=== PATIENT | female | born 1950 | race Caucasian/White ===

== ENCOUNTER → 2016-05-17 | Outpatient (CLI) | payer BC ==
[~2016-05-17] MED LIST: ALPR-557 PO; CETI10TA20 PO; CHLOR-TAB PO; CITA20TA4 PO; DOCU-143 PO; GLUC-113 PO; HYDR-3812 PO; INDA2.5T2 PO; LACT1CAP62 PO; LOSA100T7 PO; MUCINEX NASAL SPRAY; MULT-974 PO; PNT40TEC PO; [UNRECOGNIZED DRUG - CODE] MC
--- NOTE | 2016-05-17 09:19 | Diagnostic Imaging Report ---
PROCEDURE: US abdomen complete. TECHNIQUE: Multiple real-time grayscale images were obtained over the abdomen in various projections. INDICATION: Abdominal pain. FINDINGS: The pancreas appears unremarkable. The abdominal aorta is normal in caliber less than 2.5 cm. The IVC visualized portions appear unremarkable. The liver demonstrates no focal lesion. Hepatopetal flow in the portal vein is seen. The gallbladder demonstrates no stones or wall thickening. No pericholecystic fluid. The spleen is 11.3 cm in length. The right kidney is 10.3 cm, and the left kidney is 13.3 cm in length. No hydronephrosis or focal lesion identified. No ascites or fluid collection is seen. Sonographic Woodson sign reportedly negative. IMPRESSION: Unremarkable exam. Dictated by: Dictated on workstation # [id number]
== END ==
LOC: RAD 06:41
PROVIDERS: ATTEND Internal Medicine
DX: R10.84 Generalized abdominal pain (principal)
CPT/HCPCS: 76700

== ENCOUNTER → 2016-05-28 | Outpatient (CLI) | payer BC ==
[~2016-05-28] MED LIST changes: +CATHETER FLUSH 10 ML SYR IV PRN
--- NOTE | 2016-05-28 14:23 | Diagnostic Imaging Report ---
INDICATION: Abdominal pain. FINDINGS: The patient was administered 5.46 mCi of Tc 99m Choletec and sequential imaging was performed over the right upper abdomen. There is progressive, homogeneous accumulation of radiotracer within the liver parenchyma. There is filling of the bile ducts and subsequent filling of the gallbladder. There is progressive clearance of activity from the liver parenchyma and accumulation of radiotracer within loops of small bowel. The patient was then administered a fatty meal, utilizing 8 ounces of Ensure. The gallbladder ejection fraction was calculated to be approximately 61%. (Normal values with Ensure are 33% or greater.) IMPRESSION: 1. Hepatobiliary scan demonstrates a patent biliary tree. 2. Normal gallbladder ejection fraction of approximately 61%. Dictated by: Dictated on workstation # [id number]
== END ==
LOC: CARD 11:49
PROVIDERS: ATTEND Surgery
DX: R10.11 Right upper quadrant pain (principal)
CPT/HCPCS: 78227

== ENCOUNTER → 2016-12-15 | Outpatient (CLI) | payer BC ==
[~2016-12-15] MED LIST changes: -CATHETER FLUSH 10 ML SYR IV PRN
--- NOTE | 2016-12-16 08:53 | Diagnostic Imaging Report ---
EXAMINATION: Bilateral screening mammogram 2D views with tomosynthesis. The current study was also evaluated with a Computer Aided Detection (CAD) system. INDICATION: Screening. The patient states that she has intermittent right nipple pain. COMPARISON: 03/06/2015. FINDINGS: The breasts are composed of scattered fibroglandular densities. There is architectural distortion in the lateral aspect of the left breast which appears to have been present on multiple prior exams including 2010, suggestive of scarring. No adverse development or new architectural distortion is seen. No mass. Benign-appearing calcifications are noted. Allowing for technique and positional differences, no suspicious change is seen. IMPRESSION: No significant change. The patient states she has right nipple pain. Evaluation with ultrasound is suggested. ACR BI-RADS Category 0: Incomplete. (Needs additional imaging evaluation). Result letter will be mailed to the patient. Note: At least 10% of breast cancer is not imaged by mammography. Dictated by: Dictated on workstation # [id number]
== END ==
LOC: RAD 09:29
PROVIDERS: ATTEND Internal Medicine
DX: Z12.31 Encounter for screening mammogram for malignant neoplasm of breast (principal)
CPT/HCPCS: 77067

== ENCOUNTER 2016-12-16 11:14 | Outpatient (RCR) | payer BC | END 2016-12-18 | disposition home or self-care (01) | PROVIDERS: ATTEND Orthopaedic Surgery | DX: S43.422D Sprain of left rotator cuff capsule, subsequent encounter (principal); X58.XXXD Exposure to other specified factors, subsequent encounter; Y99.8 Other external cause status ==

== ENCOUNTER → 2016-12-28 | Outpatient (CLI) | payer BC ==
--- NOTE | 2016-12-28 11:41 | Diagnostic Imaging Report ---
3 views of the left hand and 3 views of the right hand. INDICATION: Rheumatoid myopathy. Rheumatoid arthritis. FINDINGS: 3 views of the left hand demonstrate osteoarthritis changes of the carpometacarpal joint at the base of the thumb. There is also degenerative change seen of the DIP joint particularly prominent in the left index and to a lesser extent in the left middle finger. No significant arthritic changes are seen otherwise in the hand. Right hand: There are deformities related to subluxation of the PIP and DIP joints noted in the second, third, and fourth digits. There is hypertrophic arthropathy seen with osteophyte formation at the PIP joints of the third and fourth digits and DIP joints of the second and third digits. No significant erosive findings. Subchondral cyst is seen of the distal aspect of the middle phalanx of the second digit. Mild degenerative changes at the carpometacarpal joint at the base of the thumb. There is widening of the interval between the scaphoid and the lunate likely related to scapholunate ligament injury, probably old. This can be better evaluated with dedicated wrist radiographs if needed. IMPRESSION: No erosive changes in a typical pattern and distribution to suggest rheumatoid arthritis. There are some degenerative changes with superimposed deformities along the PIP and DIP joints of the right hand. Findings could relate to degenerative changes with possible superimposed component of possibly arthritis explaining the asymmetric joint involvement with deformities in the DIP and PIP joints of the right hand. Dictated by: Dictated on workstation # [id number]
--- NOTE | 2016-12-28 20:24 | Diagnostic Imaging Report ---
Right breast ultrasound. INDICATION: Right nipple pain. FINDINGS: The four quadrants and retroareolar regions of the right breast were scanned with no underlying abnormality seen. The retroareolar region is also scanned with no underlying lesion seen. IMPRESSION: Negative study. Clinical followup of patient's complaints recommended. ACR BI-RADS Category 1: Negative. Dictated by: Dictated on workstation # [id number]
== END ==
LOC: RAD 08:54
PROVIDERS: ATTEND Internal Medicine
DX: N64.4 Mastodynia (principal); M19.041 Primary osteoarthritis, right hand; M19.042 Primary osteoarthritis, left hand
CPT/HCPCS: 76641

== ENCOUNTER 2017-01-27 11:21 | Outpatient (RCR) | payer BC ==
[~2017-01-27 11:21] MED LIST changes: +ACHD5005 PO; -HYDR-3812 PO
== END 2017-03-17 14:01 | disposition home or self-care (01) ==
PROVIDERS: ATTEND Orthopaedic Surgery
DX: Z47.89 Encounter for other orthopedic aftercare (principal); S43.422D Sprain of left rotator cuff capsule, subsequent encounter

== ENCOUNTER 2017-08-08 11:20 | Outpatient (RCR) | payer BC | END 2017-08-09 | disposition home or self-care (01) | PROVIDERS: ATTEND Orthopaedic Surgery | DX: M75.112 Incomplete rotator cuff tear or rupture of left shoulder, not specified as traumatic (principal) ==

== ENCOUNTER 2017-08-16 11:30 | Outpatient (RCR) | payer BC | END 2017-09-20 10:31 | disposition home or self-care (01) | PROVIDERS: ATTEND Orthopaedic Surgery | DX: M75.112 Incomplete rotator cuff tear or rupture of left shoulder, not specified as traumatic (principal) ==

== ENCOUNTER → 2017-12-19 | Outpatient (CLI) | payer BC ==
--- NOTE | 2017-12-19 11:45 | Diagnostic Imaging Report ---
TECHNIQUE: 2D and 3D bilateral screening mammography was performed with CAD. 3D tomosynthesis was also performed and reviewed. INDICATION: Routine screening. COMPARISON: 12/15/2016 and 03/06/2015. FINDINGS: Scattered fibroglandular densities are identified bilaterally. The parenchymal pattern is stable. No mass or malignant appearing microcalcifications are seen. There are benign calcifications bilaterally. The axillae are unremarkable. IMPRESSION: No mammographic features suspicious for malignancy are identified. ACR BI-RADS Category 2: Benign findings. Result letter will be mailed to the patient. Note: At least 10% of breast cancer is not imaged by mammography. Dictated by: Dictated on workstation # [id number]
== END ==
LOC: RAD 09:52
PROVIDERS: ATTEND Internal Medicine
DX: Z12.31 Encounter for screening mammogram for malignant neoplasm of breast (principal)
CPT/HCPCS: 77067

== ENCOUNTER 2018-01-11 14:30 | Outpatient (CLI) | payer BC | END 2018-01-11 16:00 | disposition home or self-care (01) | LOC: SLEEP 14:30 | PROVIDERS: ATTEND Otolaryngology Otolaryngology/Facial Plastic Surgery | DX: G47.33 Obstructive sleep apnea (adult) (pediatric) (principal) ==

== ENCOUNTER → 2018-12-27 | Outpatient (CLI) | payer MEDICARE ==
--- NOTE | 2018-12-27 16:53 | Diagnostic Imaging Report ---
Bilateral feet. INDICATION: Osteoarthritis TECHNIQUE: Three views of each foot were obtained. COMPARISON: There are no prior studies available for comparison. FINDINGS: There are grossly irregular transverse incompletely healed fractures involving the bases of the 3rd, 4th and 5th metatarsals on the right. There are also incompletely healed fractures of the bases of the 3rd and 4th metatarsals on the left. These fractures do not have the grossly irregular appearance of the injuries involving the right 3rd, 4th and 5th metatarsals. All of these fractures are felt to be subacute or chronic in nature. There is no acute bony abnormality identified. There is deformity of the 5th metacarpal on the left. This may be a sequela of prior trauma. There is only mild degenerative disease involving the phalanges of each foot and each mid foot. There is a calcaneal spur on the left. The soft tissues are unremarkable. IMPRESSION: 1. There is no evidence for an acute bony abnormality. However there are subacute/chronic fractures of the bases of the 3rd, 4th and 5th metatarsals on the right and of the 3rd and 4th metatarsals on the left. The deformity of the left 5th metatarsal is also most likely a sequela of prior trauma. 2. There is only mild degenerative disease involving each foot. There is also a calcaneal spur on the left. Dictated by: Dictated on workstation # [id number]
--- NOTE | 2018-12-27 17:03 | Diagnostic Imaging Report ---
EXAMINATION: Right hand, 3 views. Left hand, 3 views. COMPARISON: December 28, 2016. HISTORY: 68-year-old female, bilateral hand pain. FINDINGS: Left hand: There is mild to moderate joint space loss of the second distal interphalangeal joint with very mild osteophyte formation. There is severe joint space loss of the first carpometacarpal joint with osteophyte formation. There appears to be an area of cystic change in the distal ulna near the level of the ulnar styloid. These findings are essentially unchanged since December 28, 2016. There is very mild osteoarthritis of the third and fourth metacarpophalangeal joints. There is no identified bone erosion. There is no identified subluxation or dislocation. Right hand: There is a prominent subcortical cyst in the region of the radial styloid with adjacent area of ossification which is new since December 28, 2016. There are at least moderate distal radial ulnar arthritic changes. There is abnormal widening of the scapholunate interval. The capitate is proximally migrated. The scaphoid projects abnormal in alignment relative to the distal radius and ulna. There is radial angulation at the second distal interphalangeal joint and less notably at the third distal interphalangeal joint. There is ulnar angulation at the third and fourth proximal interphalangeal joints. There is moderate to severe joint space loss at these articulations with osteophyte formation. These joints are essentially unchanged from comparison study. IMPRESSION: 1. Marked radiocarpal joint space loss with loss of normal alignment of the proximal carpal row relative to the distal radius and ulna on the right. There is abnormal widening of the scapholunate interval with proximal migration of the capitate. New very prominent subcortical cyst in the region of the radial styloid. These findings potentially could relate to sequela of rheumatoid arthritis, calcium pyrophosphate dihydrate deposition disease, and/or posttraumatic etiology. 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 2. Multifocal arthritis and additional abnormal bone alignment is described above. Findings of arthritis at the left first carpometacarpal joint are consistent with severe osteoarthritis. An inflammatory or crystalline arthropathy is difficult to exclude at the additional articulations, especially given abnormal alignment. Dictated by: Dictated on workstation # [id number]
== END ==
LOC: RAD 14:28
PROVIDERS: ATTEND Internal Medicine Rheumatology
DX: M19.041 Primary osteoarthritis, right hand (principal); M19.042 Primary osteoarthritis, left hand; M19.071 Primary osteoarthritis, right ankle and foot; M19.072 Primary osteoarthritis, left ankle and foot; M85.631 Other cyst of bone, right forearm; M77.32 Calcaneal spur, left foot

== ENCOUNTER 2019-01-02 07:14 | Emergency (ER) | payer MEDICARE ==
[~2019-01-02] VITALS: Ht 165 cm; Wt 82.0 kg
--- NOTE | 2019-01-02 08:12 | Diagnostic Imaging Report ---
INDICATION: Feeling of lump on shoulder and left shoulder pain. AP, oblique, and transscapular views of the left shoulder are obtained. There are postsurgical changes with anchors overlying the humeral head. There is minimal distance to the acromion and humeral head, raising the possibility of rotator cuff disease. There is degenerative change of the glenohumeral joint. There is degenerative change of the AC joint with a chronic-appearing calcification superior to the AC joint. There is no dislocation. IMPRESSION: Extensive degenerative and postsurgical changes of left shoulder. No acute fracture or dislocation. Dictated by: Dictated on workstation # [id number]
--- NOTE | 2019-01-02 08:34 | ED General ---
General Chief Complaint: Upper Extremity Stated Complaint: L SHOULDER DISLOCATION Nursing Triage Note: PT STATES FEELS KNOT ON L SHOULDER AND WONDERS IF IS DISLOCATED, PT STATES HAS HAD COUPLE OF SURGERIES ON L SHOULDER DENIES PAIN BUT HAD NUMBNESS THIS AM IN SHOULDER AND DOWN TO CROTCH. BUT IS GONE NOW. PT HAS NORMAL RANGE OF MOTION FOR HER Nursing Sepsis Screen: No Definite Risk Source of Information: Patient Exam Limitations: No Limitations Allergies and Home Medications Allergies Coded Allergies: Sulfa (Sulfonamide Antibiotics) (Unverified Allergy, Unknown, 03/19/14) meperidine (Unverified Allergy, Unknown, 03/19/14) latex (Verified Adverse Reaction, Mild, 10/31/14) morphine (Verified Adverse Reaction, Mild, 10/31/14) Home Medications Alprazolam 0.5 Mg Tab, 0.5 MG PO HS PRN for ANXIETY, (Reported) Citalopram Hydrobromide 20 Mg Tablet, 20 MG PO BID, (Reported) Docusate Sodium 100 Mg Capsule, 100 MG PO BID Prescribed by: LENIN CREWS on 11/07/14 1003 Gluc 2KCL/Chondr/Albert Hy/Hy Ac 1 Each Capsule, 1 EACH PO DAILY, (Reported) Hydrocodone Bit/Acetaminophen 1 Each Tablet, 1 TAB PO Q4H PRN Prescribed by: LENIN CREWS on 11/07/14 1003 Indapamide 2.5 Mg Tablet, 2.5 MG PO DAILY, (Reported) Lactobacillus Acidophilus 1 Each Capsule, 1 EACH PO DAILY, (Reported) Multivitamin 1 Each Tablet, 1 EACH PO DAILY, (Reported) Potassium Sulfate 1 Gm Crystals, 1 GM MC DAILY, (Reported) [Chlor-Tab] , 1 TAB PO DAILY, (Reported) Past Zhjccoz-Ryhmeg-Ewujcy Hx Patient Social History Alcohol Use: Rarely Uses Recreational Drug Use: No Smoking Status: Never a Smoker Recent Foreign Travel: No Contact w/Someone Who Travel: No Recent Infectious Disease Expo: No Recent Hopitalizations: No Physical Abuse: No Sexual Abuse: No Immunizations Up To Date Date of Influenza Vaccine: Jan 21, 2014 Past Medical History Surgeries: Yes (, CARPAL BILAT X2 RIGHT, ESWL, TENDON REPAIR LEFT HAND) Respiratory: Yes (RESPIRATORY ALLERGIES) Sleep Apnea Cardiac: No Neurological: No Reproductive Disorders: No Female Reproductive Disorders: Denies 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 Sexually Transmitted Disease: No HIV/AIDS: No Kidney Stones Gastrointestinal: Yes (OCCASIONALLY TAKES OTC FOR REFLUX, HX OF ADHESIONS) Gastroesophageal Reflux, Chronic Constipation, Diverticulosis, Irritable Bowel Musculoskeletal: Yes (ARTHRITIS) Arthritis, Fibromyalgia Endocrine: Yes (PRE-DIABETIC) Cataract Loss of Vision: Bilateral Hearing Impairment: Denies 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 oz. 98.012621il; 30.00 BMI Method: Progress/Results/Core Measures Suspected Sepsis Recent Fever Within 48 Hours: No Infection Criteria Present: None New/Unexplained Altered Menta: No Sepsis Screen: No Definite Risk SIRS Temperature: Pulse: 71 Respiratory Rate: 18 Blood Pressure 142 /69 Mean: 93 Results/Orders My Orders Orders - WILIAN WEST MD Shoulder, Left, 3 Views (01/02/19 07:41) Vital Signs/I&O 01/02/19 07:22 Temp 36.8 Pulse 71 Resp 18 B/P (MAP) 142/69 (93) Pulse Ox 99 Capillary Refill : Less Than 3 Seconds Blood Pressure Mean: 93 Progress Note : Time: 08:43 Progress Note The area in question near her left AC joint is unlikely corresponding with some arthritic calcifications on the x-ray. By palpation, it may have a cystic c omponent as well. I asked her to follow up with Dr. Noe regarding this area. There may be no treatment necessary since it is not particularly painful or limiting her activities. I also asked her to follow-up with Dr. Chris or Dr. Noe regarding her radicular symptoms. She may need MRI of the cervical spine and possibly the lumbar spine. I'm concerned her may be some degree of stenosis causing the radicular symptoms in the left shoulder and in the legs. We reviewed return precautions. See discharge instructions. Diagnostic Imaging Diagonstic Imaging: Xray Plain Films/CT/US/NM/MRI: other (left shoulder) Comments Left shoulder x-ray viewed by me and report reviewed. See report below: NAME: KEYLA HERNÁNDEZ [facility] REC#: [id number] PT STATUS: REG ER : 1950 PHYSICIAN: WILIAN WEST MD ADMIT DATE: 01/02/19/ER Draft Date of Exam:01/02/19 SHOULDER, LEFT, 3 VIEWS INDICATION: Feeling of lump on shoulder and left shoulder pain. AP, oblique, and transscapular views of the left shoulder are obtained. There are postsurgical changes with anchors overlying the humeral head. There is minimal distance to the acromion and humeral head, raising the possibility of rotator cuff disease. There is degenerative change of the glenohumeral joint. There is degenerative change of the AC joint with a chronic-appearing calcification superior to the AC joint. There is no dislocation. IMPRESSION: Extensive degenerative and postsurgical changes of left shoulder. No acute fracture or dislocation. Dictated on workstation # [id number] Dict: 01/02/19 08 Trans: 01/02/19 08 CV [id number] Interpreted by: KYLEIGH CARRILLO MD Departure Impression Primary Impression: Shoulder arthritis Additional Impressions: Radiculopathy affecting upper extremity Radiculopathy with lower extremity symptoms Disposition: 01 HOME, SELF-CARE Condition: Stable Departure-Patient Inst. Referrals: REGINALD CHRIS DO (PCP/Family) Primary Care Physician Patient Instructions: Osteoarthritis, Radiculopathy Add. Discharge Instructions: Your symptoms of numbness and tingling could be radicular in nature, possibly due to nerve impingements or narrowing of the spinal column. I suggest you follow-up with Dr. Chris or Dr. Noe as soon as possible and discuss evaluating further with MRI studies. Please also follow up with Dr. Noe regarding the arthritic changes in your shoulder. The bump present on your left shoulder is likely due to arthritic calcifications. Return to care if you have worsening symptoms. Return to care promptly if you have weakness of the legs, numbness of the groin, or difficulty controlling bowels or bladder with either incontinence of stool or urine or inability to urinate or produce a bowel movement. All discharge instructions reviewed with patient and/or family. Voiced und erstanding. Copy Copies To 1: VIOLA NOE MD Copies To 2: REGINALD CHRIS JOSHUA T MD Jan 02, 2019 08:34
[2019-01-02 08:48] VITALS: BP 142/69
== END 2019-01-02 08:48 | disposition home or self-care (01) ==
LOC: EDUNIT# 07:14 → ER 07:16
DX: M19.012 Primary osteoarthritis, left shoulder (principal); M54.10 Radiculopathy, site unspecified; K21.9 Gastro-esophageal reflux disease without esophagitis; K58.9 Irritable bowel syndrome, unspecified; M79.7 Fibromyalgia; F41.9 Anxiety disorder, unspecified; Z85.828 Personal history of other malignant neoplasm of skin; Z98.890 Other specified postprocedural states; Z88.2 Allergy status to sulfonamides; Z88.5 Allergy status to narcotic agent; Z91.040 Latex allergy status; Z90.710 Acquired absence of both cervix and uterus; Z87.442 Personal history of urinary calculi
CPT/HCPCS: 73030

== ENCOUNTER 2019-03-30 09:01 | Emergency (ER) | payer MEDICARE ==
[~2019-03-30] VITALS: Ht 165.1 cm; Wt 80.4 kg
--- NOTE | 2019-03-30 10:24 | ED Upper Extremity ---
General Chief Complaint: Upper Extremity Stated Complaint: L SHOULDER PAIN Nursing Triage Note: Pt c/o L shoulder pain, tingling and burning that has persisted since December of last year. Pt reports receiving injections and therapy. Pt reports taking percocet for pain. Pt also concerned about high blood pressure. Nursing Sepsis Screen: No Definite Risk History of Present Illness Date Seen by Provider: Mar 30, 2019 Time Seen by Provider: 09:55 Initial Comments Patient presents to ER by private conveyance with her and chief complaint of reinjury in the past week or 2 of her left shoulder. She's had 2 previous surgeries in the past several years for repair of rotator cuff muscles. She has it in a sling. She is using 1 12:45 half tablet of Percocet once a day to control pain. She is having regular bowel movements using stool softeners. She has good sensation in her fingertips and range of motion of her bilateral upper extremities. She has an appointment April 22 with a surgeon. Previously she was following with Drs. Noe but she wanted to see a different orthopedic surgeon so she had her primary care office and get her set up with this other shoulder surgeon in [place]. She has a litany of other concerns about her hypertension over the past year. Today it runs 130/80. The highest it has been is 170/100 in the previous week. She denies any chest pain, nausea, shortness of breath, weakness, numbness, falls. She says she was recently helping clean out a house of her mother and thinks she overused her left shoulder. He says she has plenty of pain medicines available and does not want anything more potent. Allergies and Home Medications Allergies Coded Allergies: Sulfa (Sulfonamide Antibiotics) (Unverified Allergy, Unknown, 03/19/14) egg (Unverified Allergy, Unknown, 03/30/19) gluten (Unverified Allergy, Unknown, 03/30/19) GI meperidine (Unverified Allergy, Unknown, 03/19/14) mustard (Unverified Allergy, Unknown, Rash, 03/30/19) rash in aquilino area latex (Verified Adverse Reaction, Mild, 10/31/14) morphine (Verified Adverse Reaction, Mild, 10/31/14) Home Medications Alprazolam 0.5 Mg Tab, 0.5 MG PO HS PRN for ANXIETY, (Reported) Citalopram Hydrobromide 20 Mg Tablet, 20 MG PO BID, (Reported) Docusate Sodium 100 Mg Capsule, 100 MG PO BID Prescribed by: LENIN CREWS on 11/07/14 1003 Gluc 2KCL/Chondr/Albert Hy/Hy Ac 1 Each Capsule, 1 EACH PO DAILY, (Reported) Hydrocodone Bit/Acetaminophen 1 Each Tablet, 1 TAB PO Q4H PRN Prescribed by: LENIN CREWS on 11/07/14 100 Indapamide 2.5 Mg Tablet, 2.5 MG PO DAILY, (Reported) Lactobacillus Acidophilus 1 Each Capsule, 1 EACH PO DAILY, (Reported) Multivitamin 1 Each Tablet, 1 EACH PO DAILY, (Reported) Potassium Sulfate 1 Gm Crystals, 1 GM MC DAILY, (Reported) [Chlor-Tab] , 1 TAB PO DAILY, (Reported) Patient Home Medication List Home Medication List Reviewed: Yes Review of Systems Constitutional: No chills, No diaphoresis EENTM: No ear discharge, No ear pain Respiratory: No cough, No short of breath Cardiovascular: No chest pain, No edema Gastrointestinal: No abdominal pain, No constipation, No diarrhea Past Zwoiclb-Mmljzd-Tmplyu Hx Patient Social History Alcohol Use: Denies Use Recreational Drug Use: No 2nd Hand Smoke Exposure: No Recent Foreign Travel: No Contact w/Someone Who Travel: No Recent Infectious Disease Expo: No Recent Hopitalizations: No Immunizations Up To Date Date of Influenza Vaccine: Jan 21, 2014 Past Medical History Surgeries: Yes (CARPAL BILAT X2 RIGHT, ESWL, TENDON REPAIR LEFT HAND, left shoulder) Abdominal, Orthopedic, Renal Respiratory: Yes (RESPIRATORY ALLERGIES) Sleep Apnea Cardiac: Yes Hypertension Neurological: No Reproductive Disorders: No Female Reproductive Disorders: Denies [employer] History: Hysterectomy Sexually Transmitted Disease: No HIV/AIDS: No Kidney Stones Gastrointestinal: Yes (OCCASIONALLY TAKES OTC FOR REFLUX, HX OF ADHESIONS) Gastroesophageal Reflux, Chronic Constipation, Diverticulosis, Irritable Bowel Musculoskeletal: Yes (ARTHRITIS) Arthritis, Fibromyalgia Endocrine: Yes (PRE-DIABETIC) Cataract Loss of Vision: Bilateral Hearing Impairment: Denies Cancer: Yes (BASAL CELL CANCER EYE LID, RIGHT CHEEK) Skin Psychosocial: Yes Anxiety Integumentary: Yes (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 oz. 98.211077ua; 29.00 BMI Method: General Appearance: WD/WN, no apparent distress HEENT: PERRL/EOMI, TMs normal, pharynx normal Neck: full range of motion, normal inspection Cardiovascular: normal peripheral pulses, regular rate, rhythm Respiratory: lungs clear, normal breath sounds, no respiratory distress, no accessory muscle use Gastrointestinal: normal bowel sounds, non tender, soft Shoulder: normal inspection; No bone tenderness; limited ROM (left shoulder), soft tissue tenderness; No swelling Elbow/Forearm: normal inspection, non-tender, no evidence of injury, normal ROM Neurologic/Psychiatric: alert, normal mood/affect, oriented x 3 Skin: normal color, warm/dry Progress/Results/Core Measures Results/Orders Vital Signs/I&O 03/30/19 03/30/19 09:13 10:41 Temp 37.0 37.0 Pulse 80 80 Resp 18 18 B/P (MAP) 132/86 (101) 132/86 (101) Pulse Ox 98 98 O2 Delivery Room Air Room Air Blood Pressure Mean: 101 Progress Progress Note : Time: 10:21 Progress Note Readdressed many of her chronic complaints and encourage her to keep follow-up with her primary care doctor for her blood pressure management which does not seem to be of concern today. She's having no symptoms. She has no history of coronary disease. She has been changing her blood pressure medicines at will in response to individual blood pressure readings. She is not taking her diuretic. Her shoulder examination is benign nontender on palpation while she is distracted however she does have some range of motion limitation secondary to a likely reinjury of an old chronic rotator cuff injury. She has it appropriately slung and has appropriate pain medicines. We offered her a Toradol shot for refill of pain medicines to get her through until her surgery appointment and she declined. 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 We explained to her that this may be the cause of her blood pressure lability and encourage her to follow up with her primary care doctor. We answered all questions she could come up with. Departure Impression Primary Impression: Chronic left shoulder pain Additional Impression: Labile blood pressure Disposition: 01 HOME, SELF-CARE Condition: Stable Departure-Patient Inst. Decision time for Depature: 10:24 Referrals: REGINALD CHRIS DO (PCP/Family) Primary Care Physician Add. Discharge Instructions: Continue to use the sling for your left arm. Continue to use her CPAP and blood pressure medicines as prescribed. Keep your follow-up appointment in [address] Chris and discuss your blood pressure concerns. Keep your follow-up appointment with the surgeon for your left shoulder pain. If you have difficulty controlling your pain despite topical creams, Tylenol, naproxen, Percocet and follow-up with primary care. All discharge instructions reviewed with patient and/or family. Voiced understanding. NATALIYA VAZQUEZ Mar 30, 2019 10:24
[2019-03-30 10:41] VITALS: BP 132/86
== END 2019-03-30 10:41 | disposition home or self-care (01) ==
LOC: EDUNIT# 09:01 → ER 09:02
DX: G89.29 Other chronic pain (principal); M25.512 Pain in left shoulder; I10 Essential (primary) hypertension; K21.9 Gastro-esophageal reflux disease without esophagitis; K58.9 Irritable bowel syndrome, unspecified; M79.7 Fibromyalgia; F41.9 Anxiety disorder, unspecified; Z85.828 Personal history of other malignant neoplasm of skin; Z88.2 Allergy status to sulfonamides; Z88.5 Allergy status to narcotic agent; Z91.040 Latex allergy status; Z90.710 Acquired absence of both cervix and uterus; Z87.442 Personal history of urinary calculi
CPT/HCPCS: 99281

== ENCOUNTER → 2019-04-12 | Outpatient (CLI) | payer MEDICARE ==
--- NOTE | 2019-04-12 11:50 | Diagnostic Imaging Report ---
EXAMINATION: Abdominal ultrasound. INDICATION: Hydronephrosis. FINDINGS: The previous abdominal ultrasound exam of 05/17/2016 failed to show any sign of an acute abnormality of the abdomen. On this exam, the renal pelvis on the left is perhaps slightly more dilated than on the prior exam. There is no evidence for an obstructive calculus or mass. There is no sign of hydronephrosis of the right kidney. There is no solid mass arising from either kidney and the kidneys are normal in size. The liver is homogeneous and not enlarged. Spectral color-flow imaging of the portal vein shows that the vein is patent. There is no focal mass involving the liver. There is no evidence for cholelithiasis or acute cholecystitis and the common bile duct is not dilated. The spleen, inferior vena cava and aorta are within normal limits. The pancreas was not optimally visualized but there is no definite pancreatic abnormality noted. IMPRESSION: 1. There may be mild dilatation of the left renal pelvis. The reason for this is not certain. If further imaging is desired, then CT of the abdomen and pelvis would be recommended. 2. There is no acute abnormality of the abdomen or pelvis noted otherwise. Dictated by: Dictated on workstation # [id number]
== END ==
LOC: RAD 09:22
PROVIDERS: ATTEND Internal Medicine
DX: N13.30 Unspecified hydronephrosis (principal)
CPT/HCPCS: 76700

== ENCOUNTER → 2019-04-24 | Outpatient (CLI) | payer MEDICARE ==
[~2019-04-24] MED LIST changes: +HOLD METFORMIN - RECEIVED CONTRAST 20 ML VIAL IV SCH; +IOHEXOL 350 MG/ML 100 ML (OMNIPAQUE 350) VIAL IV ONE; +NS 100 ML (IVPB) BAG IV ONE
--- NOTE | 2019-04-24 09:58 | Diagnostic Imaging Report ---
EXAMINATION: CT Abdomen and Pelvis with intravenous contrast. TECHNIQUE: Multiple contiguous axial images were obtained through the abdomen and pelvis after the uneventful administration of intravenous contrast. All CT scans use one or more of the following dose optimizing techniques: automated exposure control, MA and/or KvP adjustment based on a patient size and exam type, or iterative reconstruction. HISTORY: Dilated left renal pelvis. COMPARISON: Ultrasound dated 04/12/[address] dated 10/18/2014. FINDINGS: Limited views of the lower thorax are unremarkable. The liver is normal without focal lesion. There is no biliary ductal dilation. Gallbladder is normal. Pancreas is normal. Spleen is normal. Adrenal glands are normal. There are peripelvic cysts in the left kidney which likely is responsible for the appearance of dilated renal pelvis on prior exam. There is no hydronephrosis. Urinary bladder is normal. 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 There has been a rectal resection. No free fluid or air. No abdominal or pelvic lymphadenopathy. Aorta is normal in caliber without aneurysm. There are no suspicious osseous lesions. Moderate anterolisthesis of L4 on L5 is seen related to severe facet arthropathy. IMPRESSION: 1. 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 2. No dilation of left renal pelvis. The appearance of prior ultrasound is due to peripelvic cysts. Dictated by: Dictated on workstation # [id number]
== END ==
LOC: RAD 08:51
PROVIDERS: ATTEND Internal Medicine
DX: N28.89 Other specified disorders of kidney and ureter (principal)
CPT/HCPCS: 74177

== ENCOUNTER → 2020-09-05 | Outpatient (CLI) | payer MEDICARE ==
[~2020-09-05] MED LIST changes: -HOLD METFORMIN - RECEIVED CONTRAST 20 ML VIAL IV SCH; -IOHEXOL 350 MG/ML 100 ML (OMNIPAQUE 350) VIAL IV ONE; -NS 100 ML (IVPB) BAG IV ONE
--- NOTE | 2020-09-05 16:10 | Diagnostic Imaging Report ---
INDICATION: Right wrist pain, fall. TIME OF EXAM: 3:00 p.m. Correlation is made with radiographs from 12/27/2018. Cystic changes of the distal radius and ulna are noted. There is continued progression of scapholunate advanced collapse with more significant proximal migration of the capitate which now articulates with the distal radius. There is marked widening of the scapholunate space. There are cystic changes involving all carpal bones. Metacarpals are intact. There does appear to be some fragmentation upon the dorsum of the carpus on the lateral view which was not present on prior exam. Small chip fractures cannot be entirely excluded. Triquetral fractures can have a similar appearance radiographically. 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 There are fragments noted on the dorsum of the carpus on the lateral view and small fracture fragments cannot be entirely excluded. No other significant abnormality is seen. Dictated by: Dictated on workstation # [id number]
== END ==
LOC: RAD 14:38
PROVIDERS: ATTEND Internal Medicine
DX: M19.031 Primary osteoarthritis, right wrist (principal)
CPT/HCPCS: 73110

== ENCOUNTER → 2020-11-21 | Outpatient (CLI) | payer MEDICARE ==
[~2020-11-21] MED LIST changes: +ALPR0.254 PO; +ASCO500T17 PO; +CALC600T91 PO; +CETI10TA49 PO; +CHLO-159 PO; +CITA20TA9 PO; +GABA300C PO; +GLUC1CAP37 PO; +KRIL1CAP PO; +LOSA25TA41 PO; +LOSA50TA63 PO; +MELA1TAB27 PO; +MULT-1018 PO; +MULT-1136 PO; +OXYC-556 PO; +POTA99TA21 PO; +PREG150C46 PO; +RIBO400T PO; +VNL75T PO
--- NOTE | 2020-11-25 12:39 | Diagnostic Imaging Report ---
Indication: Routine screening. Comparison is made with prior mammogram 12/19/2017 and 12/15/2016. 2-D and 3-D bilateral screening mammography was performed with CAD. Scattered fibroglandular densities are identified bilaterally. Benign calcifications are again noted bilaterally. No mass or malignant appearing microcalcifications are seen. Axillae are unremarkable. IMPRESSION: BI-RADS Category 2 No mammographic features suspicious for malignancy are identified. ACR BI-RADS Category 2: Benign findings. Result letter will be mailed to the patient. Note: At least 10% of breast cancer is not imaged by mammography. Dictated on workstation # [id number]
== END ==
LOC: RAD 15:08
PROVIDERS: ATTEND Internal Medicine
DX: Z12.31 Encounter for screening mammogram for malignant neoplasm of breast (principal)
CPT/HCPCS: 77063; 77067

== ENCOUNTER 2020-11-27 05:31 | Outpatient (RCR) | payer MEDICARE ==
[~2020-11-27] VITALS: Ht 165.1 cm; Wt 77.3 kg
== END 2020-11-27 09:06 | disposition home or self-care (01) ==
LOC: PREOP 05:31
PROVIDERS: ATTEND Podiatrist Foot & Ankle Surgery
DX: Z01.818 Encounter for other preprocedural examination (principal); S92.901K Unspecified fracture of right foot, subsequent encounter for fracture with nonunion; X58.XXXD Exposure to other specified factors, subsequent encounter; M77.31 Calcaneal spur, right foot; Z88.5 Allergy status to narcotic agent; Z88.2 Allergy status to sulfonamides; Z88.8 Allergy status to other drugs, medicaments and biological substances; Z20.822 Contact with and (suspected) exposure to COVID-19
CPT/HCPCS: 87635

== ENCOUNTER 2020-12-01 06:02 | Day surgery (SDC) | payer MEDICARE ==
[2020-12-01] VITALS (8 sets, daily range): BP systolic 99–145; BP diastolic 48–69
[~2020-12-01] VITALS: Ht 165.1 cm; Wt 77.3 kg
[2020-12-01] MEDS ORDERED: ceFAZolin INJECTION 1,000 MG in WATER (STERILE) FOR INJECTION 10 ML IV ONE (06:15)
[2020-12-01] MEDS ORDERED: LACTATED RINGERS 1,000 ML IV PRN (06:15)
[2020-12-01] MEDS ORDERED: LIDOCAINE 1% INJ 20 ML 20 ML VIAL ONE (07:20)
[2020-12-01] MEDS ORDERED: BUPIVACAINE 0.5% 30 ML (SENSORCAINE) VIAL ONE (07:20)
[2020-12-01] MEDS ORDERED: MIDAZOLAM 2 MG/2 ML (VERSED) VIAL ONE (07:23)
[2020-12-01] MEDS ORDERED: LIDOCAINE PF 2% 5 ML (XYLOCAINE) VIAL ONE (07:23)
[2020-12-01] MEDS ORDERED: PROPOFOL INJECTION 50 ML IV ONE (07:23)
--- NOTE | 2020-12-01 07:41 | Progress Note-Pre Operative ---
Pre-Operative Progress Note H&P Reviewed The H&P was reviewed, patient examined and no changes noted. Date Seen by Provider: Dec 01, 2020 Time Seen by Provider: 07:41 Date H&P Reviewed: Dec 01, 2020 Time H&P Reviewed: 07:41 Pre-Operative Diagnosis: Exostosis, non-union fractures, right foot KALPESH CORRAL DPM Dec 01, 2020 07:41
[2020-12-01] MEDS ORDERED: ONDANSETRON 4 MG/2 ML (SDV) Z0FRAN IVP PRN (09:15)
[2020-12-01] MEDS ORDERED: HYDROcodone/APAP 5 MG/325 MG (LORTAB) TAB PO PRN (09:15)
[2020-12-01] MEDS ORDERED: LACTATED RINGERS 1,000 ML IV SCH (09:15)
--- NOTE | 2020-12-01 09:15 | Progress Note-Post Operative ---
Post-Operative Progess Note Surgeon (s)/Lawn Technician (s) Surgeon KALPESH CORRAL DPM Lawn Technician: none Pre-Operative Diagnosis Exostosis, non-union fractures, right foot Post-Operative Diagnosis Same Procedure & Operative Findings Date of Procedure 12/01/20 Procedure Performed/Findings Exostectomy to the right 4th and 5th metatarsals Anesthesia Type MAC Estimated Blood Loss Estimated blood loss (mL): Minimal Specimens/Packing Specimens Removed Bone from right 4th and 5th metatarsal KALPESH CORRAL DPM Dec 01, 2020 09:15
[2020-12-01] MEDS ORDERED: OXYC-556 PO (09:18)
[2020-12-01] MEDS ORDERED: CEPH500C PO (09:18)
--- NOTE | 2020-12-01 09:38 | Anesthesia-General Post-Op ---
MAC Patient Condition Mental Status/LOC: Same as Preop Cardiovascular: Satisfactory Nausea/Vomiting: Absent Respiratory: Satisfactory Pain: Controlled Complications: Absent Post Op Complications Complications None Follow Up Care/Instructions Patient Instructions None needed. Anesthesiology Discharge Order Discharge Order Patient is doing well, no complaints, stable vital signs, no apparent adverse anesthesia problems. JACI HICKS DO Dec 01, 2020 09:38
--- NOTE | 2020-12-01 10:21 | Physical Therapy Ortho Eval ---
PT Orthopedic Evaluation Type of Surgery Exostosis, non-union fractures, right foot Prior Level of Function Current Living Status: Spouse Locomotion (Upon Admit): Independent 4 wheeled walker Subjective Subjective Patient in bed pre tx, agrees to PT, has no complaints of pain at rest. Patient is PWB on the right foot but is able to touch her heel to the floor for balance. Entry Into Home: Stairs Without Railing Steps Into Home: 2 Motor Control Motor Control: Motor Control WNL ROM ROM: WFL Transfer SCALE: Activities may be completed with or without assistive devices. 9-Ubmnhjecmn-ybwlbos completes the activity by him/herself with no assistance from a helper. 5-Set-up or Clean-up Assistance-helper sets up or cleans up; patient completes activity. Cofield assists only prior to or following the activity. 4-Supervision or Touching Assistance-helper provides verbal cues and/or touching/steadying and/or contact guard assistance as patient completes activity. Assistance may be provided throughout the activity or intermittently. 3-Partial/Moderate Assistance-helper does LESS THAN HALF the effort. Cofield lifts, holds or supports trunk or limbs, but provides less than half the effort. 2-Substantial/Maximal Assistance-helper does MORE THAN HALF the effort. Cofield lifts or holds trunk or limbs and provides more than half the effort. 1-Kjlpgreve-uoazcq does ALL the effort. Patient does none of the effort to complete the activity. Or, the assistance of 2 or more helpers is required for the patient to complete the activity. If activity was not attempted, code reason: 7-Patient Refused. 9-Not Applicable-not attempted and the patient did not perform the activity before the current illness, exacerbation or injury. 10-Not Attempted due to Environmental Limitations-(lack of equipment, weather restraints, etc.). 88-Not Attempted due to Medical Conditions or Safety Concerns. Gait Right Lower Extremity: Right Weight Bearing Status RLE: Partial Weight Bearing Left Lower Extremity: Left Weight Bearing Status LLE: Full Weight Bearing Other Weight Bearing Inst.: Heel contact only, right foot Summary/Comments Patient ambulated 100' with a rolling walker with CGA. She also went up and down 1 step using a rolling walker with CGA and cues for foot placement. Patient is unsteady and not compliant with her weight bearing restrictions. Treatment Rendered Treatment: Therapeutic Exercises, Gait Train, Step Train Exercise Instruction: Ankle Pumps Assessment/Goals Goal Time Frame: 1 Visit Understands HEP: Yes Safe Ambulation: No (needs assist) Plan Treatment Plan: Discharge PT/Family Agrees to Plan: Yes Time Time In: 953 Time Out: 1009 Total Billed Treatment Time: 15 Billed Treatment Time 1 visit ANASTACIO 15' MICHAELA SMILEY PT Dec 01, 2020 10:21
--- NOTE | 2020-12-01 10:32 | Diagnostic Imaging Report ---
EXAMINATION: Right foot radiographs, 2 views. COMPARISON: None. HISTORY: 70-year-old female, right foot pain. FINDINGS: There is a lucency in the medial sesamoid which is potentially fractured. Recommend correlation for focal pain at this exact site. 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 There are limitations of the exam relating to the two-view technique. There are fractures involving at least the proximal diaphysis of the fourth and fifth metatarsals with well visualized fracture lines. The proximal aspects of the second and third metatarsals are not well evaluated. There is a potential fracture of the proximal aspect of the third metatarsal. IMPRESSION: 1. Fractures of the proximal diaphysis of the fourth and fifth metatarsals and questionable fracture of the third metatarsal proximally. 2. Substantial limitations of the exam relating to obliquity of imaging and 2 view technique. 3. Possible nondisplaced fracture of the medial sesamoid. Recommend correlation for focal pain at this site. Dictated by: Dictated on workstation # [id number]
--- NOTE | 2020-12-01 16:49 | OPERATIVE REPORT ---
DATE OF SERVICE: 12/01/2020 SURGEON: Heaven Corral DPM. PREOPERATIVE DIAGNOSES: 1. Exostosis, right fourth and fifth metatarsals. 2. Nonunion fractures, right fourth and fifth metatarsals. POSTOPERATIVE DIAGNOSES: 1. Exostosis, right fourth and fifth metatarsals. 2. Nonunion fractures, right fourth and fifth metatarsals. PROCEDURE PERFORMED: Exostectomy to the right fourth and fifth metatarsals. WOUND CLASS: Clean. ANESTHESIA: Monitored anesthesia care. HEMOSTASIS: Pneumatic ankle tourniquet at 250 mmHg. INDICATIONS FOR PROCEDURE: This 70-year-old female presents complaining of a painful right foot, especially with shoe gear and ambulation. The patient is agreeable to surgical intervention after risks and complications were discussed at length. She understands with just simply taking off the bone spur or exostosis will reduce the bony prominence that is hitting in her shoes; however, it will not resolve the chronic fractures to the bones nor will it stop a bone spur from redeveloping and she is willing to proceed. DESCRIPTION OF PROCEDURE: The patient was brought back to the operating table and placed in a secure supine position. Utilizing aseptic technique, a local anesthetic was then administered utilizing 10 mL of 1:1 mixture of 1% Xylocaine, 0.5% Marcaine injected in a local infusion to the fourth and fifth metatarsals of the right foot. The right ankle had a tourniquet placed over several layers of padding. The right foot was then prepped and draped in a normal sterile manner. The right foot was then elevated and allowed to exsanguinate after which the tourniquet was inflated to 250 mmHg. Attention was then directed to the dorsal aspect of the right fourth and fifth metatarsals, where approximately a 3.5 cm longitudinal linear incision was created overlying the respective fourth and fifth metatarsal diaphysis area. The incisions were deepened in the same plane with great care to identify and retract any vital neurovascular structures. Only necessary blood vessels were cauterized as encountered. The incision was deepened down to bone, where a subperiosteal dissection was carried out overlying the fourth and fifth metatarsals. Utilizing a freer elevator, the fracture was identified to the fourth and fifth metatarsals. The transverse fracture with some fibrous tissue interspersed in between the bone fragments. Utilizing a power sagittal saw, the dorsal lateral eminence to the fourth and fifth metatarsal diaphysis spurring was identified and resected. This was followed by use of a hand rasp and a power rasp to contour the bone. In the process of removing the exostosis or bone spur, some white chalky like material was identified at both the fourth and fifth metatarsal fracture area, which was possibly a tophi. The exostosis from the fourth and fifth metatarsal were sent for gross and microscopic evaluation. However, a small sample of the fifth metatarsal was also sent without formalin to evaluate for crystals. Next, utilizing a 0.062 smooth K-wire, the fracture fragments were fenestrated to possibly allow for better blood flow into the fracture area and possibly help with arthrodesis. This was performed to the fourth and fifth metatarsal fractures. The wounds were flushed with copious amounts of normal saline and closure was then performed in layers. Deep closure was performed with 3-0 Vicryl, superficial with 4-0 Vicryl, and skin closure with 4-0 Prolene in a simple interrupted type stitch. Postoperative dressing consisted of Betadine soaked Adaptic, sterile 4 x 4, sterile Kerlix all secured with a Coban wrap. The patient tolerated the anesthesia and procedure well, was transported from the operating room to the recovery room with vital signs stable and vascular status intact to all digits of the right foot. She is to be nonweightbearing to the right forefoot with heel contact only. I encouraged the patient to be off the foot as much as possible. She has a walker at home as well as I believe a knee scooter. We will see him in the office in 10 days' period for followup. She was given a prescription for Keflex as well as oxycodone. Job ID: [id number] DocumentID: [id number] Dictated Date: 12/01/2020 09:27:58 Bus Cleaner Date: 12/01/2020 16:48:55 Dictated By: HEAVEN CORRAL DPM
== END 2020-12-01 10:25 | disposition home or self-care (01) ==
LOC: SDC 06:02
PROVIDERS: ATTEND Podiatrist Foot & Ankle Surgery
DX: D16.31 Benign neoplasm of short bones of right lower limb (principal); S92.341K Displaced fracture of fourth metatarsal bone, right foot, subsequent encounter for fracture with nonunion; S92.351K Displaced fracture of fifth metatarsal bone, right foot, subsequent encounter for fracture with nonunion; I10 Essential (primary) hypertension; G47.33 Obstructive sleep apnea (adult) (pediatric); F41.9 Anxiety disorder, unspecified; M79.7 Fibromyalgia; Z79.899 Other long term (current) drug therapy
CPT/HCPCS: 73620; 87081; 88304; 88311

== ENCOUNTER 2021-06-10 13:33 | Emergency (ER) | payer MEDICARE ==
[~2021-06-10] VITALS: Ht 165 cm; Wt 78.0 kg
[~2021-06-10 13:33] MED LIST changes: +CEPH500C PO; -POTA99TA21 PO; +POTA99TA26 PO
[2021-06-10] MEDS ORDERED: NS IV 500 ML 500 ML IV ONE (13:45)
[2021-06-10] MEDS ORDERED: PANTOPRAZOLE 40 MG (PROTONIX) VIAL IV ONE (13:45)
[2021-06-10] MEDS ORDERED: ONDANSETRON 4 MG/2 ML (SDV) Z0FRAN IVP ONE (13:45)
--- NOTE | 2021-06-10 13:50 | ED GI ---
General Chief Complaint: Abdominal/GI Problems Stated Complaint: NAUSEA Source of Information: Patient Exam Limitations: No Limitations History of Present Illness Date Seen by Provider: Jun 10, 2021 Time Seen by Provider: 13:30 Initial Comments Patient to the ER by private conveyance with her significant other and chief complaint that last night she brought home some fish that she and her son ate. He did not get sick but she has not felt well all morning. She is felt nauseated but no vomiting. No pain. She did have a sigmoid colectomy in the past related to diverticulitis. She still has her appendix and gallbladder intact. She is not feeling distended or bloated. She is able to pass normal stools. She is not having dysuria fevers cough shortness of breath chest pain. No history of coronary disease. She has not tried anything at home yet. Allergies and Home Medications Allergies Coded Allergies: Sulfa (Sulfonamide Antibiotics) (Unverified Allergy, Unknown, 03/19/14) egg (Unverified Allergy, Unknown, 03/30/19) gluten (Unverified Allergy, Unknown, 03/30/19) GI meperidine (Unverified Allergy, Unknown, 03/19/14) latex (Verified Adverse Reaction, Mild, 10/31/14) Patient Home Medication List Home Medication List Reviewed: Yes ALPRAZolam (ALPRAZolam) 0.25 Mg Tablet, 0.25 MG PO HS, (Reported) Entered as Reported by: JULIETH RIOS on 11/25/20 1302 Ascorbic Acid (Vitamin C) 500 Mg Tablet, 500 MG PO DAILY, (Reported) Entered as Reported by: JULIETH RIOS on 11/25/20 1302 Calcium Carbonate (Calcium) 600 Mg Tablet, 600 MG PO DAILY, (Reported) Entered as Reported by: JULIETH RIOS on 11/25/20 1302 Cephalexin (Cephalexin) 500 Mg Capsule, 1 CAP PO TID Prescribed by: KALPESH CORRAL on 12/01/20 0918 Cetirizine HCl (Zyrtec) 10 Mg Tablet, 10 MG PO DAILY, (Reported) Entered as Reported by: JULIETH RIOS on 11/25/20 1302 Chlorpheniramine Maleate (Chlortabs) 4 Mg Tablet, 4 MG PO DAILY PRN for allergies, (Reported) Entered as Reported by: JULIETH RIOS on 11/25/20 130 Citalopram Hydrobromide (Citalopram HBr) 20 Mg Tablet, 20 MG PO BID, (Reported) Entered as Reported by: JULIETH RIOS on 11/25/20 130 Gabapentin (Neurontin) 300 Mg Capsule, 300 MG PO HS, (Reported) Entered as Reported by: JULIETH RIOS on 11/25/20 130 Glucosa Noble 2Kcl/Chondroitin Noble (Glucosamine & Chondroitin Cap) 1 Each Capsule, 1 EACH PO DAILY, (Reported) Entered as Reported by: JULIETH RIOS on 11/25/20 130 Indapamide (Indapamide) 2.5 Mg Tablet, 2.5 MG PO DAILY, (Reported) Entered as Reported by: JULIETH RIOS on 11/25/201301 Krill/Om3/Dha/Epa/Om6/Lip/Astx (Krill Oil 1,000 mg Softgel) 1 Each Capsule, 1 EACH PO DAILY, (Reported) Entered as Reported by: JULIETH RIOS on 11/25/20 130 Lactobacillus Acidophilus (Probiotic) 1 Each Capsule, 1 EACH PO DAILY, (Reported) Entered as Reported by: JULIETH RIOS on 11/25/20 130 Losartan Potassium (Losartan Potassium) 25 Mg Tablet, 25 MG PO DAILY, (Reported) Entered as Reported by: JULIETH RIOS on 11/25/20 130 Losartan Potassium (Losartan Potassium) 50 Mg Tablet, 50 MG PO HS, (Reported) Entered as Reported by: JULIETH RIOS on 11/25/20 130 Melatonin/Pyridoxine HCl (B6) (Melatonin 3 mg Tablet) 1 Each Tablet, 3 MG PO HS, (Reported) Entered as Reported by: JULIETH RIOS on 11/25/20 130 Multivit-Min/Folic Acid/Biotin (Hair, Skin & Nails Caplet) 1 Each Tablet, 1 EACH PO DAILY, (Reported) Entered as Reported by: JULIETH RIOS on 11/25/20 130 Multivitamin (Multivitamin) 1 Each Tablet, 1 EACH PO DAILY, (Reported) Entered as Reported by: JULIETH RIOS on 11/25/20 1302 Oxycodone HCl/Acetaminophen (Oxycodone-Acetaminophen 10-325) 1 Each Tablet, 1 EACH PO BID PRN for PAIN-MODERATE, (Reported) Entered as Reported by: JULIETH RIOS on 11/25/20 1302 Oxycodone HCl/Acetaminophen (Oxycodone-Acetaminophen 10-325) 1 Each Tablet, 1 EACH PO Q8H PRN for PAIN-MODERATE Prescribed by: KALPESH CORRAL on 12/01/20 0920 Potassium Gluconate (Potassium) 99 Mg Tablet, 99 MG PO DAILY, (Reported) Entered as Reported by: JULIETH RIOS on 11/25/20 1302 Pregabalin (Pregabalin) 150 Mg Capsule, 150 MG PO BID, (Reported) Entered as Reported by: JULIETH RIOS on 11/25/20 1302 Riboflavin (Riboflavin) 400 Mg Tablet, 1,200 MG PO BID, (Reported) Entered as Reported by: JULIETH RIOS on 11/25/20 130 Venlafaxine HCl (Venlafaxine HCl) 75 Mg Tab, 75 MG PO BID, (Reported) Entered as Reported by: JULIETH RIOS on 11/25/20 1302 Review of Systems Review of Systems Constitutional: No chills, No diaphoresis EENTM: No Blurred Vision, No Double Vision Respiratory: Denies Cough, Denies Shortness of Air Cardiovascular: Denies Chest Pain, Denies Lightheadedness Gastrointestinal: Denies Constipated, Denies Diarrhea, Denies Nausea Genitourinary: Denies Burning, Denies Discharge Musculoskeletal: No back pain, No joint pain All Other Systems Reviewed Negative Unless Noted: Yes Past Tptmhbw-Fadech-Evfawy Hx Patient Social History Tobacco Use?: No Use of E-Cig and/or Vaping dev: No Substance use?: No Immunizations Up To Date First/Initial COVID19 Vaccinat: 04/24/2020 Second COVID19 Vaccination Shlomo: 05/22/2020 Seasonal Allergies Seasonal Allergies: Yes Past Medical History Surgeries: Yes (CARPAL BILAT X2 RIGHT, TENDON REPAIR LEFT HAND, left shoulder, colon resect) Abdominal, Orthopedic Respiratory: Yes Sleep Apnea Currently Using CPAP: Yes Currently Using BIPAP: No Cardiac: Yes Hypertension Neurological: No Reproductive Disorders: No Female Reproductive Disorders: Denies 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 Sexually Transmitted Disease: No HIV/AIDS: No Genitourinary: Yes Kidney Stones Gastrointestinal: Yes (colon resections HX OF ADHESIONS) Gastroesophageal Reflux, Chronic Constipation, Diverticulosis, Irritable Bowel Musculoskeletal: Yes Arthritis, Fibromyalgia Endocrine: No Cataract Loss of Vision: Bilateral Hearing Impairment: Denies 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 oz. 98.189725vo; 28.35 BMI Method: General Appearance: WD/WN, no apparent distress HEENT: PERRL/EOMI, pharynx normal Neck: full range of motion, supple, normal inspection Respiratory: lungs clear, normal breath sounds, no respiratory distress, no accessory muscle use Cardiovascular: normal peripheral pulses, regular rate, rhythm, no edema Peripheral Pulses: 2+ Dorsalis Pedis (R), 2+ Left Dors-Pedis (L) Gastrointestinal: normal bowel sounds, non tender, soft Extremities: non-tender, normal inspection, normal capillary refill Neurologic/Psychiatric: alert, normal mood/affect, oriented x 3 Skin: normal color, warm/dry Progress/Results/Core Measures Results/Orders Lab Results Laboratory Tests Test 06/10/21 14:12 06/10/21 14:20 Range/Units White Blood Count 5.5 4.3-11.0 10^3/uL Red Blood Count 4.65 3.80-5.11 10^6/uL Hemoglobin 13.6 11.5-16.0 g/dL Hematocrit 41 35-52 % Mean Corpuscular Volume 88 80-99 fL Mean Corpuscular Hemoglobin 29 25-34 pg Mean Corpuscular Hemoglobin Concent 33 32-36 g/dL Red Cell Distribution Width 13.2 10.0-14.5 % Platelet Count 221 130-400 10^3/uL Mean Platelet Volume 10.8 9.0-12.2 fL Immature Granulocyte % (Auto) 0 % Neutrophils (%) (Auto) 74 42-75 % Lymphocytes (%) (Auto) 16 12-44 % Monocytes (%) (Auto) 9 0-12 % Eosinophils (%) (Auto) 1 0-10 % Basophils (%) (Auto) 1 0-10 % Neutrophils # (Auto) 4.1 1.8-7.8 10^3/uL Lymphocytes # (Auto) 0.9 L 1.0-4.0 10^3/uL Monocytes # (Auto) 0.5 0.0-1.0 10^3/uL Eosinophils # (Auto) 0.0 0.0-0.3 10^3/uL Basophils # (Auto) 0.0 0.0-0.1 10^3/uL Immature Granulocyte # (Auto) 0.0 0.0-0.1 10^3/uL Sodium Level 140 135-145 MMOL/L Potassium Level 3.6 3.6-5.0 MMOL/L Chloride Level 107 98-107 MMOL/L Carbon Dioxide Level 22 21-32 MMOL/L Anion Gap 11 5-14 MMOL/L Blood Urea Nitrogen 14 7-18 MG/DL Creatinine 0.73 0.60-1.30 MG/DL Estimat Glomerular Filtration Rate 90 BUN/Creatinine Ratio 19 Glucose Level 90 70-105 MG/DL Calcium Level 9.9 8.5-10.1 MG/DL Corrected Calcium 9.8 8.5-10.1 MG/DL Total Bilirubin 0.7 0.1-1.0 MG/DL Aspartate Amino Transf (AST/SGOT) 25 5-34 U/L Alanine Aminotransferase (ALT/SGPT) 22 0-55 U/L Alkaline Phosphatase 83 40-136 U/L Troponin I < 0.028 <0.028 NG/ML C-Reactive Protein High Sensitivity 0.15 0.00-0.50 MG/DL Total Protein 6.3 L 6.4-8.2 GM/DL Albumin 4.1 3.2-4.5 GM/DL Lipase 34 8-78 U/L Influenza Type A (RT-PCR) Not Detected Not Detecte Influenza Type B (RT-PCR) Not Detected Not Detecte SARS-CoV-2 RNA (RT-PCR) Not Detected Not Detecte My Orders Orders - NATALIYA VAZQUEZ Cbc With Automated Diff (06/10/21 13:45) Comprehensive Metabolic Panel (06/10/21 13:45) Hs C Reactive Protein (06/10/21 13:45) Lipase (06/10/21 13:45) Ed Iv/Invasive Line Start (06/10/21 13:45) Ns Iv 500 Ml (Sodium Chloride 0.9%) (06/10/21 13:45) Pantoprazole Injection (Protonix Injecti (06/10/21 13:45) Ondansetron Injection (Zofran Injectio (06/10/21 13:45) Continuous Ekg Monitoring (06/10/21 13:51) Ekg Tracing (06/10/21 13:51) Troponin I Bea (06/10/21 13:51) Covid 19 Inhouse Test (06/10/21 13:51) Influenza A And B By Pcr (06/10/21 13:51) Medications Given in ED Current Medications Medications Dose Ordered Sig/Carina Route Start Time Stop Time Status Last Admin Dose Admin Ondansetron HCl 8 mg ONCE ONCE IVP 06/10/21 13:45 06/10/21 13:48 DC 06/10/21 14:22 8 MG Pantoprazole 40 mg ONCE ONCE IV 06/10/21 13:45 06/10/21 13:48 DC 06/10/21 14:22 40 MG Sodium Chloride 500 ml @ 0 mls/hr Q0M ONCE IV 06/10/21 13:45 06/10/21 13:48 DC 06/10/21 14:22 999 MLS/HR Vital Signs/I&O 06/10/21 13:36 Temp 36.2 Pulse 76 Resp 18 B/P (MAP) 154/91 (112) Pulse Ox 99 O2 Delivery Room Air Progress Progress Note #1: Time: 13:50 Progress Note Nonsurgical abdomen. We will do some labs give her some nausea medicine and f luids and check an EKG and troponin. Suspect perhaps a preformed toxin or gastroenteritis from a virus. Progress Note #2: Time: 15:27 Progress Note Patient is doing well states her nausea is little better. She says Phenergan seems to work better. We will send her some Phenergan tablets to [facility]. Initial ECG Impression Date: Jun 10, 2021 Initial ECG Impression Time: 13:52 Initial ECG Rate: 66 Initial ECG Rhythm: Normal Sinus Initial ECG Intervals: Normal Initial ECG Impression: Normal Initial ECG Comparisson: No Previous ECG Available Comment Normal sinus rhythm without clinically relevant ST elevation or depression. Departure Impression Primary Impression: Gastroenteritis Disposition: 01 HOME, SELF-CARE Condition: Stable Departure-Patient Inst. Decision time for Depature: 15:28 Referrals: REGINALD CHRIS DO (PCP/Family) Primary Care Physician Patient Instructions: Viral Gastroenteritis, Adult (DC) Add. Discharge Instructions: Phenergan 1 tablet every 6 hours as necessary for nausea or vomiting. If it causes some restlessness then take 25 mg of Benadryl afterwards. All discharge instructions reviewed with patient and/or family. Voiced understanding. Scripts Promethazine HCl (Promethazine Tablet) 25 Mg Tablet 25 MG PO Q6H PRN for NAUSEA/VOMITING, #15 TAB 0 Refills Prov: NATALIYA VAZQUEZ 06/10/21 Copy Copies To 1: REGINALD CHRIS TITUS J Jun 10, 2021 13:50
[2021-06-10 14:38] LABS: BASOPHILS % (AUTO) 1 % (0-10); EOSINOPHILS % (AUTO) 1 % (0-10); HEMATOCRIT 41 % (35-52); HEMOGLOBIN 13.6 g/dL (11.5-16.0); LYMPHOCYTES # (AUTO) 0.9 10^3/uL (1.0-4.0); LYMPHOCYTES % (AUTO) 16 % (12-44); MEAN CORPUSCULAR HEMOGLOBIN 29 pg (25-34); MEAN CORPUSCULAR HGB CONC 33 g/dL (32-36); MEAN CORPUSCULAR VOLUME 88 fL (80-99); MEAN PLATELET VOLUME 10.8 fL (9.0-12.2); MONOCYTES # (AUTO) 0.5 10^3/uL (0.0-1.0); MONOCYTES % (AUTO) 9 % (0-12); NEUTROPHILS # (AUTO) 4.1 10^3/uL (1.8-7.8); NEUTROPHILS % (AUTO) 74 % (42-75); PLATELET COUNT 221 10^3/uL (130-400); WHITE BLOOD COUNT 5.5 10^3/uL (4.3-11.0)
[2021-06-10 14:51] LABS: ALBUMIN 4.1 GM/DL (3.2-4.5); CHLORIDE 107 MMOL/L (98-107); POTASSIUM 3.6 MMOL/L (3.6-5.0); SODIUM 140 MMOL/L (135-145)
[2021-06-10 14:52] LABS: CALCIUM 9.9 MG/DL (8.5-10.1)
[2021-06-10 14:53] LABS: GLUCOSE 90 MG/DL (70-105); TOTAL PROTEIN 6.3 GM/DL (6.4-8.2)
[2021-06-10 14:55] LABS: BILIRUBIN,TOTAL 0.7 MG/DL (0.1-1.0); CARBON DIOXIDE 22 MMOL/L (21-32)
[2021-06-10 14:57] LABS: ALKALINE PHOSPHATASE 83 U/L (40-136); CREATININE SERUM 0.73 MG/DL (0.60-1.30); GFR ESTIMATED 90
[2021-06-10 14:58] LABS: BUN/CREATININE RATIO 19
[2021-06-10 15:00] LABS: ALANINE AMINOTRANSFERASE 22 U/L (0-55); LIPASE 34 U/L (8-78)
[2021-06-10] MEDS ORDERED: PROM25TA14 PO (15:29)
[2021-06-10 15:35] VITALS: BP 154/77
== END 2021-06-10 15:35 | disposition home or self-care (01) ==
LOC: EDUNIT# 13:33 → ER 13:34
DX: K52.9 Noninfective gastroenteritis and colitis, unspecified (principal); Z20.822 Contact with and (suspected) exposure to COVID-19
CPT/HCPCS: 36415; 80053; 83690; 84484; 85025; 86141; 87636; 93005; 96374; 96375

== ENCOUNTER → 2022-01-15 | Outpatient (CLI) | payer MEDICARE ==
[~2022-01-15] MED LIST changes: +PROM25TA14 PO
--- NOTE | 2022-01-15 14:47 | Diagnostic Imaging Report ---
Indication: Routine screening. Comparison is made with prior mammograms 11/21/2020 and 12/19/2017. 2-D and 3-D bilateral screening mammography was performed with CAD. Scattered fibroglandular densities are identified bilaterally. The parenchymal pattern is stable. No mass or malignant-appearing microcalcifications are seen. There are benign calcifications present. Axillae are unremarkable. IMPRESSION: BI-RADS Category 2 No mammographic features suspicious for malignancy are identified. ACR BI-RADS Category 2: Benign findings. Result letter will be mailed to the patient. Note: At least 10% of breast cancer is not imaged by mammography. Dictated by: Dictated on workstation # [id number]
== END ==
LOC: RAD 10:00
PROVIDERS: ATTEND Internal Medicine
DX: Z12.31 Encounter for screening mammogram for malignant neoplasm of breast (principal)
CPT/HCPCS: 77063; 77067

== ENCOUNTER 2022-02-17 09:08 | Inpatient (IN) | payer MEDICARE ==
[~2022-02-17] VITALS: Ht 165.1 cm; Wt 72.8 kg
--- NOTE | 2022-02-17 11:14 | PM&R Post Admission Assessment ---
PM&R Date of Visit: Feb 17, 2022 Time of Visit: 15:00 History of Present Illness CC: Debility following lumbar spine surgery HPI: This is a 71yoWF clinic patient of mine for 18 years who has a h/o HTN and new cognitive decline with depression who presents to ARU after DC from [facility] following an uncomplicated lumbar spine surgery by Dr Joyner. The pain was unrelenting for 2 years and pain injections and medical management had been unsuccessful. Currently she is moving around well but remains impulsive and is a very high fall risk, Bowels have moved and is voiding well. BP has been running low. Past Xdkbubk-Txmprq-Owpree Hx Past Med/Social Hx: Reviewed Nursing Past Med/Soc Hx, Reviewed and Corrections made Patient Social History Marrital Status: Employed/Student: retired Alcohol Use: Denies Use Smoking Status: Never a Smoker 2nd Hand Smoke Exposure: No Recent Hopitalizations: No Immunizations Up To Date Date of Pneumonia Vaccine: Nov 25, 2018 Date of Influenza Vaccine: Jan 22, 2020 Seasonal Allergies Seasonal Allergies: Yes Past Medical History Surgeries: Abdominal, Orthopedic Respiratory: Sleep Apnea Currently Using CPAP: Yes Currently Using BIPAP: No Cardiac: High Cholesterol, Hypertension Neurological: Neuropathy Reproductive: No Sexually Transmitted Disease: No HIV/AIDS: No Female Reproductive Disorders: Denies Hysterectomy Genitourinary: Kidney Stones Gastrointestinal: Gastroesophageal Reflux, Chronic Constipation, Diverticulosis, Irritable Bowel Musculoskeletal: Arthritis, Fibromyalgia HEENT: Cataract Loss of Vision: Bilateral Hearing Impairment: Denies Cancer: Skin What Type of Treatment Did You: Surgical Intervention Psychosocial: Anxiety History of Blood Disorders: No Adverse Reaction to Blood Snow: No PM&R Allergy/Meds/Data Review Allergies Coded Allergies: Sulfa (Sulfonamide Antibiotics) (Unverified Allergy, Unknown, 03/19/14) meperidine (Unverified Allergy, Unknown, 03/19/14) latex (Verified Adverse Reaction, Mild, 10/31/14) Home Medications Scheduled B Complex with Vitamin C (B-Complex with C), 1 EACH PO DAILY, (Reported) Cholecalciferol (Vitamin D3) (Vitamin D3), 50 MCG PO DAILY, (Reported) Citalopram Hydrobromide (Citalopram HBr), 40 MG PO DAILY, (Reported) Hydrochlorothiazide (Hydrochlorothiazide), 25 MG PO DAILY, (Reported) Loratadine (Loratadine), 10 MG PO BID, (Reported) Losartan Potassium (Losartan Potassium), 50 MG PO BID, (Reported) Pregabalin (Pregabalin), 100 MG PO QID, (Reported) Scheduled PRN Alprazolam (Alprazolam), 0.5 MG PO TID PRN for ANXIETY, (Reported) Docusate Sodium (Docusate Sodium), 100 MG PO DAILY PRN for CONSTIPATION-1ST LINE, (Reported) Indapamide (Indapamide), 2.5 MG PO DAILY PRN for BLOOD PRESSURE/EDEMA, (Reported) Meclizine HCl (Meclizine HCl), 25 MG PO TID PRN for DIZZINESS/VERTIGO, (Reported) Naloxone HCl (Naloxone HCl), 1 SPR NS UD PRN for OPIOID OD, (Reported) Oxycodone HCl/Acetaminophen (Endocet 10-325 mg Tablet), 0.5-1 EA PO BID PRN for PAIN-MODERATE (5-7), (Reported) Psyllium Husk (with Sugar) (Metamucil Packet), 1 EA PO DAILY PRN for CONSTIPATION, (Reported) Discontinued Medications ALPRAZolam (ALPRAZolam), 0.25 MG PO HS, (Reported) Discontinued Reason: No Longer Taking Ascorbic Acid (Vitamin C), 500 MG PO DAILY, (Reported) Discontinued Reason: No Longer Taking Calcium Carbonate (Calcium), 600 MG PO DAILY, (Reported) Discontinued Reason: No Longer Taking Cephalexin (Cephalexin), 1 CAP PO TID Discontinued Reason: No Longer Taking Cetirizine HCl (Zyrtec), 10 MG PO DAILY, (Reported) Discontinued Reason: No Longer Taking Chlorpheniramine Maleate (Chlortabs), 4 MG PO DAILY PRN for allergies, (Reported) Discontinued Reason: No Longer Taking Citalopram Hydrobromide (Citalopram HBr), 20 MG PO BID, (Reported) Discontinued Reason: No Longer Taking Gabapentin (Neurontin), 300 MG PO HS, (Reported) Discontinued Reason: No Longer Taking Glucosa Noble 2Kcl/Chondroitin Noble (Glucosamine & Chondroitin Cap), 1 EACH PO DAILY, (Reported) Discontinued Reason: No Longer Taking Indapamide (Indapamide), 2.5 MG PO DAILY, (Reported) Discontinued Reason: No Longer Taking Krill/Om3/Dha/Epa/Om6/Lip/Astx (Krill Oil 1,000 mg Softgel), 1 EACH PO DAILY, (Reported) Discontinued Reason: No Longer Taking Lactobacillus Acidophilus (Probiotic), 1 EACH PO DAILY, (Reported) Discontinued Reason: No Longer Taking Losartan Potassium (Losartan Potassium), 25 MG PO DAILY, (Reported) Discontinued Reason: Duplicate Order Melatonin/Pyridoxine HCl (B6) (Melatonin 3 mg Tablet), 3 MG PO HS, (Reported) Discontinued Reason: No Longer Taking Multivit-Min/Folic Acid/Biotin (Hair, Skin & Nails Caplet), 1 EACH PO DAILY, (Reported) Discontinued Reason: No Longer Taking Multivitamin (Multivitamin), 1 EACH PO DAILY, (Reported) Discontinued Reason: No Longer Taking Oxycodone HCl/Acetaminophen (Oxycodone-Acetaminophen 10-325), 1 EACH PO BID PRN for PAIN-MODERATE, (Reported) Discontinued Reason: No Longer Taking Oxycodone HCl/Acetaminophen (Oxycodone-Acetaminophen 10-325), 1 EACH PO Q8H PRN for PAIN-MODERATE Discontinued Reason: No Longer Taking Potassium Gluconate (Potassium), 99 MG PO DAILY, (Reported) Discontinued Reason: No Longer Taking Pregabalin (Pregabalin), 150 MG PO BID, (Reported) Discontinued Reason: No Longer Taking Promethazine HCl (Promethazine Tablet), 25 MG PO Q6H PRN for NAUSEA/VOMITING Discontinued Reason: No Longer Taking Riboflavin (Riboflavin), 1,200 MG PO BID, (Reported) Discontinued Reason: No Longer Taking Venlafaxine HCl (Venlafaxine HCl), 75 MG PO BID, (Reported) Discontinued Reason: No Longer Taking Current Medications Current Medications Reviewed Review of Systems Constitutional: see HPI, malaise, weakness EENTM: no symptoms reported Respiratory: no symptoms reported Cardiovascular: no symptoms reported Gastrointestinal: no symptoms reported Genitourinary: no symptoms reported Musculoskeletal: back pain, joint pain Skin: no symptoms reported Psychiatric/Neurological: Anxiety, Depressed All Other Systems Reviewed Negative Unless Noted: Yes Physical Exam Physical Exam Vital Signs Capillary Refill : Height, Weight, BMI Height: 5'5.00" Weight: 218lbs. oz. 98.365045ph; 28.00 BMI Method: General Appearance: No Apparent Distress, WD/WN, Chronically ill, Obese Eyes: Bilateral Eye Normal Inspection, Bilateral Eye PERRL HEENT: PERRL/EOMI, Normal ENT Inspection, Pharynx Normal Neck: Full Range of Motion, Normal Inspection, Non Tender, Supple, Carotid Bruit Respiratory: Chest Non Tender, Lungs Clear, Normal Breath Sounds, No Accessory Muscle Use, No Respiratory Distress Cardiovascular: Regular Rate, Rhythm, No Edema, No Gallop, No JVD, No Murmur, Normal Peripheral Pulses Gastrointestinal: Normal Bowel Sounds, No Organomegaly, No Pulsatile Mass, Non Tender, Soft Back: Normal Inspection, Decreased Range of Motion, Muscle Spasm, Vertebral Tenderness Extremity: Normal Capillary Refill, Normal Inspection, Normal Range of Motion, Non Tender, No Calf Tenderness, No Pedal Edema Neurologic/Psychiatric: Alert, Oriented x3, call out clerk II-XII Norm as Tested, Abnormal Gait, Depressed Affect, Motor Weakness Skin: Normal Color, Warm/Dry Lymphatic: No Adenopathy PM&R Medical Assessment & Plan REHAB/MEDICAL ASSESSMENT AND PLAN: REHAB IMPAIRMENT GROUP: Debility ETIOLOGIC DIAGNOSIS: Debility The comorbidities that impact the patients function and/or functional outcome by: cognitive decline, anxiety, impulsive, fall risk REHAB PLAN: The patient is being admitted to our comprehensive inpatient rehabilitation facility and can tolerate the intensity of service consisting of at least: 180 minutes of therapy a day, 5 out of 7 days a week Rehab treatment will consist of: PT OT will focus on regaining function with the use of AD in order to regain independence in order to return home The patient/family has a good understanding of our discharge process and will benefit from an interdisciplinary inpatient rehabilitation program. The patient has potential to make improvement and is in need of at least two of the following multidisciplinary therapies including but not limited to physical, occupational, speech, and prosthetics and orthotics. Additionally the patient will need services from respiratory, nutritional services, wound care, psychology, etc. (Customize this to each patient). Given the patients complex condition and risk of further medical complications, rehabilitation services cannot be safely or effectively provided at a lower level of care such as a alf facility. BARRIERS TO DISCHARGE: Cognitive issues ESTIMATED LOS: 7 days DISPOSITION: Home RELEVANT CHANGES SINCE PREADMISSION SCREENING: I have compared the patients medical and functional status at the time of the preadmission screening and there are: no changes PROGNOSIS: Good REHABILITATION GOALS: 1. PT OT will focus on regaining function with the use of AD in order to regain independence in order to return home All the above goals were reviewed with the patient and he/she is in agreement. By signing this document, I acknowledge that I have personally performed a full physical examination on this patient within 24 hours of admission to this inpatient rehabilitation facility and have determined the patient to be able to tolerate the above course of treatment at an intensive level for a reasonable period of time. I will be completing a detailed individualized Plan of Care for this patient by day #4 of the patients stay based upon the Preadmission Screen, the Post-Admission Evaluation, and the therapy evaluations. Admission Dx/Comorbidities: (1) H/O lumbosacral spine surgery ICD Codes: Z98.890 - Other specified postprocedural states Assessment/Plan Assessment and Plan Assess & Plan/Chief Complaint Assessment: s/p lumbosacral spine surgery KARENA HTN Cognitive decline HLP Borderline DM OA Chronic pain Plan: PT OT Home meds Monitor closely REGINALD CHRIS DO Feb 17, 2022 11:14
[2022-02-17] MEDS ORDERED: ALPRAZolam 0.25 MG (XANAX) TAB PO PRN (11:15)
[2022-02-17] MEDS ORDERED: ONDANSETRON 4 MG (ZOFRAN) ORAL DISSOLVE TAB PO PRN (11:15)
[2022-02-17] MEDS ORDERED: guaiFENesin/CODEINE (ROBITUSSIN AC) 10ML UDC PO PRN (11:15)
[2022-02-17] MEDS ORDERED: LACTULOSE SYRUP 10GM/15ML (ENULOSE) 30ML UDC PO PRN (11:15)
[2022-02-17] MEDS ORDERED: BISACODYL 10 MG SUPP (DULCOLAX) PR PRN (11:15)
[2022-02-17] MEDS ORDERED: LOPERAMIDE 2 MG (IMODIUM) TABLET PO PRN (11:15)
[2022-02-17] MEDS ORDERED: CALCIUM CARBONATE 500 MG (TUMS) TAB.CHEW PO PRN (11:15)
[2022-02-17] MEDS ORDERED: DOCUSATE SODIUM 100 MG (COLACE) CAP PO PRN ×2 (11:15→17:15)
[2022-02-17] MEDS ORDERED: ALPR0.5T7 PO (13:59)
[2022-02-17] MEDS ORDERED: B CO1TAB6 PO (13:59)
[2022-02-17] MEDS ORDERED: MECL-149 PO (13:59)
[2022-02-17] MEDS ORDERED: CHOL200074 PO (13:59)
[2022-02-17] MEDS ORDERED: OXYC-191 PO (13:59)
[2022-02-17] MEDS ORDERED: PREG100C55 PO (13:59)
[2022-02-17] MEDS ORDERED: LORA10TA7 PO (13:59)
[2022-02-17] MEDS ORDERED: NALO4SPR3 NS (13:59)
[2022-02-17] MEDS ORDERED: CITA40TA13 PO (13:59)
[2022-02-17] MEDS ORDERED: HYDR25TA4 PO (13:59)
[2022-02-17] MEDS ORDERED: DOCU100C37 PO (13:59)
[2022-02-17] MEDS ORDERED: PSYL1PAC10 PO (13:59)
[2022-02-17] MEDS ORDERED: INDA2.5T2 PO (14:02)
--- NOTE | 2022-02-17 15:21 | Physical Therapy Evaluation ---
PT Evaluation-General Medical Diagnosis Admission Date Feb 17, 2022 at 14:32 Medical Diagnosis: s/p L3-S1 TLIF/PSF w/ laminectomy Onset Date: Feb 15, 2022 Therapy Diagnosis Therapy Diagnosis: impaired mobility Height/Weight Height (Feet): 5 Height (Inches): 5.00 Weight (Pounds): 218 Precautions Precautions/Isolations: Fall Prevention, Standard Precautions Weight Bear Status Right Lower Extremity: Right Full Weight Bearing Left Lower Extremity: Left Full Weight Bearing lifting restrictions Referral Physician: Sveta Reason for Referral: Evaluation/Treatment Medical History Pertinent Medical History: Arthritis, HTN Additional Medical History Past Medical History Surgeries: Abdominal, Orthopedic Currently Using CPAP: Yes Currently Using BIPAP: No Cardiac: Hypertension Reproductive: No Sexually Transmitted Disease: No HIV/AIDS: No Female Reproductive Disorders: Denies Hysterectomy Genitourinary: Kidney Stones Gastrointestinal: Gastroesophageal Reflux, Chronic Constipation, Diverticulosis, Irritable Bowel Musculoskeletal: Arthritis, Fibromyalgia HEENT: Cataract Loss of Vision: Bilateral Hearing Impairment: Denies Cancer: Skin What Type of Treatment Did You: Surgical Intervention Psychosocial: Anxiety History of Blood Disorders: No Adverse Reaction to Blood Snow: No Reviewed History: Yes Social History Home: Single Level Current Living Status: Spouse Entry Into Home: Stairs Without Railing PT Steps Into Home: 3 Prior Prior Level of Function SCALE: Activities may be completed with or without assistive devices. 7-Mwdykzgbxq-mzwgnad completes the activity by him/herself with no assistance from a helper. 5-Set-up or Clean-up Assistance-helper sets up or cleans up; patient completes activity. Spiro assists only prior to or following the activity. 4-Supervision or Touching Assistance-helper provides verbal cues and/or touching/steadying and/or contact guard assistance as patient completes activity. Assistance may be provided throughout the activity or intermittently. 3-Partial/Moderate Assistance-helper does LESS THAN HALF the effort. Spiro lif ts, holds or supports trunk or limbs, but provides less than half the effort. 2-Substantial/Maximal Assistance-helper does MORE THAN HALF the effort. Spiro lifts or holds trunk or limbs and provides more than half the effort. 0-Xsdvpeuwh-ivalsp does ALL the effort. Patient does none of the effort to complete the activity. Or, the assistance of 2 or more helpers is required for the patient to complete the activity. If activity was not attempted, code reason: 7-Patient Refused. 9-Not Applicable-not attempted and the patient did not perform the activity before the current illness, exacerbation or injury. 10-Not Attempted due to Environmental Limitations-(lack of equipment, weather restraints, etc.). 88-Not Attempted due to Medical Conditions or Safety Concerns. Bed Mobility: 6 Transfers (B,C,W/C): 6 Gait: 6 Stairs: 3 (Min A) Indoor Mobility (Ambulation): Independent Stairs: Needed Some Help Prior Device Use: cane PT Evaluation-Current Subjective Patient dropped off by at front of hospital by PT/OT, reports LBP but did not rate, agrees to PT. Will be co-treated with OT due to patient's fall risk, unsteady ambulation, slightly impulsive, diminished cognition, and recent spinal surgery. Pain Section J - Health Conditions 1. Rarely or not at all 2. Occasionally 3. Frequently 4. Almost constantly 8. Unable to answer Pain Effect on Sleep: 2 Pain Interference with Therapy: 2 Pain Interference w/Day-to-Day: 2 Pt/Family Goals Return to independence at home. Objective Patient Orientation: Person, Place, Situation Attachments: Drains (in Lumbar Spine ) back brace ROM/Strength ROM Lower Extremities WNL Sensory Hearing: Functional Sensation Right Lower Extremit: Intact Sensation Left Lower Extremity: Intact Transfers Roll Left & Right (QC): 4 Sit to Lying (QC): 4 Lying to Sitting/Side of Bed(Q: 4 Sit to Stand (QC): 4 Chair/Zoi-fz-Kmdzl Xfer(QC): 4 Toilet Transfer (QC): 4 Car Transfer (QC): 4 CGA with transfers and bed mobility Gait Does the Patient Walk?: Yes Mode of Locomotion: Walk Anticipated Mode of Locomotion: Walk Walk 10 feet (QC): 4 Walk 50 ft with 2 Turns(QC): 4 Walk 150 ft (QC): 88 Walking 10ft/uneven surface-QC: 4 Distance: 100' Gait Assistive Device: FWW Comments/Gait Description CGA with ambulation, patient walks with scissor gait with excessive trunk rotation and externally rotated hips, slow gait speed, decreased step length. Wheelchair Training Wheel 50 ft with 2 turns (QC): 9 Wheel 150 ft (QC): 9 Stairs #of Steps: 1 1 Step (curb) (QC): 4 4 Steps (QC): 88 12 Steps (QC): 88 Walking Assistive Device: Walker CGA Balance Sitting Static: Normal Sitting Dynamic: Normal Standing Static: Fair Standing Dynamic: Fair Picking up an Object (QC): 4 (CGA with supervisor phosphoric acid arm) Treatment Ambulation, bed mobility, transfers, stairs Assessment/Needs PT did transfers, bed mobility, ambulation, and LE positioning while OT did UE positioning and safety. OT did bathing, brushing teeth, dressing, and UE positioning while PT did LE positioning and safety. Rehab Potential: Fair PT Short Term Goals Short Term Goals Time Frame: Feb 24, 2022 Roll Left & Right: 4 (SBA) Sit to lyin (SBA) Lying to sitting on side of be: 4 (SBA) Sit to stand: 4 (SBA) Chair/pbz-vb-tyvmd transfer: 4 (SBA) Toilet transfer: 4 (SBA) Car transfer: 4 (SBA) Walk 10 feet: 4 (SBA) Walk 50 feet with two turns: 4 (SBA) Walk 150 feet: 4 (SBA) Walking 10ft on uneven surface: 4 (SBA) 1 step (curb): 4 (SBA) Picking up objects: 4 (SBA with arm supervisor phosphoric acid) PT All Round Logger Goals Care Home Goals PT All Round Logger Goals Time Frame: Mar 10, 2022 Roll Left to Right (QC): 6 Sit to Lying (QC): 6 Lying-Sitting on Side/Bed(QC): 6 Sit to Stand (QC): 6 Chair/Zwf-hw-Tbrjy Xfer(QC): 6 Toilet/Commode Transfer (QC): 6 Car Transfer (QC): 6 Walk 10 feet (QC): 6 Walk 10ft-Uneven Surface(QC): 6 Walk 50ft with 2 Turns (QC): 6 Walk 150 ft (QC): 6 Wheel 50 feet with 2 turns (QC: 9 Wheel 150 feet: 9 1 Step (curb) (QC): 6 4 Steps (QC): 6 12 Steps (QC): 88 Picking up an Object (QC): 6 (with supervisor phosphoric acid arm) PT Plan Problem List Problem List: Activity Tolerance, Functional Strength, Safety, Balance, Gait, Transfer, Bed Mobility, ROM Treatment/Plan Treatment Plan: Continue Plan of Care Treatment Plan: Bed Mobility, Education, Functional Activity Enrico, Functional Strength, Group Therapy, Gait, Safety, Therapeutic Exercise, Transfers Treatment Duration: Mar 10, 2022 Frequency: At least 5 of 7 days/Wk (IRF) Estimated Hrs Per Day: 1.5 hours per day Patient and/or Family Agrees t: Yes Safety Risks/Education Patient Education: Gait Training, Transfer Techniques, Steps, Reviewed Precautions, Correct Positioning, Safety Issues Teaching Recipient: Patient Teaching Methods: Demonstration, Discussion Response to Teaching: Reinforcement Needed Discharge Recommendations Plan Patient will perform bed mobility and transfer training, balance and endurance training, functional strengthening, stair training, gait training, and education, to improve functional mobility and independence at home. Therapy Discharge Recommendati: Home & Family, Post Acute PT Time Time In: 1430 Time Out: 1610 DATE: Feb 17, 2022 Total Billed Treatment Time: 90 Total Billed Treatment 1 visit EVM 10' FA 80' PT eval from [id number], OT eval from [id number], co-treat from [id number] MICHAELA SMILEY PT Feb 17, 2022 15:21
--- NOTE | 2022-02-17 16:13 | Occupational Therapy Eval ---
OT Evaluation-General/PLF Medical Diagnosis Admission Date Feb 17, 2022 at 14:32 Medical Diagnosis: s/p L3-S1 TLIF/PSF w/ laminectomy Onset Date: Feb 15, 2022 Therapy Diagnosis Therapy Diagnosis: decreased ADL status Height/Weight Height (Feet): 5 Height (Inches): 5.00 Weight (Pounds): 218 Precautions Precautions/Isolations: Fall Prevention, Standard Precautions Comments Back Brace when OOB. Back Precautions. Colt Haines Drain Weight Bear Status Weight Bearing Restriction: Weight Bearing/Tolerated Referral Physician: Sveta Referral Reason: Evaluation/Treatment Medical History Pertinent Medical History: Arthritis, HTN Additional Medical History HTN, anxiety, arthritis, irritable bowel Current History s/p L3-S1 TLIF/PSF with laminectomy 02/15 Social History Home: Single Level Current Living Status: Spouse Entry Into Home: Stairs Without Railing Steps Into Home: 3 ADL-Prior Level of Function SCALE: Activities may be completed with or without assistive devices. 4-Wipwcvqcfe-yrxqlhd completes the activity by him/herself with no assistance from a helper. 5-Set-up or Clean-up Assistance-helper sets up or cleans up; patient completes activity. Jasper assists only prior to or following the activity. 4-Supervision or Touching Assistance-helper provides verbal cues and/or touching/steadying and/or contact guard assistance as patient completes a ctivity. Assistance may be provided throughout the activity or intermittently. 3-Partial/Moderate Assistance-helper does LESS THAN HALF the effort. Jasper lifts, holds or supports trunk or limbs, but provides less than half the effort. 2-Substantial/Maximal Assistance-helper does MORE THAN HALF the effort. Jasper lifts or holds trunk or limbs and provides more than half the effort. 6-Orlpqzhzk-ettxpb does ALL the effort. Patient does none of the effort to complete the activity. Or, the assistance of 2 or more helpers is required for the patient to complete the activity. If activity was not attempted, code reason: 7-Patient Refused. 9-Not Applicable-not attempted and the patient did not perform the activity before the current illness, exacerbation or injury. 10-Not Attempted due to Environmental Limitations-(lack of equipment, weather restraints, etc.). 88-Not Attempted due to Medical Conditions or Safety Concerns. ADL PLOF Comments Pt reports IND with ADLS and functional mobility at PLOF using SPC. She has a walk in shower without a SC. Self Care: Independent Functional Cognition: Independent OT Current Status Subjective Pt agreeable to OT evaluation and OT/PT cotreat. C/O pain in back throughout tx due to back brace pressing on incision. Pt attempted to reposition clothes in order to solve problem, but still c/o something pressing on her back. Pt did not verbalize pain rating. Pt appears slightly confused during tx, repeating the same story multiple times during session. Pt also required cues to keep back brace on throughout session and had poor recall of instruction to keep back brace on during tx. Frequent redirection to tasks required. Mental Status/Objective Patient Orientation: Person, Confused, Place, Situation Current Hand Dominance: Right Upper Extremity ROM WFL, BUE shoulder flexion to approx 160 degrees Upper Extremity Coordination WFL Upper Extremity Sensation WFL Upper Extremity Strength grossly 4/5, minimal resistance applied due to back precautions. ADL-Treatment Eating (QC): 6 Oral Hygiene (QC): 4 (SBA standing at sink) Shower/Bathe Self (QC): 4 (SBA, pt able to wash/dry all parts. Min VCs for sequencing) Upper Body Dressing (QC): 3 (Min A with adjusting seams of shirt and brace due to rubbing on her back) Lower Body Dressing (QC): 3 (Min A with adjusting waist band of pants due to rubbing on her back) On/Off Footwear (QC): 3 (min A with orientation of sock) Toileting Hygiene (QC): 3 (min A would be required for thoroughness with hygiene.) Pt required frequent VCS for recall of back precautions, and to keep back brace on throughout ADL session. Other Treatments OT evaluation complete. OT/PT cotreat due to skill of 2 clinicians required which a rehabilitation services coordinator could not perform in order to coordinate UE/LEs, decrease fall risk, and due to pt's limitations in strength, activity tolerance, mobility/transfers, and back precautions. OT focused on ADLs, UE placement, cues for sequencing and safety. PT focused on LE placement, gross overall movement, transfers/mobility. Pt completed functional mobility and transfers using FWW, CGA with all transfer and bed mobility, CGA 100' with FWW (noted scissor gait with ambulation). Pt transferred to chair at [facility] where she completed dressing and sponge bath. Pt required frequent redirection to task, cues to adhere to back precautions, and frequent reminders to keep back brace on while performing LE clothing management. Pt c/o seams on clothes, making sure all shirts were inside out when donning. Pt stood at sink to complete oral care then transferred to recliner. Pt c/o pant seam pressing against her back, requests to doff. Pt doffed pants with SBA, but pt still c/o something pressing on her back. OT assisted pt with adjusting tank tops and underwear to a more comfortable position. Pt sat back in recliner, still felt like something is pressing against her back. OT provided education on the structure of the back brace maybe being the cause of pt's issues. Pt adamant that it is her clothes that are the proble m, but she will try to sit for a few minutes to see if issues resolve. Post tx, pt in recliner, call light in reach and all needs met, chair alarm activated. Education OT Patient Education: Correct positioning, Energy conservation, Modified ADL techniques, Progress toward Goal/Update tx plan, Purpose of tx/functional activities, Reviewed precautions, Rehab process, Safety issues, Transfer techniques Teaching Recipient: Patient Teaching Methods: Discussion Response to Teaching: Verbalize Understanding BIMS CAM BIMS Expression of Ideas and Wants: Without Difficulty Understanding Verbal Content: Understands Brief Interview/Mental Status: Yes IRF PATRICE BIMS: IRF PATRICE BIMS Response (Comments) Value Repitition of Three Words Three 3 Recalls Socks Yes, No Cue Required 2 Recalls Blue Yes, No Cue Required 2 Recalls Bed No, Could Not Recall 0 Year Correct 3 Month Accurate Within 5 Days 2 Day Incorrect or No Answer 0 Total [address] Mental [address] No CAM Mental Status Change/Baseline: 0 Inattention: 0 Disorganized thinkin Altered level of consciousness: 0 OT Short Term Goals Short Term Goals Time Frame: Feb 22, 2022 Upper body dressin Lower body dressin OT Mcc Goals Batter Mixer Helper Goals Time Frame: Mar 05, 2022 Acute change in mental status: 0 Inattention: 0 Disorganized thinkin Altered level of consciousness: 0 Eating (QC): 6 Oral Hygiene (QC): 6 Toileting Hygiene (QC): 6 Shower/Bathe Self (QC): 5 Upper Body Dressing (QC): 6 Lower Body Dressing (QC): 6 On/Off Footwear (QC): 6 Additional Goals: 1-Demonstrate ADL Tasks, 2-Verbalize Understanding, 3- ImproveStrength/Enrico 1=Demonstrate adherence to instructed precautions during ADL tasks. 2=Patient will verbalize/demonstrate understanding of assistive devices/modifications for ADL. 3=Patient will improve strength/tolerance for activity to enable patient to perform ADL's. OT Education/Plan Problem List/Assessment Assessment: Decreased Activ Tolerance, Decreased Safety Aware, Decreased UE Strength, Impaired Cognition, Impaired Funct Balance, Impaired I ADL's, Impaired Self-Care Skills Discharge Recommendations Plan/Recommendations: Continue POC Equpiment Recommendations-D/C: Bath Chair Treatment Plan/Plan of Care Patient would benefit from OT for education, treatment and training to promote independence in ADL's, mobility, safety and/or upper extremity function for ADL's. Plan of Care: ADL Retraining, Functional Mobility, Group Exercise/Act as Ind, UE Funct Exercise/Act Treatment Duration: Mar 05, 2022 Frequency: At least 5 of 7 days/Wk (IRF) Estimated Hrs Per Day: 1.5 hours per day Agreement: Yes Rehab Potential: Fair Time Start Time: 14:40 Stop Time: 16:10 DATE: Feb 17, 2022 Total Time Billed (hr/min): 90 Billed Treatment Time OT eval [id number] (10'), Cotreat [id number] (80') 1, EVL (10'), FA (20'), ADL 4 (60') ARLIN OROZCO OT Feb 17, 2022 16:13
[2022-02-17] MEDS ORDERED: [UNRECOGNIZED DRUG - OTHER] PO PRN (17:15)
[2022-02-17] MEDS ORDERED: MECLIZINE 25 MG (ANTIVERT) TAB PO PRN (17:15)
[2022-02-17] MEDS ORDERED: NALOXONE HCL NS PRN (17:15)
[2022-02-17] MEDS ORDERED: INDAPAMIDE 2.5 MG (LOZOL) TAB PO PRN (17:15)
[2022-02-17] MEDS ORDERED: PSYLLIUM HUSK PO PRN (17:15)
[2022-02-17] MEDS ORDERED: PSYLLIUM POWDER (METAMUCIL) 5.8 GM PACKET PO PRN (17:30)
[2022-02-17] MEDS: oxyCODONE/APAP 10/325MG (PERCOCET 10) TABLET PO PRN (17:32)
[2022-02-17 20:00] VITALS: BP 116/49
[2022-02-17] MEDS: LOSARTAN 50 MG (COZAAR) TAB PO SCH (21:23)
[2022-02-17] MEDS: PREGABALIN 100 MG (LYRICA) CAPSULE PO SCH (21:23)
[2022-02-17] MEDS: SENNA W/DOCUSATE (SENOKOT S) TABLET PO SCH (21:23)
[2022-02-17] MEDS: DOCUSATE SODIUM 100 MG (COLACE) CAP PO SCH (21:23)
[2022-02-17] MEDS: LORATADINE (CLARITIN) 10 MG TAB PO SCH (21:23)
[2022-02-17] MEDS: polyethylene glycoL POWDER 17 GM (MIRALAX) PACK PO SCH (21:29)
[2022-02-17] MEDS: ACETAMINOPHEN 325 MG TABLET PO PRN (23:31)
[2022-02-17] MEDS: MELATONIN 3 MG TABLET PO PRN (23:31)
[2022-02-18] MEDS: oxyCODONE/APAP 10/325MG (PERCOCET 10) TABLET PO PRN ×3 (04:51→20:08)
[2022-02-18 05:58] LABS: BASOPHILS % (AUTO) 0 % (0-10); EOSINOPHILS % (AUTO) 0 % (0-10); HEMATOCRIT 28 % (35-52); HEMOGLOBIN 9.2 g/dL (11.5-16.0); LYMPHOCYTES # (AUTO) 0.9 10^3/uL (1.0-4.0); LYMPHOCYTES % (AUTO) 10 % (12-44); MEAN CORPUSCULAR HEMOGLOBIN 29 pg (25-34); MEAN CORPUSCULAR HGB CONC 33 g/dL (32-36); MEAN CORPUSCULAR VOLUME 87 fL (80-99); MEAN PLATELET VOLUME 11.3 fL (9.0-12.2); MONOCYTES % (AUTO) 12 % (0-12); NEUTROPHILS # (AUTO) 6.6 10^3/uL (1.8-7.8); NEUTROPHILS % (AUTO) 77 % (42-75); PLATELET COUNT 209 10^3/uL (130-400); WHITE BLOOD COUNT 8.6 10^3/uL (4.3-11.0)
--- NOTE | 2022-02-18 06:01 | Individualized Plan of Care ---
Individualized Plan of Care Rehab Nursing IPOC Order Admission Date Feb 17, 2022 at 14:32 Current Orders Orders Admission Order(Inpt,Obs,Sdc) (02/17/22 11:11) Vital Signs: Per Unit Policy ( 08,16,00 (02/17/22 11:11) Ranjan Estrella (02/17/22 11:11) Sequential Compression Device (02/17/22 11:11) Mine Development Engineer-Inpt Rehab Con (02/17/22 11:11) Rehab Nursing Orders-Ipoc (02/17/22 11:11) Physical Therapy Rehab Orders (02/17/22 11:11) Occupational Therapy Rehab Ord (02/17/22 11:11) Speech Therapy Rehab Orders (02/17/22 11:11) Cbc With Automated Diff (02/18/22 06:00) Comprehensive Metabolic Panel (02/18/22 06:00) Precautions (Aru) (02/17/22 11:11) Weekly Weight WEEK (02/17/22 11:11) Rehab-Intensity Of Therapy (02/17/22 11:11) Initiate Admission Nursing Pro .admission (02/17/22 11:11) Alprazolam Tablet (Xanax Tablet) (02/17/22 11:15) Calcium Carbonate Chew Tablet (Antacid C (02/17/22 11:15) Diphenhydramine Tablet (Benadryl Tablet) (02/17/22 11:15) Docusate Sodium Capsule (Colace Capsule) (02/17/22 21:00) Docusate Sodium Capsule (Colace Capsule) (02/17/22 11:15) Bisacodyl Suppository (Dulcolax Supposit (02/17/22 11:15) Lactulose Oral Solution (Enulose Oral So (02/17/22 11:15) Na Phos/Na Biphos Enema (Fleet Enema Darion (02/17/22 11:15) Guaifenesin/Codeine Syrup (Robitussin Ac (02/17/22 11:15) Loperamide Tablet (Imodium Tablet) (02/17/22 11:15) Melatonin Tablet (Melatonin Tablet) (02/17/22 11:15) Polyethylene Glycol Powder Pkt (Miralax (02/17/22 21:00) Ondansetron Oral Dissolve Tab (Zofran (02/17/22 11:15) Senna S Tablet (Senokot S Tablet) (02/17/22 21:00) Acetaminophen Tablet/Caplet (Tylenol T (02/17/22 11:15) Code/Resuscitation (02/17/22 11:11) Initiate Admission Nursing Pro .admission (02/17/22 11:11) Admission Arrival Bed Request (02/17/22 14:32) General/Regular (02/17/22 Lunch) Alprazolam Tablet (Xanax Tablet) (02/17/22 17:15) Docusate Sodium Capsule (Colace Capsule) (02/17/22 17:15) Hydrochlorothiazide Cap/Tablet (Hctz Cap (02/18/22 09:00) Indapamide Tablet (Lozol Tablet) (02/17/22 17:15) Loratadine Tablet (Claritin Tablet) (02/17/22 21:00) Losartan Tablet (Cozaar Tablet) (02/17/22 21:00) Meclizine Tablet (Antivert Tablet) (02/17/22 17:15) Oxycodone/Acet 10/325mg Tablet (Percocet (02/17/22 17:15) Pregabalin Capsule (Lyrica Capsule) (02/17/22 21:00) (Nf) B Complex With Vitamin C (B-Complex (02/18/22 09:00) (Nf) Cholecalciferol (Vitamin D3) (Vitam (02/18/22 09:00) (Nf) Citalopram Hydrobromide (Citalopram (02/18/22 09:00) (Nf) Naloxone Hcl (02/17/22 17:15) (Nf) Psyllium Husk (With Sugar) (Metamuc (02/17/22 17:15) Therapeutic Multivitamin Tab (Vitamins, (02/18/22 07:00) Cholecalciferol Capsule/Tablet (Vitamin (02/18/22 09:00) Citalopram Tablet (Celexa Tablet) (02/18/22 09:00) Psyllium Powder (Metamucil Powder) (02/17/22 17:30) Iron Test (Fe) (02/18/22 06:47) Vitamin B 12 (02/18/22 06:47) Patient Visit (02/18/22 ) Treat. Speech/Lang/Voice (02/18/22 ) Speech Sound Lang Comp (02/18/22 ) Rt Request For Service (02/18/22 11:11) Oxycodone/Acet 10/325mg Tablet (Percocet (02/18/22 12:30) Patient Visit (02/18/22 ) Gait Training, Ea 15 Min (02/18/22 ) Exercise Therap, Ea 15 Min (02/18/22 ) Functional Activities, Ea 15 (02/18/22 ) Nursing Communication (Order) (02/18/22 15:36) Request Ot Additional Orders (02/18/22 15:36) Rehab Nursing Orders: Ongoing Assess. of Cognitive Status, Ongoing Assess. of Function Status, Bladder Management, Bladder Scan, Bladder Training, Bowel Management, Bowel Training, Disease Management & Educaiton, DVT Prophylaxis, Fall Prevention, Fluid/Electrolyte/Nutrition Mgmt, Infection Prevention, Medication Management & Education, Management of Risks & Complications, Manage ment of Skin Intergrity, Nutrition Management, Pain Management, Patient/Family Support, Safety Management, Wound Management Intensity of Therapy to be met Patient to be seen: Min.3h per day/5 of 7d PT IPOC Problem List: Activity Tolerance, Functional Strength, Safety, Balance, Gait, Transfer, Bed Mobility, ROM Treatment Plan: Continue Plan of Care Bed Mobility, Education, Functional Activity Enrico, Functional Strength, Gait, Safety, Therapeutic Exercise, Transfers Treatment Duration: Mar 10, 2022 Frequency: At least 5 of 7 days/Wk (IRF) Estimated Hrs Per Day: 1.5 hours per day OT IPOC Problems: Decreased Activ Tolerance, Decreased Safety Aware, Decreased UE Strength, Impaired Cognition, Impaired Funct Balance, Impaired I ADL's, Impaired Self-Care Skills OT Treatment, Training and Edu: Yes Plan of Care: ADL Retraining, Functional Mobility, Group Exercise/Act as Ind, UE Funct Exercise/Act Treatment Duration: Mar 05, 2022 Frequency: At least 5 of 7 days/Wk (IRF) Estimated Hrs Per Day: 1.[address] IPOC Speech Therapy Treatment Plan: Continue Plan of Care Treatment Duration: Feb 18, 2022 Frequency: Modified Program (IRF) Estimated Hrs Per Day: Other Mine Development Engineer/Case Mgmt Mine Development Engineer/Case Managemen: Discharge Planning Dietitian/Electron Beam Welder Dietitian/Electron Beam Welder to monitor nutritional status and make changes and/or recommendations as needed and work with speech pathology on dietary upgrades as the occur. Physician IPOC Medical Issues being managed closely and that require the 24 hour availability of a physician: Recent lumbar spine surgery with complicated pain issues with cognition deficit will require close monitoring and adjustment of meds to prevent decompensation Medical Issues: Bowel/Bladder Function, DVT Prophylaxis, Falls Precautions, Fluid/Electrolyte/Nutrition Balance, Infection Protection, Pain Management, Wound Care Brief Synthesis of Preadmission Screen, Post-Admission Evaluation, and Therapy Evaluations: PT and OT will focus on regaining function with use of assistive devices and focus on fall prevention due to loss of balance chronically in order to return to independent living Medical Prognosis: Good Anticipated Length of Stay: 7 days REGINALD CHRIS DO Feb 18, 2022 06:01
--- NOTE | 2022-02-18 06:01 | PM&R Progress Note ---
Subjective HPI/CC On Admission Date Seen by Provider: Feb 18, 2022 Time Seen by Provider: 12:30 Subjective/Events-last exam 02/18/2022: Patient doing really well Difficult to get comfortable Bowels moved today Reviewed all meds CPAP was used Review of Systems General: Fatigue, Malaise Musculoskeletal: back pain Neurological: Confusion Objective Exam Vital Signs Vital Signs Date Time Temp Pulse Resp B/P (MAP) Pulse Ox O2 Delivery O2 Flow Rate FiO2 02/18/22 21:05 Room Air 02/18/22 20:17 36.4 91 18 125/74 (91) 100 Capillary Refill : General Appearance: No Apparent Distress, WD/WN, Chronically ill, Obese HEENT: PERRL/EOMI, Normal ENT Inspection, Pharynx Normal Neck: Full Range of Motion, Normal Inspection, Non Tender, Supple, Carotid Bruit Respiratory: Chest Non Tender, Lungs Clear, Normal Breath Sounds, No Accessory Muscle Use, No Respiratory Distress Cardiovascular: Regular Rate, Rhythm, No Edema, No Gallop, No JVD, No Murmur, Normal Peripheral Pulses Gastrointestinal: Normal Bowel Sounds, No Organomegaly, No Pulsatile Mass, Non Tender, Soft Back: Normal Inspection, Decreased Range of Motion, Muscle Spasm, Vertebral Tenderness Extremity: Normal Capillary Refill, Normal Inspection, Normal Range of Motion, Non Tender, No Calf Tenderness, No Pedal Edema Neurologic/Psychiatric: Alert, Oriented x3, marketing representative II-XII Norm as Tested, Abnormal Gait, Depressed Affect, Motor Weakness Skin: Normal Color, Warm/Dry Lymphatic: No Adenopathy Results/Procedures Lab Laboratory Tests 02/18/22 05:14 Patient resulted labs reviewed. FIM Transfers Therapy Code Descriptions/Definitions Functional [place] Measure: 0=Not Assessed/NA 4=Minimal Assistance 1=Total Assistance 5=Supervision or Setup 2=Maximal Assistance 6=Modified [place] 3=Moderate Assistance 7=Complete IndependenceSCALE: Activities may be completed with or without assistive devices. 3-Gcuurdeqxt-tbuaenq completes the activity by him/herself with no assistance from a helper. 5-Set-up or Clean-up Assistance-helper sets up or cleans up; patient completes activity. [place] assists only prior to or following the activity. 4-Supervision or Touching Assistance-helper provides verbal cues and/or touching/steadying and/or contact guard assistance as patient completes activ ity. Assistance may be provided throughout the activity or intermittently. 3-Partial/Moderate Assistance-helper does LESS THAN HALF the effort. [place] lifts, holds or supports trunk or limbs, but provides less than half the effort. 2-Substantial/Maximal Assistance-helper does MORE THAN HALF the effort. [place] lifts or holds trunk or limbs and provides more than half the effort. 0-Wwwxtkqug-bzelvz does ALL the effort. Patient does none of the effort to complete the activity. Or, the assistance of 2 or more helpers is required for the patient to complete the activity. If activity was not attempted, code reason: 7-Patient Refused. 9-Not Applicable-not attempted and the patient did not perform the activity before the current illness, exacerbation or injury. 10-Not Attempted due to Environmental Limitations-(lack of equipment, weather restraints, etc.). 88-Not Attempted due to Medical Conditions or Safety Concerns. Roll Left to Right (QC): 4 Sit to Lying (QC): 4 Sit to Stand (QC): 4 Chair/Mqo-lc-Dzjdi Xfer(QC): 4 Car Transfer (QC): 4 Gait Training Does the Patient Walk?: Yes Walk 10 feet (QC): 4 Walk 50 ft with 2 Turns(QC): 4 Walk 150 ft (QC): 88 Walking 10ft/uneven surface-QC: 4 Gait Assistive Device: FWW Wheelchair Training Wheel 50 ft with 2 turns (QC): 9 Wheel 150 ft (QC): 9 Stair Training #of Steps: 1 1 Step (curb) (QC): 4 4 Steps (QC): 88 12 Steps (QC): 88 Balance Picking up an Object (QC): 4 (CGA with wall taper arm) ADL-Treatment Eating (QC): 6 Oral Hygiene (QC): 4 (SBA standing at sink) Shower/Bathe Self (QC): 4 (SBA, pt able to wash/dry all parts. Min VCs for sequencing) Upper Body Dressing (QC): 3 (Min A with adjusting seams of shirt and brace due to rubbing on her back) Lower Body Dressing (QC): 3 (Min A with adjusting waist band of pants due to rubbing on her back) On/Off Footwear (QC): 3 (min A with orientation of sock) Toileting Hygiene (QC): 3 (min A would be required for thoroughness with hygiene.) Assessment/Plan Assessment and Plan Assess & Plan/Chief Complaint Assessment: s/p lumbosacral spine surgery KARENA HTN Cognitive decline HLP Borderline DM OA Chronic pain Plan: PT OT Home meds Monitor closely 02/18/2022: Supportive care Increased pain control (1) H/O lumbosacral spine surgery REGINALD CHRIS DO Feb 18, 2022 06:01
[2022-02-18 06:27] LABS: ALBUMIN 3.1 GM/DL (3.2-4.5); POTASSIUM 3.7 MMOL/L (3.6-5.0)
[2022-02-18 06:28] LABS: CALCIUM 8.9 MG/DL (8.5-10.1)
[2022-02-18 06:29] LABS: TOTAL PROTEIN 5.4 GM/DL (6.4-8.2)
[2022-02-18 06:31] LABS: BILIRUBIN,TOTAL 0.6 MG/DL (0.1-1.0)
[2022-02-18 06:33] LABS: CREATININE SERUM 0.66 MG/DL (0.60-1.30)
[2022-02-18] MEDS: MULTIVIT W/MINERALS TAB (THERAGRAN M) PO SCH (07:20)
--- NOTE | 2022-02-18 07:27 | Physician Query Clarification ---
PQ-Further Specificity Admission/Discharge Admission Date: Feb 17, 2022 at 14:32 Discharge Date: Dr. Bangura, The medical record reflects the following clinical scenario: History/Risk Factors: s/p lumbosacral spine surgery Clinical Findings: motor weakness, fatigue, malaise, abnormal gait, impulsive, fall risk Treatment: IP Rehab Question: Can you further specify the medical condition for the lumbosacral spine surgery per the clinical indicators above? Please document a response in the Progress Notes or Discharge Summary. 3. Other, with explanation of the clinical findings. Please list the medical condition responsible for the lumbosacral spine surgery. 4. Clinically undetermined, no explanation for the clinical findings. PHYSICIAN RESPONSE Can you specify per above: Other, explanation/clinical finding (lumbar stenosis) In responding to this query, please exercise your independent professional judgment. The purpose of this communication is to more accurately reflect the complexity of your patients condition. The fact that a question is asked does not imply that any particular answer is desired or expected. Thank you for your timely response to this clarification. Requestors name: Rodrigo THIS PHYSICIAN QUERY FORM IS A PERMANENT PART OF THE MEDICAL RECORD RODRIGO VALDES Feb 18, 2022 07:26 REGINALD BANGURA DO Feb 18, 2022 08:09
[2022-02-18 07:39] VITALS: BP 135/77
[2022-02-18] MEDS: SENNA W/DOCUSATE (SENOKOT S) TABLET PO SCH ×2 (07:44→20:08)
[2022-02-18] MEDS: LORATADINE (CLARITIN) 10 MG TAB PO SCH ×2 (07:44→20:08)
[2022-02-18] MEDS: DOCUSATE SODIUM 100 MG (COLACE) CAP PO SCH ×2 (07:45→20:08)
[2022-02-18] MEDS: VITAMIN D3 25 MCG (1,000 UNITS) TABLET PO SCH (07:45)
[2022-02-18] MEDS: PREGABALIN 100 MG (LYRICA) CAPSULE PO SCH ×4 (07:46→20:08)
[2022-02-18] MEDS: LOSARTAN 50 MG (COZAAR) TAB PO SCH ×2 (07:46→20:08)
[2022-02-18] MEDS: FLEET ENEMA ADULT 1 EA BTL PR PRN (07:50)
[2022-02-18] MEDS: polyethylene glycoL POWDER 17 GM (MIRALAX) PACK PO SCH ×2 (07:54→21:09)
--- NOTE | 2022-02-18 08:06 | Occupational Ther Daily Note ---
OT Current Status-Daily Note Subjective Pt rates pain in her lower back 5/10 at start of tx, requests pain pill, nurse notified. Able to recall 0/3 back precautions. Later in tx, nurse arrived with pain pill, pt rates pain 3-4/10, and doesn't recall asking for a pain pill. OT clarified Dr's orders, OK for pt to shower. Lifting restriction 10-15lbs Mental Status/Objective Attachments: Other-See Comments (back brace) ADL-Treatment Therapy Code Descriptions/Definitions Functional [place] Measure: 0=Not Assessed/NA 4=Minimal Assistance 1=Total Assistance 5=Supervision or Setup 2=Maximal Assistance 6=Modified [place] 3=Moderate Assistance 7=Complete IndependenceSCALE: Activities may be completed with or without assistive devices. 7-Idyamaanwi-olkvejl completes the activity by him/herself with no assistance from a helper. 5-Set-up or Clean-up Assistance-helper sets up or cleans up; patient completes activity. [place] assists only prior to or following the activity. 4-Supervision or Touching Assistance-helper provides verbal cues and/or touching/steadying and/or contact guard assistance as patient completes activity. Assistance may be provided throughout the activity or intermittently. 3-Partial/Moderate Assistance-helper does LESS THAN HALF the effort. [place] lifts, holds or supports trunk or limbs, but provides less than half the effort. 2-Substantial/Maximal Assistance-helper does MORE THAN HALF the effort. [place] lifts or holds trunk or limbs and provides more than half the effort. 7-Ozwkzegjr-inqtvf does ALL the effort. Patient does none of the effort to complete the activity. Or, the assistance of 2 or more helpers is required for the patient to complete the activity. If activity was not attempted, code reason: 7-Patient Refused. 9-Not Applicable-not attempted and the patient did not perform the activity before the current illness, exacerbation or injury. 10-Not Attempted due to Environmental Limitations-(lack of equipment, weather restraints, etc.). 88-Not Attempted due to Medical Conditions or Safety Concerns. Eating (QC): 6 Oral Hygiene (QC): 4 (SBA) Upper Body Dressing (QC): 3 (Min A with back brace, step by step VCs with brace.) Lower Body Dressing (QC): 4 (CGA in stand for pant hike.) On/Off Footwear: 4 (SBA, min VCS.) Toileting Hygiene (QC): 3 (Min A x2 (once with toilet tongs, once without), CGA x1 (without toilet tongs)) Moderate VCs for sequencing and safety during ADLS. Pt states she will need her 's help with dressing when she goes home. Other Treatment Pt in bathroom with RN upon OT arrival, completed hand washing at sink, SBA, then transferred to recliner, CGA. Pt finished breakfast. OT provided education on toilet tongs to increase independence with toileting. Pt then returned to bathroom, completing toileting x2 more times, dressing, and grooming tasks. Pt required moderate VCs with ADLS for sequencing and safety. Pt unable to recall to use toilet tongs without reminder, completing toileting 1 time with tongs (Min A), and once without (CGA). Pt recalled 0/3 back precautions, OT wrote precautions on dry erase board in pt's room to improve recall. Pt used FWW to therapy gym, CGA. OT tx focused on increasing BUE Strength and activity tolerance. Pt completed fine motor pegboard task, placing x70, 1" pegs into foam pegboard, alternating hands, 1lb wrist weights BUEs. Pt required min-moderate cues to follow instructions to alternate hands. Pt returned to her room using FWW, CGA, transferring to recliner. Post tx, pt in recliner, call light in reach and all needs met. Chair alarm activated. Pt required skilled VCs for sequencing and safety with transfers, SBA-CGA. Noted scissoring gait with mobility. Education OT Patient Education: Correct positioning, Energy conservation, Instructions don/doff splint/brace (back brace), Modified ADL techniques, Progress toward Goal/Update tx plan, Purpose of tx/functional activities, Reviewed precautions, Rehab process, Safety issues, Transfer techniques, Use of adapted equipment (toilet tongs) Teaching Recipient: Patient Response to Teaching: Verbalize Understanding OT Short Term Goals Short Term Goals Time Frame: Feb 22, 2022 Upper body dressin Lower body dressin OT Icu Rn Goals Longterm Goals Time Frame: Mar 05, 2022 Acute change in mental status: 0 Inattention: 0 Disorganized thinkin Altered level of consciousness: 0 Eating (QC): 6 Oral Hygiene (QC): 6 Toileting Hygiene (QC): 6 Shower/Bathe Self (QC): 5 Upper Body Dressing (QC): 6 Lower Body Dressing (QC): 6 On/Off Footwear (QC): 6 Additional Goals: 1-Demonstrate ADL Tasks, 2-Verbalize Understanding, 3- ImproveStrength/Enrico 1=Demonstrate adherence to instructed precautions during ADL tasks. 2=Patient will verbalize/demonstrate understanding of assistive devices/modifications for ADL. 3=Patient will improve strength/tolerance for activity to enable patient to perform ADL's. OT Education/Plan Problem List/Assessment Assessment: Decreased Activ Tolerance, Decreased Safety Aware, Decreased UE Strength, Impaired Funct Balance, Impaired I ADL's, Impaired Self-Care Skills Discharge Recommendations Plan/Recommendations: Continue POC Treatment Plan/Plan of Care Patient would benefit from OT for education, treatment and training to promote independence in ADL's, mobility, safety and/or upper extremity function for ADL's. Plan of Care: ADL Retraining, Functional Mobility, Group Exercise/Act as Ind, UE Funct Exercise/Act Treatment Duration: Mar 05, 2022 Frequency: At least 5 of 7 days/Wk (IRF) Estimated Hrs Per Day: 1.5 hours per day Agreement: Yes Rehab Potential: Fair Time Start Time: 07:45 Stop Time: 09:00 DATE: Feb 18, 2022 Total Time Billed (hr/min): 75 Billed Treatment Time 1, ADL 4 (55'), FA (20') ARLIN OROZCO OT Feb 18, 2022 08:06
[2022-02-18] MEDS: ACETAMINOPHEN 325 MG TABLET PO PRN (08:33)
[2022-02-18] MEDS ORDERED: NON-FORMULARY MEDICATION 1 EA EA (Citalopram Hydrobromide (Citalopram HBr) 40 MG) PO SCH (09:00)
[2022-02-18] MEDS ORDERED: B COMPLEX WITH VITAMIN C PO SCH (09:00)
[2022-02-18] MEDS ORDERED: NON-FORMULARY MEDICATION 1 EA EA (Cholecalciferol (Vitamin D3) (Vitamin D3) 50 MCG) PO SCH (09:00)
--- NOTE | 2022-02-18 10:31 | Physical Therapy Daily Note ---
PT Daily Note-Current Subjective Pt. c/o she has back discomfort but doesnt remember/know why. Pt. reoriented multiple times regarding her back surgery etc. Pt. also comments several times that she is uncomfortable with regards to her underwear, shirt(s) , waist band etc. This required removing the back brace, pulling shirts up and pants down and redressing x 3 trials with pt still not 100% comfortable , pt also c/o her panties are riding up into her labia when she sits and this also was addressed with about 50% success. Pt. rates back pain at 5/10. Pt. asks when we might involve her in the PT Rx as she knows he will need to see how this is done and help her remember about the "right way to walk" Pain Numeric Pain Scale: 5-Moderate Pain Location: Medial Location Body Site: Back Pain Description: Ache Section J - Health Conditions 1. Rarely or not at all 2. Occasionally 3. Frequently 4. Almost constantly 8. Unable to answer Pain Effect on Sleep: 2 Pain Interference with Therapy: 2 Pain Interference w/Day-to-Day: 2 Mental Status Attachments: Other-See Comments (back brace.) pt. with memory issues and apparent sensory issues Transfers SCALE: Activities may be completed with or without assistive devices. 6-Vhjvrkefxk-tuixgfw completes the activity by him/herself with no assistance from a helper. 5-Set-up or Clean-up Assistance-helper sets up or cleans up; patient completes activity. [place] assists only prior to or following the activity. 4-Supervision or Touching Assistance-helper provides verbal cues and/or touching/steadying and/or contact guard assistance as patient completes activity. Assistance may be provided throughout the activity or intermittently. 3-Partial/Moderate Assistance-helper does LESS THAN HALF the effort. [place] lifts, holds or supports trunk or limbs, but provides less than half the effort. 2-Substantial/Maximal Assistance-helper does MORE THAN HALF the effort. [place] lifts or holds trunk or limbs and provides more than half the effort. 6-Dfxnhxtrw-vcuapa does ALL the effort. Patient does none of the effort to complete the activity. Or, the assistance of 2 or more helpers is required for the patient to complete the activity. If activity was not attempted, code reason: 7-Patient Refused. 9-Not Applicable-not attempted and the patient did not perform the activity before the current illness, exacerbation or injury. 10-Not Attempted due to Environmental Limitations-(lack of equipment, weather restraints, etc.). 88-Not Attempted due to Medical Conditions or Safety Concerns. Roll Left & Right (QC): 4 Sit to Lying (QC): 4 Lying to Sitting/Side of Bed(Q: 4 Sit to Stand (QC): 4 Chair/Dkf-xm-Mxdlm Xfer(QC): 4 Toilet Transfer (QC): 4 pt. needed instruction in log roll technique, donning and doffing brace as well as use of hands for sit to stand. a bed side commode was obtained to go over her toilet for increased height making sit to stand more comfortable for her Weight Bearing Right Lower Extremity: Right Full Weight Bearing Left Lower Extremity: Left Full Weight Bearing lifting restrictions Gait Training Does the Patient Walk?: Yes Walk 10 feet (QC): 4 Walk 50 ft with 2 Turns(QC): 4 Gait Persons Needed: 1 Gait Assistive Device: FWW pt. with gait pattern of extreme hip ext rotation, and crossovers vivian with turns, pt. states she has walked this way for a while but realizes she is at risk for falls and in fact has fallen many times. Cuing for gait pattern needed repeated . Pt. at risk for falls. pt. ambulated 50ft x 4 , 75ft x 1 CGA Exercises Seated Therapy Exercises: Ankle pumps, Sit to stand, Long arc quads, Hip flexion, Hip abd/add Seated Reps: 12 Treatments TRFs, toileting, gait EX Assessment Current Status: Fair Progress pt. is distracted by her sensory issues and Rx required rearranging clothng several times. 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 Goals PT [employer] [place] Stockyard Supervisor Goals Time Frame: Mar 10, 2022 Roll Left & Right (QC): 6 Sit to Lying (QC): 6 Lying-Sitting on Side/Bed(QC): 6 Sit to Stand (QC): 6 Chair/Vol-kb-Ucvuu Xfer(QC): 6 Toilet Transfer (QC): 6 Car Transfer (QC): 6 Walk 10 feet (QC): 6 Walk 50ft with 2 Turns (QC): 6 Walk 150 ft (QC): 6 Walking 10ft on Uneven Surface: 6 1 Step (curb) (QC): 6 4 Steps (QC): 6 12 Steps (QC): 88 Picking up an Object (QC): 6 (with electronics installer arm) Wheel 50 feet with 2 turns (QC: 9 Wheel 150 feet: 9 PT Plan Treatment/Plan Treatment Plan: Continue Plan of Care Treatment Plan: Bed Mobility, Education, Functional Activity En[place], Functional Strength, Group Therapy, Gait, Safety, Therapeutic Exercise, Transfers Treatment Duration: Mar 10, 2022 Frequency: At least 5 of 7 days/Wk (IRF) Estimated Hrs Per Day: 1.5 hours per day Patient and/or Family Agrees t: Yes Safety Risks/Education Patient Education: Gait Training, Transfer Techniques, Correct Positioning, Reviewed Don/Doff Brace, Disease Process, Safety Issues Teaching Recipient: Patient Teaching Methods: Demonstration, Discussion Response to Teaching: Verbalize Understanding, Return Demonstration, Reinforcement Needed Time Time In: 930 Time Out: 1030 DATE: Feb 18, 2022 Total Billed Treatment Time: 60 Total Billed Treatment 1,GT30m,EX15m,FA15m MARINA PITTMAN CABIN OUTFITTER Feb 18, 2022 10:31
--- NOTE | 2022-02-18 10:39 | ST Cognitive Linguistic Eval ---
Speech Evaluation-General Medical Diagnosis s/p L3-S1 TLIF/PSF w/Laminectomy Onset Date: Feb 15, 2022 Therapy Diagnosis Therapy Diagnosis: Impaired Cognition (Mild to Moderate) Precautions Precautions: Fall, Pressure Ulcer Precautions/Isolations: Fall Prevention, Standard Precautions Referral Referring Physician: Dr. Bangura Reason for Referral: Evaluation/Treatment Medical History Pertinent Medical History: Arthritis, HTN Current History The patient is a 71 year-old female with a past medical history arthritis, HTN, anxiety, and irritable bowel, who presented to the acute rehabilitation unit following of a L3-S1 TLIF/PSF with laminectomy on 02/15/22. Reviewed History: Yes Social History Current Living Status: Spouse Speech PLF-Current Status Prior Level of Function The patient reported she did not display difficulty with speech, cognition, or language prior to her recent surgical procedure. Currently, the patient stated she feels, "foggy," however, is unable to provide specifics regarding possible cognitive difficulties or decline. Subjective The patient was seated upright in her recliner, awake and alert, upon entrance to her room by the clinician. The patient greeted the clinician appropriately and was agreeable to participation in the cognitive linguistic assessment. Language Eval: Auditory Comprehends Simple Yes/No Ques: Functional Indent/Objects Multiple Garcia: Functional Follows 1-Step Commands: Functional Follows General Conversations: Functional Language Eval: Verbal Language Completes Spontaneous Greeting: Functional Produces Auto, Serial Info: Functional Imitates Simple Words/Phrases: Functional Word Finding: Mild Requests Basic Needs: Functional States Basic Personal Info: Functional Language Evaluation: Reading Follows Simple Written Direct: Functional Language Evaluation: Writing Writes to Simple Dictation: Functional Cognitive Patient Orientation The patient was oriented to self, location, month, and year. The patient was not oriented to the day of the week. The clinician introduced the patient's in-room white board and demonstrated the location where orientation information could be found daily. Objective Cognitive Domain Attention: Mild Memory: Moderate Problem Solving: Moderate Executive Functions: Moderate Visuospatial Skills: WNL Composite Severity Rating: Mild (Mild to Moderate.) Objective Formal/Standardized Tests [facility] Mental Status Exam (UMS) Results The patient displayed a result of +23/30 on the SLUMS correlating to a mild neurocognitive impairment per UMS protocol. Oral Motor/Speech Production The patient does not display dysarthria or apraxia of speech. The patient is 100% intelligible in known and unknown contexts. Impression The patient demonstrated a mild to moderate cognitive impairment most notably in the areas of memory and problem solving. The patient's impairments fluctuated th roughout the evaluation session, displaying increased impairment during extended spontaneous conversation. Speech Short Term Goals Short Term Goals Short Term Goals 1. The patient will display 80% accuracy with orientation information, independently. 2. The patient will demonstrate 80% accuracy with memory exercises, independently. Time Frame-STG: Ten Days. Speech Mens Locker Room Attendant Goals Mens Locker Room Attendant Goals 1. The patient will display cognitive linguistic improvement for safe discharge to the least restrictive environment. Time Frame: Two Weeks. Speech-Plan Treatment Plan Speech Therapy Treatment Plan: Continue Plan of Care Treatment Duration: Mar 05, 2022 Frequency: Modified Program (IRF) Estimated Hrs Per Day: .5 hour per day Rehab Potential: Fair Pt/Family Agrees to Plan: Yes Safety Risks/Education Teaching Recipient: Patient Teaching Methods: Discussion Response to Teaching: Verbalize Understanding, Reinforcement Needed Education Topics Provided: Results, Recommendations, Plan of Care Time Speech Therapy Time In: 09:00 Speech Therapy Time Out: 09:30 DATE: Feb 18, 2022 Total Billed Time: 30 Billed Treatment Time 1, NISHANT [place] [facility] Feb 18, 2022 10:38
--- NOTE | 2022-02-18 13:11 | Physical Therapy Daily Note ---
PT Daily Note-Current Subjective Pt. and present . Pt. very restless and feels her underwear and clothing and socks need to be totally rearranged. This was done and then done again x 2 after pt. attempted to lay down in bed. No c/o LBP Pain Section J - Health Conditions 1. Rarely or not at all 2. Occasionally 3. Frequently 4. Almost constantly 8. Unable to answer Pain Effect on Sleep: 2 Pain Interference with Therapy: 2 Pain Interference w/Day-to-Day: 2 Mental Status Attachments: Other-See Comments (back brace) Transfers SCALE: Activities may be completed with or without assistive devices. 7-Ncuuvlzund-nekkwjm completes the activity by him/herself with no assistance from a helper. 5-Set-up or Clean-up Assistance-helper sets up or cleans up; patient completes activity. Sterling assists only prior to or following the activity. 4-Supervision or Touching Assistance-helper provides verbal cues and/or touching/steadying and/or contact guard assistance as patient completes activity. Assistance may be provided throughout the activity or intermittently. 3-Partial/Moderate Assistance-helper does LESS THAN HALF the effort. Sterling lifts, holds or supports trunk or limbs, but provides less than half the effort. 2-Substantial/Maximal Assistance-helper does MORE THAN HALF the effort. Sterling lifts or holds trunk or limbs and provides more than half the effort. 5-Vryhfsutu-ppgdie does ALL the effort. Patient does none of the effort to complete the activity. Or, the assistance of 2 or more helpers is required for the patient to complete the activity. If activity was not attempted, code reason: 7-Patient Refused. 9-Not Applicable-not attempted and the patient did not perform the activity before the current illness, exacerbation or injury. 10-Not Attempted due to Environmental Limitations-(lack of equipment, weather restraints, etc.). 88-Not Attempted due to Medical Conditions or Safety Concerns. sit to stand, sit to sup to sit x 3 CGA and tactile guidance, rolling in bed multiple trials indep Weight Bearing Right Lower Extremity: Right Full Weight Bearing Left Lower Extremity: Left Full Weight Bearing lifting restrictions Gait Training Does the Patient Walk?: Yes Gait Assistive Device: FWW 30ft x 4 with instruction in gait safety and improved RAÚL and pattern for safety and balance Treatments gait, TRFs, educ with back brace etc, log roll Assessment Current Status: Fair Progress pt. very distracted by sensations of her clothing etc, all clothing is very soft with seams wrong side out to reduce irritation and still pt. is not comfortable, PT Short Term Goals Short Term Goals Time Frame: Feb 24, 2022 Roll Left & Right: 4 (SBA) Sit to lyin (SBA) Lying to sitting on side of be: 4 (SBA) Sit to stand: 4 (SBA) Chair/thy-cn-etrpj transfer: 4 (SBA) Toilet transfer: 4 (SBA) Car transfer: 4 (SBA) Walk 10 feet: 4 (SBA) Walk 50 feet with two turns: 4 (SBA) Walk 150 feet: 4 (SBA) Walking 10ft on uneven surface: 4 (SBA) 1 step (curb): 4 (SBA) Picking up objects: 4 (SBA with arm pocket setter) PT Communication Professor Goals Communication Professor Goals PT Prison Goals Time Frame: Mar 10, 2022 Roll Left & Right (QC): 6 Sit to Lying (QC): 6 Lying-Sitting on Side/Bed(QC): 6 Sit to Stand (QC): 6 Chair/Wxa-wr-Edznf Xfer(QC): 6 Toilet Transfer (QC): 6 Car Transfer (QC): 6 Does the Patient Walk: Yes Walk 10 feet (QC): 6 Walk 50ft with 2 Turns (QC): 6 Walk 150 ft (QC): 6 Walking 10ft on Uneven Surface: 6 1 Step (curb) (QC): 6 4 Steps (QC): 6 12 Steps (QC): 88 Picking up an Object (QC): 6 (with pocket setter arm) Wheel 50 feet with 2 turns (QC: 9 Wheel 150 feet: 9 PT Plan Treatment/Plan Treatment Plan: Continue Plan of Care Treatment Plan: Bed Mobility, Education, Functional Activity Enrico, Functional Strength, Group Therapy, Gait, Safety, Therapeutic Exercise, Transfers Treatment Duration: Mar 10, 2022 Frequency: At least 5 of 7 days/Wk (IRF) Estimated Hrs Per Day: 1.5 hours per day Patient and/or Family Agrees t: Yes Safety Risks/Education Patient Education: Gait Training, Transfer Techniques, Correct Positioning, Rev iewed Don/Doff Brace, Safety Issues Teaching Recipient: Patient Teaching Methods: Demonstration, Discussion Response to Teaching: Verbalize Understanding, Return Demonstration, Reinforcement Needed Time Time In: 1245 Time Out: 1305 DATE: Feb 18, 2022 Total Billed Treatment Time: 20 Total Billed Treatment 1,FA20m MARINA PITTMAN INVESTIGATOR OPERATOR Feb 18, 2022 13:11
--- NOTE | 2022-02-18 15:59 | Progress Note ---
DORIE BRANNON 02/18/22 1559: Progress Note S: Lena Neumann is a 71yo F who continues to be monitored for S/P TLIF surgery, she has expressed complaints of debility and moderate lower back pain rated 8/10 with Tylenol/percocet. Also presents with anemic symptoms of fatigue and lightheadedness. She is anxious to begin moving around more because she "can't stand how much her butt is becoming sore from sitting stationary". O: v/s: T: 37.2 HR: 80 RR: 20 BP: 135/77 SpO2: 95 RA Exam: General Appearance: No Apparent Distress, WD/WN, quiet and withheld Respiratory: Chest Non Tender, Lungs Clear, Normal Breath Sounds, No Accessory Muscle Use, No Respiratory Distress Cardiovascular: Regular Rate, Rhythm, No Edema, No Gallop, No JVD, No Murmur, Normal Peripheral Pulses Gastrointestinal: Normal Bowel Sounds, No Organomegaly, No Pulsatile Mass, Non Tender, Soft Back: Normal Inspection, Decreased Range of Motion, Lumbar tenderness from surgery Extremity: Normal Capillary Refill, Normal Inspection, Normal Range of Motion, Non Tender, No Calf Tenderness, No Pedal Edema Neurologic/Psychiatric: Alert, Oriented x3, skein bleacher II-XII Norm as Tested, Abnormal Gait, Depressed Affect, Motor Weakness Skin: Normal Color, Warm/Dry Lymphatic: No Adenopathy A: s/p lumbosacral spine surgery KARENA HTN Cognitive decline HLP Borderline DM OA Chronic pain P: Increase daily intake of pain medication PT OT Home meds Monitor closely KAMLA CHRIS DO 02/19/22 0452: Supervisory-Addendum Brief Verification & Attestation Participated in pt care: history, MDM, physical Personally performed: exam, history, MDM, supervision of care Care discussed with: Medical Student Procedures: n/a Results interpretation: Verified all documentation Verification and Attestation of Medical Student E/M Service A medical student performed and documented this service in my presence. I reviewed and verified all information documented by the medical student and made modifications to such information, when appropriate. I personally performed the physical exam and medical decision making. Kamla Chris Feb 19, 2022,04:52 DORIE BRANNON Feb 18, 2022 15:59 KAMLA CHRIS DO Feb 19, 2022 04:52
[2022-02-18 20:17] VITALS: BP 125/74
[2022-02-18] MEDS: ALPRAZolam 0.5 MG (XANAX) TAB PO PRN (21:27)
[2022-02-19] MEDS: oxyCODONE/APAP 10/325MG (PERCOCET 10) TABLET PO PRN ×5 (01:12→22:07)
[2022-02-19] MEDS: MULTIVIT W/MINERALS TAB (THERAGRAN M) PO SCH (05:58)
[2022-02-19] MEDS: LORATADINE (CLARITIN) 10 MG TAB PO SCH ×2 (07:40→20:01)
[2022-02-19] MEDS: SENNA W/DOCUSATE (SENOKOT S) TABLET PO SCH ×2 (07:40→20:00)
[2022-02-19] MEDS: VITAMIN D3 25 MCG (1,000 UNITS) TABLET PO SCH (07:40)
[2022-02-19] MEDS: LOSARTAN 50 MG (COZAAR) TAB PO SCH ×2 (07:40→20:00)
[2022-02-19] MEDS: PREGABALIN 100 MG (LYRICA) CAPSULE PO SCH ×4 (07:40→20:01)
[2022-02-19] MEDS: DOCUSATE SODIUM 100 MG (COLACE) CAP PO SCH ×2 (07:40→20:00)
[2022-02-19 07:41] VITALS: BP 115/68
[2022-02-19] MEDS: FLEET ENEMA ADULT 1 EA BTL PR PRN (07:41)
[2022-02-19] MEDS: polyethylene glycoL POWDER 17 GM (MIRALAX) PACK PO SCH ×2 (08:27→20:00)
--- NOTE | 2022-02-19 08:39 | Occupational Ther Daily Note ---
OT Current Status-Daily Note Subjective Pt in bathroom with RN, just had an enema. Pt agreeable to OT Tx, c/o pain in lower back but does not provide verbal pain rating. OT recommends pt's come in for family training, with focus on assistance level required with dressing tasks and education on back brace/precautions. OT notified lead Jamin combs, of request for family training. Mental Status/Objective Patient Orientation: Person, Confused, Place, Situation ADL-Treatment Therapy Code Descriptions/Definitions Functional [place] Measure: 0=Not Assessed/NA 4=Minimal Assistance 1=Total Assistance 5=Supervision or Setup 2=Maximal Assistance 6=Modified [place] 3=Moderate Assistance 7=Complete IndependenceSCALE: Activities may be completed with or without assistive devices. 3-Dcslsexhhq-ckyzlqc completes the activity by him/herself with no assistance from a helper. 5-Set-up or Clean-up Assistance-helper sets up or cleans up; patient completes activity. [place] assists only prior to or following the activity. 4-Supervision or Touching Assistance-helper provides verbal cues and/or touching/steadying and/or contact guard assistance as patient completes activity. Assistance may be provided throughout the activity or intermittently. 3-Partial/Moderate Assistance-helper does LESS THAN HALF the effort. Rigby lifts, holds or supports trunk or limbs, but provides less than half the effort. 2-Substantial/Maximal Assistance-helper does MORE THAN HALF the effort. Rigby lifts or holds trunk or limbs and provides more than half the effort. 4-Qvbkaimcc-ofglfl does ALL the effort. Patient does none of the effort to complete the activity. Or, the assistance of 2 or more helpers is required for the patient to complete the activity. If activity was not attempted, code reason: 7-Patient Refused. 9-Not Applicable-not attempted and the patient did not perform the activity before the current illness, exacerbation or injury. 10-Not Attempted due to Environmental Limitations-(lack of equipment, weather restraints, etc.). 88-Not Attempted due to Medical Conditions or Safety Concerns. Oral Hygiene (QC): 4 (SBA, VC to locate water cup) Upper Body Dressing (QC): 3 (Min A with adjusting clothes to comfort. Max VCs for orientations of tanks/gown) Lower Body Dressing (QC): 3 (Min A with adjusting clothes to comfort.) On/Off Footwear: 4 (SBA, VC to follow back precautions and use propellant charge zone assembler to hop picker shoes from floor.) Toileting Hygiene (QC): 3 (Min A) VCs for sequencing with ADLs and for adhering to back precautions. Other Treatment Pt completed toileting, transferred to recliner to complete dressing. Pt completed dressing, donning a night gown and threading underwear. Pt doesn't like seam of underwear without a tank top, so pt doffed gown, donned 2 tank tops, night gown and back brace. Pt required step by step VCs for sequencing of tasks, max VCs for orientation of tank tops and nightgown. Pt had to remove UE dressing materials multiple times in order to don correctly. Pt able to doff/don back brace 3 times, step by step VCs each time. Pt used FWW to stand at sink for oral care, SBA. 1 VC required to locate water cup for rinsing. Pt transferred to EOB to don shoes, unable to recall back precautions. OT educated pt on using a propellant charge zone assembler to hop picker shoes from floor. Pt used FWW to perform functional mobility to therapy gym, SBA. OT Tx focused on increasing BUE strength, activity tolerance, and fine motor strength. Pt completed fine motor pegboard task, requiring BUE reaching, 1lb wrist weights applied bilaterally. Pt required min VCs to follow instructions (alternating hands, and only grasping 1 peg at a time from container). Pt able to place x100 pegs into pegboard. Pt returned to her room using FWW, SBA. Pt unable to recall room number or location of hospital room, requiring instruction for direction. Post tx, pt in recliner, call light in reach and all needs met, chair alarm activated. Education OT Patient Education: Correct positioning, Energy conservation, Exercise program, Modified ADL techniques, Progress toward Goal/Update tx plan, Purpose of tx/functional activities, Reviewed precautions, Rehab process, Safety issues, Transfer techniques, Use of adapted equipment Teaching Recipient: Patient Teaching Methods: Discussion Response to Teaching: Reinforcement Needed OT Short Term Goals Short Term Goals Time Frame: Feb 22, 2022 Upper body dressin Lower body dressin OT Care Home Goals Care Home Goals Time Frame: Mar 05, 2022 Acute change in mental status: 0 Inattention: 0 Disorganized thinkin Altered level of consciousness: 0 Eating (QC): 6 Oral Hygiene (QC): 6 Toileting Hygiene (QC): 6 Shower/Bathe Self (QC): 5 Upper Body Dressing (QC): 6 Lower Body Dressing (QC): 6 On/Off Footwear (QC): 6 Additional Goals: 1-Demonstrate ADL Tasks, 2-Verbalize Understanding, 3- ImproveStrength/Enrico 1=Demonstrate adherence to instructed precautions during ADL tasks. 2=Patient will verbalize/demonstrate understanding of assistive devices/modifications for ADL. 3=Patient will improve strength/tolerance for activity to enable patient to perform ADL's. OT Education/Plan Problem List/Assessment Assessment: Decreased Activ Tolerance, Decreased Safety Aware, Decreased UE Strength, Impaired Cognition, Impaired Funct Balance, Impaired I ADL's, Impaired Self-Care Skills Discharge Recommendations Plan/Recommendations: Continue POC Therapy Discharge Recommendati: 24 Hour Supervision Comment At this time, OT recommends family training with focus on ADLs and back brace/precautions. 24/7 supervision recommended at this time for safety, sequencing, and adhering to back precautions. Treatment Plan/Plan of Care Patient would benefit from OT for education, treatment and training to promote independence in ADL's, mobility, safety and/or upper extremity function for ADL's. Plan of Care: ADL Retraining, Functional Mobility, Group Exercise/Act as Ind, U E Funct Exercise/Act Treatment Duration: Mar 05, 2022 Frequency: At least 5 of 7 days/Wk (IRF) Estimated Hrs Per Day: 1.5 hours per day Agreement: Yes Rehab Potential: Fair Time Start Time: 07:45 Stop Time: 09:00 DATE: Feb 19, 2022 Total Time Billed (hr/min): 75 Billed Treatment Time 1, ADL 3 (45'), FA 2 (30') ARLIN OROZCO OT Feb 19, 2022 08:39
[2022-02-19] MEDS: ACETAMINOPHEN 325 MG TABLET PO PRN (09:20)
--- NOTE | 2022-02-19 10:34 | PM&R Progress Note ---
Subjective HPI/CC On Admission Date Seen by Provider: Feb 19, 2022 Time Seen by Provider: 10:00 Subjective/Events-last exam 02/19/2022: Pt is doing pretty well Abdominal cramps are present but bowels are moving a little bit Pain is pretty well controlled now 02/18/2022: Patient doing really well Difficult to get comfortable Bowels moved today Reviewed all meds CPAP was used Review of Systems General: Fatigue, Malaise Objective Exam Vital Signs Vital Signs Date Time Temp Pulse Resp B/P (MAP) Pulse Ox O2 Delivery O2 Flow Rate FiO2 02/19/22 20:00 37.3 74 18 132/60 (84) 96 Room Air Capillary Refill : General Appearance: No Apparent Distress, WD/WN, Chronically ill, Obese HEENT: PERRL/EOMI, Normal ENT Inspection, Pharynx Normal Neck: Full Range of Motion, Normal Inspection, Non Tender, Supple, Carotid Bruit Respiratory: Chest Non Tender, Lungs Clear, Normal Breath Sounds, No Accessory Muscle Use, No Respiratory Distress Cardiovascular: Regular Rate, Rhythm, No Edema, No Gallop, No JVD, No Murmur, Normal Peripheral Pulses Gastrointestinal: Normal Bowel Sounds, No Organomegaly, No Pulsatile Mass, Non Tender, Soft Back: Normal Inspection, Decreased Range of Motion, Muscle Spasm, Vertebral Tenderness Extremity: Normal Capillary Refill, Normal Inspection, Normal Range of Motion, Non Tender, No Calf Tenderness, No Pedal Edema Neurologic/Psychiatric: Alert, Oriented x3, truck driver teamster II-XII Norm as Tested, Abnormal Gait, Depressed Affect, Motor Weakness Skin: Normal Color, Warm/Dry Lymphatic: No Adenopathy Results/Procedures Lab Patient resulted labs reviewed. FIM Transfers Therapy Code Descriptions/Definitions Functional [place] Measure: 0=Not Assessed/NA 4=Minimal Assistance 1=Total Assistance 5=Supervision or Setup 2=Maximal Assistance 6=Modified [place] 3=Moderate Assistance 7=Complete IndependenceSCALE: Activities may be completed with or without assistive devices. 6-Dikdkaigjo-gcgszlr completes the activity by him/herself with no assistance fr om a helper. 5-Set-up or Clean-up Assistance-helper sets up or cleans up; patient completes activity. [place] assists only prior to or following the activity. 4-Supervision or Touching Assistance-helper provides verbal cues and/or touching/steadying and/or contact guard assistance as patient completes activity. Assistance may be provided throughout the activity or intermittently. 3-Partial/Moderate Assistance-helper does LESS THAN HALF the effort. Eldred lifts, holds or supports trunk or limbs, but provides less than half the effort. 2-Substantial/Maximal Assistance-helper does MORE THAN HALF the effort. Eldred lifts or holds trunk or limbs and provides more than half the effort. 4-Qydtradtx-jalxac does ALL the effort. Patient does none of the effort to complete the activity. Or, the assistance of 2 or more helpers is required for the patient to complete the activity. If activity was not attempted, code reason: 7-Patient Refused. 9-Not Applicable-not attempted and the patient did not perform the activity before the current illness, exacerbation or injury. 10-Not Attempted due to Environmental Limitations-(lack of equipment, weather restraints, etc.). 88-Not Attempted due to Medical Conditions or Safety Concerns. Roll Left to Right (QC): 4 Sit to Lying (QC): 4 Sit to Stand (QC): 4 Chair/Cbk-kv-Cnack Xfer(QC): 4 Car Transfer (QC): 4 Gait Training Does the Patient Walk?: Yes Walk 10 feet (QC): 4 Walk 50 ft with 2 Turns(QC): 4 Walk 150 ft (QC): 88 Walking 10ft/uneven surface-QC: 4 Gait Persons Needed: 1 Gait Assistive Device: FWW Wheelchair Training Wheel 50 ft with 2 turns (QC): 9 Wheel 150 ft (QC): 9 Stair Training #of Steps: 1 1 Step (curb) (QC): 4 4 Steps (QC): 88 12 Steps (QC): 88 Balance Picking up an Object (QC): 4 (CGA with spring clipper arm) ADL-Treatment Eating (QC): 6 Oral Hygiene (QC): 4 (SBA, VC to locate water cup) Shower/Bathe Self (QC): 4 (SBA, pt able to wash/dry all parts. Min VCs for sequencing) Upper Body Dressing (QC): 3 (Min A with adjusting clothes to comfort. Max VCs for orientations of tanks/gown) Lower Body Dressing (QC): 3 (Min A with adjusting clothes to comfort.) On/Off Footwear (QC): 4 (SBA, VC to follow back precautions and use spring clipper to worm picker shoes from floor.) Toileting Hygiene (QC): 3 (Min A) Assessment/Plan Assessment and Plan Assess & Plan/Chief Complaint Assessment: s/p lumbosacral spine surgery KARENA HTN Cognitive decline HLP Borderline DM OA Chronic pain Plan: PT OT Home meds Monitor closely 02/18/2022: Supportive care Increased pain control 02/19/2022: BM regimen Pain control (1) H/O lumbosacral spine surgery REGINALD CHRIS DO Feb 19, 2022 10:34
--- NOTE | 2022-02-19 10:41 | Speech Therapy Daily Note ---
Speech Daily Progress Note Subjective Date Seen by Provider: Feb 19, 2022 Time Seen by Provider: 09:00 The patient was seated upright in her recliner, awake and alert, upon entrance to her room by the clinician. The patient greeted the clinician appropriately and was agreeable to participation in the cognitive treatment session. Objective Prior to the treatment session, the occupational therapy demonstrated appropriate placement and removal of the patient's back brace to the speech pathologist. The clinician will review back brace placement with the patient throughout the treatment session to reinforce appropriate sequencing and safety. The patient required verbal redirection to therapy tasks throughout the treatment session due to discomfort with the seams of her garments. Per patient, "Oh, something feels like it is burning my skin," and located the sensation to the posterior neck region where the seam of her gown was placed. Additionally, the patient reported discomfort with her back brace to the mid-back region and lower back pain. The RN was notified by the clinician and presented to the room to aid the patient. The patient requested her brace be removed. The RN reviewed back brace requirements including leaving the brace in place during seated periods. The clinician provided a gentle verbal reminder of the patient's incision at the lower back (where the patient was reporting discomfort) and her recent back procedure. The RN addressed each area of discomfort and placed a cushioned pad along the patient's back. The patient was able to remove the back brace with moderate verbal cueing and one episode of direct modeling. Following back precautions were addressed by the clinician. The patient stated, "I am sure I have them but I don't know them right now." The clinician directed the patient's attention to the in-room white board where the precautions were located. Each precaution was reviewed extensively by the clinician. The patient agreed to placement/posting of the back precautions in her room and identified a location where she believed she would be able to view them from a seated and supine position. Per RN, the patient's reported a cognitive decline over the previous year. Due to this, the clinician will continue to focus therapy tasks on recall of back brace use and back precautions to aid in safety throughout the patient's stay and following discharge. Assessment Assessment Current Status: Fair Progress Treatment Plan Continue Plan of Care Speech Short Term Goals Short Term Goals Short Term Goals 1. The patient will display 80% accuracy with orientation information, independently. 2. The patient will demonstrate 80% accuracy with memory exercises, independently. Time Frame-STG: Ten Days. Speech Acid Painter Goals Acid Painter Goals 1. The patient will display cognitive linguistic improvement for safe discharge to the least restrictive environment. Time Frame: Two Weeks. Speech-Plan Treatment Plan Speech Therapy Treatment Plan: Continue Plan of Care Treatment Duration: Feb 18, 2022 Frequency: Modified Program (IRF) (Four to five times per week.) Estimated Hrs Per Day: .5 hour per day Rehab Potential: Fair Pt/Family Agrees to Plan: Yes Safety Risks/Education Teaching Recipient: Patient Teaching Methods: Demonstration, Handout, Discussion Response to Teaching: Verbalize Understanding, Return Demonstration, Reinforcement Needed Education Topics Provided: Back Precautions, Back Brace Procedure Time Speech Therapy Time In: 09:00 Speech Therapy Time Out: 09:30 DATE: Feb 19, 2022 Total Billed Time: 30 Billed Treatment Time 1NISHANT ELIZABETH ST Feb 19, 2022 10:41
--- NOTE | 2022-02-19 10:42 | Physical Therapy Daily Note ---
PT Daily Note-Current Subjective Pt. agrees to Rx, states she wants to walk . Pt. asks many times about why she has a sensation of something bunched up at her low back. Pt. never c/o pain in low back. This BEAUTICIAN APPRENTICE reoriented pt. multiple times to the reality of her recent surgery, subsequent incision site and mild edema at that site. Pt. then relaxes but asks again later. Pain Location: No Pain Reported Section J - Health Conditions 1. Rarely or not at all 2. Occasionally 3. Frequently 4. Almost constantly 8. Unable to answer Pain Effect on Sleep: 1 Pain Interference with Therapy: 1 Pain Interference w/Day-to-Day: 1 Mental Status Attachments: Other-See Comments (aspen back brace) memory deficit, see SP documentation Transfers SCALE: Activities may be completed with or without assistive devices. 8-Bcdgpghyqu-zyfeiew completes the activity by him/herself with no assistance from a helper. 5-Set-up or Clean-up Assistance-helper sets up or cleans up; patient completes activity. [place] assists only prior to or following the activity. 4-Supervision or Touching Assistance-helper provides verbal cues and/or touching/steadying and/or contact guard assistance as patient completes act ivity. Assistance may be provided throughout the activity or intermittently. 3-Partial/Moderate Assistance-helper does LESS THAN HALF the effort. [place] lifts, holds or supports trunk or limbs, but provides less than half the effort. 2-Substantial/Maximal Assistance-helper does MORE THAN HALF the effort. [place] lifts or holds trunk or limbs and provides more than half the effort. 6-Pprrmlzoe-ihtysj does ALL the effort. Patient does none of the effort to complete the activity. Or, the assistance of 2 or more helpers is required for the patient to complete the activity. If activity was not attempted, code reason: 7-Patient Refused. 9-Not Applicable-not attempted and the patient did not perform the activity before the current illness, exacerbation or injury. 10-Not Attempted due to Environmental Limitations-(lack of equipment, weather restraints, etc.). 88-Not Attempted due to Medical Conditions or Safety Concerns. Roll Left & Right (QC): 4 Sit to Lying (QC): 4 Lying to Sitting/Side of Bed(Q: 4 Sit to Stand (QC): 6 Chair/Ujy-fl-Umutl Xfer(QC): 6 Toilet Transfer (QC): 6 reviewed and reeducated pt about log roll as well as the use of the brace is a reminder of her limitations in flexion and rotation of spine Weight Bearing Right Lower Extremity: Right Full Weight Bearing Left Lower Extremity: Left Full Weight Bearing lifting restrictions Gait Training Does the Patient Walk?: Yes Walk 10 feet (QC): 4 Walk 50 ft with 2 Turns(QC): 4 Walk 150 ft (QC): 4 Gait Persons Needed: 1 Gait Assistive Device: FWW pt. with improved stability of gait today , still needs instruction regarding pattern and to watch for extreme hip ext rotation and crossovers . no LOB or knee melting Exercises Supine Ex: Ankle pumps, Quad Set, Rolling, Glut sets, Heel Slides, Short Arc Quads, Hip abd/add Supine Reps: 20 NuStep Minutes: 12 NuStep Workload: 1 Treatments TRFs, gait, threx as above, toileted, not as much preoccupation with clothing and readjusting today. multiple trials and instruction in donning and doffing brace Assessment Current Status: Good Progress no real pain c/o, improved gait stability, better concentration on Rx goals and focus, improved TRF techniques PT Short Term Goals Short Term Goals Time Frame: Feb 24, 2022 Roll Left & Right: 4 (SBA) Sit to lyin (SBA) Lying to sitting on side of be: 4 (SBA) Sit to stand: 4 (SBA) Chair/fbm-wj-ltnxo transfer: 4 (SBA) Toilet transfer: 4 (SBA) Car transfer: 4 (SBA) Walk 10 feet: 4 (SBA) Walk 50 feet with two turns: 4 (SBA) Walk 150 feet: 4 (SBA) Walking 10ft on uneven surface: 4 (SBA) 1 step (curb): 4 (SBA) Picking up objects: 4 (SBA with arm plastic finisher) PT Care Home Goals Care Home Goals PT Diversified Crops Ii Farmworker Goals Time Frame: Mar 10, 2022 Roll Left & Right (QC): 6 Sit to Lying (QC): 6 Lying-Sitting on Side/Bed(QC): 6 Sit to Stand (QC): 6 Chair/Tie-jr-Usaan Xfer(QC): 6 Toilet Transfer (QC): 6 Car Transfer (QC): 6 Does the Patient Walk: Yes Walk 10 feet (QC): 6 Walk 50ft with 2 Turns (QC): 6 Walk 150 ft (QC): 6 Walking 10ft on Uneven Surface: 6 1 Step (curb) (QC): 6 4 Steps (QC): 6 12 Steps (QC): 88 Picking up an Object (QC): 6 (with plastic finisher arm) Wheel 50 feet with 2 turns (QC: 9 Wheel 150 feet: 9 PT Plan Treatment/Plan Treatment Plan: Continue Plan of Care Treatment Plan: Bed Mobility, Education, Functional Activity Enrico, Functional Strength, Group Therapy, Gait, Safety, Therapeutic Exercise, Transfers Treatment Duration: Mar 10, 2022 Frequency: At least 5 of 7 days/Wk (IRF) Estimated Hrs Per Day: 1.5 hours per day Patient and/or Family Agrees t: Yes Safety Risks/Education Patient Education: Gait Training, Transfer Techniques, Correct Positioning, Reviewed Don/Doff Brace, Disease Process Teaching Recipient: Patient, Friend Teaching Methods: Demonstration, Discussion Response to Teaching: Verbalize Understanding, Return Demonstration, Reinforcement Needed Time Time In: 930 Time Out: 1045 DATE: Feb 19, 2022 Total Billed Treatment Time: 75 Total Billed Treatment 1,GT30m,FA20m,EX25m MARINA PITTMAN BEAUTICIAN APPRENTICE Feb 19, 2022 10:42
--- NOTE | 2022-02-19 13:24 | Progress Note ---
DORIE BRANNON 02/19/22 1324: Progress Note S: Lena Neumann is a 71yo F who continues to be monitored for S/P TLIF surgery, she has expressed complaints of debility and moderate lower back pain that has improved since yesterdays increase in frequency of administering meds. Still voices frustration with her back brace and expressed concern for how tired she feels. She is tolerating her treatments well and showing improvement. She continues to show signs of confusion and poor memory. O: v/s: T: 37.4 HR: 85 RR: BP: 115/68 SpO2: 95 RA Exam: General Appearance: No Apparent Distress, WD/WN, fatigued and uncomfortable. Respiratory: Chest Non Tender, Lungs Clear, Normal Breath Sounds, No Accessory Muscle Use, No Respiratory Distress Cardiovascular: Regular Rate, Rhythm, No Edema, No Gallop, No JVD, No Murmur, Normal Peripheral Pulses Gastrointestinal: Normal Bowel Sounds, No Organomegaly, No Pulsatile Mass, Non Tender, Soft Back: Normal Inspection, Decreased Range of Motion, Lumbar tenderness from surgery Extremity: Normal Capillary Refill, Normal Inspection, Normal Range of Motion, Non Tender, No Calf Tenderness, No Pedal Edema Neurologic/Psychiatric: Alert, Oriented x3, jumpbasting machine operator II-XII Norm as Tested, Abnormal Gait, Depressed Affect, Motor Weakness Skin: Normal Color, Warm/Dry Lymphatic: No Adenopathy A: s/p lumbosacral spine surgery KARENA HTN Cognitive decline HLP Borderline DM OA Chronic pain P: pain medication PT OT Home meds Monitor closely KAMLA CHRIS DO 02/20/22 0624: Supervisory-Addendum Brief Verification & Attestation Participated in pt care: history, MDM, physical Personally performed: exam, history, MDM, supervision of care Care discussed with: Medical Student Procedures: n/a Results interpretation: Verified all documentation Verification and Attestation of Medical Student E/M Service A medical student performed and documented this service in my presence. I reviewed and verified all information documented by the medical student and made modifications to such information, when appropriate. I personally performed the physical exam and medical decision making. Kamla Chris Feb 20, 2022,06:24 DORIE BRANNON Feb 19, 2022 13:24 KAMLA CHRIS DO Feb 20, 2022 06:24
[2022-02-19 20:00] VITALS: BP 132/60
[2022-02-19] MEDS: ALPRAZolam 0.5 MG (XANAX) TAB PO PRN (20:00)
[2022-02-19] MEDS: MELATONIN 3 MG TABLET PO PRN (20:00)
[2022-02-20] MEDS: MULTIVIT W/MINERALS TAB (THERAGRAN M) PO SCH (06:28)
[2022-02-20] MEDS: oxyCODONE/APAP 10/325MG (PERCOCET 10) TABLET PO PRN ×4 (06:44→22:57)
--- NOTE | 2022-02-20 06:47 | PM&R Progress Note ---
Subjective HPI/CC On Admission Date Seen by Provider: Feb 20, 2022 Time Seen by Provider: 12:30 Subjective/Events-last exam 02/20/2022: Patient doing well from a medical standpoint Eating and drinking well Requires a lot of attention from nursing staff talk to me outside the room and patient needs Beth psych treatment so we will pursue that at discharge 02/19/2022: Pt is doing pretty well Abdominal cramps are present but bowels are moving a little bit Pain is pretty well controlled now 02/18/2022: Patient doing really well Difficult to get comfortable Bowels moved today Reviewed all meds CPAP was used Review of Systems General: Fatigue, Malaise Musculoskeletal: back pain Neurological: Confusion Objective Exam Vital Signs Vital Signs Date Time Temp Pulse Resp B/P (MAP) Pulse Ox O2 Delivery O2 Flow Rate FiO2 02/20/22 22:03 Room Air 02/20/22 19:38 36.9 83 16 109/52 (71) 95 Capillary Refill : General Appearance: No Apparent Distress, WD/WN, Chronically ill, Obese HEENT: PERRL/EOMI, Normal ENT Inspection, Pharynx Normal Neck: Full Range of Motion, Normal Inspection, Non Tender, Supple, Carotid Bruit Respiratory: Chest Non Tender, Lungs Clear, Normal Breath Sounds, No Accessory Muscle Use, No Respiratory Distress Cardiovascular: Regular Rate, Rhythm, No Edema, No Gallop, No JVD, No Murmur, Normal Peripheral Pulses Gastrointestinal: Normal Bowel Sounds, No Organomegaly, No Pulsatile Mass, Non Tender, Soft Back: Normal Inspection, Decreased Range of Motion, Muscle Spasm, Vertebral Tenderness Extremity: Normal Capillary Refill, Normal Inspection, Normal Range of Motion, Non Tender, No Calf Tenderness, No Pedal Edema Neurologic/Psychiatric: Alert, Oriented x3, sheet turner II-XII Norm as Tested, Abnormal Gait, Depressed Affect, Motor Weakness Skin: Normal Color, Warm/Dry Lymphatic: No Adenopathy Results/Procedures Lab Patient resulted labs reviewed. FIM Transfers Therapy Code Descriptions/Definitions Functional [place] Measure: 0=Not Assessed/NA 4=Minimal Assistance 1=Total Assistance 5=Supervision or Setup 2=Maximal Assistance 6=Modified [place] 3=Moderate Assistance 7=Complete IndependenceSCALE: Activities may be completed with or without assistive devices. 2-Hqrrmxwsuy-iaidxbj completes the activity by him/herself with no assistance from a helper. 5-Set-up or Clean-up Assistance-helper sets up or cleans up; patient completes activity. [place] assists only prior to or following the activity. 4-Supervision or Touching Assistance-helper provides verbal cues and/or touching/steadying and/or contact guard assistance as patient completes activity. Assistance may be provided throughout the activity or intermittently. 3-Partial/Moderate Assistance-helper does LESS THAN HALF the effort. [place] lifts, holds or supports trunk or limbs, but provides less than half the effort. 2-Substantial/Maximal Assistance-helper does MORE THAN HALF the effort. [place] lifts or holds trunk or limbs and provides more than half the effort. 1-Nyfeqkoeh-vxhgyc does ALL the effort. Patient does none of the effort to complete the activity. Or, the assistance of 2 or more helpers is required for the patient to complete the activity. If activity was not attempted, code reason: 7-Patient Refused. 9-Not Applicable-not attempted and the patient did not perform the activity before the current illness, exacerbation or injury. 10-Not Attempted due to Environmental Limitations-(lack of equipment, weather restraints, etc.). 88-Not Attempted due to Medical Conditions or Safety Concerns. Roll Left to Right (QC): 4 Sit to Lying (QC): 4 Sit to Stand (QC): 6 Chair/Ntk-ce-Svesm Xfer(QC): 6 Car Transfer (QC): 4 Gait Training Does the Patient Walk?: Yes Walk 10 feet (QC): 4 Walk 50 ft with 2 Turns(QC): 4 Walk 150 ft (QC): 4 Walking 10ft/uneven surface-QC: 4 Gait Persons Needed: 1 Gait Assistive Device: FWW Wheelchair Training Wheel 50 ft with 2 turns (QC): 9 Wheel 150 ft (QC): 9 Stair Training #of Steps: 1 1 Step (curb) (QC): 4 4 Steps (QC): 88 12 Steps (QC): 88 Balance Picking up an Object (QC): 4 (CGA with director selection and administration arm) ADL-Treatment Eating (QC): 6 Oral Hygiene (QC): 4 (SBA, VC to locate water cup) Shower/Bathe Self (QC): 4 (SBA, pt able to wash/dry all parts. Min VCs for sequencing) Upper Body Dressing (QC): 3 (Min A with adjusting clothes to comfort. Max VCs for orientations of tanks/gown) Lower Body Dressing (QC): 3 (Min A with adjusting clothes to comfort.) On/Off Footwear (QC): 4 (SBA, VC to follow back precautions and use director selection and administration to citrus picker shoes from floor.) Toileting Hygiene (QC): 3 (Min A) Assessment/Plan Assessment and Plan Assess & Plan/Chief Complaint Assessment: s/p lumbosacral spine surgery KARENA HTN Cognitive decline HLP Borderline DM OA Chronic pain Plan: PT OT Home meds Monitor closely 02/18/2022: Supportive care Increased pain control 02/19/2022: BM regimen Pain control 02/20/2022: Pursue Beth psych at discharge (1) H/O lumbosacral spine surgery REGINALD CHRIS DO Feb 20, 2022 06:47
[2022-02-20] MEDS: polyethylene glycoL POWDER 17 GM (MIRALAX) PACK PO SCH ×2 (08:15→21:04)
[2022-02-20] MEDS: VITAMIN D3 25 MCG (1,000 UNITS) TABLET PO SCH (08:15)
[2022-02-20] MEDS: SENNA W/DOCUSATE (SENOKOT S) TABLET PO SCH ×2 (08:15→22:56)
[2022-02-20] MEDS: LORATADINE (CLARITIN) 10 MG TAB PO SCH ×2 (08:15→22:56)
[2022-02-20] MEDS: PREGABALIN 100 MG (LYRICA) CAPSULE PO SCH ×4 (08:15→22:55)
[2022-02-20] MEDS: LOSARTAN 50 MG (COZAAR) TAB PO SCH ×2 (08:15→22:55)
[2022-02-20] MEDS: DOCUSATE SODIUM 100 MG (COLACE) CAP PO SCH ×2 (08:15→22:56)
[2022-02-20] MEDS: ALPRAZolam 0.5 MG (XANAX) TAB PO PRN ×2 (08:15→17:24)
[2022-02-20 08:24] VITALS: BP 111/55
--- NOTE | 2022-02-20 12:09 | Physical Therapy Daily Note ---
PT Daily Note-Current Subjective Pt in bed upon arrival and agrees to PT. Says she has been waiting on therapy. Says her back and elbow are hurting today. Pain Section J - Health Conditions 1. Rarely or not at all 2. Occasionally 3. Frequently 4. Almost constantly 8. Unable to answer Pain Effect on Sleep: 1 Pain Interference with Therapy: 1 Pain Interference w/Day-to-Day: 1 Mental Status Patient Orientation: Person, Place, Time Transfers SCALE: Activities may be completed with or without assistive devices. 5-Xbiqoycbzb-emhukcm completes the activity by him/herself with no assistance from a helper. 5-Set-up or Clean-up Assistance-helper sets up or cleans up; patient completes activity. [place] assists only prior to or following the activity. 4-Supervision or Touching Assistance-helper provides verbal cues and/or touchin g/steadying and/or contact guard assistance as patient completes activity. Assistance may be provided throughout the activity or intermittently. 3-Partial/Moderate Assistance-helper does LESS THAN HALF the effort. [place] lifts, holds or supports trunk or limbs, but provides less than half the effort. 2-Substantial/Maximal Assistance-helper does MORE THAN HALF the effort. [place] lifts or holds trunk or limbs and provides more than half the effort. 3-Nryicdvfa-plurrv does ALL the effort. Patient does none of the effort to complete the activity. Or, the assistance of 2 or more helpers is required for the patient to complete the activity. If activity was not attempted, code reason: 7-Patient Refused. 9-Not Applicable-not attempted and the patient did not perform the activity before the current illness, exacerbation or injury. 10-Not Attempted due to Environmental Limitations-(lack of equipment, weather restraints, etc.). 88-Not Attempted due to Medical Conditions or Safety Concerns. Sit to Stand (QC): 4 Weight Bearing Right Lower Extremity: Right Full Weight Bearing Left Lower Extremity: Left Full Weight Bearing lifting restrictions Gait Training Does the Patient Walk?: Yes Distance: 75' x2 Walk 10 feet (QC): 4 Walk 50 ft with 2 Turns(QC): 4 Gait Persons Needed: 1 Gait Assistive Device: FWW Treatments Pt in bed upon arrival and then requires mod/maxA to don clothes. Pt then amb to BR. Uses BR independently and then amb out into farmer. Pt then amb back to room and back out into farmer again. Pt then TFs back to recliner. All needs met and call light nearby as PT departs. Assessment Current Status: Fair Progress Pt requires verbal and tactile cues in order to perform TFs. Requires recurrent cues to stay on task. Pt dep for donning clothes this date. PT Short Term Goals Short Term Goals Time Frame: Feb 24, 2022 Roll Left & Right: 4 (SBA) Sit to lyin (SBA) Lying to sitting on side of be: 4 (SBA) Sit to stand: 4 (SBA) Chair/qvj-tx-squak transfer: 4 (SBA) Toilet transfer: 4 (SBA) Car transfer: 4 (SBA) Walk 10 feet: 4 (SBA) Walk 50 feet with two turns: 4 (SBA) Walk 150 feet: 4 (SBA) Walking 10ft on uneven surface: 4 (SBA) 1 step (curb): 4 (SBA) Picking up objects: 4 (SBA with arm senior behavioral scientist) PT Guest Advisor Goals Halfway Goals PT Halfway Goals Time Frame: Mar 10, 2022 Roll Left & Right (QC): 6 Sit to Lying (QC): 6 Lying-Sitting on Side/Bed(QC): 6 Sit to Stand (QC): 6 Chair/Qiv-xo-Baghz Xfer(QC): 6 Toilet Transfer (QC): 6 Car Transfer (QC): 6 Does the Patient Walk: Yes Walk 10 feet (QC): 6 Walk 50ft with 2 Turns (QC): 6 Walk 150 ft (QC): 6 Walking 10ft on Uneven Surface: 6 1 Step (curb) (QC): 6 4 Steps (QC): 6 12 Steps (QC): 88 Picking up an Object (QC): 6 (with senior behavioral scientist arm) Wheel 50 feet with 2 turns (QC: 9 Wheel 150 feet: 9 PT Plan Problem List Problem List: Activity Tolerance, Functional Strength, Safety Treatment/Plan Treatment Plan: Continue Plan of Care Treatment Plan: Bed Mobility, Education, Functional Activity Enrico, Functional Strength, Group Therapy, Gait, Safety, Therapeutic Exercise, Transfers Treatment Duration: Mar 10, 2022 Frequency: At least 5 of 7 days/Wk (IRF) Estimated Hrs Per Day: 1.5 hours per day Patient and/or Family Agrees t: Yes Time Time In: 0950 Time Out: 1040 DATE: Feb 20, 2022 Total Billed Treatment Time: 50 Total Billed Treatment 1, Gt x 2 30min, FA 20min JIMI RODRIGUEZ PTA Feb 20, 2022 12:09
[2022-02-20 19:38] VITALS: BP 109/52
[2022-02-20] MEDS: MELATONIN 3 MG TABLET PO PRN (22:55)
[2022-02-21] MEDS: ALPRAZolam 0.5 MG (XANAX) TAB PO PRN ×3 (05:41→19:54)
[2022-02-21] MEDS: MULTIVIT W/MINERALS TAB (THERAGRAN M) PO SCH (05:41)
[2022-02-21] MEDS: oxyCODONE/APAP 10/325MG (PERCOCET 10) TABLET PO PRN ×4 (05:42→21:14)
--- NOTE | 2022-02-21 06:17 | PM&R Progress Note ---
Subjective HPI/CC On Admission Date Seen by Provider: Feb 21, 2022 Time Seen by Provider: 13:00 Subjective/Events-last exam 02/21/2022: No major issues Needs SSE for constipation Spoke to who wants a plan for the pain and she is less than 1 week from surgery it will take time 02/20/2022: Patient doing well from a medical standpoint Eating and drinking well Requires a lot of attention from nursing staff talk to me outside the room and patient needs Beth psych treatment so we will pursue that at discharge 02/19/2022: Pt is doing pretty well Abdominal cramps are present but bowels are moving a little bit Pain is pretty well controlled now 02/18/2022: Patient doing really well Difficult to get comfortable Bowels moved today Reviewed all meds CPAP was used Review of Systems General: Fatigue, Malaise Musculoskeletal: back pain Neurological: Confusion Objective Exam Vital Signs Vital Signs Date Time Temp Pulse Resp B/P (MAP) Pulse Ox O2 Delivery O2 Flow Rate FiO2 02/21/22 09:00 Room Air 02/21/22 07:27 36.1 57 14 113/73 (86) 92 Capillary Refill : General Appearance: No Apparent Distress, WD/WN, Chronically ill, Obese HEENT: PERRL/EOMI, Normal ENT Inspection, Pharynx Normal Neck: Full Range of Motion, Normal Inspection, Non Tender, Supple, Carotid Bruit Respiratory: Chest Non Tender, Lungs Clear, Normal Breath Sounds, No Accessory Muscle Use, No Respiratory Distress Cardiovascular: Regular Rate, Rhythm, No Edema, No Gallop, No JVD, No Murmur, Normal Peripheral Pulses Gastrointestinal: Normal Bowel Sounds, No Organomegaly, No Pulsatile Mass, Non Tender, Soft Back: Normal Inspection, Decreased Range of Motion, Muscle Spasm, Vertebral Tenderness Extremity: Normal Capillary Refill, Normal Inspection, Normal Range of Motion, Non Tender, No Calf Tenderness, No Pedal Edema Neurologic/Psychiatric: Alert, Oriented x3, citrix systems administrator II-XII Norm as Tested, Abnormal Gait, Depressed Affect, Motor Weakness Skin: Normal Color, Warm/Dry Lymphatic: No Adenopathy Results/Procedures Lab Patient resulted labs reviewed. FIM Transfers Therapy Code Descriptions/Definitions Functional [place] Measure: 0=Not Assessed/NA 4=Minimal Assistance 1=Total Assistance 5=Supervision or Setup 2=Maximal Assistance 6=Modified [place] 3=Moderate Assistance 7=Complete IndependenceSCALE: Activities may be completed with or without assistive devices. 2-Joatmmvnxn-cgocoxd completes the activity by him/herself with no assistance from a helper. 5-Set-up or Clean-up Assistance-helper sets up or cleans up; patient completes activity. [place] assists only prior to or following the activity. 4-Supervision or Touching Assistance-helper provides verbal cues and/or touching/steadying and/or contact guard assistance as patient completes activity. Assistance may be provided throughout the activity or intermittently. 3-Partial/Moderate Assistance-helper does LESS THAN HALF the effort. [place] lifts, holds or supports trunk or limbs, but provides less than half the effort. 2-Substantial/Maximal Assistance-helper does MORE THAN HALF the effort. [place] lifts or holds trunk or limbs and provides more than half the effort. 5-Osedpooyx-ehqecz does ALL the effort. Patient does none of the effort to complete the activity. Or, the assistance of 2 or more helpers is required for the patient to complete the activity. If activity was not attempted, code reason: 7-Patient Refused. 9-Not Applicable-not attempted and the patient did not perform the activity before the current illness, exacerbation or injury. 10-Not Attempted due to Environmental Limitations-(lack of equipment, weather restraints, etc.). 88-Not Attempted due to Medical Conditions or Safety Concerns. Roll Left to Right (QC): 4 Sit to Lying (QC): 4 Sit to Stand (QC): 4 Chair/Ipn-uw-Sfgfh Xfer(QC): 6 Car Transfer (QC): 4 Gait Training Does the Patient Walk?: Yes Distance: 75' x2 Walk 10 feet (QC): 4 Walk 50 ft with 2 Turns(QC): 4 Walk 150 ft (QC): 4 Walking 10ft/uneven surface-QC: 4 Gait Persons Needed: 1 Gait Assistive Device: FWW Wheelchair Training Wheel 50 ft with 2 turns (QC): 9 Wheel 150 ft (QC): 9 Stair Training #of Steps: 1 1 Step (curb) (QC): 4 4 Steps (QC): 88 12 Steps (QC): 88 Balance Picking up an Object (QC): 4 (CGA with arts and crafts instructor arm) ADL-Treatment Eating (QC): 6 Oral Hygiene (QC): 4 (SBA, VC to locate water cup) Shower/Bathe Self (QC): 4 (SBA, pt able to wash/dry all parts. Min VCs for sequencing) Upper Body Dressing (QC): 3 (Min A with adjusting clothes to comfort. Max VCs for orientations of tanks/gown) Lower Body Dressing (QC): 3 (Min A with adjusting clothes to comfort.) On/Off Footwear (QC): 4 (SBA, VC to follow back precautions and use arts and crafts instructor to picker tender shoes from floor.) Toileting Hygiene (QC): 3 (Min A) Assessment/Plan Assessment and Plan Assess & Plan/Chief Complaint Assessment: s/p lumbosacral spine surgery KARENA HTN Cognitive decline HLP Borderline DM OA Chronic pain Plan: PT OT Home meds Monitor closely 02/18/2022: Supportive care Increased pain control 02/19/2022: BM regimen Pain control 02/20/2022: Pursue Beth psych at discharge 02/21/2022: Monitor pain SSE (1) H/O lumbosacral spine surgery REGINALD CHRIS DO Feb 21, 2022 06:17
[2022-02-21 07:27] VITALS: BP 113/73
[2022-02-21] MEDS: VITAMIN D3 25 MCG (1,000 UNITS) TABLET PO SCH (08:43)
[2022-02-21] MEDS: polyethylene glycoL POWDER 17 GM (MIRALAX) PACK PO SCH ×2 (08:43→20:01)
[2022-02-21] MEDS: DOCUSATE SODIUM 100 MG (COLACE) CAP PO SCH ×2 (08:43→19:53)
[2022-02-21] MEDS: PREGABALIN 100 MG (LYRICA) CAPSULE PO SCH ×4 (08:44→19:54)
[2022-02-21] MEDS: LOSARTAN 50 MG (COZAAR) TAB PO SCH ×2 (08:44→19:54)
[2022-02-21] MEDS: SENNA W/DOCUSATE (SENOKOT S) TABLET PO SCH ×2 (08:44→19:54)
[2022-02-21] MEDS: LORATADINE (CLARITIN) 10 MG TAB PO SCH ×2 (08:44→19:54)
[2022-02-21 19:54] VITALS: BP 127/70
[2022-02-21] MEDS: MELATONIN 3 MG TABLET PO PRN (19:54)
[2022-02-22] MEDS: oxyCODONE/APAP 10/325MG (PERCOCET 10) TABLET PO PRN ×4 (04:37→21:16)
--- NOTE | 2022-02-22 05:21 | PM&R Progress Note ---
Subjective HPI/CC On Admission Date Seen by Provider: Feb 22, 2022 Time Seen by Provider: 08:30 Subjective/Events-last exam 02/22/2022: No major issues Pain still present No falls Checked meds 02/21/2022: No major issues Needs SSE for constipation Spoke to who wants a plan for the pain and she is less than 1 week from surgery it will take time 02/20/2022: Patient doing well from a medical standpoint Eating and drinking well Requires a lot of attention from nursing staff talk to me outside the room and patient needs Beth psych treatment so we will pursue that at discharge 02/19/2022: Pt is doing pretty well Abdominal cramps are present but bowels are moving a little bit Pain is pretty well controlled now 02/18/2022: Patient doing really well Difficult to get comfortable Bowels moved today Reviewed all meds CPAP was used Review of Systems General: Fatigue, Malaise Musculoskeletal: back pain Objective Exam Vital Signs Vital Signs Date Time Temp Pulse Resp B/P (MAP) Pulse Ox O2 Delivery O2 Flow Rate FiO2 02/22/22 20:50 Room Air 02/22/22 20:50 37.6 74 20 105/56 (72) 96 Capillary Refill : General Appearance: No Apparent Distress, WD/WN, Chronically ill, Obese HEENT: PERRL/EOMI, Normal ENT Inspection, Pharynx Normal Neck: Full Range of Motion, Normal Inspection, Non Tender, Supple, Carotid Bruit Respiratory: Chest Non Tender, Lungs Clear, Normal Breath Sounds, No Accessory Muscle Use, No Respiratory Distress Cardiovascular: Regular Rate, Rhythm, No Edema, No Gallop, No JVD, No Murmur, Normal Peripheral Pulses Gastrointestinal: Normal Bowel Sounds, No Organomegaly, No Pulsatile Mass, Non Tender, Soft Back: Normal Inspection, Decreased Range of Motion, Muscle Spasm, Vertebral Tenderness Extremity: Normal Capillary Refill, Normal Inspection, Normal Range of Motion, Non Tender, No Calf Tenderness, No Pedal Edema Neurologic/Psychiatric: Alert, Oriented x3, instructor product inspection II-XII Norm as Tested, Abnormal Gait, Depressed Affect, Motor Weakness Skin: Normal Color, Warm/Dry Lymphatic: No Adenopathy Results/Procedures Lab Laboratory Tests 02/22/22 05:40 Patient resulted labs reviewed. FIM Transfers Therapy Code Descriptions/Definitions Functional [place] Measure: 0=Not Assessed/NA 4=Minimal Assistance 1=Total Assistance 5=Supervision or Setup 2=Maximal Assistance 6=Modified [place] 3=Moderate Assistance 7=Complete IndependenceSCALE: Activities may be completed with or without assistive devices. 7-Rikbjclnyn-gdywgyv completes the activity by him/herself with no assistance from a helper. 5-Set-up or Clean-up Assistance-helper sets up or cleans up; patient completes activity. [place] assists only prior to or following the activity. 4-Supervision or Touching Assistance-helper provides verbal cues and/or touching/steadying and/or contact guard assistance as patient completes activity. Assistance may be provided throughout the activity or intermittently. 3-Partial/Moderate Assistance-helper does LESS THAN HALF the effort. [place] lifts, holds or supports trunk or limbs, but provides less than half the effort. 2-Substantial/Maximal Assistance-helper does MORE THAN HALF the effort. [place] lifts or holds trunk or limbs and provides more than half the effort. 6-Ncmpwjmik-rvfffz does ALL the effort. Patient does none of the effort to complete the activity. Or, the assistance of 2 or more helpers is required for the patient to complete the activity. If activity was not attempted, code reason: 7-Patient Refused. 9-Not Applicable-not attempted and the patient did not perform the activity before the current illness, exacerbation or injury. 10-Not Attempted due to Environmental Limitations-(lack of equipment, weather restraints, etc.). 88-Not Attempted due to Medical Conditions or Safety Concerns. Roll Left to Right (QC): 4 Sit to Lying (QC): 4 Sit to Stand (QC): 4 Chair/Wcu-kw-Snoip Xfer(QC): 6 Car Transfer (QC): 4 Gait Training Does the Patient Walk?: Yes Distance: 75' x2 Walk 10 feet (QC): 4 Walk 50 ft with 2 Turns(QC): 4 Walk 150 ft (QC): 4 Walking 10ft/uneven surface-QC: 4 Gait Persons Needed: 1 Gait Assistive Device: FWW Wheelchair Training Wheel 50 ft with 2 turns (QC): 9 Wheel 150 ft (QC): 9 Stair Training #of Steps: 1 1 Step (curb) (QC): 4 4 Steps (QC): 88 12 Steps (QC): 88 Balance Picking up an Object (QC): 4 (CGA with information technology professor arm) ADL-Treatment Eating (QC): 6 Oral Hygiene (QC): 4 (SBA, VC to locate water cup) Shower/Bathe Self (QC): 4 (SBA, pt able to wash/dry all parts. Min VCs for sequencing) Upper Body Dressing (QC): 3 (Min A with adjusting clothes to comfort. Max VCs for orientations of tanks/gown) Lower Body Dressing (QC): 3 (Min A with adjusting clothes to comfort.) On/Off Footwear (QC): 4 (SBA, VC to follow back precautions and use information technology professor to picking crew supervisor shoes from floor.) Toileting Hygiene (QC): 3 (Min A) Assessment/Plan Assessment and Plan Assess & Plan/Chief Complaint Assessment: s/p lumbosacral spine surgery KARENA HTN Cognitive decline HLP Borderline DM OA Chronic pain Plan: PT OT Home meds Monitor closely 02/18/2022: Supportive care Increased pain control 02/19/2022: BM regimen Pain control 02/20/2022: Pursue Beth psych at discharge 02/21/2022: Monitor pain SSE 02/22/2022: Supportive care Pain control (1) H/O lumbosacral spine surgery REGINALD CHRIS DO Feb 22, 2022 05:21
[2022-02-22] MEDS: MULTIVIT W/MINERALS TAB (THERAGRAN M) PO SCH (06:02)
[2022-02-22 06:13] LABS: BASOPHILS % (AUTO) 1 % (0-10); EOSINOPHILS # (AUTO) 0.2 10^3/uL (0.0-0.3); EOSINOPHILS % (AUTO) 4 % (0-10); HEMATOCRIT 28 % (35-52); HEMOGLOBIN 9.1 g/dL (11.5-16.0); LYMPHOCYTES % (AUTO) 18 % (12-44); MEAN CORPUSCULAR HEMOGLOBIN 28 pg (25-34); MEAN CORPUSCULAR HGB CONC 32 g/dL (32-36); MEAN CORPUSCULAR VOLUME 88 fL (80-99); MEAN PLATELET VOLUME 10.2 fL (9.0-12.2); MONOCYTES # (AUTO) 0.8 10^3/uL (0.0-1.0); MONOCYTES % (AUTO) 14 % (0-12); NEUTROPHILS # (AUTO) 3.6 10^3/uL (1.8-7.8); NEUTROPHILS % (AUTO) 62 % (42-75); PLATELET COUNT 328 10^3/uL (130-400); WHITE BLOOD COUNT 5.8 10^3/uL (4.3-11.0)
[2022-02-22 06:28] LABS: POTASSIUM 3.8 MMOL/L (3.6-5.0)
[2022-02-22 06:29] LABS: CALCIUM 8.9 MG/DL (8.5-10.1)
[2022-02-22 06:30] LABS: TOTAL PROTEIN 5.2 GM/DL (6.4-8.2)
[2022-02-22 06:32] LABS: BILIRUBIN,TOTAL 0.3 MG/DL (0.1-1.0)
[2022-02-22 06:34] LABS: CREATININE SERUM 0.76 MG/DL (0.60-1.30)
[2022-02-22 07:24] VITALS: BP 126/74
--- NOTE | 2022-02-22 07:59 | Occupational Ther Daily Note ---
OT Current Status-Daily Note Subjective Pt alert, sitting in recliner. Pt agrees to therapy. Pt c/o slight pain, but does not rate or state area. Mental Status/Objective Patient Orientation: Person, Confused, Time Attachments: Other-See Comments (back brace) ADL-Treatment Independent with eating. Pt agrees to sponge bath, will follow up with OTR about showering. Pt requests to use toilet. Pt takes increased time to sequence tasks, when sequence is stopped pt needs verbal cues to start sequence again. CGA for toileting. Pt stood at sink with CGA to complete hand washing and oral care by self. Pt completed sponge bath with 1 vc to initiate and SBA for safety. Assist to adjust clothing and position back brace. 1 vc for awareness of shirt position. Pt using figure 4 technique to complete footwear and lower body drsg. Threaded feet through lower body clothing by self then CGA to hike pants over hips. Set up for footwear, using chief nurse executive to diamond picker shoes. Pt does require vc for focus and increased time to process sequencing. Pt able to verbalize back precautions and tools to use. After session, pt sitting in recliner with call light/phone in reach. Safety measures in place. All needs met. Therapy Code Descriptions/Definitions Functional [place] Measure: 0=Not Assessed/NA 4=Minimal Assistance 1=Total Assistance 5=Supervision or Setup 2=Maximal Assistance 6=Modified [place] 3=Moderate Assistance 7=Complete IndependenceSCALE: Activities may be completed with or without assistive devices. 4-Cyemblgupl-krfnzlx completes the activity by him/herself with no assistance from a helper. 5-Set-up or Clean-up Assistance-helper sets up or cleans up; patient completes activity. [place] assists only prior to or following the activity. 4-Supervision or Touching Assistance-helper provides verbal cues and/or touching/steadying and/or contact guard assistance as patient completes activity. Assistance may be provided throughout the activity or intermittently. 3-Partial/Moderate Assistance-helper does LESS THAN HALF the effort. [place] lifts, holds or supports trunk or limbs, but provides less than half the effort. 2-Substantial/Maximal Assistance-helper does MORE THAN HALF the effort. [place] lifts or holds trunk or limbs and provides more than half the effort. 8-Mvokuepax-qwwpve does ALL the effort. Patient does none of the effort to complete the activity. Or, the assistance of 2 or more helpers is required for the patient to complete the activity. If activity was not attempted, code reason: 7-Patient Refused. 9-Not Applicable-not attempted and the patient did not perform the activity before the current illness, exacerbation or injury. 10-Not Attempted due to Environmental Limitations-(lack of equipment, weather restraints, etc.). 88-Not Attempted due to Medical Conditions or Safety Concerns. Nrsg in room to give enema while pt is on toilet. Pt had BM, nrsg aware. Education OT Patient Education: Modified ADL techniques, Safety issues Teaching Recipient: Patient Teaching Methods: Demonstration, Discussion Response to Teaching: Verbalize Understanding, Return Demonstration, Reinforcement Needed OT Short Term Goals Short Term Goals Time Frame: Feb 22, 2022 Upper body dressin Lower body dressin OT Glaze Carrier Goals Glaze Carrier Goals Time Frame: Mar 05, 2022 Acute change in mental status: 0 Inattention: 0 Disorganized thinkin Altered level of consciousness: 0 Eating (QC): 6 Oral Hygiene (QC): 6 Toileting Hygiene (QC): 6 Shower/Bathe Self (QC): 5 Upper Body Dressing (QC): 6 Lower Body Dressing (QC): 6 On/Off Footwear (QC): 6 Additional Goals: 1-Demonstrate ADL Tasks, 2-Verbalize Understanding, 3- ImproveStrength/Enrico 1=Demonstrate adherence to instructed precautions during ADL tasks. 2=Patient will verbalize/demonstrate understanding of assistive devices/modifications for ADL. 3=Patient will improve strength/tolerance for activity to enable patient to perform ADL's. OT Education/Plan Problem List/Assessment Assessment: Decreased Safety Aware, Impaired Cognition, Impaired Self-Care Skills Discharge Recommendations Plan/Recommendations: Continue POC Treatment Plan/Plan of Care Patient would benefit from OT for education, treatment and training to promote independence in ADL's, mobility, safety and/or upper extremity function for ADL's. Plan of Care: ADL Retraining, Functional Mobility, Group Exercise/Act as Ind, UE Funct Exercise/Act Treatment Duration: Mar 05, 2022 Frequency: At least 5 of 7 days/Wk (IRF) Estimated Hrs Per Day: 1.5 hours per day Agreement: Yes Rehab Potential: Fair Time Start Time: 07:15 Stop Time: 08:45 DATE: Feb 22, 2022 Total Time Billed (hr/min): 90 Billed Treatment Time 1 visit-ADL 6 (90 min) SHARI OWENS Feb 22, 2022 07:59
[2022-02-22] MEDS: FLEET ENEMA ADULT 1 EA BTL PR PRN ×2 (08:00→17:53)
[2022-02-22] MEDS: LORATADINE (CLARITIN) 10 MG TAB PO SCH ×2 (08:53→21:16)
[2022-02-22] MEDS: LOSARTAN 50 MG (COZAAR) TAB PO SCH ×2 (08:53→21:16)
[2022-02-22] MEDS: PREGABALIN 100 MG (LYRICA) CAPSULE PO SCH ×4 (08:53→21:16)
[2022-02-22] MEDS: ACETAMINOPHEN 325 MG TABLET PO PRN (08:53)
[2022-02-22] MEDS: VITAMIN D3 25 MCG (1,000 UNITS) TABLET PO SCH (08:53)
[2022-02-22] MEDS: SENNA W/DOCUSATE (SENOKOT S) TABLET PO SCH ×2 (08:56→21:28)
[2022-02-22] MEDS: DOCUSATE SODIUM 100 MG (COLACE) CAP PO SCH ×2 (08:56→21:15)
[2022-02-22] MEDS: polyethylene glycoL POWDER 17 GM (MIRALAX) PACK PO SCH ×2 (08:56→21:27)
--- NOTE | 2022-02-22 10:02 | Speech Therapy Daily Note ---
Speech Daily Progress Note Subjective Date Seen by Provider: Feb 22, 2022 Time Seen by Provider: 09:00 The patient was seated upright in her recliner, awake and alert, upon entrance to her room by the clinician. The patient greeted the clinician appropriately and was agreeable to participation in the cognitive linguistic treatment session. The patient does report intermittent fatigue throughout treatment, however, remains participatory, cooperative, and pleasant. Objective Upon arrival, the patient was attempting to gain someone's attention by shouting from her room in lieu of using her call light. Per RN, call light use was recently reviewed on this date. The clinician presented to the room to answer the patient's request to lower the volume of her TV. The initiate the treatment session, the clinician reviewed the call light and appropriate use of the call light. Independently, the patient was unable to identify the button to use to request aid. The patient identified the "light two" button stating she would use the button to request the RN. The clinician provided education regarding the call light system and specific buttons. Additionally, the clinician provided a visual cue on the patient's call light which reads, "Nurse/ Help," per patient request to aid in appropriate use. The patient's tray area was cleaned with unnecessary clutter removed to aid the patient in identification of the call light. The patient was oriented to self and year. The patient stated the month was "January" and the day of the week was "Tuesday." The clinician aided the patient in identifying accurate orientation information on the in-room white board. The patient was unable to recall "back precautions," independently, however, does appropriately recall the recommendation for the back brace to remain in place throughout the day and to request help prior to "walking around the room." The patient was unable to identify the location of the posted back precautions in her room. The clinician identified the posted back precautions on the wall sign and on the in-room white board. The patient stated the bright pink paper was difficult to read, therefore, the back precaution sign was modified to white paper. At the close of the session, the patient reported abdominal discomfort and requested a heating pad. The RN was present and stated she would be able to order one for the patient. Less than two minutes passed prior to the patient stating, "My abdomen hurts, like a cramping pain. Do you think I could have a heating pad?" The clinician recalled the recent discussion with the RN and ensured the patient her discomfort has been addressed. Currently, the patient is unable to independently recall back precautions or recall back precautions with visual cues. Additionally, functional recall (at times) is less than two minutes. The clinician is concerned the patient's reduced recall ability places her at an increased safety risk, independently. Assessment Assessment Current Status: Poor Progress Treatment Plan Continue Plan of Care Speech Short Term Goals Short Term Goals Short Term Goals 1. The patient will display 80% accuracy with orientation information, independently. 2. The patient will demonstrate 80% accuracy with memory exercises, independently. Time Frame-STG: Ten Days. Speech Gamb Cutter Goals Care Home Goals 1. The patient will display cognitive linguistic improvement for safe discharge to the least restrictive environment. Time Frame: Two Weeks. Speech-Plan Treatment Plan Speech Therapy Treatment Plan: Continue Plan of Care Treatment Duration: Feb 18, 2022 Frequency: Modified Program (IRF) (Four to five times per week.) Estimated Hrs Per Day: .5 hour per day Rehab Potential: Fair Safety Risks/Education Teaching Recipient: Patient Teaching Methods: Demonstration, Handout, Discussion Response to Teaching: Reinforcement Needed Education Topics Provided: Back Precautions, Call Light Use Time Speech Therapy Time In: 09:00 Speech Therapy Time Out: 09:30 DATE: Feb 22, 2022 Total Billed Time: 30 Billed Treatment Time 1NISHANT ELIZABETH ST Feb 22, 2022 10:01
--- NOTE | 2022-02-22 10:41 | Physical Therapy Daily Note ---
PT Daily Note-Current Subjective Patient in recliner pre-tx, reports 4/10 pain in back, agrees to PT. Pain Section J - Health Conditions 1. Rarely or not at all 2. Occasionally 3. Frequently 4. Almost constantly 8. Unable to answer Pain Effect on Sleep: 1 Pain Interference with Therapy: 1 Pain Interference w/Day-to-Day: 1 Appearance Patient in recliner post-tx with nurse call, phone, tray, all needs met. Mental Status Patient Orientation: Person, Place, Situation Back Brace Transfers SCALE: Activities may be completed with or without assistive devices. 4-Hvrgwbxlkm-nqeoixs completes the activity by him/herself with no assistance from a helper. 5-Set-up or Clean-up Assistance-helper sets up or cleans up; patient completes activity. [place] assists only prior to or following the activity. 4-Supervision or Touching Assistance-helper provides verbal cues and/or touching/steadying and/or contact guard assistance as patient completes activity. Assistance may be provided throughout the activity or intermittently. 3-Partial/Moderate Assistance-helper does LESS THAN HALF the effort. [place] lifts, holds or supports trunk or limbs, but provides less than half the effort. 2-Substantial/Maximal Assistance-helper does MORE THAN HALF the effort. [place] lifts or holds trunk or limbs and provides more than half the effort. 3-Zkfwvqpqc-etqnss does ALL the effort. Patient does none of the effort to complete the activity. Or, the assistance of 2 or more helpers is required for the patient to complete the activity. If activity was not attempted, code reason: 7-Patient Refused. 9-Not Applicable-not attempted and the patient did not perform the activity before the current illness, exacerbation or injury. 10-Not Attempted due to Environmental Limitations-(lack of equipment, weather restraints, etc.). 88-Not Attempted due to Medical Conditions or Safety Concerns. Sit to Stand (QC): 4 Chair/Bsx-rp-Eaulk Xfer(QC): 4 Toilet Transfer (QC): 4 SBA with transfers Weight Bearing Right Lower Extremity: Right Full Weight Bearing Left Lower Extremity: Left Full Weight Bearing lifting restrictions Gait Training Does the Patient Walk?: Yes Distance: 150'x2 Walk 10 feet (QC): 4 Walk 50 ft with 2 Turns(QC): 4 Walk 150 ft (QC): 4 Gait Persons Needed: 1 Gait Assistive Device: FWW Patient focused on keeping feet straight and not have a scissor gait. Patient did walk more steady today even though she reported feeling like her foot was catching a little today. Exercises Seated Therapy Exercises: Ankle pumps, Long arc quads, Hip flexion, Hip abd/add (manual resistance) Seated Reps: 20 Standing: Hamstring curls Standing Reps: 20 NuStep Minutes: 10 NuStep Workload: 6 Treatments Ambulation, LE Strengthening, Transfers Assessment Current Status: Fair Progress Patient reported sharp pains all throughout treatment today, mostly when sitting, walking and standing in place seemed to help. Patient needed to use the restroom and needed help tucking in her shirt because she feels like the seems or wrinkles cause a "burning sensation". PT Short Term Goals Short Term Goals Time Frame: Feb 24, 2022 Roll Left & Right: 4 (SBA) Sit to lyin (SBA) Lying to sitting on side of be: 4 (SBA) Sit to stand: 4 (SBA) Chair/rwp-yo-udwyl transfer: 4 (SBA) Toilet transfer: 4 (SBA) Car transfer: 4 (SBA) Walk 10 feet: 4 (SBA) Walk 50 feet with two turns: 4 (SBA) Walk 150 feet: 4 (SBA) Walking 10ft on uneven surface: 4 (SBA) 1 step (curb): 4 (SBA) Picking up objects: 4 (SBA with arm outside laborer) PT Detention Goals Detention Goals PT Detention Goals Time Frame: Mar 10, 2022 Roll Left & Right (QC): 6 Sit to Lying (QC): 6 Lying-Sitting on Side/Bed(QC): 6 Sit to Stand (QC): 6 Chair/Lim-yx-Elakb Xfer(QC): 6 Toilet Transfer (QC): 6 Car Transfer (QC): 6 Does the Patient Walk: Yes Walk 10 feet (QC): 6 Walk 50ft with 2 Turns (QC): 6 Walk 150 ft (QC): 6 Walking 10ft on Uneven Surface: 6 1 Step (curb) (QC): 6 4 Steps (QC): 6 12 Steps (QC): 88 Picking up an Object (QC): 6 (with outside laborer arm) Wheel 50 feet with 2 turns (QC: 9 Wheel 150 feet: 9 PT Plan Problem List Problem List: Activity Tolerance, Functional Strength, Safety, Balance, Gait, Transfer, Bed Mobility, ROM Treatment/Plan Treatment Plan: Continue Plan of Care Treatment Plan: Bed Mobility, Education, Functional Activity Enrico, Functional Strength, Group Therapy, Gait, Safety, Therapeutic Exercise, Transfers Treatment Duration: Mar 10, 2022 Frequency: At least 5 of 7 days/Wk (IRF) Estimated Hrs Per Day: 1.5 hours per day Patient and/or Family Agrees t: Yes Safety Risks/Education Patient Education: Gait Training, Transfer Techniques, Correct Positioning, Safety Issues Teaching Recipient: Patient Teaching Methods: Demonstration, Discussion Response to Teaching: Reinforcement Needed Discharge Recommendations Therapy Discharge Recommendati: Home & Family Time Time In: 929 Time Out: 1045 DATE: Feb 22, 2022 Total Billed Treatment Time: 75 Total Billed Treatment 1 visit FA x3 45' EX x2 30' MICHAELA SMILEY PT Feb 22, 2022 10:41
--- NOTE | 2022-02-22 11:53 | Progress Note ---
DORIE BRANNON 02/22/22 1153: Progress Note S: Lena Neumann is a 71yo F who continues to be monitored for S/P TLIF surgery, she has expressed complaints of debility and moderate lower back pain that has improved since yesterdays increase in frequency of administering meds. Still voices frustration with her back brace and expressed concern for how tired she feels. She is tolerating her treatments well and showing improvement. She continues to show signs of confusion and poor memory. Patient today was seen using the restroom, she has been receiving daily enema Tx for constipation, and she seems to be complaining less of about her back pain. is present and OT is providing both with family training for ADL tasks. O: v/s: T: 36.9 HR: 65 RR: 18 BP: 126/74 SpO2: 94 RA Exam: General Appearance: No Apparent Distress, WD/WN, fatigued and uncomfortable. Respiratory: Chest Non Tender, Lungs Clear, Normal Breath Sounds, No Accessory Muscle Use, No Respiratory Distress Cardiovascular: Regular Rate, Rhythm, No Edema, No Gallop, No JVD, No Murmur, Normal Peripheral Pulses Gastrointestinal: Slowed Bowel Sounds, No Organomegaly, No Pulsatile Mass, Non Tender, Soft Back: Normal Inspection, Decreased Range of Motion, Lumbar tenderness from surgery Extremity: Normal Capillary Refill, Normal Inspection, Normal Range of Motion, Non Tender, No Calf Tenderness, No Pedal Edema Neurologic/Psychiatric: Alert, disoriented, crating and moving estimator II-XII Norm as Tested, Abnormal Gait, Depressed Affect, Motor Weakness Skin: Normal Color, Warm/Dry, hypersensitive to touch(seams of her gown bothers her) Lymphatic: No Adenopathy Labs: Normocytic anemia, high BUN, low total protein/albumin A: s/p lumbosacral spine surgery Constipation KARENA HTN Cognitive decline HLP Borderline DM OA Chronic pain P: pain medication PT OT Home meds Monitor closely Enema administration KAMLA CHRIS DO 02/23/22 0526: Supervisory-Addendum Brief Verification & Attestation Participated in pt care: history, MDM, physical Personally performed: exam, history, MDM, supervision of care Care discussed with: Medical Student Procedures: n/a Results interpretation: Verified all documentation Verification and Attestation of Medical Student E/M Service A medical student performed and documented this service in my presence. I reviewed and verified all information documented by the medical student and made modifications to such information, when appropriate. I personally performed the physical exam and medical decision making. Kamla Chris, Feb 23, 2022,05:26 DORIE BRANNON Feb 22, 2022 11:53 KAMLA CHRIS DO Feb 23, 2022 05:26
[2022-02-22] MEDS: ALPRAZolam 0.5 MG (XANAX) TAB PO PRN ×2 (13:31→21:16)
[2022-02-22 20:50] VITALS: BP 105/56
[2022-02-22] MEDS: MELATONIN 3 MG TABLET PO PRN (21:16)
[2022-02-23] MEDS: diphenhydrAMINE 25 MG TAB (BENADRYL) PO PRN (03:08)
[2022-02-23] MEDS: oxyCODONE/APAP 10/325MG (PERCOCET 10) TABLET PO PRN ×4 (05:15→19:40)
[2022-02-23] MEDS: MULTIVIT W/MINERALS TAB (THERAGRAN M) PO SCH (06:24)
[2022-02-23 07:24] VITALS: BP 125/77
[2022-02-23] MEDS: LOSARTAN 50 MG (COZAAR) TAB PO SCH ×2 (08:12→19:40)
[2022-02-23] MEDS: SENNA W/DOCUSATE (SENOKOT S) TABLET PO SCH ×2 (08:12→19:40)
[2022-02-23] MEDS: DOCUSATE SODIUM 100 MG (COLACE) CAP PO SCH ×2 (08:12→19:40)
[2022-02-23] MEDS: LORATADINE (CLARITIN) 10 MG TAB PO SCH ×2 (08:12→19:40)
[2022-02-23] MEDS: VITAMIN D3 25 MCG (1,000 UNITS) TABLET PO SCH (08:12)
[2022-02-23] MEDS: PREGABALIN 100 MG (LYRICA) CAPSULE PO SCH ×4 (08:12→19:40)
--- NOTE | 2022-02-23 09:11 | PM&R Progress Note ---
Subjective HPI/CC On Admission Date Seen by Provider: Feb 23, 2022 Time Seen by Provider: 09:00 Subjective/Events-last exam 02/23/2022: Doing well No pain reported other than the chronic type Not as frightened to go home now and wants DC tomorrow 02/22/2022: No major issues Pain still present No falls Checked meds 02/21/2022: No major issues Needs SSE for constipation Spoke to who wants a plan for the pain and she is less than 1 week from surgery it will take time 02/20/2022: Patient doing well from a medical standpoint Eating and drinking well Requires a lot of attention from nursing staff talk to me outside the room and patient needs Beth psych treatment so we will pursue that at discharge 02/19/2022: Pt is doing pretty well Abdominal cramps are present but bowels are moving a little bit Pain is pretty well controlled now 02/18/2022: Patient doing really well Difficult to get comfortable Bowels moved today Reviewed all meds CPAP was used Review of Systems General: Fatigue, Malaise Objective Exam Vital Signs Vital Signs Date Time Temp Pulse Resp B/P (MAP) Pulse Ox O2 Delivery O2 Flow Rate FiO2 02/23/22 20:00 Room Air 02/23/22 19:37 36.3 80 16 138/80 (99) 100 Capillary Refill : General Appearance: No Apparent Distress, WD/WN, Chronically ill, Obese HEENT: PERRL/EOMI, Normal ENT Inspection, Pharynx Normal Neck: Full Range of Motion, Normal Inspection, Non Tender, Supple, Carotid Bruit Respiratory: Chest Non Tender, Lungs Clear, Normal Breath Sounds, No Accessory Muscle Use, No Respiratory Distress Cardiovascular: Regular Rate, Rhythm, No Edema, No Gallop, No JVD, No Murmur, Normal Peripheral Pulses Gastrointestinal: Normal Bowel Sounds, No Organomegaly, No Pulsatile Mass, Non Tender, Soft Back: Normal Inspection, Decreased Range of Motion, Muscle Spasm, Vertebral Tenderness Extremity: Normal Capillary Refill, Normal Inspection, Normal Range of Motion, Non Tender, No Calf Tenderness, No Pedal Edema Neurologic/Psychiatric: Alert, Oriented x3, federal district law clerk II-XII Norm as Tested, Abnormal Gait, Depressed Affect, Motor Weakness Skin: Normal Color, Warm/Dry Lymphatic: No Adenopathy Results/Procedures Lab Patient resulted labs reviewed. FIM Transfers Therapy Code Descriptions/Definitions Functional [place] Measure: 0=Not Assessed/NA 4=Minimal Assistance 1=Total Assistance 5=Supervision or Setup 2=Maximal Assistance 6=Modified [place] 3=Moderate Assistance 7=Complete IndependenceSCALE: Activities may be completed with or without assistive devices. 5-Hiltdjumsy-msyatgj completes the activity by him/herself with no assistance from a helper. 5-Set-up or Clean-up Assistance-helper sets up or cleans up; patient completes activity. [place] assists only prior to or following the activity. 4-Supervision or Touching Assistance-helper provides verbal cues and/or touching/steadying and/or contact guard assistance as patient completes activity. Assistance may be provided throughout the activity or intermittently. 3-Partial/Moderate Assistance-helper does LESS THAN HALF the effort. [place] lifts, holds or supports trunk or limbs, but provides less than half the effort. 2-Substantial/Maximal Assistance-helper does MORE THAN HALF the effort. [place] lifts or holds trunk or limbs and provides more than half the effort. 0-Zmclmzodg-rzwwkt does ALL the effort. Patient does none of the effort to complete the activity. Or, the assistance of 2 or more helpers is required for the patient to complete the activity. If activity was not attempted, code reason: 7-Patient Refused. 9-Not Applicable-not attempted and the patient did not perform the activity bef ore the current illness, exacerbation or injury. 10-Not Attempted due to Environmental Limitations-(lack of equipment, weather r estraints, etc.). 88-Not Attempted due to Medical Conditions or Safety Concerns. Roll Left to Right (QC): 4 Sit to Lying (QC): 4 Sit to Stand (QC): 4 Chair/Jkq-nd-Kdrbg Xfer(QC): 4 Car Transfer (QC): 4 Gait Training Does the Patient Walk?: Yes Distance: 150'x2 Walk 10 feet (QC): 4 Walk 50 ft with 2 Turns(QC): 4 Walk 150 ft (QC): 4 Walking 10ft/uneven surface-QC: 4 Gait Persons Needed: 1 Gait Assistive Device: FWW Wheelchair Training Wheel 50 ft with 2 turns (QC): 9 Wheel 150 ft (QC): 9 Stair Training #of Steps: 1 1 Step (curb) (QC): 4 4 Steps (QC): 88 12 Steps (QC): 88 Balance Picking up an Object (QC): 4 (CGA with quality director arm) ADL-Treatment Eating (QC): 6 Oral Hygiene (QC): 4 (SBA, VC to locate water cup) Shower/Bathe Self (QC): 4 (SBA, pt able to wash/dry all parts. Min VCs for sequencing) Upper Body Dressing (QC): 3 (Min A with adjusting clothes to comfort. Max VCs for orientations of tanks/gown) Lower Body Dressing (QC): 3 (Min A with adjusting clothes to comfort.) On/Off Footwear (QC): 4 (SBA, VC to follow back precautions and use quality director to hot die picker shoes from floor.) Toileting Hygiene (QC): 3 (Min A) Assessment/Plan Assessment and Plan Assess & Plan/Chief Complaint Assessment: s/p lumbosacral spine surgery KARENA HTN Cognitive decline HLP Borderline DM OA Chronic pain Plan: PT OT Home meds Monitor closely 02/18/2022: Supportive care Increased pain control 02/19/2022: BM regimen Pain control 02/20/2022: Pursue Beth psych at discharge 02/21/2022: Monitor pain SSE 02/22/2022: Supportive care Pain control 02/23/2022: Monitor pain (1) H/O lumbosacral spine surgery REGINALD CHRIS DO Feb 23, 2022 09:11
--- NOTE | 2022-02-23 09:48 | Speech Therapy Daily Note ---
Speech Daily Progress Note Subjective Date Seen by Provider: Feb 23, 2022 Time Seen by Provider: 09:00 The patient was seated upright in her recliner, awake and alert, upon entrance to her room. The patient greeted the clinician appropriately and was agreeable to participation in the cognitive linguistic treatment. The patient does report fatigue, however, remains cooperative and participatory throughout the session. Objective As the patient is scheduled to discharge on 02/24/2022 (tomorrow), the clinician repeated the initial standardized cognitive screening (SLUMS). On this date, the patient displayed a result of +16/30 correlating with a score of "dementia" per SLUMS protocol and scaling. On the date of admission to the acute rehabilitation unit, the patient displayed a result of +23/30 correlating with a score of "mild neurocognitive impairment." On this date, the patient was able to independently locate the day of the week from the in-room white board to complete all orientation questions accurately (goal met). The patient was displayed impair ments in the areas of memory and problem solving. The patient was unable to recall five unassociated words following a delayed, however, could recall each word with a category cue provided. As a cognitive decline over the previous year was reported by the patient's , fluctuations in the patient's SLUMS results may not be clinically significant, as a patient with a diagnosis of dementia will display cognitive fluctuations daily. Correlation with the patient's baseline cognitive function would be appropriate to discuss with the patient's spouse and the rehabilitation team (results shared with shipping room supervisor following completion of the treatment session). External and internal memory strategies were shared and discussed throughout the treatment session. A handout of memory strategies were provided to the patient following completion of the discussion. The patient's "back precautions" were reviewed throughout the treatment session. The patient was unable to recall the precautions independently. The day prior the clinician and patient devised an acronym for ease of recall of the back precautions, "BLT." When the acronym was produced by the clinician, the patient was able to recall three of three precautions. The patient was encouraged to remove the precaution sign from her room at discharge and bring to her home to post. At this time, the patient shared with the clinician anxieties surrounding discharge. The clinician provided gentle verbal encouragement to the patient and confirmed her completed skilled training with therapists the day prior to prepare for a safe discharge as appropriate. Assessment Assessment Current Status: Poor Progress (Cognitive.) Treatment Plan Continue Plan of Care Speech Short Term Goals Short Term Goals Short Term Goals 1. The patient will display 80% accuracy with orientation information, independently. MET 2. The patient will demonstrate 80% accuracy with memory exercises, independently. NOT MET Time Frame-STG: Ten Days. Speech Residential Goals Nurse Extern Goals 1. The patient will display cognitive linguistic improvement for safe discharge to the least restrictive environment. NOT MET. Time Frame: Two Weeks. Speech-Plan Treatment Plan Speech Therapy Treatment Plan: Continue Plan of Care Treatment Duration: Feb 18, 2022 Frequency: Modified Program (IRF) (Four to five times per week.) Estimated Hrs Per Day: .5 hour per day Rehab Potential: Fair Safety Risks/Education Teaching Recipient: Patient Teaching Methods: Demonstration, Handout, Discussion Response to Teaching: Reinforcement Needed Education Topics Provided: Back Precautions, Memory Strategies Discharge Recommendations 24 Hour Supervision Time Speech Therapy Time In: 09:00 Speech Therapy Time Out: 09:30 DATE: Feb 23, 2022 Total Billed Time: 30 Billed Treatment Time 1NISH[address] [facility] ST Feb 23, 2022 09:48
[2022-02-23] MEDS: polyethylene glycoL POWDER 17 GM (MIRALAX) PACK PO SCH ×2 (09:49→19:40)
--- NOTE | 2022-02-23 10:01 | Occupational Ther Daily Note ---
OT Current Status-Daily Note Subjective Pt alert, sitting in recliner. Pt very anxious today about itching at incision then a spot at lower end of incision, nrsg aware. Pt agrees to therapy. Mental Status/Objective Patient Orientation: Person, Place, Time, Situation Attachments: Other-See Comments (back brace) ADL-Treatment Pt agrees to shower. Independent with eating. Pt is demonstrating ability to complete each step of ADL's though does require SBA and verbal cues to initiate tasks, encouragement to complete on own and minimal reminders to maintain back precautions. Pt is able to verbalize back precautions though reminders to physically maintain precautions. Pt uses toilet tongs to complete toilet hygiene after BM then after voiding no AE needed. Pt able to manipulate clothing by self with SBA. Transfers to toilet with SBA using grabbars and FWW. Set up and SBA for safety to complete shower. Pt very anxious in the shower and requires encouragement to complete by self. Pt requires affirmation when donning/doffing clothing that it is how she wants it. Pt able to don/doff upper body clothing by self after set up. Pt requires physical/verbal cues to thread 2nd LE into pants correctly instead of placing in same leg as first LE then SBA while pt manipulates pants and shirts. Pt uses figure 4 technique to don/doff socks and lower body clothing. Set up for footwear. SBA while standing to comp lete oral care, pt able to complete by self. Positioning back brace then pt is able to attach ends together then assist to tighten. After session, pt sitting in recliner with call light/phone in reach. All needs met in room. Therapy Code Descriptions/Definitions Functional [place] Measure: 0=Not Assessed/NA 4=Minimal Assistance 1=Total Assistance 5=Supervision or Setup 2=Maximal Assistance 6=Modified [place] 3=Moderate Assistance 7=Complete IndependenceSCALE: Activities may be completed with or without assistive devices. 1-Gtogodddjc-nshmeew completes the activity by him/herself with no assistance from a helper. 5-Set-up or Clean-up Assistance-helper sets up or cleans up; patient completes activity. [place] assists only prior to or following the activity. 4-Supervision or Touching Assistance-helper provides verbal cues and/or touching/steadying and/or contact guard assistance as patient completes activity. Assistance may be provided throughout the activity or intermittently. 3-Partial/Moderate Assistance-helper does LESS THAN HALF the effort. [place] lifts, holds or supports trunk or limbs, but provides less than half the effort. 2-Substantial/Maximal Assistance-helper does MORE THAN HALF the effort. [place] lifts or holds trunk or limbs and provides more than half the effort. 8-Hthmwszme-akibsb does ALL the effort. Patient does none of the effort to complete the activity. Or, the assistance of 2 or more helpers is required for the patient to complete the activity. If activity was not attempted, code reason: 7-Patient Refused. 9-Not Applicable-not attempted and the patient did not perform the activity before the current illness, exacerbation or injury. 10-Not Attempted due to Environmental Limitations-(lack of equipment, weather restraints, etc.). 88-Not Attempted due to Medical Conditions or Safety Concerns. Eating (QC): 6 Oral Hygiene (QC): 4 Shower/Bathe Self (QC): 4 Upper Body Dressing (QC): 3 (Min A due to assistance needed for back brace.) Lower Body Dressing (QC): 4 On/Off Footwear: 5 Toileting Hygiene (QC): 4 Toilet Transfer (QC): 4 Pt will continue to need minimal reminders of donning/doffing back brace and maintaining back precautions with routine tasks. Pt is anxious with new routines though with minimal words for explanation, pt is able to push through anxiety to complete safely. Pt requires increased time to complete tasks. Pt has tendency to immediately state that she can not do something even before she has tried. When this happens giving her time to attempt and soft encouragement pt typically is able to complete task on own. BIMS CAM BIMS Expression of Ideas and Wants: Without Difficulty Understanding Verbal Content: Usually Understands Brief Interview/Mental Status: Yes IRF PATRICE BIMS: IRF PATRICE BIMS Response (Comments) Value Repitition of Three Words Three 3 Recalls Socks Yes, After Cueing (Wear) 1 Recalls Blue Yes, After Cueing (Color) 1 Recalls Bed No, Could Not Recall 0 Year Correct 3 Month Accurate Within 5 Days 2 Day Incorrect or No Answer 0 Total 10 Patient Normally Able to Recal: Current Session Should Staff Asses. Mental St.: No OT Short Term Goals Short Term Goals Time Frame: Feb 22, 2022 Upper body dressin Lower body dressin OT Jail Goals Jail Goals Time Frame: Mar 05, 2022 Acute change in mental status: 0 Inattention: 0 Disorganized thinkin Altered level of consciousness: 0 Eating (QC): 6 (met) Oral Hygiene (QC): 6 (not met) Toileting Hygiene (QC): 6 (not met) Shower/Bathe Self (QC): 5 (not met) Upper Body Dressing (QC): 6 (not met) Lower Body Dressing (QC): 6 (not met) On/Off Footwear (QC): 6 (not met) Additional Goals: 1-Demonstrate ADL Tasks, 2-Verbalize Understanding, 3-ImproveStrength/Enrico 1=Demonstrate adherence to instructed precautions during ADL tasks. 2=Patient will verbalize/demonstrate understanding of assistive devices/modifications for ADL. 3=Patient will improve strength/tolerance for activity to enable patient to perform ADL's. OT Education/Plan Problem List/Assessment Assessment: Decreased Safety Aware, Impaired Cognition, Impaired Self-Care Skills Discharge Recommendations Plan/Recommendations: Continue POC Therapy Discharge Recommendati: Home & Family, Post Acute PT, Post Acute ST, Post Acute OT Equpiment Recommendations-D/C: Formwork Carpenter Treatment Plan/Plan of Care Patient would benefit from OT for education, treatment and training to promote independence in ADL's, mobility, safety and/or upper extremity function for ADL's. Plan of Care: ADL Retraining, Functional Mobility, Group Exercise/Act as Ind, UE Funct Exercise/Act Treatment Duration: Mar 05, 2022 Frequency: At least 5 of 7 days/Wk (IRF) Estimated Hrs Per Day: 1.5 hours per day Agreement: Yes Rehab Potential: Fair Time Start Time: 07:15 Stop Time: 08:30 DATE: Feb 23, 2022 Total Time Billed (hr/min): 75 Billed Treatment Time 1 visit-ADL 5 (75 min) SHARI OWENS Feb 23, 2022 10:01
--- NOTE | 2022-02-23 10:33 | Physical Therapy Daily Note ---
PT Daily Note-Current Subjective Patient in recliner pre-tx, reports pain, burning sensations, and tingling in LB but does not rate, agrees to PT. Patient states she feels scared about going home because they have a big dog that could knock her over and works. Nurse notified about pain and she gives patient pain meds during tx. Pain Section J - Health Conditions 1. Rarely or not at all 2. Occasionally 3. Frequently 4. Almost constantly 8. Unable to answer Pain Effect on Sleep: 1 Pain Interference with Therapy: 1 Pain Interference w/Day-to-Day: 1 Appearance Patient in recliner post tx with nurse call, phone, tray, all needs met, in room. Mental Status Patient Orientation: Person, Place, Situation back brace Transfers SCALE: Activities may be completed with or without assistive devices. 2-Egtsukhapw-ziqdknm completes the activity by him/herself with no assistance from a helper. 5-Set-up or Clean-up Assistance-helper sets up or cleans up; patient completes activity. [place] assists only prior to or following the activity. 4-Supervision or Touching Assistance-helper provides verbal cues and/or touching/steadying and/or contact guard assistance as patient completes activity. Assistance may be provided throughout the activity or intermittently. 3-Partial/Moderate Assistance-helper does LESS THAN HALF the effort. [place] lifts, holds or supports trunk or limbs, but provides less than half the effort. 2-Substantial/Maximal Assistance-helper does MORE THAN HALF the effort. [place] lifts or holds trunk or limbs and provides more than half the effort. 3-Pzqukmwde-vdymrq does ALL the effort. Patient does none of the effort to complete the activity. Or, the assistance of 2 or more helpers is required for the patient to complete the activity. If activity was not attempted, code reason: 7-Patient Refused. 9-Not Applicable-not attempted and the patient did not perform the activity before the current illness, exacerbation or injury. 10-Not Attempted due to Environmental Limitations-(lack of equipment, weather restraints, etc.). 88-Not Attempted due to Medical Conditions or Safety Concerns. Roll Left & Right (QC): 3 (Min A) Sit to Lying (QC): 3 (Min A) Lying to Sitting/Side of Bed(Q: 3 (Min A) Sit to Stand (QC): 4 (SBA) Chair/Jpq-pn-Jylag Xfer(QC): 4 (SBA) Toilet Transfer (QC): 4 (SBA) Car Transfer (QC): 4 (SBA) Cues for positioning and safety, especially during supine <-> sit. Patient often will either ignore cues or not understand them and move in an unsafe or incorrect way. Weight Bearing Right Lower Extremity: Right Full Weight Bearing Left Lower Extremity: Left Full Weight Bearing lifting restrictions Gait Training Does the Patient Walk?: Yes Distance: 100', 100' Walk 10 feet (QC): 4 Walk 50 ft with 2 Turns(QC): 4 Walk 150 ft (QC): 88 Walking 10ft/uneven surface-QC: 4 Gait Persons Needed: 1 Gait Assistive Device: FWW CGA with ambulation, Patient walks with scissor gait, unsteady, decreased step length, decreased foot clearance, slow gait speed. Patient had increased pain with ambulation, externally rotated her right leg and needed cues to correct that, she tends to lean backward but not enough to fall backward, needs cues to correct all these things but goes back to moving incorrectly after a while. Patient had one LOB during ambulation and needed therapist assist to correct. Wheelchair Training Wheel 50 ft with 2 turns (QC): 9 Wheel 150 ft (QC): 9 Stair Training Stair Training: Handrails/: 2 handrails #of Steps: 4 1 Step (curb) (QC): 4 4 Steps (QC): 4 12 Steps (QC): 88 Stairs: Pattern: Step to CGA, cues for safety and foot placement, patient often ignores or doesn't understand cues for foot placement Balance Picking up an Object (QC): 4 (SBA with scrum master) Exercises Seated Therapy Exercises: Ankle pumps, Long arc quads Seated Reps: 25 NuStep Minutes: 9 NuStep Workload: 6 Treatments Ambulation, LE Strengthening, Walking over uneven surface, bed mobility, transfers Assessment Current Status: Fair Progress Patient constantly complains of burning sensation in LB and has hypersensitivity to clothing on her skin. Patient is not compliant with wearing brace when sitting on the toilet, has impulsiveness and gets up on her own without brace on instead of pulling call cord in the restroom. Suggest someone is with her in the bathroom at all times. Patient not compliant with back precautions with twisting in bed. PT Short Term Goals Short Term Goals Time Frame: Feb 24, 2022 Roll Left & Right: 4 (SBA) Sit to lyin (SBA) Lying to sitting on side of be: 4 (SBA) Sit to stand: 4 (SBA) Chair/bds-nx-rpvjg transfer: 4 (SBA) Toilet transfer: 4 (SBA) Car transfer: 4 (SBA) Walk 10 feet: 4 (SBA) Walk 50 feet with two turns: 4 (SBA) Walk 150 feet: 4 (SBA) Walking 10ft on uneven surface: 4 (SBA) 1 step (curb): 4 (SBA) Picking up objects: 4 (SBA with arm scrum master) PT Manager Digital Goals Manager Digital Goals PT [facility] Goals Time Frame: Mar 10, 2022 Roll Left & Right (QC): 6 Sit to Lying (QC): 6 Lying-Sitting on Side/Bed(QC): 6 Sit to Stand (QC): 6 Chair/Ecm-ss-Rpgdk Xfer(QC): 6 Toilet Transfer (QC): 6 Car Transfer (QC): 6 Does the Patient Walk: Yes Walk 10 feet (QC): 6 Walk 50ft with 2 Turns (QC): 6 Walk 150 ft (QC): 6 Walking 10ft on Uneven Surface: 6 1 Step (curb) (QC): 6 4 Steps (QC): 6 12 Steps (QC): 88 Picking up an Object (QC): 6 (with scrum master arm) Wheel 50 feet with 2 turns (QC: 9 Wheel 150 feet: 9 PT Plan Problem List Problem List: Activity Tolerance, Functional Strength, Safety, Balance, Gait, Transfer, Bed Mobility, ROM Treatment/Plan Treatment Plan: Continue Plan of Care Treatment Plan: Bed Mobility, Education, Functional Activity Enrico, Functional Strength, Group Therapy, Gait, Safety, Therapeutic Exercise, Transfers Treatment Duration: Mar 10, 2022 Frequency: At least 5 of 7 days/Wk (IRF) Estimated Hrs Per Day: 1.5 hours per day Patient and/or Family Agrees t: Yes Safety Risks/Education Patient Education: Gait Training, Transfer Techniques, Steps, Reviewed Precautions, Correct Positioning, Reviewed Don/Doff Brace, Safety Issues Teaching Recipient: Patient Teaching Methods: Demonstration, Discussion Response to Teaching: Reinforcement Needed Time Time In: 929 Time Out: 1045 DATE: Feb 23, 2022 Total Billed Treatment Time: 75 Total Billed Treatment 1 visit FA x3 EX x2 MICHAELA SMILEY PT Feb 23, 2022 10:33
--- NOTE | 2022-02-23 12:23 | Progress Note ---
DORIE BRANNON 02/23/22 1223: Progress Note Hospital course: Lena Neumann is a 71yo F who came to the ARU 02/17/22 after a DC from [facility] following an uncomplicated lumbar spine surgery by Dr Joyner. The pain was unrelenting for 2 years and pain injections and medical management had been unsuccessful. Upon arrival she was moving around well but remains impulsive and is a very high fall risk. She has shown cognitive deficits since arrival where most days her orientation was x 0. She has expressed confusion and concern to be alone or around her "big dog" while she recovers from her surgery. She has met requirements from PT and OT and shows signs of healthy recovery. She has been treated with aggressive pain management and laxatives/enemas to maintain bowel movements. Family training has been provided to her and her , and DC plans have been made for 02/25/22. She will continue follow up outpatient PT/OT and progress will continue to be monitored. KAMLA CHRIS DO 02/24/22 0543: Supervisory-Addendum Brief Verification & Attestation Participated in pt care: history, MDM, physical Personally performed: exam, history, MDM, supervision of care Care discussed with: Medical Student Procedures: n/a Results interpretation: Verified all documentation Verification and Attestation of Medical Student E/M Service A medical student performed and documented this service in my presence. I reviewed and verified all information documented by the medical student and made modifications to such information, when appropriate. I personally performed the physical exam and medical decision making. Kamla Chris Feb 24, 2022,05:43 DORIE BRANNON Feb 23, 2022 12:23 KAMLA CHRIS DO Feb 24, 2022 05:43
[2022-02-23] MEDS: ALPRAZolam 0.5 MG (XANAX) TAB PO PRN ×2 (12:48→19:39)
[2022-02-23] MEDS: FLEET ENEMA ADULT 1 EA BTL PR PRN (15:24)
[2022-02-23 19:37] VITALS: BP 138/80
[2022-02-23] MEDS: MELATONIN 3 MG TABLET PO PRN (19:40)
[2022-02-24] MEDS: diphenhydrAMINE 25 MG TAB (BENADRYL) PO PRN (02:26)
[2022-02-24] MEDS: oxyCODONE/APAP 10/325MG (PERCOCET 10) TABLET PO PRN (02:26)
--- NOTE | 2022-02-24 05:56 | Discharge Summary ---
Diagnosis/Chief Complaint Date of Admission Feb 17, 2022 at 14:32 Date of Discharge Discharge Date: Feb 24, 2022 Discharge Diagnosis Assess & Plan/Chief Complaint Assessment: s/p lumbosacral spine surgery KARENA HTN Cognitive decline HLP Borderline DM OA Chronic pain Plan: PT OT Home meds Monitor closely 02/18/2022: Supportive care Increased pain control 02/19/2022: BM regimen Pain control 02/20/2022: Pursue Beth psych at discharge 02/21/2022: Monitor pain SSE 02/22/2022: Supportive care Pain control 02/23/2022: Monitor pain Discharge Summary Discharge Physical Examination Allergies: Coded Allergies: Sulfa (Sulfonamide Antibiotics) (Unverified Allergy, Unknown, 03/19/14) meperidine (Unverified Allergy, Unknown, 03/19/14) latex (Verified Adverse Reaction, Mild, 10/31/14) Vitals & I&Os Vital Signs Date Time Temp Pulse Resp B/P (MAP) Pulse Ox O2 Delivery O2 Flow Rate FiO2 02/23/22 20:00 Room Air 02/23/22 19:37 36.3 80 16 138/80 (99) 100 General Appearance: Alert, Oriented X3, Cooperative Respiratory: Clear to Auscultation Cardiovascular: Regular Rate Neuro: Normal Gait, Normal Speech, Strength at 5/5 X4 Ext Hospital Course Was the Problem List Reviewed?: Yes Hospital course: Lena Neumann is a 71yo F who came to the ARU 02/17/22 after a DC from [facility] following an uncomplicated lumbar spine surgery by Dr Joyner. The pain was unrelenting for 2 years and pain injections and medical management had been unsuccessful. Upon arrival she was moving around well but remains impulsive and is a very high fall risk. She has shown cognitive deficits since arrival where most days her orientation was x 0. She has expressed confusion and concern to be alone or around her "big dog" while she recovers from her surgery. She has met requirements from PT and OT and shows signs of healthy recovery. She has been treated with aggressive pain management and laxatives/enemas to maintain bowel movements. Family training has been provided to her and her , and DC plans have been made for 02/25/22. She will continue follow up outpatient PT/OT and progress will continue to be monitored. Labs (last 24 hrs) Laboratory Tests 02/18/22 05:14: White Blood Count 8.6, Red Blood Count 3.18L, Hemoglobin 9.2L, Hematocrit 28L, Mean Corpuscular Volume 87, Mean Corpuscular Hemoglobin 29, Mean Corpuscular Hemoglobin Concent 33, Red Cell Distribution Width 13.3, Platelet Count 209, M [place] Platelet Volume 11.3, Immature Granulocyte % (Auto) 1, Neutrophils (%) (Auto) 77H, Lymphocytes (%) (Auto) 10L, Monocytes (%) (Auto) 12, Eosinophils (%) (Auto) 0, Basophils (%) (Auto) 0, Neutrophils # (Auto) 6.6, Lymphocytes # (Auto) 0.9L, Monocytes # (Auto) 1.0, Eosinophils # (Auto) 0.0, Basophils # (Auto) 0.0, Immature Granulocyte # (Auto) 0.0, Sodium Level 139, Potassium Level 3.7, Chloride Level 105, Carbon Dioxide Level 25, Anion Gap 9, Blood Urea Nitrogen 13, Creatinine 0.66, Estimat Glomerular Filtration Rate 95, BUN/Creatinine Ratio 20, Glucose Level 94, Calcium Level 8.9, Corrected Calcium 9.6, Iron Level 13L, Total Bilirubin 0.6, Aspartate Amino Transf (AST/SGOT) 27, Alanine Aminotransferase (ALT/SGPT) 16, Alkaline Phosphatase 79, Total Protein 5.4L, Albumin 3.1L, Vitamin B12 Level 325 02/22/22 05:40: White Blood Count 5.8, Red Blood Count 3.22L, Hemoglobin 9.1L, Hematocrit 28L, Mean Corpuscular Volume 88, Mean Corpuscular Hemoglobin 28, Mean Corpuscular Hemoglobin Concent 32, Red Cell Distribution Width 13.4, Platelet Count 328, Mean Platelet Volume 10.2, Immature Granulocyte % (Auto) 1, Neutrophils (%) (Auto) 62, Lymphocytes (%) (Auto) 18, Monocytes (%) (Auto) 14H, Eosinophils (%) (Auto) 4, Basophils (%) (Auto) 1, Neutrophils # (Auto) 3.6, Lymphocytes # (Auto) 1.0, Monocytes # (Auto) 0.8, Eosinophils # (Auto) 0.2, Basophils # (Auto) 0.0, Immature Granulocyte # (Auto) 0.1, Sodium Level 136, Potassium Level 3.8, Chloride Level 101, Carbon Dioxide Level 28, Anion Gap 7, Blood Urea Nitrogen 20H, Creatinine 0.76, Estimat Glomerular Filtration Rate 85, BUN/Creatinine Ratio 26, Glucose Level 91, Calcium Level 8.9, Corrected Calcium 9.7, Total Bilirubin 0.3, Aspartate Amino Transf (AST/SGOT) 18, Alanine Aminotransferase (ALT/SGPT) 14, Alkaline Phosphatase 82, Total Protein 5.2L, Albumin 3.0L Pending Labs Laboratory Tests 02/18/22 05:14: White Blood Count 8.6, Red Blood Count 3.18, Hemoglobin 9.2, Hematocrit 28, Mean Corpuscular Volume 87, Mean Corpuscular Hemoglobin 29, Mean Corpuscular Hemoglobin Concent 33, Red Cell Distribution Width 13.3, Platelet Count 209, Mean Platelet Volume 11.3, Immature Granulocyte % (Auto) 1, Neutrophils (%) (Auto) 77, Lymphocytes (%) (Auto) 10, Monocytes (%) (Auto) 12, Eosinophils (%) (Auto) 0, Basophils (%) (Auto) 0, Neutrophils # (Auto) 6.6, Lymphocytes # (Auto) 0.9, Monocytes # (Auto) 1.0, Eosinophils # (Auto) 0.0, Basophils # (Auto) 0.0, Immature Granulocyte # (Auto) 0.0, Sodium Level 139, Potassium Level 3.7, Chloride Level 105, Carbon Dioxide Level 25, Anion Gap 9, Blood Urea Nitrogen 13, Creatinine 0.66, Estimat Glomerular Filtration Rate 95, BUN/Creatinine Ratio 20, Glucose Level 94, Calcium Level 8.9, Corrected Calcium 9.6, Iron Level 13, Total Bilirubin 0.6, Aspartate Amino Transf (AST/SGOT) 27, Alanine Aminotransferase (ALT/SGPT) 16, Alkaline Phosphatase 79, Total Protein 5.4, Albumin 3.1, Vitamin B12 Level 325 02/22/22 05:40: White Blood Count 5.8, Red Blood Count 3.22, Hemoglobin 9.1, Hematocrit 28, Mean Corpuscular Volume 88, Mean Corpuscular Hemoglobin 28, Mean Corpuscular Hemoglobin Concent 32, Red Cell Distribution Width 13.4, Platelet Count 328, Mean Platelet Volume 10.2, Immature Granulocyte % (Auto) 1, Neutrophils (%) (Auto) 62, Lymphocytes (%) (Auto) 18, Monocytes (%) (Auto) 14, Eosinophils (%) (Auto) 4, Basophils (%) (Auto) 1, Neutrophils # (Auto) 3.6, Lymphocytes # (Auto) 1.0, Monocytes # (Auto) 0.8, Eosinophils # (Auto) 0.2, Basophils # (Auto) 0.0, Immature Granulocyte # (Auto) 0.1, Sodium Level 136, Potassium Level 3.8, Chloride Level 101, Carbon Dioxide Level 28, Anion Gap 7, Blood Urea Nitrogen 20, Creatinine 0.76, Estimat Glomerular Filtration Rate 85, BUN/Creatinine Ratio 26, Glucose Level 91, Calcium Level 8.9, Corrected Calcium 9.7, Total Bilirubin 0.3, Aspartate Amino Transf (AST/SGOT) 18, Alanine Aminotransferase (ALT/SGPT) 14, Alkaline Phosphatase 82, Total Protein 5.2, Albumin 3.0 Discharge Home Medications: Active Scripts Active Reported Indapamide 2.5 Mg Tablet 2.5 Mg PO DAILY PRN Metamucil Packet (Psyllium Husk (with Sugar)) 3.4 Gram Powd.pack 1 Ea PO DAILY PRN Pregabalin 100 Mg Capsule 100 Mg PO QID Docusate Sodium 100 Mg Capsule 100 Mg PO DAILY PRN Endocet 10-325 mg Tablet (Oxycodone HCl/Acetaminophen) 10 Mg-325 Mg Tablet 0.5-1 Ea PO BID PRN Naloxone HCl 4 Mg/Actuation [place] 1 Spr NS UD PRN ADMINISTER 1 SPRAY IN 1 NOSTRIL 1 TIME. MAY REPEAT IN ALTERNATING NOSTRILS EVERY 2-3 MINUTES UNTIL RESPONSIVE OR EMS ARRIVES Meclizine HCl 25 Mg Tablet 25 Mg PO TID PRN Loratadine 10 Mg Tablet 10 Mg PO BID Hydrochlorothiazide 25 Mg Tablet 25 Mg PO DAILY Citalopram HBr (Citalopram Hydrobromide) 40 Mg Tablet 40 Mg PO DAILY Vitamin D3 (Cholecalciferol (Vitamin D3)) 50 Mcg (2000 Unit) Capsule 50 Mcg PO DAILY B-Complex with C (B Complex with Vitamin C) 1 Each Tablet 1 Each PO DAILY Alprazolam 0.5 Mg Tablet 0.5 Mg PO TID PRN Losartan Potassium 50 Mg Tablet 50 Mg PO BID Instructions to patient/family Please see electronic discharge instructions given to patient. Diagnosis/Problems Diagnosis/Problems (1) H/O lumbosacral spine surgery REGINALD CHRIS DO Feb 24, 2022 05:56
[2022-02-24] MEDS: MULTIVIT W/MINERALS TAB (THERAGRAN M) PO SCH (06:49)
[2022-02-24 07:17] VITALS: BP 152/72
--- NOTE | 2022-02-24 07:48 | Therapy Team Discharge Summary ---
Therapy Discharge Summary Discharge Recommendations Date of Discharge Therapy D/C Recommendations: 24 hr Supervision, Occupational Therapy Outpatient Physical Therapy Roll Left to Right (QC): 3 (Min A) Sit to Lying (QC): 3 (Min A) Lying to Sitting/Side of Bed(Q: 3 (Min A) Sit to Stand (QC): 4 (SBA) Chair/Bhu-rc-Wtmav Xfer(QC): 4 (SBA) Toilet Transfer (QC): 4 Car Transfer (QC): 4 (SBA) Does the Patient Walk: Yes Mode of Locomotion: Walk Anticipated Mode of Locomotion: Walk Walk 10 feet (QC): 4 Walk 50 ft with 2 Turns(QC): 4 Walk 150 ft (QC): 88 Walking 10ft on uneven surface: 4 Distance: 100' Gait Assistive Device: FWW Wheel 50 ft with 2 turns (QC): 9 Wheel 150 ft (QC): 9 #of Steps: 4 1 Step (curb) (QC): 4 4 Steps (QC): 4 12 Steps (QC): 88 Walking Assistive Device: Walker Balance Sitting Static: Normal Balance Sitting Dynamic: Normal Balance-Standing Static: Fair Picking up an Object (QC): 4 (SBA with elementary principal) Occupational Therapy Pt admitted to [facility] s/p L3-S1 TLIF/PSF with laminectomy. At [facility], pt was independent with ADLS and functional mobility using SPC. Upon initial evaluation, pt was independent with eating, SBA oral care and showering, and min A with UE dressing, LE dressing, footwear and toileting. OT tx focused on increasing BUE Strength and activity tolerance, increasing safety and independence with ADLS and functional mobility, and education on back precautions/back brace. Pt made good functional progress towards goals, but only attained LTG for eating. Pt to discharge home with spouse. OT recommendations include 24 hour supervision at home and continued OT home health services. D/C from OT. Decreased Safety Aware, Impaired Cognition, Impaired Self-Care Skills Eating (QC): 6 Oral Hygiene (QC): 4 Shower/Bathe Self (QC): 4 Upper Body Dressing (QC): 3 (Min A due to assistance needed for back brace.) Lower Body Dressing (QC): 4 On/Off Footwear (QC): 5 Toileting Hygiene (QC): 4 PT Intermediate Goals Chief Deputy Clerk/Bailiff Goals PT Chief Deputy Clerk/Bailiff Goals Time Frame: Mar 10, 2022 Roll Left to Right (QC): 6 Sit to Lying (QC): 6 Lying-Sitting on Side/Bed(QC): 6 Sit to Stand (QC): 6 Chair/Jbd-gk-Ipken Xfer(QC): 6 Toilet/Commode Transfer (QC): 6 Car Transfer (QC): 6 Does the Patient Walk: Yes Walk 10 feet (QC): 6 Walk 10ft-Uneven Surface(QC): 6 Walk 50ft with 2 Turns (QC): 6 Walk 150 ft (QC): 6 Wheel 50 feet with 2 turns (QC: 9 Wheel 150 feet: 9 1 Step (curb) (QC): 6 4 Steps (QC): 6 12 Steps (QC): 88 Picking up an Object (QC): 6 (with elementary principal arm) OT Intermediate Goals Chief Deputy Clerk/Bailiff Goals Time Frame: Mar 05, 2022 Acute change in mental status: 0 Inattention: 0 Disorganized thinkin Altered level of consciousness: 0 Eating (QC): 6 (met) Oral Hygiene (QC): 6 (not met) Toileting Hygiene (QC): 6 (not met) Shower/Bathe Self (QC): 5 (not met) Upper Body Dressing (QC): 6 (not met) Lower Body Dressing (QC): 6 (not met) On/Off Footwear (QC): 6 (not met) Additional Goals: 1-Demonstrate ADL Tasks, 2-Verbalize Understanding, 3- ImproveStrength/Enrico 1=Demonstrate adherence to instructed precautions during ADL tasks. 2=Patient will verbalize/demonstrate understanding of assistive devices/modifications for ADL. 3=Patient will improve strength/tolerance for activity to enable patient to perform ADL's. Speech Intermediate Goals Intermediate Goals 1. The patient will display cognitive linguistic improvement for safe discharge to the least restrictive environment. NOT MET. Time Frame: Two Weeks. ARLIN OROZCO OT Feb 24, 2022 07:47
[2022-02-24] MEDS: VITAMIN D3 25 MCG (1,000 UNITS) TABLET PO SCH (07:55)
[2022-02-24] MEDS: LORATADINE (CLARITIN) 10 MG TAB PO SCH (07:55)
[2022-02-24] MEDS: SENNA W/DOCUSATE (SENOKOT S) TABLET PO SCH (07:56)
[2022-02-24] MEDS: DOCUSATE SODIUM 100 MG (COLACE) CAP PO SCH (07:56)
[2022-02-24] MEDS: PREGABALIN 100 MG (LYRICA) CAPSULE PO SCH (07:56)
[2022-02-24] MEDS: FLEET ENEMA ADULT 1 EA BTL PR PRN (07:57)
[2022-02-24] MEDS: LOSARTAN 50 MG (COZAAR) TAB PO SCH (07:57)
[2022-02-24] MEDS: polyethylene glycoL POWDER 17 GM (MIRALAX) PACK PO SCH (07:58)
--- NOTE | 2022-02-24 08:50 | Therapy Team Discharge Summary ---
Therapy Discharge Summary Discharge Recommendations Date of Discharge Therapy D/C Recommendations: 24 hr Supervision, Occupational Therapy Outpatient Physical Therapy Roll Left to Right (QC): 3 (Min A) Sit to Lying (QC): 3 (Min A) Lying to Sitting/Side of Bed(Q: 3 (Min A) Sit to Stand (QC): 4 (SBA) Chair/Lnt-ip-Hkiye Xfer(QC): 4 (SBA) Toilet Transfer (QC): 4 Car Transfer (QC): 4 (SBA) Does the Patient Walk: Yes Mode of Locomotion: Walk Anticipated Mode of Locomotion: Walk Walk 10 feet (QC): 4 Walk 50 ft with 2 Turns(QC): 4 Walk 150 ft (QC): 88 Walking 10ft on uneven surface: 4 Distance: 100' Gait Assistive Device: FWW Wheel 50 ft with 2 turns (QC): 9 Wheel 150 ft (QC): 9 #of Steps: 4 1 Step (curb) (QC): 4 4 Steps (QC): 4 12 Steps (QC): 88 Walking Assistive Device: Walker Balance Sitting Static: Normal Balance Sitting Dynamic: Normal Balance-Standing Static: Fair Picking up an Object (QC): 4 (SBA with structural steel shop supervisor) Occupational Therapy Decreased Safety Aware, Impaired Cognition, Impaired Self-Care Skills Eating (QC): 6 Oral Hygiene (QC): 4 Shower/Bathe Self (QC): 4 Upper Body Dressing (QC): 3 (Min A due to assistance needed for back brace.) Lower Body Dressing (QC): 4 On/Off Footwear (QC): 5 Toileting Hygiene (QC): 4 Speech-Language Pathology The patient was admitted to the acute rehabilitation unit following a lumbar spine procedure. A known cognitive decline of the patient was reported by the patient's from the prior year. Upon arrival, the patient displayed a SLUMS result of +23/30 correlating to a mild neurocognitive decline. At discharge, the patient displayed a SLUMS result of +16/30 correlating to a result of "dementia." As the patient arrived with a baseline cognitive impairment, fluctuations in the patient's daily cognitive abilities is not uncommon. Throughout the patient's stay, she did not meet cognitive goals, remaining somewhat impulsive with reduced safety as she displays difficulty recalling back precautions and requested guidelines. The patient does plan to discharge with supervision from her spouse. PT Manager General Goals Manager General Goals PT Retirement Goals Time Frame: Mar 10, 2022 Roll Left to Right (QC): 6 Sit to Lying (QC): 6 Lying-Sitting on Side/Bed(QC): 6 Sit to Stand (QC): 6 Chair/Jgp-hh-Gjaeo Xfer(QC): 6 Toilet/Commode Transfer (QC): 6 Car Transfer (QC): 6 Does the Patient Walk: Yes Walk 10 feet (QC): 6 Walk 10ft-Uneven Surface(QC): 6 Walk 50ft with 2 Turns (QC): 6 Walk 150 ft (QC): 6 Wheel 50 feet with 2 turns (QC: 9 Wheel 150 feet: 9 1 Step (curb) (QC): 6 4 Steps (QC): 6 12 Steps (QC): 88 Picking up an Object (QC): 6 (with structural steel shop supervisor arm) OT Manager General Goals Retirement Goals Time Frame: Mar 05, 2022 Acute change in mental status: 0 Inattention: 0 Disorganized thinkin Altered level of consciousness: 0 Eating (QC): 6 (met) Oral Hygiene (QC): 6 (not met) Toileting Hygiene (QC): 6 (not met) Shower/Bathe Self (QC): 5 (not met) Upper Body Dressing (QC): 6 (not met) Lower Body Dressing (QC): 6 (not met) On/Off Footwear (QC): 6 (not met) Additional Goals: 1-Demonstrate ADL Tasks, 2-Verbalize Understanding, 3- ImproveStrength/Enrico 1=Demonstrate adherence to instructed precautions during ADL tasks. 2=Patient will verbalize/demonstrate understanding of assistive devices /modifications for ADL. 3=Patient will improve strength/tolerance for activity to enable patient to perform ADL's. Speech Manager General Goals Retirement Goals 1. The patient will display cognitive linguistic improvement for safe discharge to the least restrictive environment. NOT MET. The patient was admitted to the acute rehabilitation unit following a lumbar spine procedure. A known cognitive decline of the patient was reported by the patient's from the prior year. Upon arrival, the patient displayed a SLUMS result of +23/30 correlating to a mild neurocognitive decline. At discharge, the patient displayed a SLUMS result of +16/30 correlating to a result of "dementia." As the patient arrived with a baseline cognitive impairment, fluctuations in the patient's daily cognitive abilities is not uncommon. Time Frame: Two Weeks. BIGG COELHO Feb 24, 2022 08:49
--- NOTE | 2022-02-24 10:12 | Therapy Team Discharge Summary ---
Therapy Discharge Summary Discharge Recommendations Date of Discharge Therapy D/C Recommendations: 24 hr Supervision, Occupational Therapy Outpatient Physical Therapy Patient admitted with s/p L3-S1 TLIF/PSF w/ laminectomy. Upon arrival patient was CGA with bed mobility (rolling left<->right, sit<->lying), transfers(sit<->stand, chair<->bed, toilet transfers, and car transfer), CGA using a FWW with ambulating 10' and 50' w/ 2 turns, uneven surface 10', and was able to ambulate 100' before needing to sit, CGA with 1 step, and able to quill picking machine operator an object off the floor using a cold meat chef arm with CGA. Patient has been working on bed mobility and transfer training, gait training and stair training, endurance and balance training, and functional strengthening. Patient did not meet any LTG. Patient is CGA using FWW with ambulating 10', 50' w/ 2 turns, 100', and uneven surfaces 10'. Patient is CGA using 2 handrails for 1 step and 4 steps using a step-to pattern going up and coming down. Patient is SBA with picking up an object off the floor using a reach arm, sit<->stand, chair<->bed, toilet transfers, and car transfers. Patient is being DC from PT at this time. Roll Left to Right (QC): 3 (Min A) Sit to Lying (QC): 3 (Min A) Lying to Sitting/Side of Bed(Q: 3 (Min A) Sit to Stand (QC): 4 (SBA) Chair/Znn-vs-Bbrmj Xfer(QC): 4 (SBA) Toilet Transfer (QC): 4 Car Transfer (QC): 4 (SBA) Does the Patient Walk: Yes Mode of Locomotion: Walk Anticipated Mode of Locomotion: Walk Walk 10 feet (QC): 4 Walk 50 ft with 2 Turns(QC): 4 Walk 150 ft (QC): 88 Walking 10ft on uneven surface: 4 Distance: 100' Gait Assistive Device: FWW Wheel 50 ft with 2 turns (QC): 9 Wheel 150 ft (QC): 9 #of Steps: 4 1 Step (curb) (QC): 4 4 Steps (QC): 4 12 Steps (QC): 88 Walking Assistive Device: Walker Balance Sitting Static: Normal Balance Sitting Dynamic: Normal Balance-Standing Static: Fair Picking up an Object (QC): 4 (SBA with cold meat chef) Occupational Therapy Decreased Safety Aware, Impaired Cognition, Impaired Self-Care Skills Eating (QC): 6 Oral Hygiene (QC): 4 Shower/Bathe Self (QC): 4 Upper Body Dressing (QC): 3 (Min A due to assistance needed for back brace.) Lower Body Dressing (QC): 4 On/Off Footwear (QC): 5 Toileting Hygiene (QC): 4 PT Longterm Goals Auto Repair Technician Goals PT Auto Repair Technician Goals Time Frame: Mar 10, 2022 Roll Left to Right (QC): 6 Sit to Lying (QC): 6 Lying-Sitting on Side/Bed(QC): 6 Sit to Stand (QC): 6 Chair/Sdx-au-Ujjbi Xfer(QC): 6 Toilet/Commode Transfer (QC): 6 Car Transfer (QC): 6 Does the Patient Walk: Yes Walk 10 feet (QC): 6 Walk 10ft-Uneven Surface(QC): 6 Walk 50ft with 2 Turns (QC): 6 Walk 150 ft (QC): 6 Wheel 50 feet with 2 turns (QC: 9 Wheel 150 feet: 9 1 Step (curb) (QC): 6 4 Steps (QC): 6 12 Steps (QC): 88 Picking up an Object (QC): 6 (with cold meat chef arm) OT Auto Repair Technician Goals Auto Repair Technician Goals Time Frame: Mar 05, 2022 Acute change in mental status: 0 Inattention: 0 Disorganized thinkin Altered level of consciousness: 0 Eating (QC): 6 (met) Oral Hygiene (QC): 6 (not met) Toileting Hygiene (QC): 6 (not met) Shower/Bathe Self (QC): 5 (not met) Upper Body Dressing (QC): 6 (not met) Lower Body Dressing (QC): 6 (not met) On/Off Footwear (QC): 6 (not met) Additional Goals: 1-Demonstrate ADL Tasks, 2-Verbalize Understanding, 3- ImproveStrength/Enrico 1=Demonstrate adherence to instructed precautions during ADL tasks. 2=Patient will verbalize/demonstrate understanding of assistive devices/modifications for ADL. 3=Patient will improve strength/tolerance for activity to enable patient to perform ADL's. Speech Auto Repair Technician Goals Auto Repair Technician Goals 1. The patient will display cognitive linguistic improvement for safe discharge to the least restrictive environment. NOT MET. The patient was admitted to the acute rehabilitation unit following a lumbar spine procedure. A known cognitive decline of the patient was reported by the patient's from the prior year. Upon arrival, the patient displayed a SLUMS result of +23/30 correlating to a mild neurocognitive decline. At discharge, the patient displayed a SLUMS result of +16/30 correlating to a result of "dementia." As the patient arrived with a baseline cognitive impairment, fluctuations in the patient's daily cognitive abilities is not uncommon. Time Frame: Two Weeks. GRAZYNA RICHARDS PT Feb 24, 2022 10:12
[2022-02-24 11:52] VITALS: BP 152/72
== END 2022-02-24 09:15 | disposition home or self-care (01) | DRG 561 ==
PROVIDERS: ADMIT Internal Medicine; ATTEND Internal Medicine
DX: Z47.89 Encounter for other orthopedic aftercare (principal); M62.81 Muscle weakness (generalized); R53.83 Other fatigue; R53.81 Other malaise; R41.81 Age-related cognitive decline; R45.87 Impulsiveness; R26.9 Unspecified abnormalities of gait and mobility; Z91.81 History of falling; K59.00 Constipation, unspecified; I10 Essential (primary) hypertension; F32.A Depression, unspecified; G47.33 Obstructive sleep apnea (adult) (pediatric); E78.00 Pure hypercholesterolemia, unspecified; G62.9 Polyneuropathy, unspecified; K21.9 Gastro-esophageal reflux disease without esophagitis; M19.91 Primary osteoarthritis, unspecified site; M79.7 Fibromyalgia; H54.3 Unqualified visual loss, both eyes; F41.9 Anxiety disorder, unspecified; Z88.2 Allergy status to sulfonamides
CPT/HCPCS: 36415; 80053; 82607; 83540; 85025

== ENCOUNTER 2022-03-05 08:00 | Emergency (ER) | payer MEDICARE ==
[~2022-03-05] VITALS: Ht 165.1 cm; Wt 76.2 kg
[~2022-03-05 08:00] MED LIST changes: +ALPR0.5T7 PO; +B CO1TAB6 PO; +CHOL200074 PO; +CITA40TA13 PO; +DOCU100C37 PO; +HYDR25TA4 PO; +LORA10TA7 PO; +MECL-149 PO; +NALO4SPR3 NS; +OXYC-191 PO; +PREG100C55 PO; +PSYL1PAC10 PO
--- NOTE | 2022-03-05 08:41 | ED Respiratory ---
General Chief Complaint: Respiratory Problems Stated Complaint: SOA/ANXIOUS Source: patient Exam Limitations: no limitations History of Present Illness Date Seen by Provider: Mar 05, 2022 Time Seen by Provider: 08:26 Initial Comments Patient is a 71-year-old female who presents to the emergency department today with a chief complaint of waking up at about 730 this morning "short of breath". Patient states this happens occasionally. She had gotten up at 6 AM and taken an oxycodone as she was fairly recently had back surgery by Dr. RICE. She went back to bed and back to sleep. She states she slept fairly well throughout the night. She denies any recent febrile illnesses such as chills, sore throat, productive cough. No abdominal pain, nausea, vomiting or diarrhea. No urinary complaints. No swelling in her legs cramping in her calves. No history of blood clot. She states she is currently feeling a little bit better although does endorse some anxiety. She saw her primary care physician, Dr. Chirs yesterday. No issues with that visit. She states she does take 0.5 mg of Xanax as needed. She has not had any this morning. She states she normally breaks them in half. Vital signs are completely stable, 100% oxygen saturations on room air. Respirations even and unlabored. Good blood pressure, pulse in the 70s and 80s. She is afebrile. Timing/Duration: just prior to arrival (1 hour) Severity: moderate Prior Episodes/Possible Cause: occasional episodes Associated Symptoms: shortness of breath Allergies and Home Medications Allergies Coded Allergies: Sulfa (Sulfonamide Antibiotics) (Unverified Allergy, Unknown, 03/19/14) meperidine (Unverified Allergy, Unknown, 03/19/14) latex (Verified Adverse Reaction, Mild, 10/31/14) Patient Home Medication List Home Medication List Reviewed: Yes Alprazolam (Alprazolam) 0.5 Mg Tablet, 0.5 MG PO TID PRN for ANXIETY, (Reported) Entered as Reported by: EDITH MUIR on 02/17/22 3292 B Complex with Vitamin C (B-Complex with C) 1 Each Tablet, 1 EACH PO DAILY, (Reported) Entered as Reported by: EDITH MUIR on 02/17/22 0193 Cholecalciferol (Vitamin D3) (Vitamin D3) 50 Mcg (2000 Unit) Capsule, 50 MCG PO DAILY, (Reported) Entered as Reported by: EDITH MUIR on 02/17/22 135 Citalopram Hydrobromide (Citalopram HBr) 40 Mg Tablet, 40 MG PO DAILY, (Reported) Entered as Reported by: EDITH MUIR on 02/17/22 135 Docusate Sodium (Docusate Sodium) 100 Mg Capsule, 100 MG PO DAILY PRN for CONSTIPATION-1ST LINE, (Reported) Entered as Reported by: EDITH MUIR on 02/17/22 135 Hydrochlorothiazide (Hydrochlorothiazide) 25 Mg Tablet, 25 MG PO DAILY, (Report ed) Entered as Reported by: EDITH MUIR on 02/17/22 135 Indapamide (Indapamide) 2.5 Mg Tablet, 2.5 MG PO DAILY PRN for BLOOD PRESSURE/EDEMA, (Reported) Entered as Reported by: EDITH MUIR on 02/17/22 1402 Loratadine (Loratadine) 10 Mg Tablet, 10 MG PO BID, (Reported) Entered as Reported by: EDITH MUIR on 02/17/22 135 Losartan Potassium (Losartan Potassium) 50 Mg Tablet, 50 MG PO BID, (Reported) Entered as Reported by: JULIETH RIOS on 11/25/20 1302 Meclizine HCl (Meclizine HCl) 25 Mg Tablet, 25 MG PO TID PRN for DIZZINESS/VERTIGO, (Reported) Entered as Reported by: EDITH MUIR on 02/17/22 135 Oxycodone HCl/Acetaminophen (Endocet 10-325 mg Tablet) 10 Mg-325 Mg Tablet, 0.5- 1 EA PO BID PRN for PAIN-MODERATE (5-7), (Reported) Entered as Reported by: EDITH MUIR on 02/17/22 135 Pregabalin (Pregabalin) 100 Mg Capsule, 100 MG PO QID, (Reported) Entered as Reported by: EDITH MUIR on 02/17/22 135 Psyllium Husk (with Sugar) (Metamucil Packet) 3.4 Gram Powd.pack, 1 EA PO DAILY PRN for CONSTIPATION, (Reported) Entered as Reported by: EDITH MUIR on 02/17/22 1359 Review of Systems Review of Systems Constitutional: see HPI EENTM: other (chronic runny nose) Respiratory: short of breath Cardiovascular: no symptoms reported Gastrointestinal: no symptoms reported Genitourinary: no symptoms reported Musculoskeletal: back pain (post operative) Skin: no symptoms reported Psychiatric/Neurological: Anxiety All Other Systems Reviewed Negative Unless Noted: Yes Past Uivgxsu-Zklveg-Qxkgok Hx Immunizations Up To Date First/Initial COVID19 Vaccinat: YES Second COVID19 Vaccination Shlomo: YES Seasonal Allergies Seasonal Allergies: Yes Past Medical History Surgeries: Yes (CARPAL BILAT X2 RIGHT, TENDON REPAIR LEFT HAND, left shoulder, colon resect) Abdominal, Orthopedic Respiratory: Yes Sleep Apnea Currently Using CPAP: Yes Currently Using BIPAP: No Cardiac: Yes High Cholesterol, Hypertension Neurological: No Neuropathy Reproductive Disorders: No 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 Sexually Transmitted Disease: No HIV/AIDS: No Genitourinary: Yes Kidney Stones Gastrointestinal: Yes (colon resections HX OF ADHESIONS) Gastroesophageal Reflux, Chronic Constipation, Diverticulosis, Irritable Bowel Musculoskeletal: Yes Arthritis, Fibromyalgia Endocrine: No Cataract Loss of Vision: Bilateral Hearing Impairment: Denies Cancer: Yes (BASAL CELL CANCER EYE LID, RIGHT CHEEK) Skin What Type of Treatment Did You: Surgical Intervention Psychosocial: Yes Anxiety Integumentary: No Blood Disorders: No Adverse Reaction/Blood Tranf: No Physical Exam Capillary Refill : Height: 5'5.00" Weight: 218lbs. oz. [id number]; 26.56 BMI Method: General Appearance: WD/WN, no apparent distress Eyes: Bilateral Eye Normal Inspection, Bilateral Eye PERRL, Bilateral Eye EOMI HEENT: other (moist mucous membranes) Neck: full range of motion, normal inspection Respiratory: lungs clear, normal breath sounds, no respiratory distress, no accessory muscle use Cardiovascular: regular rate, rhythm (80's) Gastrointestinal: normal bowel sounds, non tender, soft Extremities: normal range of motion, normal inspection, no pedal edema, no calf tenderness, normal capillary refill Neurologic/Psychiatric: alert, oriented x 3, other (slightly anxious) Skin: normal color, warm/dry, other (well healing midline back surgical scar) Progress/Results/Core Measures Suspected Sepsis SIRS Temperature: Pulse: Respiratory Rate: Blood Pressure / Mean: Results/Orders My Orders Orders - EMERITA CHE MD Ua Culture If Indicated (03/05/22 08:24) Vital Signs/I&O Capillary Refill : Departure Impression Primary Impression: Shortness of breath Additional Impression: Anxiety about health Disposition: 01 HOME, SELF-CARE Condition: Improved Departure-Patient Inst. Decision time for Depature: 08:43 Referrals: REGINALD CHRIS DO (PCP/Family) Primary Care Physician Patient Instructions: Anxiety, Adult ED Add. Discharge Instructions: Continue your daily medications as prescribed All discharge instructions reviewed with patient and/or family. Voiced understanding. Copy Copies To 1: REGINALD CHRIS KATHRYN M MD Mar 05, 2022 08:41
[2022-03-05] MEDS ORDERED: ALPRAZolam 0.25 MG (XANAX) TAB PO ONE (09:15)
[2022-03-05 09:42] VITALS: BP 139/84
== END 2022-03-05 09:42 | disposition home or self-care (01) ==
LOC: EDUNIT# 08:00 → ER 08:02
DX: F41.9 Anxiety disorder, unspecified (principal); Z91.040 Latex allergy status
CPT/HCPCS: 99283

== ENCOUNTER 2022-04-30 14:55 | Emergency (ER) | payer MEDICARE ==
[~2022-04-30] VITALS: Ht 166 cm; Wt 66.2 kg
[2022-04-30 15:26] LABS: ALBUMIN 4.1 GM/DL (3.2-4.5)
[2022-04-30 15:27] LABS: BASOPHILS % (AUTO) 1 % (0-10); EOSINOPHILS # (AUTO) 0.1 10^3/uL (0.0-0.3); EOSINOPHILS % (AUTO) 1 % (0-10); HEMATOCRIT 39 % (35-52); HEMOGLOBIN 12.5 g/dL (11.5-16.0); LYMPHOCYTES # (AUTO) 0.9 10^3/uL (1.0-4.0); LYMPHOCYTES % (AUTO) 10 % (12-44); MEAN CORPUSCULAR HEMOGLOBIN 27 pg (25-34); MEAN CORPUSCULAR HGB CONC 32 g/dL (32-36); MEAN CORPUSCULAR VOLUME 84 fL (80-99); MEAN PLATELET VOLUME 10.5 fL (9.0-12.2); MONOCYTES # (AUTO) 0.6 10^3/uL (0.0-1.0); MONOCYTES % (AUTO) 8 % (0-12); NEUTROPHILS # (AUTO) 6.9 10^3/uL (1.8-7.8); NEUTROPHILS % (AUTO) 81 % (42-75); PLATELET COUNT 368 10^3/uL (130-400); POTASSIUM 3.3 MMOL/L (3.6-5.0); WHITE BLOOD COUNT 8.5 10^3/uL (4.3-11.0)
[2022-04-30 15:28] LABS: CALCIUM 9.7 MG/DL (8.5-10.1)
[2022-04-30 15:29] LABS: TOTAL PROTEIN 6.3 GM/DL (6.4-8.2)
[2022-04-30 15:31] LABS: BILIRUBIN,TOTAL 0.9 MG/DL (0.1-1.0)
[2022-04-30 15:32] LABS: CREATININE SERUM 0.75 MG/DL (0.60-1.30)
--- NOTE | 2022-04-30 15:53 | ED Abdominal Pain ---
General Chief Complaint: Abdominal/GI Problems Stated Complaint: ABD PAIN Nursing Triage Note: PT ARRIVES TO ER VIA W/C FROM HOME. PT C/O L SIDED ABD PAIN ONSET THIS AM AFTER EATING BREAKFAST. +NAUSEA. PT HAD OUTPATIENT LABS PERFORMED ON 04/27, WAS TOLD SOME LIVER ENZYMES WERE ELEVATED. Source of Information: Patient Exam Limitations: No Limitations (DONNA DEVI APRN) History of Present Illness Date Seen by Provider: Apr 30, 2022 Time Seen by Provider: 15:16 Initial Comments 71-year-old female presents with left lower quadrant abdominal pain starting today. States this started approximately 2 hours after eating, states she ate part of an egg, 2 pieces of toast, 2 pieces of south. States she has a history of gallbladder problems, but the pain is located in left lower quadrant. States she had a normal bowel movement yesterday, but states she has a lot of problems with constipation and has to use enemas to have a bowel movement. Her states that she has a history of Crohn's with a bowel resection. Patient seems to have some memory problems, she did not remember the surgery. Denies fevers, chest pain, shortness of air, nausea/vomiting, diarrhea. (DONNA DEVI APRN) Allergies and Home Medications Allergies Coded Allergies: Sulfa (Sulfonamide Antibiotics) (Unverified Allergy, Unknown, 03/19/14) meperidine (Unverified Allergy, Unknown, 03/19/14) latex (Verified Adverse Reaction, Mild, 10/31/14) Patient Home Medication List Home Medication List Reviewed: Yes (DONNA DEVI APRN) Alprazolam (Alprazolam) 0.5 Mg Tablet, 0.5 MG PO TID PRN for ANXIETY, (Reported) Entered as Reported by: EDITH MUIR on 02/17/22 135 B Complex with Vitamin C (B-Complex with C) 1 Each Tablet, 1 EACH PO DAILY, (Reported) Entered as Reported by: EDITH MUIR on 02/17/22 135 Cholecalciferol (Vitamin D3) (Vitamin D3) 50 Mcg (2000 Unit) Capsule, 50 MCG PO DAILY, (Reported) Entered as Reported by: EDITH MUIR on 02/17/22 135 Citalopram Hydrobromide (Citalopram HBr) 40 Mg Tablet, 40 MG PO DAILY, (Reported) Entered as Reported by: EDITH MUIR on 02/17/22 135 Docusate Sodium (Docusate Sodium) 100 Mg Capsule, 100 MG PO DAILY PRN for CONSTIPATION-1ST LINE, (Reported) Entered as Reported by: EDITH MUIR on 02/17/22 135 Hydrochlorothiazide (Hydrochlorothiazide) 25 Mg Tablet, 25 MG PO DAILY, (Reported) Entered as Reported by: EDITH MUIR on 02/17/22 135 Indapamide (Indapamide) 2.5 Mg Tablet, 2.5 MG PO DAILY PRN for BLOOD PRESSURE/EDEMA, (Reported) Entered as Reported by: EDITH MUIR on 02/17/22 1402 Loratadine (Loratadine) 10 Mg Tablet, 10 MG PO BID, (Reported) Entered as Reported by: EDITH MUIR on 02/17/22 135 Losartan Potassium (Losartan Potassium) 50 Mg Tablet, 50 MG PO BID, (Reported) Entered as Reported by: JULIETH RIOS on 11/25/20 1302 Meclizine HCl (Meclizine HCl) 25 Mg Tablet, 25 MG PO TID PRN for DIZZINESS/VERTIGO, (Reported) Entered as Reported by: EDITH MUIR on 02/17/22 135 Oxycodone HCl/Acetaminophen (Endocet 10-325 mg Tablet) 10 Mg-325 Mg Tablet, 0.5- 1 EA PO BID PRN for PAIN-MODERATE (5-7), (Reported) Entered as Reported by: EDITH MUIR on 02/17/22 135 Pregabalin (Pregabalin) 100 Mg Capsule, 100 MG PO QID, (Reported) Entered as Reported by: EDITH MUIR on 02/17/22 135 Psyllium Husk (with Sugar) (Metamucil Packet) 3.4 Gram Powd.pack, 1 EA PO DAILY PRN for CONSTIPATION, (Reported) Entered as Reported by: EDITH MUIR on 02/17/22 135 Review of Systems Review of Systems Constitutional: see HPI (DONNA DEVI BIODIESEL OPERATIONS MANAGER) Past Wmrjgks-Fudnnu-Vwygdf Hx Patient Social History Tobacco Use?: No Use of E-Cig and/or Vaping dev: No Substance use?: No Alcohol Use?: No Pt feels they are or have been: No (DONNA DEVI APRN) Immunizations Up To Date First/Initial COVID19 Vaccinat: RECEIVED, UNK WHEN Second COVID19 Vaccination Shlomo: RECEIVED, UNK WHEN Third COVID19 Vaccination Date: RECEIVED, UNK WHEN COVID19 Vaccine Photovoltaic Testing Technician: [facility] (DONNA DEVI APRN) Seasonal Allergies Seasonal Allergies: Yes (DONNA DEVI APRN) Past Medical History Surgeries: Yes (CARPAL BILAT X2 RIGHT, TENDON REPAIR LEFT HAND, left shoulder, colon resect) Abdominal, Orthopedic Respiratory: Yes Sleep Apnea Currently Using CPAP: Yes Currently Using BIPAP: No Cardiac: Yes High Cholesterol, Hypertension Neurological: No Neuropathy Reproductive Disorders: No 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 Sexually Transmitted Disease: No HIV/AIDS: No Genitourinary: Yes Kidney Stones Gastrointestinal: Yes (colon resections HX OF ADHESIONS) Gastroesophageal Reflux, Chronic Constipation, Diverticulosis, Irritable Bowel Musculoskeletal: Yes Arthritis, Fibromyalgia Endocrine: No Cataract Loss of Vision: Bilateral Hearing Impairment: Denies 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 oz. 98.619186cd; 24.00 BMI Method: General Appearance: WD/WN, no apparent distress Neck: supple, normal inspection Respiratory: lungs clear, normal breath sounds, no respiratory distress, no accessory muscle use Cardiovascular: regular rate, rhythm, no edema, no gallop, no JVD, no murmur Gastrointestinal: normal bowel sounds, non tender, soft, no organomegaly, no pulsatile mass Extremities: normal range of motion, normal inspection Neurologic/Psychiatric: alert, normal mood/affect, oriented x 3 Skin: normal color, warm/dry (DONNA DEVI APRN) Progress/Results/Core Measures Results/Orders Lab Results Laboratory Tests Test 04/30/22 15:07 04/30/22 16:18 Range/Units White Blood Count 8.5 4.3-11.0 10^3/uL Red Blood Count 4.63 3.80-5.11 10^6/uL Hemoglobin 12.5 11.5-16.0 g/dL Hematocrit 39 35-52 % Mean Corpuscular Volume 84 80-99 fL Mean Corpuscular Hemoglobin 27 25-34 pg Mean Corpuscular Hemoglobin Concent 32 32-36 g/dL Red Cell Distribution Width 14.2 10.0-14.5 % Platelet Count 368 130-400 10^3/uL Mean Platelet Volume 10.5 9.0-12.2 fL Immature Granulocyte % (Auto) 0 % Neutrophils (%) (Auto) 81 H 42-75 % Lymphocytes (%) (Auto) 10 L 12-44 % Monocytes (%) (Auto) 8 0-12 % Eosinophils (%) (Auto) 1 0-10 % Basophils (%) (Auto) 1 0-10 % Neutrophils # (Auto) 6.9 1.8-7.8 10^3/uL Lymphocytes # (Auto) 0.9 L 1.0-4.0 10^3/uL Monocytes # (Auto) 0.6 0.0-1.0 10^3/uL Eosinophils # (Auto) 0.1 0.0-0.3 10^3/uL Basophils # (Auto) 0.0 0.0-0.1 10^3/uL Immature Granulocyte # (Auto) 0.0 0.0-0.1 10^3/uL Sodium Level 141 135-145 MMOL/L Potassium Level 3.3 L 3.6-5.0 MMOL/L Chloride Level 106 98-107 MMOL/L Carbon Dioxide Level 23 21-32 MMOL/L Anion Gap 12 5-14 MMOL/L Blood Urea Nitrogen 17 7-18 MG/DL Creatinine 0.75 0.60-1.30 MG/DL Estimat Glomerular Filtration Rate 86 BUN/Creatinine Ratio 23 Glucose Level 99 70-105 MG/DL Calcium Level 9.7 8.5-10.1 MG/DL Corrected Calcium 9.6 8.5-10.1 MG/DL Total Bilirubin 0.9 0.1-1.0 MG/DL Aspartate Amino Transf (AST/SGOT) 46 H 5-34 U/L Alanine Aminotransferase (ALT/SGPT) 34 0-55 U/L Alkaline Phosphatase 130 40-136 U/L Total Protein 6.3 L 6.4-8.2 GM/DL Albumin 4.1 3.2-4.5 GM/DL Amylase Level 97 25-125 U/L Lipase 36 8-78 U/L Urine Color YELLOW Urine Clarity CLEAR Urine pH 6.0 5-9 Urine Specific Vest 1.020 1.016-1.022 Urine Protein TRACE H NEGATIVE Urine Glucose (UA) NEGATIVE NEGATIVE Urine Ketones 1+ H NEGATIVE Urine Nitrite NEGATIVE NEGATIVE Urine Bilirubin 1+ H NEGATIVE Urine Urobilinogen 0.2 < = 1.0 MG/DL Urine Leukocyte Esterase 1+ H NEGATIVE Urine RBC (Auto) TRACE-I H NEGATIVE Urine RBC 5-10 H /HPF Urine WBC 2-5 /HPF Urine Squamous Epithelial Cells 5-10 /HPF Urine Crystals PRESENT H /LPF Urine Amorphous Sediment MOD FRANCOISE URATES H /LPF Urine Bacteria FEW H /HPF Urine Casts NONE /LPF Urine Mucus LARGE H /LPF Urine Culture Indicated YES (WILIAN WEST MD) Vital Signs/I&O 04/30/22 04/30/22 15:00 17:41 Temp 36.5 Pulse 77 68 Resp 18 18 B/P (MAP) 149/70 (96) 123/87 Pulse Ox 98 100 O2 Delivery Room Air Room Air (WILIAN WEST MD) Blood Pressure Mean: 96 Progress Progress Note #1: Time: 15:52 Progress Note Patient seen and evaluated, sitting in chair next to bed, no acute distress. Ba sed on exam and symptoms, differential diagnosis includes but is not limited to diverticulitis, constipation, gastroenteritis, Crohn's. Work-up initiated including CBC, CMP, amylase, lipase, UA, CT abdomen pelvis. Progress Note #2: Time: 16:00 Progress Note Labs reviewed. CBC grossly normal, WBC 8.5, hemoglobin 12.5, 39. CBC shows slightly decreased potassium at 3.3, replace potassium monitor AST elevated at 46, total protein decreased at 6.3. UA shows trace protein, 1+ ketones, 1+ bilirubin, 1+ leukocytes, RBCs 5-10, WBC 2-5, 5-10 squamous epithelials, few bacteria, crystals present, moderate amorphous sediment. Not like you have a UTI due to lack of symptoms, bacteria and leukocytes may be due to unclean sample. Medical record review completed. Unable to locate operative record of bowel resection. Did find operative record of hernia repair with mesh. Progress Note #3: Time: 17:[address] reviewed. Multiple nonobstructing left renal stones, no ureteral stones or hydronephrosis. Left-sided parapelvic cyst. Fluid in the right iliopsoas bursa. Postoperative changes of the lumbar spine with potential loosening of the fixation screws at the level L3. Results discussed with patient and . Discussed that the pain may have been from a passing kidney stone. No current kidney stones in the ureter. Patient has been given discharge instructions and return precautions. (DONNA DEVI APRN) Diagnostic Imaging Diagonstic Imaging: CT Plain Films/CT/US/NM/MRI: abdomen, pelvis Comments [facility], [facility]. [place], [place] NAME: KEYLA HERNÁNDEZ [facility] REC#: [id number] PT STATUS: REG ER : 1950 PHYSICIAN: DONNA DEVI APRN ADMIT DATE: 04/30/22/ER Draft Date of Exam:04/30/22 CT ABDOMEN/PELVIS W PROCEDURE: CT abdomen and pelvis with contrast. TECHNIQUE: Multiple contiguous axial images were obtained through the abdomen and pelvis after administration of intravenous contrast. Auto Exposure Controls were utilized during the CT exam to meet ALARA standards for radiation dose reduction. All CT scans use one or more of the following dose optimizing techniques: automated exposure control, MA and/or KvP adjustment based on patient size and exam type or iterative reconstruction. DATE: April 30, 2022. COMPARISON: CT abdomen and pelvis April 24, 2019. INDICATION: 71-year-old female, left lower quadrant abdominal pain. FINDINGS: The visualized portions of the lung bases are clear. The heart is not enlarged. There is no pericardial effusion. The liver is unremarkable in size and contour. There is no identified liver lesion. The main, right and and left portal veins are patent. The gallbladder is unremarkable. There is no intrahepatic or extrahepatic bile duct dilation. The main pancreatic duct is not grossly dilated. Unremarkable evaluation of the pancreatic parenchyma. The spleen is normal in size. The adrenal glands are unremarkable. There are multiple nonobstructing left renal stones. There are probable left peripelvic cysts and no convincing hydronephrosis. There is no left ureteral stone. The left ureter is nondilated. The urinary bladder is unremarkable. There are multiple pelvic calcifications compatible with phleboliths. The uterus is not seen and may be absent. There are sutures at the level of the distal sigmoid colon. The intestinal tract is not distended. There is no evidence of acute appendicitis. There is no free intraperitoneal air. There is no drainable fluid collection. There is no sizable volume free fluid in the abdomen or pelvis. There are atherosclerotic calcifications. There is no identified abnormally enlarged lymph node in the abdomen or pelvis meeting CT size criteria for adenopathy. There is fluid in the right iliopsoas bursa compatible with bursitis. There are multilevel degenerative changes of the spine. There is posterior spinal fusion hardware spanning L3-S1. The L3 fixation screws extending to the superior endplate of L3 and surrounding lucency measuring up to approximately 3 mm. There is no identified fracture of the hardware. There is no identified acute bony abnormality. IMPRESSION: CT abdomen and pelvis: 1. Multiple nonobstructing left renal stones. No ureteral stone or hydronephrosis. 2. Left-sided parapelvic cysts. 3. Fluid in the right iliopsoas bursa consistent with a nonspecific right iliopsoas bursitis. 4. Postoperative changes of the lumbar spine with potential loosening of the fixation screws at the level of L3. Dictated on workstation # [id number] Dict: 04/30/22 1620 Trans: 04/30/[address] [facility] [id number] Interpreted by: NIMO CUEVAS MD Electronically signed by: (DONNA DEVI APRN) Departure Impression Primary Impression: Abdominal pain Qualified Codes: R10.32 - Left lower quadrant pain Disposition: 01 HOME, SELF-CARE Condition: Stable Departure-Patient Inst. Decision time for Depature: 17:30 (DONNA DEVI APRN) Referrals: REGINALD CHRIS DO (PCP/Family) Primary Care Physician Patient Instructions: Abdominal Pain, Adult ED Add. Discharge Instructions: Return for uncontrollable pain, recurrent vomiting, or any other new, reg rning, or worsening symptoms. Follow-up with primary care provider. All discharge instructions reviewed with patient and/or family. Voiced understanding. ATTENDING PHYSICIAN NOTE: I was physically present as attending physician in the emergency department during the care of this patient, but I was not directly involved in the decision making or delivery of care for this patient. (WILIAN WEST MD) Copy Copies To 1: REGINALD CHRIS BRITTANY R APRN Apr 30, 2022 15:52 WILIAN WEST MD May 01, 2022 22:44
[2022-04-30] MEDS ORDERED: NS 100 ML (IVPB) BAG IV ONE (16:00)
[2022-04-30] MEDS ORDERED: HOLD METFORMIN - RECEIVED CONTRAST 20 ML VIAL IV SCH (16:00)
[2022-04-30] MEDS ORDERED: KCL 20 MEQ TAB (K-DUR) PO ONE (16:00)
[2022-04-30] MEDS ORDERED: IOHEXOL 350 MG/ML 100 ML (OMNIPAQUE 350) VIAL IV ONE (16:00)
[2022-04-30 16:31] LABS: CLARITY,URINE CLEAR; COLOR,URINE YELLOW; GLUCOSE, URINE (UA) NEGATIVE (NEGATIVE); KETONES,URINE 1+ (NEGATIVE); LEUKOCYTE ESTERASE ,URINE 1+ (NEGATIVE); NITRITE,URINE NEGATIVE (NEGATIVE); PROTEIN,URINE TRACE (NEGATIVE)
--- NOTE | 2022-04-30 16:31 | Diagnostic Imaging Report ---
PROCEDURE: CT abdomen and pelvis with contrast. TECHNIQUE: Multiple contiguous axial images were obtained through the abdomen and pelvis after administration of intravenous contrast. Auto Exposure Controls were utilized during the CT exam to meet ALARA standards for radiation dose reduction. All CT scans use one or more of the following dose optimizing techniques: automated exposure control, MA and/or KvP adjustment based on patient size and exam type or iterative reconstruction. DATE: April 30, 2022. COMPARISON: CT abdomen and pelvis April 24, 2019. INDICATION: 71-year-old female, left lower quadrant abdominal pain. FINDINGS: The visualized portions of the lung bases are clear. The heart is not enlarged. There is no pericardial effusion. The liver is unremarkable in size and contour. There is no identified liver lesion. The main, right and and left portal veins are patent. The gallbladder is unremarkable. There is no intrahepatic or extrahepatic bile duct dilation. The main pancreatic duct is not grossly dilated. Unremarkable evaluation of the pancreatic parenchyma. The spleen is normal in size. The adrenal glands are unremarkable. There are multiple nonobstructing left renal stones. There are probable left peripelvic cysts and no convincing hydronephrosis. There is no left ureteral stone. The left ureter is nondilated. The urinary bladder is unremarkable. There are multiple pelvic calcifications compatible with phleboliths. The uterus is not seen and may be absent. There are sutures at the level of the distal sigmoid colon. The intestinal tract is not distended. There is no evidence of acute appendicitis. There is no free intraperitoneal air. There is no drainable fluid collection. There is no sizable volume free fluid in the abdomen or pelvis. There are atherosclerotic calcifications. There is no identified abnormally enlarged lymph node in the abdomen or pelvis meeting CT size criteria for adenopathy. There is fluid in the right iliopsoas bursa compatible with bursitis. There are multilevel degenerative changes of the spine. There is posterior spinal fusion hardware spanning L3-S1. The L3 fixation screws extending to the superior endplate of L3 and surrounding lucency measuring up to approximately 3 mm. There is no identified fracture of the hardware. There is no identified acute bony abnormality. IMPRESSION: CT abdomen and pelvis: 1. Multiple nonobstructing left renal stones. No ureteral stone or hydronephrosis. 2. Left-sided parapelvic cysts. 3. Fluid in the right iliopsoas bursa consistent with a nonspecific right iliopsoas bursitis. 4. Postoperative changes of the lumbar spine with potential loosening of the fixation screws at the level of L3. Dictated by: Dictated on workstation # [id number]
[2022-04-30 16:41] LABS: AMORPHOUS SEDIMENT,UR MOD AMOR URATES /LPF; BACTERIA,URINE FEW /HPF
[2022-04-30 16:53] LABS: BILIRUBIN,URINE 1+ (NEGATIVE)
[2022-04-30] MEDS ORDERED: KETOROLAC 15 MG/ML VIAL IVP ONE (17:15)
[2022-04-30 17:41] VITALS: BP 123/87
== END 2022-04-30 17:41 | disposition home or self-care (01) ==
LOC: EDUNIT# 14:55 → ER 14:57
DX: N20.0 Calculus of kidney (principal); E87.6 Hypokalemia; G47.30 Sleep apnea, unspecified; Z99.89 Dependence on other enabling machines and devices
CPT/HCPCS: 36415; 74177; 80053; 81000; 82150; 83690; 84703; 85025; 87077; 87088; 87186; 96374

== ENCOUNTER → 2022-05-04 | Outpatient (CLI) | payer MEDICARE ==
--- NOTE | 2022-05-04 11:25 | Diagnostic Imaging Report ---
INDICATION: Gallbladder disease. PROCEDURE: Ultrasound abdomen complete. TECHNIQUE: Multiple Real-time grayscale images were obtained of the abdomen in various projections. COMPARISON: 05/17/[address] dated 04/30/2022. FINDINGS: The liver is unremarkable without focal hepatic mass. Normal direction of flow within the main portal vein. The gallbladder is unremarkable. The common bile duct was unable be visualized, obscured by overlying bowel gas. The visualized portions of the pancreas are unremarkable. The spleen is unremarkable. The visualized portions of the abdominal aorta and inferior vena cava are unremarkable. The right kidney is slightly asymmetrically small in size when compared to the left measuring 9 cm in length. The right kidney is unremarkable without hydronephrosis. The left kidney measures up to 11.4 cm. A 1.3 x 1.9 cm anechoic region is noted within the central aspect of the left kidney. No significant free fluid. Negative sonographic Woodson sign. IMPRESSION: Anechoic region within the central left kidney is favored to relate to underlying peripelvic cyst. Pelviectasis is felt less likely. The left kidney is asymmetrically enlarged when compared to the right. 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 The gallbladder is unremarkable; however, the common bile duct was unable to be visualized secondary to overlying bowel gas. Dictated by: Dictated on workstation # [id number]
== END ==
LOC: RAD 07:58
PROVIDERS: ATTEND Internal Medicine
DX: N28.81 Hypertrophy of kidney (principal)
CPT/HCPCS: 76700

== ENCOUNTER 2022-05-13 17:40 | Inpatient (IN) | payer MEDICARE ==
[~2022-05-13] VITALS: Ht 165.1 cm; Wt 67.5 kg
[2022-05-13] MEDS ORDERED: diphenhydrAMINE 25 MG TAB (BENADRYL) PO PRN (17:45)
[2022-05-13] MEDS ORDERED: BISACODYL 10 MG SUPP (DULCOLAX) PR PRN (17:45)
[2022-05-13] MEDS ORDERED: ONDANSETRON 4 MG/2 ML (SDV) Z0FRAN IV PRN (17:45)
[2022-05-13] MEDS ORDERED: LACTULOSE SYRUP 10GM/15ML (ENULOSE) 30ML UDC PO PRN (17:45)
[2022-05-13] MEDS ORDERED: polyethylene glycoL POWDER 17 GM (MIRALAX) PACK PO PRN (17:45)
[2022-05-13] MEDS ORDERED: ANTACID SUSP 30 ML UDC (MYLANTA) PO PRN (17:45)
[2022-05-13] MEDS ORDERED: ENOXAPARIN 40 MG/0.4 ML (LOVENOX) SYR SC SCH (17:45)
[2022-05-13] MEDS ORDERED: ACETAMINOPHEN 325 MG TABLET PO PRN (17:45)
[2022-05-13] MEDS ORDERED: ONDANSETRON 4 MG (ZOFRAN) ORAL DISSOLVE TAB PO PRN (17:45)
[2022-05-13] MEDS ORDERED: FLEET ENEMA ADULT 1 EA BTL PR PRN (17:45)
[2022-05-13] MEDS ORDERED: LORazepam 0.5 MG (ATIVAN) TABLET PO PRN (17:45)
[2022-05-13] MEDS ORDERED: CALCIUM CARBONATE 500 MG (TUMS) TAB.CHEW PO PRN (17:45)
[2022-05-13] MEDS ORDERED: MILK OF MAGNESIA 400 MG/5 ML 30 ML UDC PO PRN (17:45)
--- NOTE | 2022-05-13 19:06 | Diagnostic Imaging Report ---
CLINICAL INDICATION: Patient with abdominal pain. EXAM: X-ray of the abdomen supine and an upright view. COMPARISON: CT scan of the abdomen and pelvis with contrast dated 04/30/2022. FINDINGS: There are no dilated air-filled loops of intestine. There is no intra-abdominal free air. There is no significant stool load. Multiple phleboliths in the pelvis are again seen. Posterior spinal fusion hardware is again noted. Compression fracture deformity of the L2 vertebra is again noted. There are degenerative spurs involving the spine. IMPRESSION: There is no radiographic evidence of acute abdominal or pelvic process. There is no intra-abdominal free air. Dictated by: Dictated on workstation # [id number]
[2022-05-13 19:27] VITALS: BP 133/92
[2022-05-13] MEDS: NS IV 1000 ML 1,000 ML IV SCH (19:59)
[2022-05-13 21:01] LABS: BASOPHILS # (AUTO) 0.1 10^3/uL (0.0-0.1); BASOPHILS % (AUTO) 1 % (0-10); EOSINOPHILS # (AUTO) 0.1 10^3/uL (0.0-0.3); EOSINOPHILS % (AUTO) 1 % (0-10); HEMATOCRIT 37 % (35-52); HEMOGLOBIN 12.2 g/dL (11.5-16.0); LYMPHOCYTES # (AUTO) 0.9 10^3/uL (1.0-4.0); LYMPHOCYTES % (AUTO) 9 % (12-44); MEAN CORPUSCULAR HEMOGLOBIN 27 pg (25-34); MEAN CORPUSCULAR HGB CONC 33 g/dL (32-36); MEAN CORPUSCULAR VOLUME 81 fL (80-99); MEAN PLATELET VOLUME 9.6 fL (9.0-12.2); MONOCYTES # (AUTO) 0.7 10^3/uL (0.0-1.0); MONOCYTES % (AUTO) 7 % (0-12); NEUTROPHILS # (AUTO) 8.7 10^3/uL (1.8-7.8); NEUTROPHILS % (AUTO) 83 % (42-75); PLATELET COUNT 426 10^3/uL (130-400); WHITE BLOOD COUNT 10.5 10^3/uL (4.3-11.0)
[2022-05-13] MEDS: SENNOSIDES 8.6 MG (SENOKOT) TAB PO SCH (21:26)
[2022-05-13] MEDS: DOCUSATE SODIUM 100 MG (COLACE) CAP PO SCH (21:26)
[2022-05-13 21:27] LABS: ALBUMIN 3.9 GM/DL (3.2-4.5); BILIRUBIN,TOTAL 0.9 MG/DL (0.1-1.0); CREATININE SERUM 0.68 MG/DL (0.60-1.30); POTASSIUM 3.8 MMOL/L (3.6-5.0); TOTAL PROTEIN 6.3 GM/DL (6.4-8.2)
[2022-05-13 22:09] LABS: ERYTHROCYTE SEDIMENTATION RATE 8 MM/HR (0-30)
[2022-05-13] MEDS: LORazepam INJ 2 MG/ML (ATIVAN) VIAL IVP PRN (22:13)
[2022-05-14] VITALS: BP 155/60
[2022-05-14] MEDS ORDERED: OLANZapine 2.5 MG (ZyPREXA) TAB PO ONE (00:30)
[2022-05-14] MEDS: LORazepam INJ 2 MG/ML (ATIVAN) VIAL IVP PRN ×3 (01:52→16:46)
[2022-05-14] MEDS: NS IV 1000 ML 1,000 ML IV SCH ×3 (02:29→18:05)
[2022-05-14] MEDS ORDERED: MELO15TA39 PO (05:25)
[2022-05-14] MEDS ORDERED: MIRT-68 PO (05:25)
[2022-05-14 05:37] LABS: BASOPHILS # (AUTO) 0.1 10^3/uL (0.0-0.1); BASOPHILS % (AUTO) 1 % (0-10); EOSINOPHILS # (AUTO) 0.2 10^3/uL (0.0-0.3); EOSINOPHILS % (AUTO) 3 % (0-10); HEMATOCRIT 33 % (35-52); HEMOGLOBIN 10.2 g/dL (11.5-16.0); LYMPHOCYTES % (AUTO) 16 % (12-44); MEAN CORPUSCULAR HEMOGLOBIN 26 pg (25-34); MEAN CORPUSCULAR HGB CONC 31 g/dL (32-36); MEAN CORPUSCULAR VOLUME 84 fL (80-99); MONOCYTES # (AUTO) 0.6 10^3/uL (0.0-1.0); MONOCYTES % (AUTO) 10 % (0-12); NEUTROPHILS # (AUTO) 4.5 10^3/uL (1.8-7.8); NEUTROPHILS % (AUTO) 70 % (42-75); PLATELET COUNT 343 10^3/uL (130-400); WHITE BLOOD COUNT 6.4 10^3/uL (4.3-11.0)
[2022-05-14 05:52] LABS: ALBUMIN 3.1 GM/DL (3.2-4.5); POTASSIUM 3.4 MMOL/L (3.6-5.0)
[2022-05-14 05:53] LABS: CALCIUM 8.6 MG/DL (8.5-10.1)
[2022-05-14 05:54] LABS: TOTAL PROTEIN 4.7 GM/DL (6.4-8.2)
[2022-05-14 05:56] LABS: BILIRUBIN,TOTAL 0.4 MG/DL (0.1-1.0)
[2022-05-14 05:58] LABS: CREATININE SERUM 0.64 MG/DL (0.60-1.30)
[2022-05-14] MEDS: methylPREDNISolone 40 MG/ML (Solu-MEDROL) VIAL IV SCH ×2 (06:27→11:15)
[2022-05-14 07:55] VITALS: BP 142/89
[2022-05-14] MEDS: SENNOSIDES 8.6 MG (SENOKOT) TAB PO SCH ×2 (08:36→21:00)
[2022-05-14] MEDS: ENOXAPARIN 40 MG/0.4 ML (LOVENOX) SYR SC SCH (08:36)
[2022-05-14] MEDS: DOCUSATE SODIUM 100 MG (COLACE) CAP PO SCH ×2 (08:36→21:00)
[2022-05-14] MEDS ORDERED: GADOTERATE 0.5 MMOL/ML (CLARISCAN) 15 ML VIAL IV ONE (10:15)
[2022-05-14] MEDS: LORazepam 1 MG (ATIVAN) TAB PO PRN (11:13)
[2022-05-14] MEDS ORDERED: ZIPRASIDONE 20 MG INJ (GEODON) VIAL IM NR (11:30)
[2022-05-14] MEDS ORDERED: ZIPRASIDONE 20 MG INJ (GEODON) VIAL IM PRN (11:45)
[2022-05-14] MEDS ORDERED: WATER (STERILE) FOR INJ 10 ML BTL INJ PRN (11:45)
[2022-05-14] MEDS ORDERED: WATER (STERILE) FOR INJ 10 ML BTL INJ SCH ×2 (11:45→14:30)
[2022-05-14] MEDS: DexMEDEtomidine 250 ML DRIP 250 ML IV SCH (12:14)
[2022-05-14] MEDS ORDERED: HALOPERIDOL 5 MG/ML (HALDOL) VIAL ONE (12:25)
[2022-05-14] MEDS ORDERED: KETOROLAC 30 MG/ML VIAL IVP NR (12:30)
[2022-05-14] MEDS ORDERED: HALOPERIDOL 5 MG/ML (HALDOL) VIAL IV ONE (12:30)
--- NOTE | 2022-05-14 13:18 | History & Physical ---
BERNARD HAM 05/14/22 1318: History of Present Illness History of Present Illness Reason for visit/HPI Lena Neumann is a 71F with past medical hx of HTN, HLD, basal cell carcinoma, sleep apnea, chronic low back pain and cognitive decline who presented as a direct admission from Dr Chris's clinic. She presents with lower back pain and delirium. She has a hx of spinal fusion L3-S1 and laminectomy in January by Dr Joyner. Abdominal xray revealed compression fx at L2. This morning she is seen at bedside. Upon awakening her she becomes very anxious and attempts to get out of bed and states she is afraid. She is unable to answer my questions very well and does not remain on topic due to her agitation and delirium. She does answer questions reasonably when she can calm down intermittently. She refused her MRI this morning. She was given ativan and olanzapine upon her admission. On rounds with Dr Chris patient awakens and is severely agitated. She was unable to be consoled so given ziprasidone IM and transferred to ICU for further sedation and management of her increasingly declining condition. Date of Admission May 13, 2022 at 18:34 Date Seen by a Provider: May 14, 2022 Time Seen by a Provider: 11:00 I consulted on this patient on 05/14/22 13:09 Attending Physician Kamla Chris DO Admitting Physician Admitting Physician: Kamla Chris DO Attending Physician: Kamla Chris DO Consult Allergies and Home Medications Allergies Coded Allergies: Sulfa (Sulfonamide Antibiotics) (Unverified Allergy, Unknown, 03/19/14) meperidine (Unverified Allergy, Unknown, 03/19/14) latex (Verified Adverse Reaction, Mild, 10/31/14) Patient Home Medication List Home Medication List Reviewed: Yes Alprazolam (Alprazolam) 0.5 Mg Tablet, 0.5 MG PO TID PRN for ANXIETY, (Reported) Entered as Reported by: EDITH MUIR on 02/17/22 3666 Last Action: Reviewed Hydrochlorothiazide (Hydrochlorothiazide) 25 Mg Tablet, 25 MG PO DAILY PRN for FLUID RETENTION, (Reported) Entered as Reported by: EDITH MUIR on 02/17/22 6525 Last Action: Reviewed Ibuprofen (Ibuprofen) 200 Mg Tablet, 600 MG PO Q8H PRN for PAIN-MILD (1-4), (Reported) Entered as Reported by: EDITH MUIR on 05/14/221509 Last Action: Reviewed Indapamide (Indapamide) 2.5 Mg Tablet, 2.5 MG PO DAILY PRN for BLOOD PRESSURE/EDEMA, (Reported) Entered as Reported by: DEITH MUIR on 02/17/22 1402 Last Action: Reviewed Losartan Potassium (Losartan Potassium) 50 Mg Tablet, 50 MG PO BID, (Reported) Entered as Reported by: JULIETH RIOS on 11/25/20 1302 Last Action: Reviewed Meclizine HCl (Meclizine HCl) 25 Mg Tablet, 25 MG PO TID PRN for DIZZINESS/VERTIGO, (Reported) Entered as Reported by: EDITH MUIR on 02/17/221358 Last Action: Reviewed Meloxicam (Meloxicam) 15 Mg Tablet, 15 MG PO BID, (Reported) Entered as Reported by: HAROON HAQUE on 05/14/22524 Last Action: Reviewed Mirtazapine (Mirtazapine) 15 Mg Tablet, 30 MG PO HS, (Reported) Entered as Reported by: HAROON HAQUE on 05/14/22524 Last Action: Reviewed Multivitamin (Multivitamin) 1 Each Tablet, 1 EACH PO DAILY, (Reported) Entered as Reported by: EDITH MUIR on 05/14/221509 Last Action: Reviewed Oxycodone HCl/Acetaminophen (Endocet 10-325 mg Tablet) 10 Mg-325 Mg Tablet, 1 EA PO Q6H PRN for PAIN-MODERATE (5-7), (Reported) Entered as Reported by: EDITH MUIR on 05/14/221509 Last Action: Reviewed Pregabalin (Pregabalin) 100 Mg Capsule, 100 MG PO QID, (Reported) Entered as Reported by: EDITH MUIR on 02/17/221358 Last Action: Reviewed Discontinued Medications B Complex with Vitamin C (B-Complex with C) 1 Each Tablet, 1 EACH PO DAILY, (Reported) Discontinued Reason: No Longer Taking Entered as Reported by: EDITH MUIR on 02/17/221358 Last Action: Discontinued Cholecalciferol (Vitamin D3) (Vitamin D3) 50 Mcg (2000 Unit) Capsule, 50 MCG PO DAILY, (Reported) Discontinued Reason: No Longer Taking Entered as Reported by: EDITH MUIR on 02/17/221358 Last Action: Discontinued Citalopram Hydrobromide (Citalopram HBr) 40 Mg Tablet, 40 MG PO DAILY, (Reported) Discontinued Reason: No Longer Taking Entered as Reported by: EDITH MUIR on 02/17/221358 Last Action: Discontinued Docusate Sodium (Docusate Sodium) 100 Mg Capsule, 100 MG PO DAILY PRN for CONSTIPATION-1ST LINE, (Reported) Discontinued Reason: No Longer Taking Entered as Reported by: EDITH MUIR on 02/17/221358 Last Action: Discontinued Loratadine (Loratadine) 10 Mg Tablet, 10 MG PO BID, (Reported) Discontinued Reason: No Longer Taking Entered as Reported by: EDITH MUIR on 02/17/221358 Last Action: Discontinued Oxycodone HCl/Acetaminophen (Endocet 10-325 mg Tablet) 10 Mg-325 Mg Tablet, 0.5- 1 EA PO BID PRN for PAIN-MODERATE (5-7), (Reported) Discontinued Reason: Duplicate Order Entered as Reported by: EDITH MUIR on 02/17/221358 Last Action: Discontinued Psyllium Husk (with Sugar) (Metamucil Packet) 3.4 Gram Powd.pack, 1 EA PO DAILY PRN for CONSTIPATION, (Reported) Discontinued Reason: No Longer Taking Entered as Reported by: EDITH MUIR on 02/17/221358 Last Action: Discontinued Past Irwyafu-Nfyyby-Cjtoon Hx Patient Social History Marrital Status: Tobacco Use?: No Smoking Status: Never a Smoker Smokeless Tobacco Frequency: Never a User Use of E-Cig and/or Vaping dev: No Substance use?: No Alcohol Use?: Yes Alcohol type: Wine Alcohol Frequency: Rarely Pt feels they are or have been: No Immunizations Up To Date Date of Influenza Vaccine: May 13, 2022 First/Initial COVID19 Vaccinat: RECEIVED, UNK WHEN Second COVID19 Vaccination Shlomo: RECEIVED, UNK WHEN Date of Pneumonia Vaccine: Nov 25, 2018 Seasonal Allergies Seasonal Allergies: Yes Current Status Advance Directives: Yes Advance Directive Location: Copy placed in chart Communicates: Verbally Primary Language: Turkish Preferred Spoken Language: Turkish Is interpretation needed?: No Sensory deficits: Vision impairment Implanted or Applied Medical D: None Past Medical History Surgeries: Abdominal (colon resection following diverticulitis), Hysterectomy, Orthopedic (carpal tunnel release bl, spine surgery in january) Sleep Apnea Currently Using CPAP: Yes Currently Using BIPAP: No High Cholesterol, Hypertension Neuropathy 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 Sexually Transmitted Disease: No HIV/AIDS: No Kidney Stones Gastroesophageal Reflux, Chronic Constipation, Diverticulosis, Irritable Bowel Arthritis, Fibromyalgia Cataract Loss of Vision: Bilateral Hearing Impairment: Denies Skin What Type of Treatment Did You: Surgical Intervention Anxiety Blood Disorders: No Adverse Reaction/Blood Tranf: No Family Medical History Other Conditions/Hx (unable to obtain family hx due to patient condition) Review of Systems ROS-Unable to Obtain: Very difficult to obtain ROS due to patient's mental status Genitourinary: No hematuria (catheter in place draining yellow clear urine) Musculoskeletal: back pain Skin: hx of skin cancer Psychiatric/Neurological: Depressed Physical Exam Vital Signs Vital Signs - First Documented 05/13/22 05/14/22 19:27 12:00 Temp 36.6 Pulse 97 Resp 19 B/P (MAP) 133/92 (106) Pulse Ox 100 O2 Delivery Room Air O2 Flow Rate 1.00 Capillary Refill : Height, Weight, BMI Height: 5'5.00" Weight: 218lbs. oz. 98.081731fg; 23.33 BMI Method: General Appearance: Anxious, Moderate Distress HEENT: PERRL/EOMI, Moist Mucous Membranes Neck: Supple Respiratory: Chest Non Tender, Lungs Clear, No Accessory Muscle Use Cardiovascular: Regular Rate, Rhythm, Normal Peripheral Pulses Gastrointestinal: Soft; No Distended Rectal: Deferred Back: Other (scar present over lumbar spine) Extremity: No Pedal Edema; No Swelling Neurologic/Psychiatric: Alert, Disoriented Skin: No Cyanosis, No Diaphoresis; Ecchymosis (R thigh) Assessment/Plan Assessment and Plan Acute on chronic low back pain S/P lumbar surgery in january. L3-S1 fusion and laminectomy Chronic back pain for 2-3 years prior to surgery Compression fx noted at L2 on xray Pain control w hydromorphone and oxycodone Need MRI to evaluate structures further and determine need for consultation with ortho surgery Unable to complete MRI, will complete imaging when safe for patient Delirium Cognitive decline noted for few years Hx of depression and delirium Main goal is to keep her safe from herself and prevent fall out of bed Currently receiving haloperidol and precedex in ICU Could consider geriatric psych when condition improves Electrolytes wnl, sepsis unlikely with normal vitals and labs HTN KARENA Admission Diagnosis Admission Status: Inpatient Order (span 2 midnights) Reason for Inpatient Admission: Acute on chronic back pain w hx of lumbar surgery Delirium KAMLA CHRIS 05/15/22 0531: Allergies and Home Medications Allergies Coded Allergies: Sulfa (Sulfonamide Antibiotics) (Unverified Allergy, Unknown, 03/19/14) meperidine (Unverified Allergy, Unknown, 03/19/14) latex (Verified Adverse Reaction, Mild, 10/31/14) Patient Home Medication List Home Medication List Reviewed: Yes Alprazolam (Alprazolam) 0.5 Mg Tablet, 0.5 MG PO TID PRN for ANXIETY, (Reported) Entered as Reported by: EDITH MUIR on 02/17/22 135 Last Action: Reviewed Hydrochlorothiazide (Hydrochlorothiazide) 25 Mg Tablet, 25 MG PO DAILY PRN for FLUID RETENTION, (Reported) Entered as Reported by: EDITH MUIR on 02/17/22 135 Last Action: Reviewed Ibuprofen (Ibuprofen) 200 Mg Tablet, 600 MG PO Q8H PRN for PAIN-MILD (1-4), (Reported) Entered as Reported by: EDITH MUIR on 05/14/22 1510 Last Action: Reviewed Indapamide (Indapamide) 2.5 Mg Tablet, 2.5 MG PO DAILY PRN for BLOOD PRESSURE/EDEMA, (Reported) Entered as Reported by: EDITH MUIR on 02/17/22 1402 Last Action: Reviewed Losartan Potassium (Losartan Potassium) 50 Mg Tablet, 50 MG PO BID, (Reported) Entered as Reported by: JULIETH RIOS on 11/25/20 1302 Last Action: Reviewed Meclizine HCl (Meclizine HCl) 25 Mg Tablet, 25 MG PO TID PRN for DIZZINE SS/VERTIGO, (Reported) Entered as Reported by: EDITH MUIR on 02/17/22 135 Last Action: Reviewed Meloxicam (Meloxicam) 15 Mg Tablet, 15 MG PO BID, (Reported) Entered as Reported by: HAROON HAQUE on 05/14/22 0510 Last Action: Reviewed Mirtazapine (Mirtazapine) 15 Mg Tablet, 30 MG PO HS, (Reported) Entered as Reported by: HAROON HAQUE on 05/14/22 0525 Last Action: Reviewed Multivitamin (Multivitamin) 1 Each Tablet, 1 EACH PO DAILY, (Reported) Entered as Reported by: EDITH MUIR on 05/14/221509 Last Action: Reviewed Oxycodone HCl/Acetaminophen (Endocet 10-325 mg Tablet) 10 Mg-325 Mg Tablet, 1 EA PO Q6H PRN for PAIN-MODERATE (5-7), (Reported) Entered as Reported by: EDITH MUIR on 05/14/221509 Last Action: Reviewed Pregabalin (Pregabalin) 100 Mg Capsule, 100 MG PO QID, (Reported) Entered as Reported by: EDITH MUIR on 02/17/221358 Last Action: Reviewed Discontinued Medications B Complex with Vitamin C (B-Complex with C) 1 Each Tablet, 1 EACH PO DAILY, (Reported) Discontinued Reason: No Longer Taking Entered as Reported by: EDITH MUIR on 02/17/221358 Last Action: Discontinued Cholecalciferol (Vitamin D3) (Vitamin D3) 50 Mcg (2000 Unit) Capsule, 50 MCG PO DAILY, (Reported) Discontinued Reason: No Longer Taking Entered as Reported by: EDITH MUIR on 02/17/221358 Last Action: Discontinued Citalopram Hydrobromide (Citalopram HBr) 40 Mg Tablet, 40 MG PO DAILY, (Reported) Discontinued Reason: No Longer Taking Entered as Reported by: EDITH MUIR on 02/17/221358 Last Action: Discontinued Docusate Sodium (Docusate Sodium) 100 Mg Capsule, 100 MG PO DAILY PRN for CONSTIPATION-1ST LINE, (Reported) Discontinued Reason: No Longer Taking Entered as Reported by: EDITH MUIR on 02/17/221358 Last Action: Discontinued Loratadine (Loratadine) 10 Mg Tablet, 10 MG PO BID, (Reported) Discontinued Reason: No Longer Taking Entered as Reported by: EDITH MUIR on 02/17/221358 Last Action: Discontinued Oxycodone HCl/Acetaminophen (Endocet 10-325 mg Tablet) 10 Mg-325 Mg Tablet, 0.5- 1 EA PO BID PRN for PAIN-MODERATE (5-7), (Reported) Discontinued Reason: Duplicate Order Entered as Reported by: EDITH WOOD on 02/17/22 1359 Last Action: Discontinued Psyllium Husk (with Sugar) (Metamucil Packet) 3.4 Gram Powd.pack, 1 EA PO DAILY PRN for CONSTIPATION, (Reported) Discontinued Reason: No Longer Taking Entered as Reported by: EDITH WOOD on 02/17/22 1359 Last Action: Discontinued Past Nntuvjy-Udkywq-Wyruni Hx Patient Social History Marrital Status: Employed/Student: retired Smoking Status: Never a Smoker Alcohol Use?: No Past Medical History Hypertension Dementia Review of Systems Constitutional: see HPI Physical Exam General Appearance: Severe Distress, Other (gyrating in bed) Respiratory: Lungs Clear, Normal Breath Sounds Cardiovascular: Regular Rate, Rhythm Neurologic/Psychiatric: Disoriented Assessment/Plan Assessment and Plan Severe delirium requiring IV precedex and seizure monitoring due to Lyrica withdrawal Can't perform MRI due to agitation Admission Diagnosis Admission Status: Inpatient Order (span 2 midnights) Reason for Inpatient Admission: AMS Supervisory-Addendum Brief Verification & Attestation Participated in pt care: history, MDM, physical Personally performed: exam, history, MDM, supervision of care Care discussed with: Medical Student Procedures: n/a Results interpretation: Verified all documentation Verification and Attestation of Medical Student E/M Service A medical student performed and documented this service in my presence. I reviewed and verified all information documented by the medical student and made modifications to such information, when appropriate. I personally performed the physical exam and medical decision making. Kamla Chris May 15, 2022,05:31 BERNARD HAM May 14, 2022 13:18 KAMLA CHRIS DO May 15, 2022 05:31
[2022-05-14] MEDS: POTASSIUM CL 10MEQ/50ML IVPB 50 ML IV SCH ×4 (14:16→16:48)
--- NOTE | 2022-05-14 14:24 | Tele-ICU Consult ---
History of Present Illness History of Present Illness Date Seen by Provider: May 14, 2022 Time Seen by Provider: 14:19 Date of Admission (Tele-ICU Physician , consultation) Available chart/ vitals / labs / Images reviewed H&P is from ER notes Patient's information available about PMH, allergy reviewed in EMR. ROS as per chart and RN report Video assessment done using teleICU camera, rest of exam as per RN Discussed with RN. She is a 71-year-old female with past medical history of hypertension, hyperlipidemia, sleep apnea, chronic low back pain and she underwent L3-S1 posterior decompression and posterior spinal fusion. She has been on chronic therapy with oxycodone in and Xanax for her pain and anxiety treatment today she is admitted via [facility] as she was complaining of low back pain severe and also she was found to be delirious. I was called on to see the p atient via camera immediately after arrival and she is very violent and belligerent not following any commands. I have briefly reviewed her EMR from previous admissions and ordered IV Haldol 5 mg x 1 and Toradol 30 mg x 1 her potassium found to be low and I also ordered a potassium chloride rider. She is currently getting IV fluids with-normal saline 125 cc/h. I have reexamined after the above medications were given and she is resting comfortably but when awakened by the physicians she is very anxious. Her oxygen saturation on room air is 98% after giving medications. I have ordered EKG to see her QTc interval. There is no mention of any fever. Apparently she has a cognitive decline lately Impression 1. Part of her agitation is probably due to acute and chronic pain in the low back 2. We will rule out any urinary tract infection which can cause a delirium and cognitively impaired the patient. 3. Hypokalemia probably due to diuretic therapy. Recommendations 1. Continue IV fluid for hydration 2. Replace potassium as needed 3. Will give as needed Toradol and Haldol if her QTc is normal. 4. Suggest physical therapy. 5. Suggest to avoid benzodiazepines as it can aggravate her agitation 6. We will check urine for further analysis to make sure there is no urinary tract infection. 7. DVT prophylaxis with batsheva. 40 Coordination of care with bedside consultants and primary care physician. Critical care time spent 30 minutes. History of Present Illness (Tele-ICU Physician , consultation) Available chart/ vitals / labs / Images reviewed H&P is from ER notes Patient's information available about PMH, allergy reviewed in EMR. ROS as per chart and RN report Video assessment done using teleICU camera, rest of exam as per RN Discussed with RN. She is a 71-year-old female with past medical history of hypertension, hyperlipidemia, sleep apnea, chronic low back pain and she underwent L3-S1 posterior decompression and posterior spinal fusion. She has been on chronic therapy with oxycodone in and Xanax for her pain and anxiety treatment today she is admitted via [facility] as she was complaining of low back pain severe and also she was found to be delirious. I was called on to see the patient via camera immediately after arrival and she is very violent and belligerent not following any commands. I have briefly reviewed her EMR from previous admissions and ordered IV Haldol 5 mg x 1 and Toradol 30 mg x 1 her potassium found to be low and I also ordered a potassium chloride rider. She is currently getting IV fluids with-normal saline 125 cc/h. I have reexamined after the above medications were given and she is resting comfortably but when awakened by the physicians she is very anxious. Her oxygen saturation on room air is 98% after giving medications. I have ordered EKG to see her QTc interv al. There is no mention of any fever. Apparently she has a cognitive decline lately Impression 1. Part of her agitation is probably due to acute and chronic pain in the low back 2. We will rule out any urinary tract infection which can cause a delirium and cognitively impaired the patient. 3. Hypokalemia probably due to diuretic therapy. Recommendations 1. Continue IV fluid for hydration 2. Replace potassium as needed 3. Will give as needed Toradol and Haldol if her QTc is normal. 4. Suggest physical therapy. 5. Suggest to avoid benzodiazepines as it can aggravate her agitation 6. We will check urine for further analysis to make sure there is no urinary tract infection. Coordination of care with bedside consultants and primary care physician. Critical care time spent 30 minutes. Allergies and Home Medications Allergies Coded Allergies: Sulfa (Sulfonamide Antibiotics) (Unverified Allergy, Unknown, 03/19/14) meperidine (Unverified Allergy, Unknown, 03/19/14) latex (Verified Adverse Reaction, Mild, 10/31/14) Home Medications Alprazolam 0.5 Mg Tablet, 0.5 MG PO TID PRN for ANXIETY, (Reported) B Complex with Vitamin C 1 Each Tablet, 1 EACH PO DAILY, (Reported) Cholecalciferol (Vitamin D3) 50 Mcg (2000 Unit) Capsule, 50 MCG PO DAILY, (Reported) Citalopram Hydrobromide 40 Mg Tablet, 40 MG PO DAILY, (Reported) Docusate Sodium 100 Mg Capsule, 100 MG PO DAILY PRN for CONSTIPATION-1ST LINE, (Reported) Hydrochlorothiazide 25 Mg Tablet, 25 MG PO DAILY, (Reported) Indapamide 2.5 Mg Tablet, 2.5 MG PO DAILY PRN for BLOOD PRESSURE/EDEMA, (Reported) Loratadine 10 Mg Tablet, 10 MG PO BID, (Reported) Losartan Potassium 50 Mg Tablet, 50 MG PO BID, (Reported) Meclizine HCl 25 Mg Tablet, 25 MG PO TID PRN for DIZZINESS/VERTIGO, (Reported) Meloxicam 15 Mg Tablet, 15 MG PO BID, (Reported) Mirtazapine 15 Mg Tablet, 15 MG PO HS, (Reported) Oxycodone HCl/Acetaminophen 10 Mg-325 Mg Tablet, 0.5-1 EA PO BID PRN for PAIN- MODERATE (5-7), (Reported) Pregabalin 100 Mg Capsule, 100 MG PO QID, (Reported) Psyllium Husk (with Sugar) 3.4 Gram Powd.pack, 1 EA PO DAILY PRN for CONSTIPATION, (Reported) Past Medical/Social/Family Hx Patient Social History Marrital Status: Tobacco Use?: No Smoking Status: Never a Smoker Smokeless Tobacco Frequency: Never a User Use of E-Cig and/or Vaping dev: No Substance use?: No Alcohol Use?: Yes Alcohol type: Wine Alcohol Frequency: Rarely Pt stated abuse/neglect: No Immunizations Up To Date Influenza Vaccine Up-to-Date: Yes; Up-to-Date First/Initial COVID19 Vaccinat: RECEIVED, UNK WHEN Second COVID19 Vaccination Shlomo: RECEIVED, UNK WHEN Date of Pneumonia Vaccine: Nov 25, 2018 Current Status Advance Directives: Yes Advance Directive Location: Copy placed in chart Communicates: Verbally Primary Language: Mongolian Preferred Spoken Language: Mongolian Is interpretation needed?: No Sensory deficits: Vision impairment Implanted or Applied Medical D: None Review of Systems Constitutional: see HPI, other (AGITATED. LOOKS CHR. ILL) Focused Exam Lactate Level 05/13/22 20:59: Lactic Acid Level 1.15 Height, Weight, BMI Height: 5'5.00" Weight: 218lbs. oz. 98.971194al; 23.33 BMI Method: Exam Exam Patient acknowledged, consented, and participated in this virtual visit which was conducted using real time audio/video Vital Signs Date Time Temp Pulse Resp B/P (MAP) Pulse Ox O2 Delivery O2 Flow Rate FiO2 05/14/22 13:30 48 12 107/57 (71) 98 05/14/22 13:15 49 16 109/77 (95) 97 05/14/22 13:00 56 14 118/53 (85) 97 05/14/22 12:45 102 36 176/123 (140) 98 Nasal Cannula 1.00 05/14/22 12:32 78 16 135/59 (86) 92 05/14/22 12:30 112 15 135/59 (84) 96 Nasal Cannula 1.00 05/14/22 12:15 94 12 156/68 (94) 92 05/14/22 12:15 98 13 156/68 (97) 93 Nasal Cannula 1.00 05/14/22 12:14 63 142/89 05/14/22 12:12 36.4 116 21 138/91 (128) 97 05/14/22 12:00 112 44 138/91 (107) 98 Nasal Cannula 1.00 05/14/22 08:00 Room Air 05/14/22 07:55 36.4 63 15 142/89 (106) 100 Room Air 05/14/22 06:16 18 05/14/22 04:00 36.5 18 Room Air 05/14/22 00:00 37.0 71 20 155/60 (91) 97 Room Air 05/13/22 21:10 Room Air 05/13/22 20:28 36.6 19 05/13/22 20:00 Room Air 05/13/22 20:00 Room Air 05/13/22 19:27 36.6 97 19 133/92 (106) 100 Room Air I & O 05/14/22 07:00 Intake Total 800 ml Output Total 50 ml Balance 750 ml Height & Weight Height: 5'5.00" Weight: 218lbs. oz. 98.126544fs; 23.33 BMI Method: General Appearance: Anxious, Moderate Distress HEENT: PERRL/EOMI, Moist Mucous Membranes Neck: Supple Respiratory: Chest Non Tender, Lungs Clear, No Accessory Muscle Use Cardiovascular: Regular Rate, Rhythm, Normal Peripheral Pulses Extremity: No Pedal Edema; No Swelling Neurologic/Psychiatric: Alert, Disoriented Skin: No Cyanosis, No Diaphoresis; Ecchymosis (R thigh) Other comments PE PER RN Results Lab Laboratory Tests 05/13/22 20:59 05/14/22 04:52 Assessment/Plan Assessment/Plan ABOVE Critical Care: Critically Ill Patient Time spent with patient (mins): 30 KARI HOYT MD May 14, 2022 14:24
[2022-05-14] MEDS ORDERED: KETOROLAC 15 MG/ML VIAL IVP PRN (14:30)
[2022-05-14] MEDS ORDERED: PROCHLORPERAZINE 10 MG/2ML INJ (COMPAZINE) IV PRN (14:30)
[2022-05-14] MEDS ORDERED: MULT-1136 PO (15:10)
[2022-05-14] MEDS ORDERED: IBUP-2473 PO (15:10)
[2022-05-14] MEDS ORDERED: OXYC-191 PO (15:10)
[2022-05-14 18:18] LABS: BILIRUBIN,URINE NEGATIVE (NEGATIVE); CLARITY,URINE CLEAR; COLOR,URINE YELLOW; GLUCOSE, URINE (UA) NEGATIVE (NEGATIVE); KETONES,URINE NEGATIVE (NEGATIVE); LEUKOCYTE ESTERASE ,URINE 1+ (NEGATIVE); NITRITE,URINE NEGATIVE (NEGATIVE); PROTEIN,URINE NEGATIVE (NEGATIVE)
[2022-05-14 18:27] LABS: BACTERIA,URINE NEGATIVE /HPF; RBC,URINE 0-2 /HPF; WBC,URINE RARE /HPF
[2022-05-14] MEDS: THIAMINE INJECTION 100 MG, FOLIC ACID INJECTION 1 MG, VITAMIN MULTI INJECTION 10 ML, MA... IV SCH ×5 (18:46)
[2022-05-14] MEDS: OLANZapine 2.5 MG (ZyPREXA) TAB PO SCH (20:01)
[2022-05-14] MEDS: ZIPRASIDONE 20 MG INJ (GEODON) VIAL IM PRN (20:29)
[2022-05-15] MEDS: NS IV 1000 ML 1,000 ML IV SCH (01:45)
[2022-05-15] MEDS: DexMEDEtomidine 250 ML DRIP 250 ML IV SCH (02:56)
[2022-05-15 05:28] LABS: BASOPHILS % (AUTO) 0 % (0-10); EOSINOPHILS % (AUTO) 0 % (0-10); HEMATOCRIT 37 % (35-52); HEMOGLOBIN 11.7 g/dL (11.5-16.0); LYMPHOCYTES # (AUTO) 0.7 10^3/uL (1.0-4.0); LYMPHOCYTES % (AUTO) 10 % (12-44); MEAN CORPUSCULAR HEMOGLOBIN 27 pg (25-34); MEAN CORPUSCULAR HGB CONC 32 g/dL (32-36); MEAN CORPUSCULAR VOLUME 83 fL (80-99); MEAN PLATELET VOLUME 10.3 fL (9.0-12.2); MONOCYTES # (AUTO) 0.6 10^3/uL (0.0-1.0); MONOCYTES % (AUTO) 9 % (0-12); NEUTROPHILS % (AUTO) 80 % (42-75); PLATELET COUNT 367 10^3/uL (130-400); WHITE BLOOD COUNT 6.3 10^3/uL (4.3-11.0)
--- NOTE | 2022-05-15 05:49 | Progress Note ---
Subjective Date Seen by a Provider: May 15, 2022 Time Seen by a Provider: 11:00 Subjective/Events-last exam Severe agitation Ativan infusion will be tried Very difficult situation Monitoring closely Updated and son regarding her severe cognitive decline Updated Dr Isaac Thompson DC due to bradycardia is caused Geodan was not helpful Review of Systems General: Fatigue, Malaise Focused Exam Lactate Level 05/13/22 20:59: Lactic Acid Level 1.15 Objective Exam Last Set of Vital Signs Vital Signs Date Time Temp Pulse Resp B/P (MAP) Pulse Ox O2 Delivery O2 Flow Rate FiO2 05/15/22 05:00 33 12 133/75 (94) 99 Room Air 05/15/22 04:00 1.00 05/14/22 19:37 35.4 Capillary Refill : I&O Intake and Output 05/15/22 00:00 Intake Total 380 ml Output Total 1650 ml Balance -1270 ml Intake Oral 380 ml Output Urine Total 1650 ml General: Alert, Other (agitated) Lungs: Clear to Auscultation Heart: Regular Rate Results Lab Laboratory Tests 05/14/22 17:05: Urine Color YELLOW, Urine Clarity CLEAR, Urine pH 6.0, Urine Specific [place] 1.010L, Urine Protein NEGATIVE, Urine Glucose (UA) NEGATIVE, Urine Ketones NEGATIVE, Urine Nitrite NEGATIVE, Urine Bilirubin NEGATIVE, Urine Urobilinogen 0.2, Urine Leukocyte Esterase 1+H, Urine RBC (Auto) 1+H, Urine RBC 0-2, Urine WBC RARE, Urine Squamous Epithelial Cells NONE, Urine Crystals NONE, Urine Bacteria NEGATIVE, Urine Casts NONE, Urine Mucus NEGATIVE, Urine Culture Indicated NO 05/15/22 04:55: White Blood Count 6.3, Red Blood Count 4.40, Hemoglobin 11.7, Hematocrit 37, Mean Corpuscular Volume 83, Mean Corpuscular Hemoglobin 27, Mean Corpuscular Hemoglobin Concent 32, Red Cell Distribution Width 14.5, Platelet Count 367, Mean Platelet Volume 10.3, Immature Granulocyte % (Auto) 1, Neutrophils (%) (Auto) 80H, Lymphocytes (%) (Auto) 10L, Monocytes (%) (Auto) 9, Eosinophils (%) (Auto) 0, Basophils (%) (Auto) 0, Neutrophils # (Auto) 5.0, Lymphocytes # (Auto) 0.7L, Monocytes # (Auto) 0.6, Eosinophils # (Auto) 0.0, Basophils # (Auto) 0.0, Immature Granulocyte # (Auto) 0.0 Assessment/Plan Assessment/Plan Assess & Plan/Chief Complaint Assessment: Severe and incapacitating delirium from Lyrica withdrawal/opioid withdrawal requiring IV Ativan drip and Haldol s/p lumbosacral spine surgery KARENA HTN Cognitive decline HLP Borderline DM OA Chronic pain Plan: Ativan infusion Haldol prn Sitter needed Clinimix Lovenox SCD's Chowdary catheter Updated at bedside and Dr Michele Neumann son Clinical Quality Measures Admission Status Admission Dx Severe delirium requiring IV precedex and [facility] Can't perform MRI due to agitation REGINALD CHRIS DO May 15, 2022 05:49
[2022-05-15 05:53] LABS: BILIRUBIN,TOTAL 0.3 MG/DL (0.1-1.0); CALCIUM 8.4 MG/DL (8.5-10.1); CREATININE SERUM 0.62 MG/DL (0.60-1.30); MAGNESIUM 2.4 MG/DL (1.6-2.4); PHOSPHORUS 2.3 MG/DL (2.3-4.7); POTASSIUM 3.9 MMOL/L (3.6-5.0)
[2022-05-15] MEDS ORDERED: NS IV 500 ML 500 ML IV PRN (06:00)
[2022-05-15] MEDS: ZIPRASIDONE 20 MG INJ (GEODON) VIAL IM PRN (07:05)
[2022-05-15] MEDS ORDERED: NS IV 1000 ML 1,000 ML IV SCH ×2 (07:36→22:00)
[2022-05-15] MEDS: POTASSIUM CL 10MEQ/50ML IVPB 50 ML IV SCH ×2 (08:34→09:16)
[2022-05-15] MEDS: ENOXAPARIN 40 MG/0.4 ML (LOVENOX) SYR SC SCH (08:34)
[2022-05-15] MEDS: SENNOSIDES 8.6 MG (SENOKOT) TAB PO SCH ×2 (08:39→20:01)
[2022-05-15] MEDS: DOCUSATE SODIUM 100 MG (COLACE) CAP PO SCH ×2 (08:39→20:01)
[2022-05-15] MEDS: HALOPERIDOL 5 MG/ML (HALDOL) VIAL IV PRN ×3 (08:52→20:43)
--- NOTE | 2022-05-15 09:45 | Tele-ICU Progress Note ---
Subjective Date Seen by a Provider: May 15, 2022 Time Seen by a Provider: 09:28 Subjective/Events-last exam Tele-ICU Physician , consultation) Available chart/ vitals / labs / Images reviewed H&P is from ER notes Patient's information available about PMH, allergy reviewed in EMR. ROS as per chart and RN report Video assessment done using teleICU camera, rest of exam as per RN Discussed with RN. She is a 71-year-old female with past medical history of hypertension, hyperlipidemia, sleep apnea, chronic low back pain and she underwent L3-S1 posterior decompression and posterior spinal fusion. She has been on chronic therapy with oxycodone in and Xanax for her pain and anxiety treatment today she is admitted via [facility] as she was complaining of low back pain severe and also she was found to be delirious. I was called on to see the patient via camera immediately after arrival and she is very violent and belligerent not following any commands. I have briefly reviewed her EMR from previous admissions and ordered IV Haldol 5 mg x 1 and Toradol 30 mg x 1 her potassium found to be low and I also ordered a potassium chloride rider. She is currently getting IV fluids with-normal saline 125 cc/h. I have reexamined after the above medications were given and she is resting comfortably but when awakened by the physicians she is very anxious. Her oxygen saturation on room air is 98% after giving medications. I have ordered EKG to see her QTc interval. There is no mention of any fever. Apparently she has a cognitive decline lately. 05/15/22 Today the patient is a little more oriented x1 denies any pain. However she has been agitated on and off. When the Precedex is on her heart rate is going down to low 30s but her blood pressure remained stable. Geodon IM is not working for her. Hence it has been discontinued and started on IV Haldol. Her magnesium is 2.4 today. She also denied any history of alcohol abuse. She does admit chronic pain medication usage Impression 1. Part of her agitation is probably due to acute and chronic pain in the low back, slighly better today. 2 U/A is normal. 3. Hypokalemia probably due to diuretic therapy now improved Recommendations 1. Decreased IVF to 70 mls/hr 2. Replace potassium as needed 3. Will give as needed Toradol and Haldol iv prn 4. Suggest physical therapy. 5. Suggest to avoid benzodiazepines as it can aggravate her agitation. 6. DVT prophylaxis with batsheva. 40 Coordination of care with bedside consultants and primary care physician. Sepsis Event Evaluation Height, Weight, BMI Height: 5'5.00" Weight: 218lbs. oz. 98.741170kq; 23.66 BMI Method: Focused Exam Lactate Level 05/13/22 20:59: Lactic Acid Level 1.15 Exam Exam Patient acknowledged, consented, and participated in this virtual visit which was conducted using real time audio/video Vital Signs Date Time Temp Pulse Resp B/P (MAP) Pulse Ox O2 Delivery O2 Flow Rate FiO2 05/15/22 09:07 Nasal Cannula 1.00 05/15/22 09:00 33 11 130/63 (86) 98 Room Air 05/15/22 08:52 31 162/72 05/15/22 08:00 79 23 170/96 (121) 95 Room Air 05/15/22 07:44 35.7 05/15/22 07:00 78 11 117/86 (104) 100 Room Air 05/15/22 07:00 78 05/15/22 06:00 32 11 135/70 (91) 99 Room Air 05/15/22 05:00 33 12 133/75 (94) 99 Room Air 05/15/22 04:00 33 10 138/62 (87) 99 Room Air 05/15/22 04:00 100 Nasal Cannula 1.00 05/15/22 03:00 32 12 137/114 (122) 98 Room Air 05/15/22 02:00 33 12 128/65 (86) 98 Room Air 05/15/22 01:00 37 05/15/22 01:00 33 16 133/58 (83) 99 Room Air 05/15/22 00:00 33 13 140/70 (93) 100 Room Air 05/14/22 23:59 99 Nasal Cannula 1.00 05/14/22 23:00 36 11 129/57 (81) 100 Room Air 05/14/22 22:00 33 11 109/53 (71) 97 Room Air 05/14/22 21:00 35 10 133/61 (85) 98 Room Air 05/14/22 20:00 100 Nasal Cannula 1.00 05/14/22 20:00 80 16 154/90 (111) 97 Room Air 05/14/22 19:37 35.4 05/14/22 19:00 36 14 154/73 (100) 98 Room Air 05/14/22 19:00 36 05/14/22 19:00 1 Room Air 05/14/22 18:00 40 12 152/72 (98) 98 Room Air 05/14/22 17:15 50 10 141/78 (99) 97 Room Air 05/14/22 16:14 39 155/70 05/14/22 16:00 39 10 155/70 (98) 100 Room Air 05/14/22 16:00 Nasal Cannula 1.00 05/14/22 15:30 35.9 05/14/22 15:00 43 13 110/58 (75) 99 Room Air 05/14/22 14:00 48 12 100/57 (71) 98 Room Air 05/14/22 13:45 48 12 107/57 (74) 98 Room Air 05/14/22 13:30 48 12 107/57 (71) 98 05/14/22 13:15 49 16 109/77 (95) 97 05/14/22 13:00 56 14 118/53 (85) 97 05/14/22 12:45 102 36 176/123 (140) 98 Nasal Cannula 1.00 05/14/22 12:32 78 16 135/59 (86) 92 05/14/22 12:30 112 15 135/59 (84) 96 Nasal Cannula 1.00 05/14/22 12:30 Nasal Cannula 1.00 05/14/22 12:15 94 12 156/68 (94) 92 05/14/22 12:15 98 13 156/68 (97) 93 Nasal Cannula 1.00 05/14/22 12:14 63 142/89 05/14/22 12:12 36.4 116 21 138/91 (128) 97 05/14/22 12:00 112 44 138/91 (107) 98 Nasal Cannula 1.00 I & O 05/15/22 07:00 Intake Total 1195 ml Output Total 2325 ml Balance -1130 ml Height & Weight Height: 5'5.00" Weight: 218lbs. oz. 98.134614ne; 23.66 BMI Method: General Appearance: Severe Distress, Other (gyrating in bed) HEENT: PERRL/EOMI, Moist Mucous Membranes Neck: Supple Respiratory: Lungs Clear, Normal Breath Sounds Cardiovascular: Regular Rate, Rhythm Extremity: No Pedal Edema; No Swelling Neurologic/Psychiatric: Disoriented Skin: No Cyanosis, No Diaphoresis; Ecchymosis (R thigh) Other comments I am remotely monitoring this patient from another state. I am unable to do the bedside exam, and history/physical and pertinent information is taken from other notes in the computer and bedside staff. . Results Lab Laboratory Tests 05/13/22 20:59 05/14/22 04:52 05/15/22 04:55 Assessment/Plan Assessment/Plan as above Critical Care: Critically Ill Patient Time spent with patient (mins): 15 KARI HOYT MD May 15, 2022 09:45
[2022-05-15] MEDS: THIAMINE INJECTION 100 MG, FOLIC ACID INJECTION 1 MG, VITAMIN MULTI INJECTION 10 ML, MA... IV SCH ×5 (10:35)
[2022-05-15] MEDS: LORazepam INJ 2 MG/ML (ATIVAN) VIAL IVP PRN (10:43)
[2022-05-15] MEDS ORDERED: MIDAZOLAM 2 MG/2 ML (VERSED) VIAL ONE (11:08)
[2022-05-15] MEDS ORDERED: MIDAZOLAM 2 MG/2 ML (VERSED) VIAL IVP NR (11:15)
[2022-05-15] MEDS ORDERED: LORazepam/NS DRIP 100 ML IV SCH ×2 (11:30→13:45)
[2022-05-15] MEDS: AA 4.25% W/LYTES IN D5W IV SOL 1,000 ML IV SCH ×3 (12:22→21:35)
[2022-05-15] MEDS ORDERED: oxyCODONE/APAP 10/325MG (PERCOCET 10) TABLET PO ONE (13:46)
[2022-05-15] MEDS: oxyCODONE/APAP 10/325MG (PERCOCET 10) TABLET PO PRN ×2 (13:47→20:01)
[2022-05-15] MEDS: LORazepam/NS DRIP 100 ML IV SCH ×3 (15:29→19:30)
[2022-05-15] MEDS: OLANZapine 2.5 MG (ZyPREXA) TAB PO SCH (20:01)
[2022-05-15] MEDS ORDERED: NS IV 1000 ML 1,000 ML ONE (21:54)
[2022-05-16] MEDS: HALOPERIDOL 5 MG/ML (HALDOL) VIAL IV PRN ×3 (01:06→22:52)
[2022-05-16] MEDS: oxyCODONE/APAP 10/325MG (PERCOCET 10) TABLET PO PRN ×2 (01:46→10:24)
[2022-05-16 03:51] LABS: BASOPHILS % (AUTO) 0 % (0-10); EOSINOPHILS % (AUTO) 0 % (0-10); HEMATOCRIT 36 % (35-52); HEMOGLOBIN 11.3 g/dL (11.5-16.0); LYMPHOCYTES # (AUTO) 0.9 10^3/uL (1.0-4.0); LYMPHOCYTES % (AUTO) 9 % (12-44); MEAN CORPUSCULAR HEMOGLOBIN 26 pg (25-34); MEAN CORPUSCULAR HGB CONC 32 g/dL (32-36); MEAN CORPUSCULAR VOLUME 83 fL (80-99); MEAN PLATELET VOLUME 10.1 fL (9.0-12.2); MONOCYTES # (AUTO) 0.8 10^3/uL (0.0-1.0); MONOCYTES % (AUTO) 8 % (0-12); NEUTROPHILS # (AUTO) 8.2 10^3/uL (1.8-7.8); NEUTROPHILS % (AUTO) 82 % (42-75); PLATELET COUNT 404 10^3/uL (130-400); WHITE BLOOD COUNT 9.9 10^3/uL (4.3-11.0)
[2022-05-16 04:01] LABS: ALBUMIN 3.4 GM/DL (3.2-4.5); POTASSIUM 4.1 MMOL/L (3.6-5.0)
[2022-05-16 04:02] LABS: CALCIUM 8.5 MG/DL (8.5-10.1)
[2022-05-16 04:03] LABS: TOTAL PROTEIN 5.4 GM/DL (6.4-8.2)
[2022-05-16 04:05] LABS: BILIRUBIN,TOTAL 0.4 MG/DL (0.1-1.0)
[2022-05-16 04:07] LABS: CREATININE SERUM 0.61 MG/DL (0.60-1.30)
[2022-05-16] MEDS: KCL 20 MEQ TAB (K-DUR) PO SCH (05:36)
[2022-05-16] MEDS: POTASSIUM CL 10MEQ/50ML IVPB 50 ML IV SCH (05:36)
[2022-05-16] MEDS: MAGNESIUM 1 GM/100 ML IVPB 100 ML IV SCH (05:36)
[2022-05-16] MEDS: AA 4.25% W/LYTES IN D5W IV SOL 1,000 ML IV SCH ×3 (05:46→22:52)
[2022-05-16 05:55] LABS: PHOSPHORUS 2.3 MG/DL (2.3-4.7)
[2022-05-16 05:57] LABS: MAGNESIUM 2.3 MG/DL (1.6-2.4)
--- NOTE | 2022-05-16 06:25 | Progress Note ---
Subjective Date Seen by a Provider: May 16, 2022 Time Seen by a Provider: 11:30 Subjective/Events-last exam Delirium persists Ativan has improved the status but it also could be she is wearing out Clinimix infusing but her decline in status for the past 3 years and significant weight loss has placed her at a decline in nutrition status before admit Updated son on status at bedside Review of Systems Neurological: Confusion Focused Exam Lactate Level 05/13/22 20:59: Lactic Acid Level 1.15 Objective Exam Last Set of Vital Signs Vital Signs Date Time Temp Pulse Resp B/P (MAP) Pulse Ox O2 Delivery O2 Flow Rate FiO2 05/16/22 06:00 105 26 135/62 (86) 96 Room Air 05/16/22 03:11 36.2 05/15/22 19:00 1.00 Capillary Refill : Less Than 3 Seconds I&O Intake and Output 05/16/22 00:00 Intake Total 5230.2 ml Output Total 3285 ml Balance 1945.2 ml Intake Oral 0 ml IV Total 5230.2 ml Output Urine Total 3285 ml General: Other (sedated but confused) Lungs: Clear to Auscultation, Normal Air Movement Heart: Regular Rate, Normal S1, Normal S2, No Murmurs Results Lab Laboratory Tests 05/15/22 12:56: Ammonia 20 05/15/22 15:43: Thyroid Stimulating Hormone (TSH) 1.78 05/16/22 03:05: White Blood Count 9.9, Red Blood Count 4.29, Hemoglobin 11.3L, Hematocrit 36, Mean Corpuscular Volume 83, Mean Corpuscular Hemoglobin 26, Mean Corpuscular Hemoglobin Concent 32, Red Cell Distribution Width 14.6H, Platelet Count 404H, Mean Platelet Volume 10.1, Immature Granulocyte % (Auto) 0, Neutrophils (%) (Auto) 82H, Lymphocytes (%) (Auto) 9L, Monocytes (%) (Auto) 8, Eosinophils (%) (Auto) 0, Basophils (%) (Auto) 0, Neutrophils # (Auto) 8.2H, Lymphocytes # (Auto) 0.9L, Monocytes # (Auto) 0.8, Eosinophils # (Auto) 0.0, Basophils # (Auto) 0.0, Immature Granulocyte # (Auto) 0.0, Sodium Level 138, Potassium Level 4.1, Chloride Level 110H, Carbon Dioxide Level 20L, Anion Gap 8, Blood Urea Nitrogen 18, Creatinine 0.61, Estimat Glomerular Filtration Rate 97, BUN/Creatinine Ratio 30, Glucose Level 94, Calcium Level 8.5, Corrected Calcium 9.0, Phosphorus Level 2.3, Magnesium Level 2.3, Total Bilirubin 0.4, Aspartate Amino Transf (AST/SGOT) 31, Alanine Aminotransferase (ALT/SGPT) 35, Alkaline Phosphatase 110, Total Protein 5.4L, Albumin 3.4 Assessment/Plan Assessment/Plan Assess & Plan/Chief Complaint Assessment: Severe and incapacitating delirium from Lyrica withdrawal/opioid withdrawal requiring IV Ativan drip and Haldol s/p lumbosacral spine surgery KARENA HTN Cognitive decline HLP Borderline DM OA Chronic pain Plan: Ativan infusion Haldol prn Sitter needed Clinimix Lovenox SCD's Chowdary catheter Updated at bedside and Dr Michele Neumann son Clinical Quality Measures Admission Status Admission Dx Severe delirium requiring IV precedex and seizure monitoring due to Lyrica withdrawal Can't perform MRI due to agitation REGINALD CHRIS DO May 16, 2022 06:25
--- NOTE | 2022-05-16 09:09 | Tele-ICU Progress Note ---
Progress Note video rounds completed 71 y/o female originaly admitted for a compression fracture. Transferred to ICU for agitation and started on precedex, haldol and ativan. Given thiamine and MVI cocktail PE: has some delerium HR: 112 BP: 194/107 O2 sat: 98 IMP: agittaion and delerium Not hypoxic or septic appearing PLAN: being evaluated and treated with Iv sedation Time spent in evaluation: 20 minutes Focused Exam Lactate Level 05/13/22 20:59: Lactic Acid Level 1.15 Height, Weight, BMI Height: 5'5.00" Weight: 218lbs. oz. 98.010701wq; 23.66 BMI Method: Results Results/Procedures Labs Laboratory Tests 05/15/22 04:55 05/16/22 03:05 Patient resulted labs reviewed. Results Labs Labs Laboratory Tests 05/15/22 12:56: Ammonia 20 05/15/22 15:43: Thyroid Stimulating Hormone (TSH) 1.78 05/16/22 03:05: White Blood Count 9.9, Red Blood Count 4.29, Hemoglobin 11.3L, Hematocrit 36, Mean Corpuscular Volume 83, Mean Corpuscular Hemoglobin 26, Mean Corpuscular Hemoglobin Concent 32, Red Cell Distribution Width 14.6H, Platelet Count 404H, Mean Platelet Volume 10.1, Immature Granulocyte % (Auto) 0, Neutrophils (%) (Auto) 82H, Lymphocytes (%) (Auto) 9L, Monocytes (%) (Auto) 8, Eosinophils (%) (Auto) 0, Basophils (%) (Auto) 0, Neutrophils # (Auto) 8.2H, Lymphocytes # (Auto) 0.9L, Monocytes # (Auto) 0.8, Eosinophils # (Auto) 0.0, Basophils # (Auto) 0.0, Immature Granulocyte # (Auto) 0.0, Sodium Level 138, Potassium Level 4.1, Chloride Level 110H, Carbon Dioxide Level 20L, Anion Gap 8, Blood Urea Nitrogen 18, Creatinine 0.61, Estimat Glomerular Filtration Rate 97, BUN/Creatinine Ratio 30, Glucose Level 94, Calcium Level 8.5, Corrected Calcium 9.0, Phosphorus Level 2.3, Magnesium Level 2.3, Total Bilirubin 0.4, Aspartate Amino Transf (AST/SGOT) 31, Alanine Aminotransferase (ALT/SGPT) 35, Alkaline Phosphatase 110, Total Protein 5.4L, Albumin 3.4 HARVINDER ALLRED MD May 16, 2022 09:09
[2022-05-16 09:13] LABS: ABG OXYGEN SATURATION 98 % (94-100); ABG PCO2 32 MMHG (35-45); ABG PH 7.49 (7.37-7.43); ABG PO2 94 MMHG (79-93); ALLENS TEST POSITIVE; PATIENT TEMP 37.3; VENTILATOR NO
[2022-05-16] MEDS: LORazepam/NS DRIP 100 ML IV SCH (09:27)
[2022-05-16] MEDS: ENOXAPARIN 40 MG/0.4 ML (LOVENOX) SYR SC SCH (10:23)
[2022-05-16] MEDS: SENNOSIDES 8.6 MG (SENOKOT) TAB PO SCH ×2 (11:08→21:39)
[2022-05-16] MEDS: THIAMINE INJECTION 100 MG, FOLIC ACID INJECTION 1 MG, VITAMIN MULTI INJECTION 10 ML, MA... IV SCH ×5 (11:08)
[2022-05-16] MEDS: DOCUSATE SODIUM 100 MG (COLACE) CAP PO SCH ×2 (11:08→21:39)
[2022-05-16] MEDS: hydrALAZINE (APESOLINE) 20 MG/ML VIAL IV PRN (12:32)
[2022-05-16] MEDS: OLANZapine 2.5 MG (ZyPREXA) TAB PO SCH ×2 (22:45→22:51)
[2022-05-16] MEDS: LORazepam INJ 2 MG/ML (ATIVAN) VIAL IVP PRN (23:17)
[2022-05-17] MEDS: LORazepam/NS DRIP 100 ML IV SCH ×3 (00:26→05:54)
[2022-05-17] MEDS: diphenhydrAMINE 50 MG/ML INJ (BENADRYL) IVP PRN ×3 (01:49→17:06)
[2022-05-17 04:26] LABS: BASOPHILS % (AUTO) 0 % (0-10); EOSINOPHILS % (AUTO) 0 % (0-10); HEMATOCRIT 38 % (35-52); HEMOGLOBIN 12.4 g/dL (11.5-16.0); LYMPHOCYTES # (AUTO) 0.8 10^3/uL (1.0-4.0); LYMPHOCYTES % (AUTO) 6 % (12-44); MEAN CORPUSCULAR HEMOGLOBIN 27 pg (25-34); MEAN CORPUSCULAR HGB CONC 33 g/dL (32-36); MEAN CORPUSCULAR VOLUME 82 fL (80-99); MEAN PLATELET VOLUME 9.9 fL (9.0-12.2); MONOCYTES # (AUTO) 1.1 10^3/uL (0.0-1.0); MONOCYTES % (AUTO) 7 % (0-12); NEUTROPHILS # (AUTO) 12.3 10^3/uL (1.8-7.8); NEUTROPHILS % (AUTO) 86 % (42-75); PLATELET COUNT 387 10^3/uL (130-400); WHITE BLOOD COUNT 14.2 10^3/uL (4.3-11.0)
[2022-05-17 04:52] LABS: ALBUMIN 3.2 GM/DL (3.2-4.5); BILIRUBIN,TOTAL 0.5 MG/DL (0.1-1.0); CALCIUM 8.7 MG/DL (8.5-10.1); CREATININE SERUM 0.64 MG/DL (0.60-1.30); TOTAL PROTEIN 5.3 GM/DL (6.4-8.2)
[2022-05-17] MEDS: POTASSIUM CL 10MEQ/50ML IVPB 50 ML IV SCH (04:55)
[2022-05-17] MEDS: KCL 20 MEQ TAB (K-DUR) PO SCH (04:56)
[2022-05-17 04:58] LABS: LYMPHOCYTES % (MANUAL) 7 %; MONOCYTES % (MANUAL) 6 %; NEUTROPHILS % (MANUAL) 87 %; RBC MORPH NORMAL
[2022-05-17] MEDS: MAGNESIUM 1 GM/100 ML IVPB 100 ML IV SCH (05:29)
[2022-05-17] MEDS: AA 4.25% W/LYTES IN D5W IV SOL 1,000 ML IV SCH ×2 (07:12→15:41)
--- NOTE | 2022-05-17 08:12 | Tele-ICU Progress Note ---
Subjective Date Seen by a Provider: May 17, 2022 Time Seen by a Provider: 10:20 Subjective/Events-last exam Tele-ICU Physician , progress note) Available chart/ vitals / labs / Images reviewed H&P is from ER notes Patient's information available about PMH, allergy reviewed in EMR. ROS as per chart and RN report Video assessment done using teleICU camera, rest of exam as per RN Discussed with RN. She is a 71-year-old female with past medical history of hypertension, hyperlipidemia, sleep apnea, chronic low back pain and she underwent L3-S1 posterior decompression and posterior spinal fusion. She has been on chronic therapy with oxycodone in and Xanax for her pain and anxiety treatment today she is admitted via [facility] as she was complaining of low back pain severe and also she was found to be delirious. I was called on to see the patient via camera immediately after arrival and she is very violent and belligerent not following any commands. I have briefly reviewed her EMR from previous admissions and ordered IV Haldol 5 mg x 1 and Toradol 30 mg x 1 her potassium found to be low and I also ordered a potassium chloride rider. She is currently getting IV fluids with-normal saline 125 cc/h. I have reexamined after the above medications were given and she is resting comfortably but when awakened by the physicians she is very anxious. Her oxygen saturation on room air is 98% after giving medications. I have ordered EKG to see her QTc interval. There is no mention of any fever. Apparently she has a cognitive decline lately. 05/15/22 Today the patient is a little more oriented x1 denies any pain. However she has been agitated on and off. When the Precedex is on her heart rate is going down to low 30s but her blood pressure remained stable. Geodon IM is not working for her. Hence it has been discontinued and started on IV Haldol. Her magnesium is 2.4 today. She also denied any history of alcohol abuse. She does admit chronic pain medication usage 04/27/22 .today she is off lorazepam drip. hospital is running out of lorazepam iv as there is national shortage. after discontinuation of lorazepam she is arousable but she is AAOx1.answeres siple questions. CT haed and cxr negative. Impression 1. Part of her agitation is probably due to acute and chronic pain in the low back, better after starting back on oxycodiene. 2 U/A is normal. 3. Hypokalemia probably due to diuretic therapy now improved Recommendations 1. Decreased IVF to 70 mls/hr 2. Replace potassium as needed 3. continue haldol iv prn and replce lorazepam with iv valium prn for agitation. 4. Suggest physical therapy. 5. DVT prophylaxis with batsheva. 40 Coordination of care with bedside consultants and primary care physician. Sepsis Event Evaluation Height, Weight, BMI Height: 5'5.00" Weight: 218lbs. oz. 98.565302ll; 23.66 BMI Method: Exam Exam Patient acknowledged, consented, and participated in this virtual visit which was conducted using real time audio/video Vital Signs Date Time Temp Pulse Resp B/P (MAP) Pulse Ox O2 Delivery O2 Flow Rate FiO2 05/17/22 08:00 76 19 86/47 (60) 99 Room Air 05/17/22 07:15 78 05/17/22 07:12 81 85/58 05/17/22 07:00 79 23 87/50 (62) 97 Room Air 05/17/22 06:41 92 15 153/71 (86) 100 Room Air 05/17/22 06:00 89 11 134/56 (71) 100 Room Air 05/17/22 05:54 84 180/96 05/17/22 05:00 90 16 185/114 (148) 100 Room Air 05/17/22 04:30 90 16 176/92 (122) 100 Room Air 05/17/22 04:00 100 Room Air 05/17/22 04:00 96 38 146/82 (103) 99 Room Air 05/17/22 03:34 36.3 05/17/22 03:00 87 23 162/90 (99) 99 Room Air 05/17/22 02:00 96 38 146/82 (89) 99 Room Air 05/17/22 01:57 101 196/103 05/17/22 01:41 107 196/103 05/17/22 01:13 115 179/100 05/17/22 01:00 112 14 179/100 (117) 99 Room Air 05/17/22 01:00 108 05/17/22 00:31 109 171/95 2/27/23 00:30 111 171/95 (115) 98 Room Air 05/17/22 00:26 115 192/101 05/17/22 00:00 98 Room Air 05/17/22 00:00 116 18 192/101 (155) 99 Room Air 05/16/22 23:33 37.6 05/16/22 23:00 126 23 196/134 (156) 98 Room Air 05/16/22 22:00 96 10 161/76 (139) 100 Room Air 05/16/22 21:15 82 11 109/58 (70) 100 Room Air 05/16/22 20:13 37.2 05/16/22 20:00 97 Room Air 05/16/22 20:00 80 19 104/50 (68) 99 Room Air 05/16/22 19:15 81 12 98/45 (65) 99 Room Air 05/16/22 19:00 88 05/16/22 19:00 88 21 94/47 (63) 99 Room Air 05/16/22 18:00 87 24 91/50 (58) 98 Room Air 05/16/22 17:00 112 9 169/106 (127) 100 Room Air 05/16/22 16:00 98 Room Air 05/16/22 16:00 109 17 152/89 (106) 99 Room Air 05/16/22 15:00 115 30 159/122 (129) 100 Room Air 05/16/22 14:00 115 30 167/105 (110) 99 Room Air 05/16/22 13:00 114 12 192/92 (112) 99 Room Air 05/16/22 12:33 107 05/16/22 12:00 96 Room Air 05/16/22 12:00 112 7 202/90 (127) 99 Room Air 05/16/22 11:14 37.3 05/16/22 11:00 107 8 186/97 (114) 99 Room Air 05/16/22 10:00 117 11 190/118 (144) 99 Room Air 05/16/22 09:13 186/114 (138) 05/16/22 09:00 120 7 202/84 (133) 99 Room Air I & O0 05/17/22 06:59 Intake Total 1486 ml Output Total 6475 ml Balance -4989 ml Height & Weight Height: 5'5.00" Weight: 218lbs. oz. 98.343266oi; 23.66 BMI Method: General Appearance: Severe Distress, Other (gyrating in bed) HEENT: PERRL/EOMI, Moist Mucous Membranes Neck: Supple Respiratory: Lungs Clear, Normal Breath Sounds Cardiovascular: Regular Rate, Rhythm Capillary Refill: Less Than 3 Seconds Extremity: No Pedal Edema; No Swelling Neurologic/Psychiatric: Disoriented Skin: No Cyanosis, No Diaphoresis; Ecchymosis (R thigh) Other comments PE PER RN Results Lab Laboratory Tests 05/16/22 03:05 05/17/22 04:05 Assessment/Plan Assessment/Plan as above Critical Care: Critically Ill Patient Time spent with patient (mins): 18 KARI HOYT MD May 17, 2022 08:12
[2022-05-17] MEDS: ENOXAPARIN 40 MG/0.4 ML (LOVENOX) SYR SC SCH (08:38)
[2022-05-17] MEDS: SENNOSIDES 8.6 MG (SENOKOT) TAB PO SCH ×2 (08:50→20:58)
[2022-05-17] MEDS: DOCUSATE SODIUM 100 MG (COLACE) CAP PO SCH ×2 (08:50→20:58)
--- NOTE | 2022-05-17 09:16 | Diagnostic Imaging Report ---
INDICATION: Leukocytosis. TECHNIQUE: Single view chest 9:14 AM. CORRELATION STUDY: None FINDINGS: The heart size, mediastinal configuration and pulmonary vascularity are within normal limits. Lungs demonstrate no infiltrate. Scarring or atelectasis at the right infrahilar region. Reverse left shoulder arthroplasty likely prior right rotator cuff repair. Partially visualized lumbar spinal fixation hardware. IMPRESSION: 1. Negative appearing single view chest. Dictated by: Dictated on workstation # [id number]
[2022-05-17] MEDS: LORazepam INJ 2 MG/ML (ATIVAN) VIAL IVP PRN (09:42)
[2022-05-17] MEDS: oxyCODONE/APAP 10/325MG (PERCOCET 10) TABLET PO PRN (10:30)
--- NOTE | 2022-05-17 10:53 | Diagnostic Imaging Report ---
PROCEDURE: CT head without contrast. TECHNIQUE: Multiple contiguous axial images were obtained through the brain without the use of intravenous contrast. Auto Exposure Controls were utilized during the CT exam to meet ALARA standards for radiation dose reduction. INDICATION: Altered mental status. FINDINGS: The ventricles are normal in size, shape, and position. There are no masses or hemorrhages. There are no extra-axial fluid collections. The paranasal sinuses are clear. IMPRESSION: Negative CT head. Dictated by: Dictated on workstation # [id number]
[2022-05-17 11:24] LABS: BILIRUBIN,URINE NEGATIVE (NEGATIVE); CLARITY,URINE CLEAR; COLOR,URINE YELLOW; GLUCOSE, URINE (UA) NEGATIVE (NEGATIVE); KETONES,URINE NEGATIVE (NEGATIVE); LEUKOCYTE ESTERASE ,URINE 3+ (NEGATIVE); NITRITE,URINE NEGATIVE (NEGATIVE); PROTEIN,URINE NEGATIVE (NEGATIVE)
--- NOTE | 2022-05-17 11:35 | Progress Note ---
BERNARD HAM 05/17/22 1135: Subjective Date Seen by a Provider: May 17, 2022 Time Seen by a Provider: 09:00 Subjective/Events-last exam Mrs Neumann was seen at bedside this morning. She is sedated and does not arouse to my voice. She has a sitter present with her due to agitation and multiple att empts to pull out lines and catheter as well as climb out of bed. RN reports her ativan drip was held due to hypotension this morning. She had episodes of HTN requiring hydralazine yesterday. However this morning her systolic has remained in the 80s and diastolic in the 50s. Family is not present on my exam. Review of Systems Cannot obtain ROS due to patient's altered mental status Focused Exam Lactate Level 05/17/22 09:26: Lactic Acid Level 1.59 Lactic Acid Level Laboratory Tests Test 05/17/22 09:26 Lactic Acid Level 1.59 MMOL/L (0.50-2.00) Objective Exam Last Set of Vital Signs Vital Signs Date Time Temp Pulse Resp B/P (MAP) Pulse Ox O2 Delivery O2 Flow Rate FiO2 05/17/22 11:00 80 16 87/54 (65) 100 Room Air 05/17/22 08:24 37.4 05/17/22 08:21 1.00 Capillary Refill : Less Than 3 Seconds I&O Intake and Output 05/17/22 00:00 Intake Total 2386 ml Output Total 5375 ml Balance -2989 ml Intake Oral 286 ml IV Total 2100 ml Output Urine Total 5375 ml General: Other (Sedated and asleep. Does not arouse on exam) HEENT: Atraumatic Neck: Supple Lungs: Clear to Auscultation Heart: Regular Rate, No Murmurs Abdomen: Soft, No Masses Extremities: No Cyanosis, Normal Pulses Psych/Mental Status: Other (multiple episodes of agitation requiring IV sedation) Results Lab Laboratory Tests 05/17/22 04:05: White Blood Count 14.2H, Red Blood Count 4.64, Hemoglobin 12.4, Hematocrit 38, Mean Corpuscular Volume 82, Mean Corpuscular Hemoglobin 27, Mean Corpuscular Hemoglobin Concent 33, Red Cell Distribution Width 14.9H, Platelet Count 387, Mean Platelet Volume 9.9, Immature Granulocyte % (Auto) 1, Neutrophils (%) (Auto) 86H, Lymphocytes (%) (Auto) 6L, Monocytes (%) (Auto) 7, Eosinophils (%) (Auto) 0, Basophils (%) (Auto) 0, Neutrophils # (Auto) 12.3H, Lymphocytes # (Auto) 0.8L, Monocytes # (Auto) 1.1H, Eosinophils # (Auto) 0.0, Basophils # (Auto) 0.0, Immature Granulocyte # (Auto) 0.1, Neutrophils % (Manual) 87, Lymphocytes % (Manual) 7, Monocytes % (Manual) 6, Blood Morphology Comment NORMAL, Sodium Level 131L, Potassium Level 5.0, Chloride Level 103, Carbon Dioxide Level 20L, Anion Gap 8, Blood Urea Nitrogen 24H, Creatinine 0.64, Estimat Glomerular Filtration Rate 96, BUN/Creatinine Ratio 38, Glucose Level 302H, Calcium Level 8.7, Corrected Calcium 9.3, Magnesium Level 2.6H, Total Bilirubin 0.5, Aspartate Amino Transf (AST/SGOT) 32, Alanine Aminotransferase (ALT/SGPT) 32, Alkaline Phosphatase 100, Total Protein 5.3L, Albumin 3.2 05/17/22 09:26: Lactic Acid Level 1.59 05/17/22 11:00: Microbiology 05/16/22 MRSA Screen - Final, Complete MRSA not isolated Radiology [facility], [place] NAME: KEYLA NEUMANN [facility] REC#: [id number] PT STATUS: ADM IN : 1950 PHYSICIAN: KAMLA CHRIS DO ADMIT DATE: 05/13/22/ICU Draft Date of Exam:05/17/22 CT HEAD WO PROCEDURE: CT head without contrast. TECHNIQUE: Multiple contiguous axial images were obtained through the brain without the use of intravenous contrast. Auto Exposure Controls were utilized during the CT exam to meet ALARA standards for radiation dose reduction. INDICATION: Altered mental status. FINDINGS: The ventricles are normal in size, shape, and position. There are no masses or hemorrhages. There are no extra-axial fluid collections. The paranasal sinuses are clear. IMPRESSION: Negative CT head. Dictated on workstation # [id number] Dict: 05/17/22 1048 Trans: 05/17/22 1053 [id number] Interpreted by: SHANAE ZALDIVAR MD Electronically signed by: Assessment/Plan Assessment/Plan Assess & Plan/Chief Complaint Acute on chronic low back pain S/P lumbar surgery in january. L3-S1 fusion and laminectomy Chronic back pain for 2-3 years prior to surgery Compression fx noted at L2 on xray Pain control w hydromorphone and oxycodone Need MRI to evaluate structures further and determine need for consultation with ortho surgery Unable to complete MRI, will complete imaging when safe for patient Delirium Cognitive decline noted for few years Hx of depression and delirium Main goal is to keep her safe from herself and prevent fall out of bed Currently receiving haloperidol, precedex, and ativan Could consider geriatric psych when condition improves Withdrawal from lyrica could be contributing, undetermined etiology at this point ABG showed respiratory alkalosis w pH 7.49, CO2 32, O2 94 Leukocytosis 14.2 today CXR negative, repeat UA pending Lactic acid analyzer pending Acute Hypotension Ativan held Continue to monitor MAP at acceptable values at this point Hyponatremia 131 this morning from 138 yesterday Replace w IV fluids slowly If persists can pursue further workup HTN KARENA Clinical Quality Measures Admission Status Admission Dx Acute on chronic low back pain S/P lumbar surgery in january. L3-S1 fusion and laminectomy Chronic back pain for 2-3 years prior to surgery Compression fx noted at L2 on xray Pain control w hydromorphone and oxycodone Need MRI to evaluate structures further and determine need for consultation with ortho surgery Unable to complete MRI, will complete imaging when safe for patient Delirium Cognitive decline noted for few years Hx of depression and delirium Main goal is to keep her safe from herself and prevent fall out of bed Currently receiving haloperidol and precedex in ICU Could consider geriatric psych when condition improves Electrolytes wnl, sepsis unlikely with normal vitals and labs HTN KARENA KAMLA CHRIS DO 05/18/22 0445: Assessment/Plan Assessment/Plan Assess & Plan/Chief Complaint Encephalopathy severe and could be unrecoverable Treat mild UTI catheter induced Supervisory-Addendum Brief Verification & Attestation Participated in pt care: history, MDM, physical Personally performed: exam, history, MDM, supervision of care Care discussed with: Medical Student Procedures: n/a Results interpretation: Verified all documentation Verification and Attestation of Medical Student E/M Service A medical student performed and documented this service in my presence. I reviewed and verified all information documented by the medical student and made modifications to such information, when appropriate. I personally performed the physical exam and medical decision making. Kamla Chris, May 18, 2022,04:44 BERNARD HAM May 17, 2022 11:35 KAMLA CHRIS DO May 18, 2022 04:45
[2022-05-17 11:42] LABS: BACTERIA,URINE MODERATE /HPF; WBC,URINE 25-50 /HPF
[2022-05-17] MEDS: CEFEPIME INJECTION 1,000 MG in NS (IVPB) 50 ML IV SCH (18:04)
[2022-05-17] MEDS: LORazepam 1 MG (ATIVAN) TAB PO PRN (20:00)
[2022-05-17] MEDS: OLANZapine 2.5 MG (ZyPREXA) TAB PO SCH (20:00)
[2022-05-18] MEDS: AA 4.25% W/LYTES IN D5W IV SOL 1,000 ML IV SCH ×3 (00:15→17:35)
[2022-05-18] MEDS: oxyCODONE/APAP 10/325MG (PERCOCET 10) TABLET PO PRN ×2 (01:34→08:19)
[2022-05-18] MEDS: CEFEPIME INJECTION 1,000 MG in NS (IVPB) 50 ML IV SCH ×3 (01:34→17:34)
[2022-05-18 04:08] LABS: BASOPHILS # (AUTO) 0.1 10^3/uL (0.0-0.1); BASOPHILS % (AUTO) 0 % (0-10); EOSINOPHILS # (AUTO) 0.1 10^3/uL (0.0-0.3); EOSINOPHILS % (AUTO) 1 % (0-10); HEMATOCRIT 41 % (35-52); HEMOGLOBIN 13.5 g/dL (11.5-16.0); LYMPHOCYTES # (AUTO) 0.8 10^3/uL (1.0-4.0); LYMPHOCYTES % (AUTO) 5 % (12-44); MEAN CORPUSCULAR HEMOGLOBIN 27 pg (25-34); MEAN CORPUSCULAR HGB CONC 33 g/dL (32-36); MEAN CORPUSCULAR VOLUME 82 fL (80-99); MEAN PLATELET VOLUME 9.5 fL (9.0-12.2); MONOCYTES # (AUTO) 1.3 10^3/uL (0.0-1.0); MONOCYTES % (AUTO) 7 % (0-12); NEUTROPHILS # (AUTO) 14.6 10^3/uL (1.8-7.8); NEUTROPHILS % (AUTO) 86 % (42-75); PLATELET COUNT 426 10^3/uL (130-400); WHITE BLOOD COUNT 16.9 10^3/uL (4.3-11.0)
[2022-05-18 04:30] LABS: ALBUMIN 3.7 GM/DL (3.2-4.5); BILIRUBIN,TOTAL 0.6 MG/DL (0.1-1.0); CALCIUM 9.9 MG/DL (8.5-10.1); CREATININE SERUM 0.63 MG/DL (0.60-1.30); POTASSIUM 4.1 MMOL/L (3.6-5.0); TOTAL PROTEIN 6.5 GM/DL (6.4-8.2)
[2022-05-18] MEDS: POTASSIUM CL 10MEQ/50ML IVPB 50 ML IV SCH (06:00)
[2022-05-18] MEDS: KCL 20 MEQ TAB (K-DUR) PO SCH (06:00)
[2022-05-18] MEDS: MAGNESIUM 1 GM/100 ML IVPB 100 ML IV SCH (06:00)
[2022-05-18] MEDS: SENNOSIDES 8.6 MG (SENOKOT) TAB PO SCH ×2 (08:22→19:37)
[2022-05-18] MEDS: DOCUSATE SODIUM 100 MG (COLACE) CAP PO SCH ×2 (08:22→19:37)
[2022-05-18] MEDS: ENOXAPARIN 40 MG/0.4 ML (LOVENOX) SYR SC SCH (08:24)
[2022-05-18] MEDS ORDERED: LACTULOSE SYRUP 10GM/15ML (ENULOSE) 30ML UDC PO NR (10:00)
[2022-05-18] MEDS ORDERED: SENNA W/DOCUSATE (SENOKOT S) TABLET PO NR (10:00)
--- NOTE | 2022-05-18 10:50 | Tele-ICU Progress Note ---
Subjective Date Seen by a Provider: May 18, 2022 Time Seen by a Provider: 10:50 Subjective/Events-last exam (Tele-ICU Physician , Progress Note ) Service provided via interactive audio and video telecommunications E-CARE system to a patient admitted to ICU bed in [facility]. Patient is seen today due to persistent need of ICU care Available chart/ vitals / labs / Images reviewed Video assessment done using teleICU camera, rest of exam as per RN Discussed with RN Events overnight : Afebrile hemodynamically stable Respiratory - I/O = Drips: Pressors- no Hospital course: (05/13) 71F admitted to the floor from MD office with L2 compression fracture & abdominal pain, US of abd neg for acute findings (05/14) transferred to ICU with agitation and worsening anxiety A/P Mental status change / delirium / - TME , 2/2medication +/- med withrdawal -( [facility] WNL ) - as per bedside MD - current regiment seem works UTI - abx - worsenig Leukocytosis Acute on chronic low back pain -Compression fx noted at L2 - as per bedside MD Acute Hypotension- resolved Hyponatremia - resolved Lines : , (Central Line Necessity Reviewed) Chowdary: OG: Nutrition: ? Analgesia: Anxiety/ delirium VTE Prophylaxis: batsheva 40 Stress Ulcer Prophylaxis: Plans in collaboration with bedside consultants and IM MDs. Discussed with RN to reach out if any questions or concerns A total of 15 minutes of critical care time was devoted to this patient today, required to treat and/or prevent further deterioration of critical care condition ( as above ) . I am remotely monitoring this patient from another state. I am unable to do the bedside exam, and history/physical and pertinent information is taken from other notes in the computer and bedside staff. Sepsis Event Evaluation Height, Weight, BMI Height: 5'5.00" Weight: 218lbs. oz. 98.087264hb; 23.66 BMI Method: Focused Exam Lactate Level 05/17/22 09:26: Lactic Acid Level 1.59 Exam Exam Patient acknowledged, consented, and participated in this virtual visit which was conducted using real time audio/video Vital Signs Date Time Temp Pulse Resp B/P (MAP) Pulse Ox O2 Delivery O2 Flow Rate FiO2 05/18/22 10:00 116 17 119/79 (92) 100 Room Air 05/18/22 09:00 110 11 170/105 (126) 100 Room Air 05/18/22 08:00 96 Room Air 05/18/22 08:00 123 8 219/142 (167) 100 Room Air 05/18/22 07:00 101 18 158/105 (122) 100 Room Air 05/18/22 06:52 102 05/18/22 06:00 97 18 135/65 (84) 100 Room Air 05/18/22 05:00 98 17 153/67 (79) 100 Room Air 05/18/22 04:00 100 Room Air 05/18/22 04:00 105 21 189/97 (137) 100 Room Air 05/18/22 03:55 107 8 185/107 (122) 100 Room Air 05/18/22 03:46 36.9 05/18/22 03:00 113 9 214/140 (157) 100 Room Air 05/18/22 02:00 97 12 159/95 (115) 100 Room Air 05/18/22 01:00 104 05/18/22 01:00 104 25 180/103 (128) 100 Room Air 05/18/22 00:00 36.7 05/18/22 00:00 93 18 144/134 (135) 100 Room Air 05/18/22 00:00 98 Room Air 05/17/22 23:00 94 15 144/86 (95) 100 Room Air 05/17/22 22:00 105 17 196/104 (120) 100 Room Air 05/17/22 21:00 106 33 188/99 (134) 100 Room Air 05/17/22 20:00 99 Room Air 05/17/22 20:00 104 27 176/107 (141) 100 Room Air 05/17/22 19:28 36.9 05/17/22 19:20 96 7 137/88 (108) 100 Room Air 05/17/22 19:00 94 05/17/22 19:00 94 22 163/86 (118) 100 Room Air 05/17/22 18:00 83 19 180/75 (110) 100 Room Air 05/17/22 17:00 90 6 186/72 (110) 100 Room Air 05/17/22 16:45 37.0 05/17/22 16:00 100 Room Air 05/17/22 16:00 81 19 119/89 (99) 100 Room Air 05/17/22 15:00 101 18 137/77 (97) 100 Room Air 05/17/22 14:00 97 13 151/131 (138) 100 Room Air 05/17/22 13:00 99 12 201/110 (140) 100 Room Air 05/17/22 12:19 71 05/17/22 12:00 36.9 05/17/22 12:00 71 12 105/59 (74) 100 Room Air 05/17/22 12:00 98 Room Air 05/17/22 11:00 80 16 87/54 (65) 100 Room Air l I & O 05/18/22 07:00 Intake Total 3360 ml Output Total 4725 ml Balance -1365 ml Height & Weight Height: 5'5.00" Weight: 218lbs. oz. 98.613886nw; 23.66 BMI Method: General Appearance: Severe Distress, Other (gyrating in bed) HEENT: PERRL/EOMI, Moist Mucous Membranes Neck: Supple Respiratory: Lungs Clear, Normal Breath Sounds Cardiovascular: Regular Rate, Rhythm Capillary Refill: Less Than 3 Seconds Extremity: No Pedal Edema; No Swelling Neurologic/Psychiatric: Disoriented Skin: No Cyanosis, No Diaphoresis; Ecchymosis (R thigh) Results Lab Laboratory Tests 05/17/22 04:05 05/18/22 03:53 Assessment/Plan Assessment/Plan 1 RIVER AGUSTIN MD May 18, 2022 10:50
[2022-05-18] MEDS: diphenhydrAMINE 50 MG/ML INJ (BENADRYL) IVP PRN ×2 (10:58→16:27)
--- NOTE | 2022-05-18 11:21 | Progress Note ---
AIMEE SCHWAB 05/18/22 1121: Subjective Date Seen by a Provider: May 18, 2022 Time Seen by a Provider: 09:00 Subjective/Events-last exam Mrs. Neumann is doing better today. She is able to answer targeted yes/no questions and was able to take few bites of food. She endorsed R sided abdominal pain. Per nursing she had one percoset at 1:30am but has not had any other sedating medications today. Per , her baseline functional status is mostly independent. She can dress herself and take herself to the bathroom, walk. He has taken over cooking as she is no longer able. However, he says her short term memory is not there. Review of Systems Pulmonary: No Dyspnea, No Cough Gastrointestinal: Abdominal Pain Neurological: Confusion Focused Exam Lactate Level 05/17/22 09:26: Lactic Acid Level 1.59 Objective Exam Last Set of Vital Signs Vital Signs Date Time Temp Pulse Resp B/P (MAP) Pulse Ox O2 Delivery O2 Flow Rate FiO2 05/18/22 11:00 120 33 207/116 (146) 100 Room Air 05/18/22 03:46 36.9 05/17/22 08:21 1.00 Capillary Refill : Less Than 3 Seconds I&O Intake and Output 05/18/22 00:00 Intake Total 2380 ml Output Total 5100 ml Balance -2720 ml Intake Oral 230 ml IV Total 2150 ml Output Urine Total 5100 ml General: Alert, No Acute Distress, Other (A&Ox1) HEENT: Mucous Memb Moist/[employer] Neck: Supple, No JVD Lungs: Clear to Auscultation, Normal Air Movement Heart: Regular Rate, Normal S1, Normal S2, No Murmurs Abdomen: Other (Abdomen TTP R>L. Palpable stool burden on right side. soft, nondistended.) Extremities: No Clubbing, No Cyanosis, Normal Pulses, Other (Closed wound with surrounding erythema on left lower lemons, +TTP, nonpurulent.) Skin: Other (left lower leg wound as above. dry, intact otherwise.) Neuro: Other (answers yes/no questions. Opens eyes to voice command, localizes pain. Reflexes 3+ throughout. Normal tone. Moves all extremities spontaneously. PERRL. No facial asymmetry.) Psych/Mental Status: Other (confused.) Results Lab Laboratory Tests 05/18/22 03:53: White Blood Count 16.9H, Red Blood Count 5.03, Hemoglobin 13.5, Hematocrit 41, Mean Corpuscular Volume 82, Mean Corpuscular Hemoglobin 27, Mean Corpuscular Hemoglobin Concent 33, Red Cell Distribution Width 14.9H, Platelet Count 426H, Mean Platelet Volume 9.5, Immature Granulocyte % (Auto) 1, Neutrophils (%) (Auto) 86H, Lymphocytes (%) (Auto) 5L, Monocytes (%) (Auto) 7, Eosinophils (%) (Auto) 1, Basophils (%) (Auto) 0, Neutrophils # (Auto) 14.6H, Lymphocytes # (Auto) 0.8L, Monocytes # (Auto) 1.3H, Eosinophils # (Auto) 0.1, Basophils # (Auto) 0.1, Immature Granulocyte # (Auto) 0.1, Sodium Level 137, Potassium Level 4.1, Chloride Level 105, Carbon Dioxide Level 21, Anion Gap 11, Blood Urea Nitro gen 24H, Creatinine 0.63, Estimat Glomerular Filtration Rate 96, BUN/Creatinine Ratio 38, Glucose Level 122H, Calcium Level 9.9, Corrected Calcium 10.1, Total Bilirubin 0.6, Aspartate Amino Transf (AST/SGOT) 40H, Alanine Aminotransferase (ALT/SGPT) 43, Alkaline Phosphatase 116, Total Protein 6.5, Albumin 3.7 Microbiology 05/17/22 Urine Culture - Preliminary, Resulted Escherichia coli 05/16/22 MRSA Screen - Final, Complete MRSA not isolated Assessment/Plan Assessment/Plan Assess & Plan/Chief Complaint Acute encephalopathy Left Lower Leg cellulitis -Removing centrally acting medications -improvement in mental status today -further increase in WBC count from yesterday -on cefepime, MRSA coverage not indicated -continue to monitor Abdominal Pain -Hx of bowel resections for crohns -per -abdominal xray reviewed -last BM charted as 05/13 -palpable stool burden -escalating bowel regimen, some doses refused or unable to be given 04/22 mental status -lactulose + senna CAUTI -culture grew e coli -on cefepime as above Chronic back pain Hx L3-S1 fusion -percoset 5mg/325mg for pain Dispo: Transfer to floor. KAMLA CHRIS DO 05/19/22 0439: Objective Exam General: Alert, Other (A&Ox1) Lungs: Clear to Auscultation Heart: Regular Rate Psych/Mental Status: Mental Status NL Assessment/Plan Assessment/Plan Assess & Plan/Chief Complaint Move to 4th Supportive care Sedatives for agitation prn Supervisory-Addendum Brief Verification & Attestation Participated in pt care: history, MDM, physical Personally performed: exam, history, MDM, supervision of care Care discussed with: Medical Student Procedures: n/a Results interpretation: Verified all documentation Verification and Attestation of Medical Student E/M Service A medical student performed and documented this service in my presence. I reviewed and verified all information documented by the medical student and made modifications to such information, when appropriate. I personally performed the physical exam and medical decision making. Kamla Chris, May 19, 2022,04:38 AIMEE SCHWAB May 18, 2022 11:21 KAMLA CHRIS DO May 19, 2022 04:39
--- NOTE | 2022-05-18 13:15 | Occ Therapy Progress Note ---
Therapy Progress Note OT Order received. Discussion w/ nursing and observation of patient with bilateral hand mittens on, patient not appropriate at this time to follow and attend to instruction. OT will continue to monitor SLOANE CRUZ OT May 18, 2022 13:15
--- NOTE | 2022-05-18 14:17 | Physical Therapy Progress Note ---
Therapy Progress Note Patient currently sedated and not able to participate with skilled PT. RN requests hold on this date. Will attempt tomorrow VIVIAN Anton PT May 18, 2022 14:17
[2022-05-18] MEDS: LORazepam 1 MG (ATIVAN) TAB PO PRN ×2 (14:40→19:18)
[2022-05-18 16:11] VITALS: BP 165/88
[2022-05-18] MEDS: hydrALAZINE (APESOLINE) 20 MG/ML VIAL IV PRN (16:25)
[2022-05-18 19:01] VITALS: BP 163/77
[2022-05-18] MEDS: ALPRAZolam 0.5 MG (XANAX) TAB PO PRN (19:17)
[2022-05-18] MEDS: MELATONIN 3 MG TABLET PO PRN (19:18)
[2022-05-18] MEDS: OLANZapine 2.5 MG (ZyPREXA) TAB PO SCH (19:37)
[2022-05-18] MEDS: LOSARTAN 50 MG (COZAAR) TAB PO SCH (19:37)
[2022-05-18] MEDS: LACTULOSE SYRUP 10GM/15ML (ENULOSE) 30ML UDC PO SCH (19:37)
[2022-05-18] MEDS ORDERED: SENNA W/DOCUSATE (SENOKOT S) TABLET PO SCH (21:00)
[2022-05-18 23:51] VITALS: BP 102/52
[2022-05-19] MEDS: CEFEPIME INJECTION 1,000 MG in NS (IVPB) 50 ML IV SCH ×2 (02:48→10:09)
[2022-05-19] MEDS: AA 4.25% W/LYTES IN D5W IV SOL 1,000 ML IV SCH ×3 (02:55→18:21)
[2022-05-19 03:31] VITALS: BP 101/51
[2022-05-19] MEDS: oxyCODONE/APAP 10/325MG (PERCOCET 10) TABLET PO PRN ×3 (04:09→18:41)
[2022-05-19] MEDS: LORazepam 1 MG (ATIVAN) TAB PO PRN ×2 (04:09→15:43)
[2022-05-19] MEDS: ALPRAZolam 0.5 MG (XANAX) TAB PO PRN ×2 (05:21→19:34)
[2022-05-19] MEDS: diphenhydrAMINE 50 MG/ML INJ (BENADRYL) IVP PRN ×3 (05:21→21:06)
[2022-05-19 06:13] LABS: BASOPHILS # (AUTO) 0.1 10^3/uL (0.0-0.1); BASOPHILS % (AUTO) 0 % (0-10); EOSINOPHILS # (AUTO) 0.1 10^3/uL (0.0-0.3); EOSINOPHILS % (AUTO) 1 % (0-10); HEMATOCRIT 40 % (35-52); HEMOGLOBIN 13.4 g/dL (11.5-16.0); LYMPHOCYTES % (AUTO) 6 % (12-44); MEAN CORPUSCULAR HEMOGLOBIN 27 pg (25-34); MEAN CORPUSCULAR HGB CONC 33 g/dL (32-36); MEAN CORPUSCULAR VOLUME 82 fL (80-99); MEAN PLATELET VOLUME 9.6 fL (9.0-12.2); MONOCYTES # (AUTO) 1.6 10^3/uL (0.0-1.0); MONOCYTES % (AUTO) 10 % (0-12); NEUTROPHILS % (AUTO) 82 % (42-75); PLATELET COUNT 455 10^3/uL (130-400); WHITE BLOOD COUNT 15.8 10^3/uL (4.3-11.0)
[2022-05-19 06:39] LABS: ALBUMIN 3.5 GM/DL (3.2-4.5); BILIRUBIN,TOTAL 0.7 MG/DL (0.1-1.0); CREATININE SERUM 0.7 MG/DL (0.60-1.30); POTASSIUM 4.5 MMOL/L (3.6-5.0); TOTAL PROTEIN 6.4 GM/DL (6.4-8.2)
[2022-05-19 07:58] VITALS: BP 110/53
--- NOTE | 2022-05-19 08:51 | Occ Therapy Progress Note ---
Therapy Progress Note Second attempt to initiate OT evaluation. patient asleep and does not arouse. per nursing VALIUM 5MG GIVEN IV FOR CONTINUED AGITATION SLOANE CRUZ OT May 19, 2022 08:51
--- NOTE | 2022-05-19 08:57 | Physical Therapy Progress Note ---
Therapy Progress Note Patient currently sedated and not able to participate with skilled PT. Will attempt tomorrow GRAZYNA Phelan PT May 19, 2022 08:57
[2022-05-19] MEDS: ENOXAPARIN 40 MG/0.4 ML (LOVENOX) SYR SC SCH (09:42)
[2022-05-19] MEDS: DOCUSATE SODIUM 100 MG (COLACE) CAP PO SCH ×3 (09:42→19:33)
[2022-05-19] MEDS: LOSARTAN 50 MG (COZAAR) TAB PO SCH ×3 (09:42→19:33)
[2022-05-19] MEDS: LACTULOSE SYRUP 10GM/15ML (ENULOSE) 30ML UDC PO SCH ×3 (09:42→19:34)
[2022-05-19] MEDS: SENNOSIDES 8.6 MG (SENOKOT) TAB PO SCH ×3 (09:42→19:34)
--- NOTE | 2022-05-19 09:45 | Progress Note ---
TYRELL TURCIOS 05/19/22 0945: Subjective Date Seen by a Provider: May 19, 2022 Time Seen by a Provider: 09:00 Subjective/Events-last exam Lena had some agitation overnight and was given ativan at 4:09, and xanax at 5:21. This morning she is very sleepy and could not wake up for the visit. Review of Systems unable to assess. Focused Exam Lactate Level 05/17/22 09:26: Lactic Acid Level 1.59 Objective Exam Last Set of Vital Signs Vital Signs Date Time Temp Pulse Resp B/P (MAP) Pulse Ox O2 Delivery O2 Flow Rate FiO2 05/19/22 07:58 37.0 83 19 110/53 (72) 99 Room Air 05/17/22 08:21 1.00 Capillary Refill : Less Than 3 Seconds I&O Intake and Output 05/19/22 00:00 Intake Total 1500 ml Output Total 2850 ml Balance -1350 ml Intake Oral 450 ml IV Total 1050 ml Output Urine Total 2850 ml General: Other (Sleeping. NAD.) HEENT: Atraumatic, Mucous Memb Moist/[place], Other (PERRL) Neck: Supple, No JVD, No LAD Lungs: Clear to Auscultation, Normal Air Movement Heart: Regular Rate, Normal S1, Normal S2, No Murmurs Abdomen: Soft, No Tenderness, No Hepatosplenomegaly, Other (nondistended.) Extremities: No Clubbing, No Cyanosis, Other (small Left lower leg wound with surrounding erythema, warmth) Skin: No Rashes, No Breakdown, Other (left lower leg as above) Neuro: Normal Tone, Reflexes 2+, Other (grimaces to pain.) Results Lab Laboratory Tests 05/19/22 06:03: White Blood Count 15.8H, Red Blood Count 4.93, Hemoglobin 13.4, Hematocrit 40, Mean Corpuscular Volume 82, Mean Corpuscular Hemoglobin 27, Mean Corpuscular Hemoglobin Concent 33, Red Cell Distribution Width 15.1H, Platelet Count 455H, Mean Platelet Volume 9.6, Immature Granulocyte % (Auto) 1, Neutrophils (%) (Auto) 82H, Lymphocytes (%) (Auto) 6L, Monocytes (%) (Auto) 10, Eosinophils (%) (Auto) 1, Basophils (%) (Auto) 0, Neutrophils # (Auto) 13.0H, Lymphocytes # (Auto) 1.0, Monocytes # (Auto) 1.6H, Eosinophils # (Auto) 0.1, Basophils # (Auto) 0.1, Immature Granulocyte # (Auto) 0.1, Sodium Level 135, Potassium Level 4.5, Chloride Level 105, Carbon Dioxide Level 21, Anion Gap 9, Blood Urea Nitrogen 36H, Creatinine 0.70, Estimat Glomerular Filtration Rate 94, BUN/Creatinine Ratio 51, Glucose Level 113H, Calcium Level 10.0, Corrected Calcium 10.4H, Total Bilirubin 0.7, Aspartate Amino Transf (AST/SGOT) 32, Alanine Aminotransferase (ALT/SGPT) 39, Alkaline Phosphatase 142H, Total Protein 6.4, Albumin 3.5 Microbiology 05/17/22 Urine Culture - Preliminary, Resulted Escherichia coli Enterococcus faecalis 05/16/22 MRSA Screen - Final, Complete MRSA not isolated Assessment/Plan Assessment/Plan Assess & Plan/Chief Complaint Acute encephalopathy Left Lower Leg cellulitis -Removing centrally acting medications -improvement in mental status today -further increase in WBC count from yesterday -MRSA coverage not indicated -cefepime switched to ampicillin -continue to monitor Abdominal Pain -Hx of bowel resections for crohns -per -abdominal xray reviewed -last BM charted as 05/13 -palpable stool burden -escalating bowel regimen, some doses refused or unable to be given 04/22 mental status -lactulose + senna CAUTI -culture grew e coli, enterobacter new growth today -switched to ampicillin for enterobacter coverage Chronic back pain Hx L3-S1 fusion -percoset 5mg/325mg for pain Dispo: No improvement from yesterday, considering hospice, had discussion with family about her care going forward. KAMLA CHRIS DO 05/20/22 0441: Assessment/Plan Assessment/Plan Assess & Plan/Chief Complaint Hospice indicated Supervisory-Addendum Brief Verification & Attestation Participated in pt care: history, MDM, physical Personally performed: exam, history, MDM, supervision of care Care discussed with: Medical Student Procedures: n/a Results interpretation: Verified all documentation Verification and Attestation of Medical Student E/M Service A medical student performed and documented this service in my presence. I reviewed and verified all information documented by the medical student and made modifications to such information, when appropriate. I personally performed the physical exam and medical decision making. Kamla Chris May 20, 2022,04:41 TYRELL TURCIOS May 19, 2022 09:45 KAMLA CHRIS DO May 20, 2022 04:41
[2022-05-19 11:35] VITALS: BP 129/71
[2022-05-19] MEDS ORDERED: AMPICILLIN FOR IV USE 1,000 MG in WATER (STERILE) FOR INJECTION 7.4 ML IV SCH (13:45)
[2022-05-19 16:10] VITALS: BP 147/72
[2022-05-19] MEDS: AMPICILLIN 1,000 MG/NS 50 ML IVPB IV SCH ×4 (18:21→21:08)
[2022-05-19 19:12] VITALS: BP 135/62
[2022-05-19] MEDS: OLANZapine 5 MG ODT (ZyPREXA ZYDIS) PO SCH (19:33)
[2022-05-19] MEDS: MELATONIN 3 MG TABLET PO PRN (19:34)
[2022-05-19 23:53] VITALS: BP 145/63
[2022-05-20] MEDS: LORazepam 1 MG (ATIVAN) TAB PO PRN ×3 (01:54→20:18)
[2022-05-20] MEDS: AMPICILLIN 1,000 MG/NS 50 ML IVPB IV SCH ×12 (01:55→22:44)
[2022-05-20] MEDS: AA 4.25% W/LYTES IN D5W IV SOL 1,000 ML IV SCH ×3 (02:52→20:02)
[2022-05-20 03:47] VITALS: BP 152/76
[2022-05-20 05:27] LABS: BASOPHILS % (AUTO) 0 % (0-10); EOSINOPHILS # (AUTO) 0.1 10^3/uL (0.0-0.3); EOSINOPHILS % (AUTO) 1 % (0-10); HEMATOCRIT 39 % (35-52); HEMOGLOBIN 12.7 g/dL (11.5-16.0); LYMPHOCYTES # (AUTO) 0.8 10^3/uL (1.0-4.0); LYMPHOCYTES % (AUTO) 5 % (12-44); MEAN CORPUSCULAR HEMOGLOBIN 26 pg (25-34); MEAN CORPUSCULAR HGB CONC 33 g/dL (32-36); MEAN CORPUSCULAR VOLUME 81 fL (80-99); MEAN PLATELET VOLUME 9.9 fL (9.0-12.2); MONOCYTES # (AUTO) 1.6 10^3/uL (0.0-1.0); MONOCYTES % (AUTO) 11 % (0-12); NEUTROPHILS # (AUTO) 12.3 10^3/uL (1.8-7.8); NEUTROPHILS % (AUTO) 82 % (42-75); PLATELET COUNT 493 10^3/uL (130-400); WHITE BLOOD COUNT 14.9 10^3/uL (4.3-11.0)
[2022-05-20 05:50] LABS: ALBUMIN 3.5 GM/DL (3.2-4.5); POTASSIUM 4.5 MMOL/L (3.6-5.0)
[2022-05-20] MEDS: ALPRAZolam 0.5 MG (XANAX) TAB PO PRN (05:51)
[2022-05-20 05:52] LABS: CALCIUM 9.3 MG/DL (8.5-10.1)
[2022-05-20 05:53] LABS: TOTAL PROTEIN 6.1 GM/DL (6.4-8.2)
[2022-05-20 05:54] LABS: BILIRUBIN,TOTAL 0.4 MG/DL (0.1-1.0)
[2022-05-20 05:56] LABS: CREATININE SERUM 0.67 MG/DL (0.60-1.30)
[2022-05-20 07:20] VITALS: BP 117/57
[2022-05-20] MEDS: OLANZapine 5 MG ODT (ZyPREXA ZYDIS) PO SCH ×2 (09:39→20:18)
[2022-05-20] MEDS: LOSARTAN 50 MG (COZAAR) TAB PO SCH ×2 (09:39→20:19)
[2022-05-20] MEDS: DOCUSATE SODIUM 100 MG (COLACE) CAP PO SCH ×2 (09:39→20:06)
[2022-05-20] MEDS: SENNOSIDES 8.6 MG (SENOKOT) TAB PO SCH ×2 (09:40→20:06)
[2022-05-20] MEDS: LACTULOSE SYRUP 10GM/15ML (ENULOSE) 30ML UDC PO SCH ×2 (09:40→20:18)
[2022-05-20] MEDS: ENOXAPARIN 40 MG/0.4 ML (LOVENOX) SYR SC SCH (09:40)
[2022-05-20] MEDS: diphenhydrAMINE 50 MG/ML INJ (BENADRYL) IVP PRN (09:51)
[2022-05-20] MEDS: oxyCODONE/APAP 10/325MG (PERCOCET 10) TABLET PO PRN (09:51)
--- NOTE | 2022-05-20 10:32 | Physical Therapy Evaluation ---
PT Evaluation-General Medical Diagnosis Admission Date May 13, 2022 at 18:34 Medical Diagnosis: compression fracture Onset Date: May 13, 2022 Therapy Diagnosis Therapy Diagnosis: generalized weakness/debility Height/Weight Height (Feet): 5 Height (Inches): 5.00 Weight (Pounds): 218 Precautions Precautions/Isolations: Fall Prevention, Standard Precautions Referral Physician: Sveta Reason for Referral: Evaluation/Treatment Medical History Pertinent Medical History: Arthritis, Dementia, HTN, Neuropathy Current History Direct admit from physician's office due to L2 compression fracture, LBP and decreased cognition Reviewed History: Yes Social History Home: Single Level Current Living Status: Spouse Prior Prior Level of Function SCALE: Activities may be completed with or without assistive devices. 9-Rtgywlqbnk-tzwagke completes the activity by him/herself with no assistance from a helper. 5-Set-up or Clean-up Assistance-helper sets up or cleans up; patient completes activity. [place] assists only prior to or following the activity. 4-Supervision or Touching Assistance-helper provides verbal cues and/or touching/steadying and/or contact guard assistance as patient completes ac tivity. Assistance may be provided throughout the activity or intermittently. 3-Partial/Moderate Assistance-helper does LESS THAN HALF the effort. [place] lifts, holds or supports trunk or limbs, but provides less than half the effort. 2-Substantial/Maximal Assistance-helper does MORE THAN HALF the effort. [place] lifts or holds trunk or limbs and provides more than half the effort. 1-Prqsjqmju-xcrwxe does ALL the effort. Patient does none of the effort to complete the activity. Or, the assistance of 2 or more helpers is required for the patient to complete the activity. If activity was not attempted, code reason: 7-Patient Refused. 9-Not Applicable-not attempted and the patient did not perform the activity before the current illness, exacerbation or injury. 10-Not Attempted due to Environmental Limitations-(lack of equipment, weather restraints, etc.). 88-Not Attempted due to Medical Conditions or Safety Concerns. Bed Mobility: 6 Transfers (B,C,W/C): 6 Gait: 6 Indoor Mobility (Ambulation): Independent Prior Devices Use: None per spouse PT Evaluation-Current Subjective Patient verbally responds to PT and answers simple questions. Objective Patient Orientation: Person Attachments: Chowdary Catheter, IV ROM/Strength ROM Lower Extremities bilateral LE WFL Strength Lower Extremities unable to assess due to patient's inability to follow direction Integumentary/Posture Integumentary refer to nursing notes Bladder Incontinence: Chowdary Cath Posture kyphotic Neuromuscular (Tone, Coordination, Reflexes) severely diminished with all Sensory Vision: Unable to Assess Hearing: Functional Transfers Roll Left to Right (QC): 1 (x 2) Sit to Lying (QC): 1 (x 2) Lying to Sitting/Side of Bed(Q: 1 (x 2) Sit to Stand (QC): 1 (x 2 blocking bilateral knees and use of gait belt) Chair/Nee-em-Rsrjb Xfer(QC): 88 Toilet Transfer (QC): 88 Gait Does the Patient Walk?: No and Walking Goal IS indicated Walk 10 feet (QC): 88 Walk 50 ft with 2 Turns(QC): 88 Walk 150 ft (QC): 88 Balance Sitting Static: Poor Sitting Dynamic: Poor Assessment/Needs Patient will benefit from skilled PT to address functional strength and mobility to improve current LOF. Patient is currently lethargic but does respond to verbal stimuli. Patient attempted to perform sit to stand, per her request, with dependent assist of 2 with use of gait belt and blocking bilateral knees, however, patient was unable to attain. Rehab Potential: Guarded PT Short Term Goals Short Term Goals Time Frame: Jun 05, 2022 Roll Left & Right: 3 Sit to lyin Lying to sitting on side of be: 3 Sit to stand: 3 Chair/sqo-qc-jjvpx transfer: 3 PT Produce Associate Goals Produce Associate Goals PT Detention Goals Time Frame: Jun 19, 2022 Roll Left & Right (QC): 4 Sit to Lying (QC): 4 Lying-Sitting on Side/Bed(QC): 4 Sit to Stand (QC): 4 Chair/Mbo-rl-Firgs Xfer(QC): 4 Toilet Transfer (QC): 4 Walk 10 feet (QC): 3 Walk 50ft with 2 Turns (QC): 3 PT Plan Problem List Problem List: Activity Tolerance, Functional Strength, Safety, Balance, Gait, Transfer, Bed Mobility Treatment/Plan Treatment Plan: Continue Plan of Care Treatment Plan: Bed Mobility, Education, Functional Activity Enrico, Functional Strength, Gait, Safety, Therapeutic Exercise, Transfers Treatment Duration: Jun 19, 2022 Frequency: 6 times per week Estimated Hrs Per Day: .25 hour per day Patient and/or Family Agrees t: Yes Time Time In: 931 Time Out: 945 DATE: May 20, 2022 Total Billed Treatment Time: 14 Total Billed Treatment 1 visit [facility] 14 min VIVIAN ALCOCER PT May 20, 2022 10:32
[2022-05-20 11:18] VITALS: BP 110/53
--- NOTE | 2022-05-20 13:58 | Progress Note ---
TYRELL TURCIOS 05/20/22 1358: Subjective Date Seen by a Provider: May 20, 2022 Time Seen by a Provider: 10:00 Subjective/Events-last exam Overnight Lena received 1mg lorazepam and .5mg xanax for acute agitation. This morning she is sleeping and not arousable for exam. at bedside this am, and had discussion with son yesterday, both are agreeable to starting hospice and considering fci placement. Review of Systems unable to assess. Objective Exam Last Set of Vital Signs Vital Signs Date Time Temp Pulse Resp B/P (MAP) Pulse Ox O2 Delivery O2 Flow Rate FiO2 05/20/22 11:18 36.8 92 18 110/53 (72) 99 Room Air 05/17/22 08:21 1.00 Capillary Refill : Less Than 3 Seconds I&O Intake and Output 05/20/22 00:00 Intake Total 2120 ml Output Total 1775 ml Balance 345 ml Intake Oral 1020 ml IV Total 1100 ml Output Urine Total 1775 ml General: No Acute Distress, Other (Asleep.) HEENT: Atraumatic, Mucous Memb Moist/[place], Other (PERRL) Neck: Supple, No JVD, No LAD Lungs: Clear to Auscultation, Normal Air Movement Heart: Regular Rate, Normal S1, Normal S2, No Murmurs Abdomen: Soft Extremities: No Clubbing, No Cyanosis, No Edema, Other (LLE with wound and surrounding erythema and tenderness, improved from yesterday) Skin: Other (LLE wound with erythema and warmth) Neuro: Other (asleep. does not wake to voice, grimaces to pain.) Results Lab Laboratory Tests 05/20/22 04:50: White Blood Count 14.9H, Red Blood Count 4.86, Hemoglobin 12.7, Hematocrit 39, Mean Corpuscular Volume 81, Mean Corpuscular Hemoglobin 26, Mean Corpuscular Hemoglobin Concent 33, Red Cell Distribution Width 14.8H, Platelet Count 493H, Mean Platelet Volume 9.9, Immature Granulocyte % (Auto) 1, Neutrophils (%) (Auto) 82H, Lymphocytes (%) (Auto) 5L, Monocytes (%) (Auto) 11, Eosinophils (%) (Auto) 1, Basophils (%) (Auto) 0, Neutrophils # (Auto) 12.3H, Lymphocytes # (Auto) 0.8L, Monocytes # (Auto) 1.6H, Eosinophils # (Auto) 0.1, Basophils # (Auto) 0.0, Immature Granulocyte # (Auto) 0.1, Sodium Level 134L, Potassium Level 4.5, Chloride Level 105, Carbon Dioxide Level 21, Anion Gap 8, Blood Urea Nitrogen 37H, Creatinine 0.67, Estimat Glomerular Filtration Rate 95, BUN/Creatinine Ratio 55, Glucose Level 107H, Calcium Level 9.3, Corrected Calcium 9.7, Total Bilirubin 0.4, Aspartate Amino Transf (AST/SGOT) 40H, Alanine Aminotransferase (ALT/SGPT) 53, Alkaline Phosphatase 119, Total Protein 6.1L, Albumin 3.5 Microbiology 05/17/22 Urine Culture - Final, Complete Escherichia coli Enterococcus faecalis 05/16/22 MRSA Screen - Final, Complete MRSA not isolated Assessment/Plan Assessment/Plan Assess & Plan/Chief Complaint Acute encephalopathy Left Lower Leg cellulitis -Removing centrally acting medications -improvement in mental status today -further increase in WBC count from yesterday -MRSA coverage not indicated -cefepime switched to ampicillin -continue to monitor Abdominal Pain -Hx of bowel resections for crohns -per -abdominal xray reviewed -last BM charted as 05/13 -palpable stool burden -escalating bowel regimen, some doses refused or unable to be given 04/22 mental status -lactulose + senna CAUTI -culture grew e coli, enterobacter new growth today -switched to ampicillin for enterobacter coverage Chronic back pain Hx L3-S1 fusion -percoset 5mg/325mg for pain Dispo: No improvement from yesterday,family is agreeable to hospice + fci care. KAMLA CHRIS DO 05/21/22 0459: Supervisory-Addendum Brief Verification & Attestation Participated in pt care: history, MDM, physical Personally performed: exam, history, MDM, supervision of care Care discussed with: Medical Student Procedures: n/a Results interpretation: Verified all documentation Verification and Attestation of Medical Student E/M Service A medical student performed and documented this service in my presence. I reviewed and verified all information documented by the medical student and made modifications to such information, when appropriate. I personally performed the physical exam and medical decision making. Kamla Chris May 21, 2022,04:59 TYRELL TURCIOS May 20, 2022 13:58 KAMLA CHRIS DO May 21, 2022 04:59
[2022-05-20 16:21] VITALS: BP 137/77
[2022-05-20 20:30] VITALS: BP 102/50
[2022-05-21 00:02] VITALS: BP 145/74
[2022-05-21] MEDS: AMPICILLIN 1,000 MG/NS 50 ML IVPB IV SCH ×12 (02:56→22:19)
[2022-05-21] MEDS: LORazepam 1 MG (ATIVAN) TAB PO PRN ×3 (04:52→18:31)
[2022-05-21] MEDS: AA 4.25% W/LYTES IN D5W IV SOL 1,000 ML IV SCH ×3 (04:52→16:12)
[2022-05-21] MEDS: oxyCODONE/APAP 10/325MG (PERCOCET 10) TABLET PO PRN ×3 (04:52→21:08)
[2022-05-21 04:54] VITALS: BP 97/48
[2022-05-21 05:50] LABS: BASOPHILS # (AUTO) 0.1 10^3/uL (0.0-0.1); BASOPHILS % (AUTO) 0 % (0-10); EOSINOPHILS # (AUTO) 0.1 10^3/uL (0.0-0.3); EOSINOPHILS % (AUTO) 1 % (0-10); HEMATOCRIT 36 % (35-52); HEMOGLOBIN 11.8 g/dL (11.5-16.0); LYMPHOCYTES # (AUTO) 0.8 10^3/uL (1.0-4.0); LYMPHOCYTES % (AUTO) 5 % (12-44); MEAN CORPUSCULAR HEMOGLOBIN 27 pg (25-34); MEAN CORPUSCULAR HGB CONC 33 g/dL (32-36); MEAN CORPUSCULAR VOLUME 82 fL (80-99); MEAN PLATELET VOLUME 9.7 fL (9.0-12.2); MONOCYTES # (AUTO) 1.8 10^3/uL (0.0-1.0); MONOCYTES % (AUTO) 10 % (0-12); NEUTROPHILS # (AUTO) 14.9 10^3/uL (1.8-7.8); NEUTROPHILS % (AUTO) 84 % (42-75); PLATELET COUNT 461 10^3/uL (130-400); WHITE BLOOD COUNT 17.7 10^3/uL (4.3-11.0)
[2022-05-21 06:14] LABS: ALBUMIN 3.1 GM/DL (3.2-4.5); BILIRUBIN,TOTAL 0.5 MG/DL (0.1-1.0); CALCIUM 9.4 MG/DL (8.5-10.1); CREATININE SERUM 0.61 MG/DL (0.60-1.30); POTASSIUM 4.4 MMOL/L (3.6-5.0); TOTAL PROTEIN 5.7 GM/DL (6.4-8.2)
[2022-05-21 07:12] VITALS: BP 102/58
--- NOTE | 2022-05-21 10:06 | Occ Therapy Progress Note ---
Therapy Progress Note OT third attempt to evaluate patient, patient present in room. Pt provided PLOF and home environment information. Patient Malvin requested to allow patient to sleep her natural schedule and wake between 10- 11.OT acknowledged and will return between suggested time. SLOANE CRUZ OT May 21, 2022 10:06
[2022-05-21] MEDS: LACTULOSE SYRUP 10GM/15ML (ENULOSE) 30ML UDC PO SCH ×2 (10:13→21:42)
[2022-05-21] MEDS: OLANZapine 5 MG ODT (ZyPREXA ZYDIS) PO SCH ×2 (10:13→21:08)
[2022-05-21] MEDS: ALPRAZolam 0.5 MG (XANAX) TAB PO PRN ×2 (10:13→21:08)
[2022-05-21] MEDS: LOSARTAN 50 MG (COZAAR) TAB PO SCH ×2 (10:13→21:08)
[2022-05-21] MEDS: DOCUSATE SODIUM 100 MG (COLACE) CAP PO SCH ×2 (10:18→21:42)
[2022-05-21] MEDS: SENNOSIDES 8.6 MG (SENOKOT) TAB PO SCH ×2 (10:18→21:08)
[2022-05-21] MEDS: ENOXAPARIN 40 MG/0.4 ML (LOVENOX) SYR SC SCH (10:18)
[2022-05-21 11:10] VITALS: BP 134/63
--- NOTE | 2022-05-21 11:47 | Physical Therapy Daily Note ---
PT Daily Note-Current Subjective Patient lying supine in bed, asleep, in the room upon PT arrival. Patient awakened quickly when she heard her name and was agreeable to treatment. Patient rates LBP at 10/10, however reports she recently had pain medicine. Pain Section J - Health Conditions 1. Rarely or not at all 2. Occasionally 3. Frequently 4. Almost constantly 8. Unable to answer Pain Effect on Sleep: 4 Pain Interference with Therapy: 4 Pain Interference w/Day-to-Day: 4 Mental Status Patient Orientation: Person Transfers SCALE: Activities may be completed with or without assistive devices. 1-Zvovirdysq-rbggite completes the activity by him/herself with no assistance from a helper. 5-Set-up or Clean-up Assistance-helper sets up or cleans up; patient completes activity. [place] assists only prior to or following the activity. 4-Supervision or Touching Assistance-helper provides verbal cues and/or touching/steadying and/or contact guard assistance as patient completes activity. Assistance may be provided throughout the activity or intermittently. 3-Partial/Moderate Assistance-helper does LESS THAN HALF the effort. [place] lifts, holds or supports trunk or limbs, but provides less than half the effort. 2-Substantial/Maximal Assistance-helper does MORE THAN HALF the effort. [place] lifts or holds trunk or limbs and provides more than half the effort. 1-Fohuxqztu-txojux does ALL the effort. Patient does none of the effort to c omplete the activity. Or, the assistance of 2 or more helpers is required for the patient to complete the activity. If activity was not attempted, code reason: 7-Patient Refused. 9-Not Applicable-not attempted and the patient did not perform the activity before the current illness, exacerbation or injury. 10-Not Attempted due to Environmental Limitations-(lack of equipment, weather restraints, etc.). 88-Not Attempted due to Medical Conditions or Safety Concerns. Roll Left & Right (QC): 1 Sit to Lying (QC): 1 Lying to Sitting/Side of Bed(Q: 1 Sit to Stand (QC): 1 Chair/Kpj-gj-Nviow Xfer(QC): 1 Weight Bearing Right Lower Extremity: Right Full Weight Bearing Left Lower Extremity: Left Full Weight Bearing Gait Training Does the Patient Walk?: No and Walking Goal IS indicated Assessment Current Status: Poor Progress Patient tolerated treatment poorly. She began yelling as soon as her LEs were moved towards the side of the bed. Patient requires total A for all bed mobility and transfers. Patient in chair post treatment with all needs met, nursing notified, call light in reach, in the room and chair alarm activated. Patient in no distress upon PT departure. PT Short Term Goals Short Term Goals Time Frame: Jun 05, 2022 Roll Left & Right: 3 Sit to lyin Lying to sitting on side of be: 3 Sit to stand: 3 Chair/npa-vw-wqwap transfer: 3 PT Halfway Goals Halfway Goals PT Cluster Bore Operator Goals Time Frame: Jun 19, 2022 Roll Left & Right (QC): 4 Sit to Lying (QC): 4 Lying-Sitting on Side/Bed(QC): 4 Sit to Stand (QC): 4 Chair/Mhs-eg-Zhqty Xfer(QC): 4 Toilet Transfer (QC): 4 Walk 10 feet (QC): 3 Walk 50ft with 2 Turns (QC): 3 PT Plan Treatment/Plan Treatment Plan: Continue Plan of Care Treatment Plan: Bed Mobility, Education, Functional Activity [place], Functional Strength, Gait, Safety, Therapeutic Exercise, Transfers Treatment Duration: Jun 19, 2022 Frequency: 6 times per week Estimated Hrs Per Day: .25 hour per day Patient and/or Family Agrees t: Yes Safety Risks/Education Patient Education: Transfer Techniques Teaching Recipient: Patient, Family Teaching Methods: Demonstration, Discussion Response to Teaching: Reinforcement Needed Time Time In: 1058 Time Out: 1114 DATE: May 21, 2022 Total Billed Treatment Time: 16 Total Billed Treatment Visit, GRAZYNA CLEMONS PT May 21, 2022 11:47
--- NOTE | 2022-05-21 12:46 | Progress Note ---
TYRELL TURCIOS 05/21/22 1246: Subjective Date Seen by a Provider: May 21, 2022 Time Seen by a Provider: 10:00 Subjective/Events-last exam Lena is doing better today. She had a few sparse BMs overnight and asked to go to the bathroom this morning. She was up in chair this AM after PT saw her. She asked who I was this morning. Had discussion with about moving her to SNF for a more regular environment. Review of Systems General: Malaise Gastrointestinal: Abdominal Pain Musculoskeletal: back pain Neurological: Confusion unable to assess. Objective Exam Last Set of Vital Signs Vital Signs Date Time Temp Pulse Resp B/P (MAP) Pulse Ox O2 Delivery O2 Flow Rate FiO2 05/21/22 11:10 37.2 93 18 134/63 (86) 99 Room Air 05/17/22 08:21 1.00 Capillary Refill : Less Than 3 Seconds I&O Intake and Output 05/21/22 00:00 Intake Total 2310 ml Output Total 3000 ml Balance -690 ml Intake Oral 1260 ml IV Total 1050 ml Output Urine Total 3000 ml # Bowel Movements 2 General: Alert (A&Ox1. in mild distress 2/2 pain.) HEENT: Atraumatic, PERRLA, Mucous Memb Moist/[place] Neck: Supple, No JVD Lungs: Clear to Auscultation, Normal Air Movement Heart: Regular Rate, Normal S1, Normal S2, No Murmurs Abdomen: Normal Bowel Sounds, Soft Extremities: No Clubbing, No Cyanosis, Other (LLE wound on lemons with continued improvement. swelling decreased.) Skin: No Rashes, No Breakdown, Other (LLE wound as above. skin dry, intact otherwise.) Neuro: Normal Tone, Sensation Intact, Other (moves all extremities spontaneously) Psych/Mental Status: Other (Cries out for her mother intermittently.) Results Lab Laboratory Tests 05/21/22 05:33: White Blood Count 17.7H, Red Blood Count 4.45, Hemoglobin 11.8, Hematocrit 36, Mean Corpuscular Volume 82, Mean Corpuscular Hemoglobin 27, Mean Corpuscular Hemoglobin Concent 33, Red Cell Distribution Width 14.8H, Platelet Count 461H, Mean Platelet Volume 9.7, Immature Granulocyte % (Auto) 1, Neutrophils (%) (Auto) 84H, Lymphocytes (%) (Auto) 5L, Monocytes (%) (Auto) 10, Eosinophils (%) (Auto) 1, Basophils (%) (Auto) 0, Neutrophils # (Auto) 14.9H, Lymphocytes # (Auto) 0.8L, Monocytes # (Auto) 1.8H, Eosinophils # (Auto) 0.1, Basophils # (Auto) 0.1, Immature Granulocyte # (Auto) 0.1, Sodium Level 135, Potassium Level 4.4, Chloride Level 107, Carbon Dioxide Level 20L, Anion Gap 8, Blood Urea Nitrogen 33H, Creatinine 0.61, Estimat Glomerular Filtration Rate 97, BUN/Creatinine Ratio 54, Glucose Level 116H, Calcium Level 9.4, Corrected Calcium 10.1, Total Bilirubin 0.5, Aspartate Amino Transf (AST/SGOT) 31, Alanine Aminotransferase (ALT/SGPT) 44, Alkaline Phosphatase 123, Total Protein 5.7L, Albumin 3.1L Microbiology 05/17/22 Urine Culture - Final, Complete Escherichia coli Enterococcus faecalis 05/16/22 MRSA Screen - Final, Complete MRSA not isolated Assessment/Plan Assessment/Plan Assess & Plan/Chief Complaint Acute encephalopathy Left Lower Leg cellulitis -Removing centrally acting medications -improvement in mental status today -further increase in WBC count from yesterday -MRSA coverage not indicated -cefepime switched to ampicillin -continue to monitor Abdominal Pain -Hx of bowel resections for crohns -per -abdominal xray reviewed -last BM charted as 05/13 -palpable stool burden -escalating bowel regimen, some doses refused or unable to be given 2/2 mental status -lactulose + senna -BM x3 over last 24 hours, very sparse however -Nurse to take her to commode Acute Delirium w/ agitation -started on Zyprexa -decreased need for benzos after starting -improved today CAUTI -culture grew e coli, enterobacter new growth today -switched to ampicillin for enterobacter coverage Chronic back pain Hx L3-S1 fusion -percoset 5mg/325mg for pain Dispo: improved from yesterday, getting up in chair. Looking at initiating transfer to SNF on tuesday. KAMLA BANGURA DO 05/22/22 0538: Supervisory-Addendum Brief Verification & Attestation Participated in pt care: history, MDM, physical Personally performed: exam, history, MDM, supervision of care Care discussed with: Medical Student Procedures: n/a Results interpretation: Verified all documentation Verification and Attestation of Medical Student E/M Service A medical student performed and documented this service in my presence. I reviewed and verified all information documented by the medical student and made modifications to such information, when appropriate. I personally performed the physical exam and medical decision making. Kamla Bangura, May 22, 2022,05:38 TYRELL TURCIOS May 21, 2022 12:46 KAMLA BANGURA DO May 22, 2022 05:38
--- NOTE | 2022-05-21 15:46 | Diagnostic Imaging Report ---
PROCEDURE: US carotid duplex, bilateral. TECHNIQUE: Multiple real-time grayscale images were obtained over the carotid arteries in various projections, bilaterally. Additional spectral analysis and color Doppler duplex images were also obtained. INDICATION: CVA Grayscale images show minimal atherosclerotic plaque. There is tortuosity of the carotid arteries. There is no significant alteration of the waveforms or velocities. Both vertebral arteries are patent with antegrade flow. IMPRESSION: 1. Tortuous vessels with mild atherosclerotic plaque. There is no hemodynamically significant stenosis. Parameters based on the consensus panel Muñoz-Scale and Doppler ultrasound criteria published January 2003, Radiology, Volume 229. DOPPLER (peak systolic velocity M/S Right Left CCA 1.30 1.61 ICA Proximal 1.22 1.28 ICA Mid 1.21 1.50 ICA Distal 1.31 .85 RATIO 1.01 .93 ECA 1.18 1.24 VERT .77 .83 Dictated by: Dictated on workstation # [id number]
[2022-05-21 16:15] VITALS: BP 184/88
[2022-05-21 19:36] VITALS: BP 170/79
[2022-05-21] MEDS: MELATONIN 3 MG TABLET PO PRN (21:08)
[2022-05-22] VITALS (8 sets, daily range): BP systolic 94–193; BP diastolic 47–110
[2022-05-22] MEDS: AA 4.25% W/LYTES IN D5W IV SOL 1,000 ML IV SCH ×4 (01:10→22:02)
[2022-05-22] MEDS: LORazepam 1 MG (ATIVAN) TAB PO PRN ×4 (01:50→20:25)
[2022-05-22] MEDS: AMPICILLIN 1,000 MG/NS 50 ML IVPB IV SCH ×12 (01:50→21:57)
[2022-05-22] MEDS: oxyCODONE/APAP 10/325MG (PERCOCET 10) TABLET PO PRN ×3 (04:26→17:55)
[2022-05-22 05:44] LABS: BASOPHILS # (AUTO) 0.1 10^3/uL (0.0-0.1); BASOPHILS % (AUTO) 1 % (0-10); EOSINOPHILS # (AUTO) 0.3 10^3/uL (0.0-0.3); EOSINOPHILS % (AUTO) 2 % (0-10); HEMATOCRIT 37 % (35-52); HEMOGLOBIN 11.8 g/dL (11.5-16.0); LYMPHOCYTES # (AUTO) 0.9 10^3/uL (1.0-4.0); LYMPHOCYTES % (AUTO) 6 % (12-44); MEAN CORPUSCULAR HEMOGLOBIN 26 pg (25-34); MEAN CORPUSCULAR HGB CONC 32 g/dL (32-36); MEAN CORPUSCULAR VOLUME 83 fL (80-99); MEAN PLATELET VOLUME 10.4 fL (9.0-12.2); MONOCYTES # (AUTO) 1.5 10^3/uL (0.0-1.0); MONOCYTES % (AUTO) 11 % (0-12); NEUTROPHILS # (AUTO) 11.6 10^3/uL (1.8-7.8); NEUTROPHILS % (AUTO) 80 % (42-75); PLATELET COUNT 459 10^3/uL (130-400); WHITE BLOOD COUNT 14.4 10^3/uL (4.3-11.0)
[2022-05-22 06:08] LABS: ALBUMIN 3.2 GM/DL (3.2-4.5); BILIRUBIN,TOTAL 0.3 MG/DL (0.1-1.0); CALCIUM 9.1 MG/DL (8.5-10.1); CREATININE SERUM 0.6 MG/DL (0.60-1.30); POTASSIUM 4.5 MMOL/L (3.6-5.0)
[2022-05-22 06:13] LABS: EOSINOPHILS % (MANUAL) 3 %; LYMPHOCYTES % (MANUAL) 7 %; MONOCYTES % (MANUAL) 10 %; NEUTROPHILS % (MANUAL) 80 %; RBC MORPH NORMAL
--- NOTE | 2022-05-22 07:32 | Progress Note ---
Subjective Date Seen by a Provider: May 22, 2022 Time Seen by a Provider: 11:00 Subjective/Events-last exam No major changes at bedside and tearful Patient still confused VCV Tuesday and if declines she will need hospice Review of Systems Neurological: Confusion Objective Exam Last Set of Vital Signs Vital Signs Date Time Temp Pulse Resp B/P (MAP) Pulse Ox O2 Delivery O2 Flow Rate FiO2 05/22/22 04:00 36.3 97 16 163/72 (102) 96 Room Air 05/17/22 08:21 1.00 Capillary Refill : Less Than 3 Seconds I&O Intake and Output 05/22/22 00:00 Intake Total 1700 ml Output Total 2325 ml Balance -625 ml Intake Oral 600 ml IV Total 1100 ml Output Urine Total 2325 ml # Voids 1 # Bowel Movements 3 General: Other (awake but confused) Lungs: Clear to Auscultation Heart: Regular Rate Results Lab Laboratory Tests 05/22/22 05:37: White Blood Count 14.4H, Red Blood Count 4.47, Hemoglobin 11.8, Hematocrit 37, Mean Corpuscular Volume 83, Mean Corpuscular Hemoglobin 26, Mean Corpuscular Hemoglobin Concent 32, Red Cell Distribution Width 14.8H, Platelet Count 459H, Mean Platelet Volume 10.4, Immature Granulocyte % (Auto) 1, Neutrophils (%) (Auto) 80H, Lymphocytes (%) (Auto) 6L, Monocytes (%) (Auto) 11, Eosinophils (%) (Auto) 2, Basophils (%) (Auto) 1, Neutrophils # (Auto) 11.6H, Lymphocytes # (Auto) 0.9L, Monocytes # (Auto) 1.5H, Eosinophils # (Auto) 0.3, Basophils # (Auto) 0.1, Immature Granulocyte # (Auto) 0.1, Neutrophils % (Manual) 80, Lymphocytes % (Manual) 7, Monocytes % (Manual) 10, Eosinophils % (Manual) 3, Blood Morphology Comment NORMAL, Sodium Level 135, Potassium Level 4.5, Chloride Level 107, Carbon Dioxide Level 19L, Anion Gap 9, Blood Urea Nitrogen 32H, Creatinine 0.60, Estimat Glomerular Filtration Rate 97, BUN/Creatinine Ratio 53, Glucose Level 109H, Calcium Level 9.1, Corrected Calcium 9.7, Total Bilirubin 0.3, Aspartate Amino Transf (AST/SGOT) 31, Alanine Aminotransferase (ALT/SGPT) 52, Alkaline Phosphatase 133, Total Protein 6.0L, Albumin 3.2 Microbiology 05/17/22 Urine Culture - Final, Complete Escherichia coli Enterococcus faecalis 05/16/22 MRSA Screen - Final, Complete MRSA not isolated Assessment/Plan Assessment/Plan Assess & Plan/Chief Complaint Acute encephalopathy Left Lower Leg cellulitis -Removing centrally acting medications -improvement in mental status today -further increase in WBC count from yesterday -MRSA coverage not indicated -cefepime switched to ampicillin -continue to monitor Abdominal Pain -Hx of bowel resections for crohns -per -abdominal xray reviewed -last BM charted as 05/13 -palpable stool burden -escalating bowel regimen, some doses refused or unable to be given 2/2 mental status -lactulose + senna -BM x3 over last 24 hours, very sparse however -Nurse to take her to commode Acute Delirium w/ agitation -started on Zyprexa -decreased need for benzos after starting -improved today CAUTI -culture grew e coli, enterobacter new growth today -switched to ampicillin for enterobacter coverage Chronic back pain Hx L3-S1 fusion -percoset 5mg/325mg for pain Dispo: improved from yesterday, getting up in chair. Looking at initiating transfer to SNF on tuesday. Clinical Quality Measures Admission Status Admission Dx Severe delirium requiring IV precedex and seizure monitoring due to Lyrica withdrawal Can't perform MRI due to agitation REGINALD CHRIS DO May 22, 2022 07:32
[2022-05-22] MEDS: OLANZapine 5 MG ODT (ZyPREXA ZYDIS) PO SCH ×2 (08:25→20:25)
[2022-05-22] MEDS: ALPRAZolam 0.5 MG (XANAX) TAB PO PRN ×2 (08:25→16:20)
[2022-05-22] MEDS: LOSARTAN 50 MG (COZAAR) TAB PO SCH ×2 (08:25→20:25)
[2022-05-22] MEDS: ENOXAPARIN 40 MG/0.4 ML (LOVENOX) SYR SC SCH (08:33)
[2022-05-22] MEDS: LACTULOSE SYRUP 10GM/15ML (ENULOSE) 30ML UDC PO SCH ×2 (08:33→19:50)
[2022-05-22] MEDS: SENNOSIDES 8.6 MG (SENOKOT) TAB PO SCH ×2 (08:33→19:50)
[2022-05-22] MEDS: DOCUSATE SODIUM 100 MG (COLACE) CAP PO SCH ×2 (08:33→19:50)
--- NOTE | 2022-05-22 14:40 | Physical Therapy Daily Note ---
PT Daily Note-Current Subjective Pt is very confused throughout treatment. Pain Section J - Health Conditions 1. Rarely or not at all 2. Occasionally 3. Frequently 4. Almost constantly 8. Unable to answer Pain Effect on Sleep: 4 Pain Interference with Therapy: 4 Pain Interference w/Day-to-Day: 4 Mental Status Patient Orientation: Confused Transfers SCALE: Activities may be completed with or without assistive devices. 2-Hpiuqytnrn-vnvybec completes the activity by him/herself with no assistance from a helper. 5-Set-up or Clean-up Assistance-helper sets up or cleans up; patient completes activity. [place] assists only prior to or following the activity. 4-Supervision or Touching Assistance-helper provides verbal cues and/or touching/steadying and/or contact guard assistance as patient completes activity. Assistance may be provided throughout the activity or intermittently. 3-Partial/Moderate Assistance-helper does LESS THAN HALF the effort. [place] lifts, holds or supports trunk or limbs, but provides less than half the effort. 2-Substantial/Maximal Assistance-helper does MORE THAN HALF the effort. [place] lifts or holds trunk or limbs and provides more than half the effort. 2-Ckrlqbgmk-cslwxh does ALL the effort. Patient does none of the effort to complete the activity. Or, the assistance of 2 or more helpers is required for the patient to complete the activity. If activity was not attempted, code reason: 7-Patient Refused. 9-Not Applicable-not attempted and the patient did not perform the activity before the current illness, exacerbation or injury. 10-Not Attempted due to Environmental Limitations-(lack of equipment, weather restraints, etc.). 88-Not Attempted due to Medical Conditions or Safety Concerns. Weight Bearing Right Lower Extremity: Right Full Weight Bearing Left Lower Extremity: Left Full Weight Bearing Exercises Supine Ex: LE Protocol Supine Reps: 20 Performed 2 sets of 10 reps with each of the lower extremity exercises. Pt is unable to assist or participate due to confusion. Pt reported (L) LE pain initially, but was able to tolerate without eliciting pain. Assessment Current Status: Fair Progress Pt was able to tolerate ROM, but did not provide much assistance. PT Short Term Goals Short Term Goals Time Frame: Jun 05, 2022 Roll Left & Right: 3 Sit to lyin Lying to sitting on side of be: 3 Sit to stand: 3 Chair/zpg-ff-cplaz transfer: 3 PT Residential Goals Residential Goals PT Estimating Manager Goals Time Frame: Jun 19, 2022 Roll Left & Right (QC): 4 Sit to Lying (QC): 4 Lying-Sitting on Side/Bed(QC): 4 Sit to Stand (QC): 4 Chair/Bow-dh-Nhuke Xfer(QC): 4 Toilet Transfer (QC): 4 Walk 10 feet (QC): 3 Walk 50ft with 2 Turns (QC): 3 PT Plan Treatment/Plan Treatment Plan: Continue Plan of Care Treatment Plan: Bed Mobility, Education, Functional Activity Enrico, Functional Strength, Gait, Safety, Therapeutic Exercise, Transfers Treatment Duration: Jun 19, 2022 Frequency: 6 times per week Estimated Hrs Per Day: .25 hour per day Patient and/or Family Agrees t: Yes Time Time In: 1034 Time Out: 1049 DATE: May 22, 2022 Total Billed Treatment Time: 15 Total Billed Treatment 1, ex 15 CHRISTIANA SUN PT May 22, 2022 14:39
[2022-05-22] MEDS: MELATONIN 3 MG TABLET PO PRN (20:25)
[2022-05-23] VITALS (7 sets, daily range): BP systolic 96–180; BP diastolic 45–90
[2022-05-23] MEDS: LORazepam 1 MG (ATIVAN) TAB PO PRN ×4 (00:09→19:51)
[2022-05-23] MEDS: oxyCODONE/APAP 10/325MG (PERCOCET 10) TABLET PO PRN ×3 (00:09→19:57)
[2022-05-23] MEDS: AMPICILLIN 1,000 MG/NS 50 ML IVPB IV SCH ×12 (02:05→22:36)
[2022-05-23] MEDS: AA 4.25% W/LYTES IN D5W IV SOL 1,000 ML IV SCH ×3 (05:43→22:39)
[2022-05-23 05:45] LABS: HEMATOCRIT 31 % (35-52)
[2022-05-23 05:48] LABS: BASOPHILS # (AUTO) 0.1 10^3/uL (0.0-0.1); BASOPHILS % (AUTO) 1 % (0-10); EOSINOPHILS # (AUTO) 0.2 10^3/uL (0.0-0.3); EOSINOPHILS % (AUTO) 2 % (0-10); HEMOGLOBIN 10.1 g/dL (11.5-16.0); LYMPHOCYTES # (AUTO) 0.8 10^3/uL (1.0-4.0); LYMPHOCYTES % (AUTO) 9 % (12-44); MEAN CORPUSCULAR HEMOGLOBIN 27 pg (25-34); MEAN CORPUSCULAR HGB CONC 32 g/dL (32-36); MEAN CORPUSCULAR VOLUME 82 fL (80-99); MEAN PLATELET VOLUME 10.7 fL (9.0-12.2); MONOCYTES # (AUTO) 0.8 10^3/uL (0.0-1.0); MONOCYTES % (AUTO) 8 % (0-12); NEUTROPHILS # (AUTO) 7.4 10^3/uL (1.8-7.8); NEUTROPHILS % (AUTO) 80 % (42-75); PLATELET COUNT 439 10^3/uL (130-400); WHITE BLOOD COUNT 9.3 10^3/uL (4.3-11.0)
[2022-05-23 06:05] LABS: ALBUMIN 2.8 GM/DL (3.2-4.5); BILIRUBIN,TOTAL 0.3 MG/DL (0.1-1.0); CALCIUM 9.2 MG/DL (8.5-10.1); CREATININE SERUM 0.65 MG/DL (0.60-1.30); POTASSIUM 4.2 MMOL/L (3.6-5.0); TOTAL PROTEIN 5.2 GM/DL (6.4-8.2)
[2022-05-23] MEDS: ALPRAZolam 0.5 MG (XANAX) TAB PO PRN ×2 (06:48→12:57)
--- NOTE | 2022-05-23 07:07 | Progress Note ---
Subjective Date Seen by a Provider: May 23, 2022 Time Seen by a Provider: 11:00 Subjective/Events-last exam No major changes Opens her eyes more now Fentanyl patch placed to help with chronic pain Cognition not improved Eats ok and BM+ and UOP good Labs reviewed Review of Systems Neurological: Confusion Objective Exam Last Set of Vital Signs Vital Signs Date Time Temp Pulse Resp B/P (MAP) Pulse Ox O2 Delivery O2 Flow Rate FiO2 05/23/22 03:37 36.5 75 16 96/45 (62) 96 Room Air 05/17/22 08:21 1.00 Capillary Refill : Less Than 3 Seconds I&O Intake and Output 05/23/22 00:00 Intake Total 2200 ml Output Total 950 ml Balance 1250 ml Intake Oral 1100 ml IV Total 1100 ml Output Urine Total 950 ml # Voids 5 # Bowel Movements 3 General: Other (confused) Lungs: Clear to Auscultation Heart: Regular Rate Results Lab Laboratory Tests 05/23/22 05:20: White Blood Count 9.3, Red Blood Count 3.80, Hemoglobin 10.1L, Hematocrit 31L, Mean Corpuscular Volume 82, Mean Corpuscular Hemoglobin 27, Mean Corpuscular Hemoglobin Concent 32, Red Cell Distribution Width 14.7H, Platelet Count 439H, Mean Platelet Volume 10.7, Immature Granulocyte % (Auto) 1, Neutrophils (%) (Auto) 80H, Lymphocytes (%) (Auto) 9L, Monocytes (%) (Auto) 8, Eosinophils (%) (Auto) 2, Basophils (%) (Auto) 1, Neutrophils # (Auto) 7.4, Lymphocytes # (Auto) 0.8L, Monocytes # (Auto) 0.8, Eosinophils # (Auto) 0.2, Basophils # (Auto) 0.1, Immature Granulocyte # (Auto) 0.1, Percent Immature Platelet Fraction 4.2, Sodium Level 134L, Potassium Level 4.2, Chloride Level 105, Carbon Dioxide Level 22, Anion Gap 7, Blood Urea Nitrogen 44H, Creatinine 0.65, Estimat Glomerular Filtration Rate 95, BUN/Creatinine Ratio 68, Glucose Level 113H, Calcium Level 9.2, Corrected Calcium 10.2H, Total Bilirubin 0.3, Aspartate Amino Transf (AST/SGOT) 61H, Alanine Aminotransferase (ALT/SGPT) 95H, Alkaline Phosphatase 144H, Total Protein 5.2L, Albumin 2.8L Microbiology 05/17/22 Urine Culture - Final, Complete Escherichia coli Enterococcus faecalis 05/16/22 MRSA Screen - Final, Complete MRSA not isolated Assessment/Plan Assessment/Plan Assess & Plan/Chief Complaint Acute encephalopathy Left Lower Leg cellulitis -Removing centrally acting medications -improvement in mental status today -further increase in WBC count from yesterday -MRSA coverage not indicated -cefepime switched to ampicillin -continue to monitor Abdominal Pain -Hx of bowel resections for crohns -per -abdominal xray reviewed -last BM charted as 05/13 -palpable stool burden -escalating bowel regimen, some doses refused or unable to be given 2 mental status -lactulose + senna -BM x3 over last 24 hours, very sparse however -Nurse to take her to commode Acute Delirium w/ agitation -started on Zyprexa -decreased need for benzos after starting -improved today CAUTI -culture grew e coli, enterobacter new growth today -switched to ampicillin for enterobacter coverage Chronic back pain Hx L3-S1 fusion -percoset 5mg/325mg for pain Dispo: improved from yesterday, getting up in chair. Looking at initiating transfer to SNF on tuesday. Clinical Quality Measures Admission Status Admission Dx Severe delirium requiring IV precedex and seizure monitoring due to Lyrica withdrawal Can't perform MRI due to agitation REGINALD CRHIS DO May 23, 2022 07:07
[2022-05-23] MEDS: OLANZapine 5 MG ODT (ZyPREXA ZYDIS) PO SCH ×2 (07:55→19:51)
[2022-05-23] MEDS: LACTULOSE SYRUP 10GM/15ML (ENULOSE) 30ML UDC PO SCH ×2 (07:55→19:42)
[2022-05-23] MEDS: DOCUSATE SODIUM 100 MG (COLACE) CAP PO SCH ×2 (07:55→19:42)
[2022-05-23] MEDS: SENNOSIDES 8.6 MG (SENOKOT) TAB PO SCH ×2 (07:55→19:42)
[2022-05-23] MEDS: LOSARTAN 50 MG (COZAAR) TAB PO SCH ×2 (07:55→19:51)
[2022-05-23] MEDS: ENOXAPARIN 40 MG/0.4 ML (LOVENOX) SYR SC SCH (07:56)
[2022-05-23] MEDS: fentaNYL PATCH 25 MCG (DURAGESIC) TD SCH (11:21)
[2022-05-23] MEDS: MELATONIN 3 MG TABLET PO PRN (19:50)
[2022-05-24] MEDS: LORazepam 1 MG (ATIVAN) TAB PO PRN ×3 (02:03→17:03)
[2022-05-24] MEDS: AMPICILLIN 1,000 MG/NS 50 ML IVPB IV SCH ×12 (02:03→21:54)
[2022-05-24] MEDS: ALPRAZolam 0.5 MG (XANAX) TAB PO PRN ×3 (03:40→20:37)
[2022-05-24] MEDS: oxyCODONE/APAP 10/325MG (PERCOCET 10) TABLET PO PRN ×2 (03:41→17:03)
[2022-05-24] MEDS: AA 4.25% W/LYTES IN D5W IV SOL 1,000 ML IV SCH ×2 (07:29→17:07)
[2022-05-24 07:39] LABS: BASOPHILS # (AUTO) 0.1 10^3/uL (0.0-0.1); BASOPHILS % (AUTO) 1 % (0-10); EOSINOPHILS # (AUTO) 0.3 10^3/uL (0.0-0.3); EOSINOPHILS % (AUTO) 3 % (0-10); HEMATOCRIT 39 % (35-52); HEMOGLOBIN 12.6 g/dL (11.5-16.0); LYMPHOCYTES # (AUTO) 1.4 10^3/uL (1.0-4.0); LYMPHOCYTES % (AUTO) 11 % (12-44); MEAN CORPUSCULAR HEMOGLOBIN 26 pg (25-34); MEAN CORPUSCULAR HGB CONC 33 g/dL (32-36); MEAN CORPUSCULAR VOLUME 80 fL (80-99); MEAN PLATELET VOLUME 9.7 fL (9.0-12.2); MONOCYTES # (AUTO) 1.1 10^3/uL (0.0-1.0); MONOCYTES % (AUTO) 8 % (0-12); NEUTROPHILS # (AUTO) 9.5 10^3/uL (1.8-7.8); NEUTROPHILS % (AUTO) 76 % (42-75); PLATELET COUNT 611 10^3/uL (130-400); WHITE BLOOD COUNT 12.5 10^3/uL (4.3-11.0)
[2022-05-24 07:50] LABS: ALBUMIN 3.6 GM/DL (3.2-4.5); POTASSIUM 4.8 MMOL/L (3.6-5.0)
[2022-05-24 07:51] LABS: CALCIUM 9.7 MG/DL (8.5-10.1)
[2022-05-24 07:53] LABS: TOTAL PROTEIN 6.6 GM/DL (6.4-8.2)
[2022-05-24 07:54] LABS: BILIRUBIN,TOTAL 0.3 MG/DL (0.1-1.0)
[2022-05-24 07:56] LABS: CREATININE SERUM 0.66 MG/DL (0.60-1.30)
[2022-05-24] MEDS: SENNOSIDES 8.6 MG (SENOKOT) TAB PO SCH ×2 (07:56→20:37)
[2022-05-24] MEDS: DOCUSATE SODIUM 100 MG (COLACE) CAP PO SCH ×2 (07:56→20:37)
[2022-05-24] MEDS: LOSARTAN 50 MG (COZAAR) TAB PO SCH ×2 (07:56→20:37)
[2022-05-24] MEDS: LACTULOSE SYRUP 10GM/15ML (ENULOSE) 30ML UDC PO SCH ×2 (07:56→20:37)
[2022-05-24] MEDS: OLANZapine 5 MG ODT (ZyPREXA ZYDIS) PO SCH ×2 (07:56→20:37)
[2022-05-24] MEDS: ENOXAPARIN 40 MG/0.4 ML (LOVENOX) SYR SC SCH (07:57)
[2022-05-24 08:07] VITALS: BP 135/89
--- NOTE | 2022-05-24 08:36 | Occupational Therapy Eval ---
OT Evaluation-General/PLF Medical Diagnosis Admission Date May 13, 2022 at 18:34 Medical Diagnosis: compression fracture Onset Date: May 21, 2022 (OT lilian 05/21/22) Therapy Diagnosis Therapy Diagnosis: WEAKNESS Height/Weight Height (Feet): 5 Height (Inches): 5.00 Weight (Pounds): 218 Precautions Precautions/Isolations: Fall Prevention, Standard Precautions Weight Bear Status Weight Bearing Restriction: Weight Bearing/Tolerated Referral Physician: Sveta Referral Reason: Evaluation/Treatment Medical History Pertinent Medical History: Arthritis, Dementia, HTN, Neuropathy Social History Home: Single Level Current Living Status: Spouse ADL-Prior Level of Function SCALE: Activities may be completed with or without assistive devices. 1-Jtywuzpnxr-ehymrsd completes the activity by him/herself with no assistance from a helper. 5-Set-up or Clean-up Assistance-helper sets up or cleans up; patient completes activity. [place] assists only prior to or following the activity. 4-Supervision or Touching Assistance-helper provides verbal cues and/or touching/steadying and/or contact guard assistance as patient completes activity. Assistance may be provided throughout the activity or intermittently. 3-Partial/Moderate Assistance-helper does LESS THAN HALF the effort. [place] lifts, holds or supports trunk or limbs, but provides less than half the effort. 2-Substantial/Maximal Assistance-helper does MORE THAN HALF the effort. [place] lifts or holds trunk or limbs and provides more than half the effort. 8-Bpvrynpfa-menxja does ALL the effort. Patient does none of the effort to complete the activity. Or, the assistance of 2 or more helpers is required for the patient to complete the activity. If activity was not attempted, code reason: 7-Patient Refused. 9-Not Applicable-not attempted and the patient did not perform the activity b efore the current illness, exacerbation or injury. 10-Not Attempted due to Environmental Limitations-(lack of equipment, weather restraints, etc.). 88-Not Attempted due to Medical Conditions or Safety Concerns. ADL PLOF Comments spouse provided PLOF Self Care: Independent Functional Cognition: Needed Some Help DME/Equipment: Bath Chair, Grab Bars Drive Self: No OT Current Status Mental Status/Objective Patient Orientation: Person, Confused Attachments: Other-See Comments (bilateral hand mittens) Current Glasses/Contacts: Yes Upper Extremity ROM WFLS BUE ADL-Treatment Eating (QC): 2 Oral Hygiene (QC): 2 Shower/Bathe Self (QC): 88 Upper Body Dressing (QC): 2 Lower Body Dressing (QC): 1 On/Off Footwear (QC): 1 Toileting Hygiene (QC): 1 Education OT Patient Education: Correct positioning, Progress toward Goal/Update tx plan, Purpose of tx/functional activities, Reviewed precautions, Rehab process, Safety issues, Transfer techniques, Use of adapted equipment Teaching Recipient: Patient, Family Teaching Methods: Demonstration, Discussion Response to Teaching: Reinforcement Needed OT Halfway Goals Halfway Goals Eating (QC): 5 Oral Hygiene (QC): 5 Toileting Hygiene (QC): 5 Shower/Bathe Self (QC): 3 Upper Body Dressing (QC): 5 Lower Body Dressing (QC): 5 On/Off Footwear (QC): 5 1=Demonstrate adherence to instructed precautions during ADL tasks. 2=Patient will verbalize/demonstrate understanding of assistive devices/modifications for ADL. 3=Patient will improve strength/tolerance for activity to enable patient to perform ADL's. OT Education/Plan Problem List/Assessment Assessment: Decreased Activ Tolerance, Decreased Safety Aware, Impaired Bed Mobility, Impaired Cognition, Impaired Coordination, Impaired Funct Balance, Impaired Self-Care Skills Discharge Recommendations Plan/Recommendations: Continue POC Therapy Discharge Recommendati: Post Acute OT Treatment Plan/Plan of Care Treatment,Training & Education: Yes Patient would benefit from OT for education, treatment and training to promote independence in ADL's, mobility, safety and/or upper extremity function for ADL's. Plan of Care: ADL Retraining, Caregiver Training, Cognitive Retraining, Concurrent Therapy, Functional Mobility, Group Exercise/Act as Ind, UE Funct Exercise/Act, UE Neuromus Re-Ed/Coord, Visual/Perceptual Retrain Treatment Duration: Jun 05, 2022 Frequency: 3 times per week (3-5 times per week) Rehab Potential: Guarded Time Start Time: 10:10 Stop Time: 20:00 DATE: May 21, 2022 Total Time Billed (hr/min): 20 Billed Treatment Time 1 EVH 20 min SLOANE CRUZ OT May 24, 2022 08:36
--- NOTE | 2022-05-24 10:32 | Physical Therapy Daily Note ---
PT Daily Note-Current Subjective Patient is in bed with bilateral hand protectors due to pulling on IV per RN. Spouse present and agrees to PT. Pain Section J - Health Conditions 1. Rarely or not at all 2. Occasionally 3. Frequently 4. Almost constantly 8. Unable to answer Pain Effect on Sleep: 8 Pain Interference with Therapy: 8 Pain Interference w/Day-to-Day: 8 Mental Status Patient Orientation: Confused Attachments: IV Transfers SCALE: Activities may be completed with or without assistive devices. 6-Fhtoayjsnm-fhsqylg completes the activity by him/herself with no assistance from a helper. 5-Set-up or Clean-up Assistance-helper sets up or cleans up; patient completes activity. [place] assists only prior to or following the activity. 4-Supervision or Touching Assistance-helper provides verbal cues and/or touching/steadying and/or contact guard assistance as patient completes activity. Assistance may be provided throughout the activity or intermittently. 3-Partial/Moderate Assistance-helper does LESS THAN HALF the effort. [place] lifts, holds or supports trunk or limbs, but provides less than half the effort. 2-Substantial/Maximal Assistance-helper does MORE THAN HALF the effort. [place] lifts or holds trunk or limbs and provides more than half the effort. 1-Accogdqlj-ursslm does ALL the effort. Patient does none of the effort to complete the activity. Or, the assistance of 2 or more helpers is required for the patient to complete the activity. If activity was not attempted, code reason: 7-Patient Refused. 9-Not Applicable-not attempted and the patient did not perform the activity before the current illness, exacerbation or injury. 10-Not Attempted due to Environmental Limitations-(lack of equipment, weather restraints, etc.). 88-Not Attempted due to Medical Conditions or Safety Concerns. Lying to Sitting/Side of Bed(Q: 1 Sit to Stand (QC): 1 Chair/Tks-rf-Ciaur Xfer(QC): 1 Weight Bearing Right Lower Extremity: Right Full Weight Bearing Left Lower Extremity: Left Full Weight Bearing Gait Training Does the Patient Walk?: No and Walking Goal IS indicated Exercises Supine Ex: Ankle pumps, Heel Slides, Straight leg raise, Hip abd/add Supine Reps: 12 (PROM/patient unable to follow direction to assist with performing) Assessment Patient is up in recliner with needs met. Upon entering room, spouse was feeding patient with patient in supine (HOB 15 degrees). Educated on increase safety risk of aspiration with spouse. Spouse did not respond to education. Patient continues to require dependent assist with all mobility. Chair alarm activated. PT Short Term Goals Short Term Goals Time Frame: Jun 05, 2022 Roll Left & Right: 3 Sit to lyin Lying to sitting on side of be: 3 Sit to stand: 3 Chair/hmg-re-zqtlq transfer: 3 PT Track Man Goals Senior Living Goals PT Senior Living Goals Time Frame: Jun 19, 2022 Roll Left & Right (QC): 4 Sit to Lying (QC): 4 Lying-Sitting on Side/Bed(QC): 4 Sit to Stand (QC): 4 Chair/Cqi-hv-Fbvse Xfer(QC): 4 Toilet Transfer (QC): 4 Walk 10 feet (QC): 3 Walk 50ft with 2 Turns (QC): 3 PT Plan Treatment/Plan Treatment Plan: Continue Plan of Care Treatment Plan: Bed Mobility, Education, Functional Activity Enrico, Functional Strength, Gait, Safety, Therapeutic Exercise, Transfers Treatment Duration: Jun 19, 2022 Frequency: 6 times per week Estimated Hrs Per Day: .25 hour per day Patient and/or Family Agrees t: Yes Time Time In: 905 Time Out: 928 DATE: May 24, 2022 Total Billed Treatment Time: 23 Total Billed Treatment 1 visit FA x 2 23 min VIVIAN ALCOCER PT May 24, 2022 10:32
--- NOTE | 2022-05-24 11:21 | Progress Note ---
TYRELL TURCIOS 05/24/22 1121: Subjective Date Seen by a Provider: May 24, 2022 Time Seen by a Provider: 09:00 Subjective/Events-last exam Lena is doing well today. She endorses R buttock pain that improves with repositioning but denies other significant pain. She asks to use the restroom during the visit, and also said "I don't want to be eating all the time." Per nurse she is very good about eating sweet foods like applesauce, ice cream. Hospital Course: Lena was admitted on 05/13/22 after having AMS during a clinic appointment on that date. She was in significant pain and acutely agitated at the clinic. After further workup in the hospital she was found to have a left lower extremity cellulitis on her anterior lemons for which she was started on abx, and constipation causing abdominal pain for which she was started on a bowel regimen. Her head CT was negative for acute processes. Her hospital stay was complicated by a UTI which developed after receiving a melendez catheter, chronic back pain, and agitation/delirium overlying baseline cognitive decline. Her abx were tailored to treat both the cellulitis and UTI, and she was started on zyprexa for agitation/delirium to which she responded well. After resolution of her sxs and discussion with family they were agreeable to moving her to a SNF where she could receive more regular care. Review of Systems General: No Appetite Gastrointestinal: No: Abdominal Pain Musculoskeletal: back pain unable to assess. Objective Exam Last Set of Vital Signs Vital Signs Date Time Temp Pulse Resp B/P (MAP) Pulse Ox O2 Delivery O2 Flow Rate FiO2 05/24/22 08:07 36.7 99 18 135/89 (104) 96 Room Air Capillary Refill : Less Than 3 Seconds I&O Intake and Output 05/24/22 00:00 Intake Total 1250 ml Output Total 1300 ml Balance -50 ml Intake Oral 1250 ml Output Urine Total 1300 ml # Voids 5 # Bowel Movements 2 General: Other (A&Ox1. Cries out for her "mommy" periodically.) HEENT: Atraumatic, PERRLA, Mucous Memb Moist/[place] Neck: Supple, No JVD Lungs: Clear to Auscultation, Normal Air Movement Heart: Regular Rate, Normal S1, Normal S2, No Murmurs Abdomen: Normal Bowel Sounds, Soft, No Tenderness, No Masses Extremities: No Clubbing, No Cyanosis, No Edema, Normal Pulses, Other (LLE cellulitis with continued improvement. no purulence or drainage.) Skin: No Rashes, No Breakdown Neuro: Sensation Intact, Other (moves all extremities spontaneously) Results Lab Laboratory Tests 05/24/22 07:30: White Blood Count 12.5H, Red Blood Count 4.81, Hemoglobin 12.6#, Hematocrit 39, Mean Corpuscular Volume 80, Mean Corpuscular Hemoglobin 26, Mean Corpuscular Hemoglobin Concent 33, Red Cell Distribution Width 14.3, Platelet Count 611H, Mean Platelet Volume 9.7, Immature Granulocyte % (Auto) 1, Neutrophils (%) (Auto) 76H, Lymphocytes (%) (Auto) 11L, Monocytes (%) (Auto) 8, Eosinophils (%) (Auto) 3, Basophils (%) (Auto) 1, Neutrophils # (Auto) 9.5H, Lymphocytes # (Auto) 1.4, Monocytes # (Auto) 1.1H, Eosinophils # (Auto) 0.3, Basophils # (Auto) 0.1, Immature Granulocyte # (Auto) 0.1, Sodium Level 138, Potassium Level 4.8, Chloride Level 105, Carbon Dioxide Level 21, Anion Gap 12, Blood Urea Nitrogen 39H, Creatinine 0.66, Estimat Glomerular Filtration Rate 95, BUN/Creatinine Ratio 59, Glucose Level 97, Calcium Level 9.7, Corrected Calcium 10.0, Total Bilirubin 0.3, Aspartate Amino Transf (AST/SGOT) 54H, Alanine Aminotransferase (ALT/SGPT) 104H, Alkaline Phosphatase 165H, Total Protein 6.6, Albumin 3.6 Microbiology 05/17/22 Urine Culture - Final, Complete Escherichia coli Enterococcus faecalis 05/16/22 MRSA Screen - Final, Complete MRSA not isolated Assessment/Plan Assessment/Plan Assess & Plan/Chief Complaint Acute encephalopathy Left Lower Leg cellulitis -Removing centrally acting medications -improvement in mental status today -further increase in WBC count from yesterday -MRSA coverage not indicated -cefepime switched to ampicillin -continue to monitor Abdominal Pain -Hx of bowel resections for crohns -per -abdominal xray reviewed -last BM charted as 05/13 -palpable stool burden -escalating bowel regimen, some doses refused or unable to be given 2 mental status -lactulose + senna -denies abdominal pain today, having regular BMs Acute Delirium w/ agitation -started on Zyprexa -decreased need for benzos after starting -improved today CAUTI -culture grew e coli, enterobacter new growth today -switched to ampicillin for enterobacter coverage Chronic back pain Hx L3-S1 fusion -percoset 5mg/325mg for pain -fentanyl patch was added Dispo: With continued improvement. awaiting transfer to SNF. KAMLA CHRIS DO 05/25/22 0443: Supervisory-Addendum Brief Verification & Attestation Participated in pt care: history, MDM, physical Personally performed: exam, history, MDM, supervision of care Care discussed with: Medical Student Procedures: n/a Results interpretation: Verified all documentation Verification and Attestation of Medical Student E/M Service A medical student performed and documented this service in my presence. I reviewed and verified all information documented by the medical student and made modifications to such information, when appropriate. I personally performed the physical exam and medical decision making. Kamla Chris May 25, 2022,04:43 TYRELL TURCIOS May 24, 2022 11:21 KAMLA CHRIS DO May 25, 2022 04:43
--- NOTE | 2022-05-24 11:39 | Occupational Ther Daily Note ---
OT Current Status-Daily Note Subjective Confused calling out and repeating phrases Mental Status/Objective Patient Orientation: Person Attachments: IV Chowdary removed, patient reports urine urgency ADL-Treatment Therapy Code Descriptions/Definitions Functional [place] Measure: 0=Not Assessed/NA 4=Minimal Assistance 1=Total Assistance 5=Supervision or Setup 2=Maximal Assistance 6=Modified [place] 3=Moderate Assistance 7=Complete IndependenceSCALE: Activities may be completed with or without assistive devices. 7-Nitxcnpoep-sfbegur completes the activity by him/herself with no assistance from a helper. 5-Set-up or Clean-up Assistance-helper sets up or cleans up; patient completes a ctivity. [place] assists only prior to or following the activity. 4-Supervision or Touching Assistance-helper provides verbal cues and/or touching/steadying and/or contact guard assistance as patient completes activity. Assistance may be provided throughout the activity or intermittently. 3-Partial/Moderate Assistance-helper does LESS THAN HALF the effort. [place] lifts, holds or supports trunk or limbs, but provides less than half the effort. 2-Substantial/Maximal Assistance-helper does MORE THAN HALF the effort. [place] lifts or holds trunk or limbs and provides more than half the effort. 8-Jgzffpzfs-ulcaoi does ALL the effort. Patient does none of the effort to complete the activity. Or, the assistance of 2 or more helpers is required for the patient to complete the activity. If activity was not attempted, code reason: 7-Patient Refused. 9-Not Applicable-not attempted and the patient did not perform the activity before the current illness, exacerbation or injury. 10-Not Attempted due to Environmental Limitations-(lack of equipment, weather restraints, etc.). 88-Not Attempted due to Medical Conditions or Safety Concerns. Eating (QC): 1 (B hand mittens) Oral Hygiene (QC): 1 Shower/Bathe Self (QC): 1 Upper Body Dressing (QC): 1 Lower Body Dressing (QC): 1 (2 person tranfers additional person to manage clothing, (3)) On/Off Footwear: 1 Toileting Hygiene (QC): 1 Toilet Transfer (QC): 1 Education OT Patient Education: Correct positioning, Modified ADL techniques, Progress toward Goal/Update tx plan, Purpose of tx/functional activities, Reviewed precautions, Rehab process, Safety issues, Transfer techniques Teaching Recipient: Patient, Family Teaching Methods: Demonstration, Discussion Response to Teaching: Unable to Return Demonstration, Unable to Comprehend OT Coremaker Machine Goals Skilled Nursing Goals Eating (QC): 5 Oral Hygiene (QC): 5 Toileting Hygiene (QC): 5 Shower/Bathe Self (QC): 3 Upper Body Dressing (QC): 5 Lower Body Dressing (QC): 5 On/Off Footwear (QC): 5 1=Demonstrate adherence to instructed precautions during ADL tasks. 2=Patient will verbalize/demonstrate understanding of assistive devices/modifications for ADL. 3=Patient will improve strength/tolerance for activity to enable patient to perform ADL's. OT Education/Plan Problem List/Assessment Assessment: Decreased Activ Tolerance, Decreased Safety Aware, Decreased UE Strength, Dependent Transfers, Impaired Bed Mobility, Impaired Cognition, Impaired Coordination, Impaired Funct Balance, Impaired Self-Care Skills, Restricted Funct UE ROM Discharge Recommendations Plan/Recommendations: Continue POC Treatment Plan/Plan of Care Treatment,Training & Education: Yes Patient would benefit from OT for education, treatment and training to promote independence in ADL's, mobility, safety and/or upper extremity function for ADL's. Plan of Care: ADL Retraining, Caregiver Training, Cognitive Retraining, Concurrent Therapy, Functional Mobility, Group Exercise/Act as Ind, UE Funct Exercise/Act, UE Neuromus Re-Ed/Coord, Visual/Perceptual Retrain Treatment Duration: Jun 05, 2022 Frequency: 3 times per week (3-5 times per week) Rehab Potential: Guarded Following toileting, patient returned to recliner w/ chair alarm activated, blanket over lap and food tray in front of patient, spouse assisting meal Time Start Time: 09:38 Stop Time: 09:50 DATE: May 24, 2022 Total Time Billed (hr/min): 12 Billed Treatment Time 1 ADL 12 min SLOANE CRUZ OT May 24, 2022 11:38
[2022-05-24 15:19] VITALS: BP 150/80
[2022-05-24] MEDS: MELATONIN 3 MG TABLET PO PRN (20:37)
[2022-05-24 23:52] VITALS: BP 136/79
[2022-05-25] MEDS: AMPICILLIN 1,000 MG/NS 50 ML IVPB IV SCH ×8 (01:10→13:13)
[2022-05-25] MEDS: LORazepam 1 MG (ATIVAN) TAB PO PRN ×2 (01:18→08:36)
[2022-05-25] MEDS: AA 4.25% W/LYTES IN D5W IV SOL 1,000 ML IV SCH (02:12)
[2022-05-25] MEDS: oxyCODONE/APAP 10/325MG (PERCOCET 10) TABLET PO PRN ×2 (04:37→08:31)
[2022-05-25] MEDS ORDERED: LOSA50TA63 PO (06:22)
[2022-05-25] MEDS ORDERED: SNN187T PO (06:22)
[2022-05-25] MEDS ORDERED: OXC5T PO (06:22)
[2022-05-25] MEDS ORDERED: LORA-405 PO (06:22)
[2022-05-25] MEDS ORDERED: ENOX40DI8 SC (06:22)
[2022-05-25] MEDS ORDERED: OLAN5TAB23 PO (06:22)
[2022-05-25] MEDS ORDERED: ACET325T49 PO (06:22)
[2022-05-25] MEDS ORDERED: MELO15TA39 PO (06:22)
[2022-05-25] MEDS ORDERED: MIRT-68 PO (06:22)
--- NOTE | 2022-05-25 06:23 | Discharge Inst-Skilled Nursing ---
Discharge Inst-Skilled NF Reconcile Patient Problems Problems Reviewed?: Yes Patient Instructions Patient Problems: Debility Confusion with psychosis Consult/Follow Up/Orders Follow Up Appt.: Dr Bangura/Oly puente Skilled NF Admit to: [facility] ([facility]) I certify that [facility] services are required to be given on an inpatient basis because of the above named patient's need for jail care on a continuing basis for the conditions(s) for which he/she was receiving inpatient hospital services prior to his/her transfer to the [facility]. Prison Facility Order: Nursing Services, Acid Recovery Operator-Evaluate & Treat, Physical Therapy-Evaluate & Treat, Speech Language-Evaluate & Treat Oxygen Delivery Method: Room Air Discharge Diet: No Restrictions Resuscitation Status: Full Code New & Resume Previous Orders New Medications: Lorazepam (Ativan) 1 Mg Tablet 1 MG PO Q4H PRN for ANXIETY, #30 TAB Oxycodone Hcl (Oxyir Tablet) 5 Mg Tab 5 MG PO Q4H, #60 TAB Acetaminophen (Acetaminophen) 325 Mg Tablet 650 MG PO Q4H PRN for TEMPERATURE, #30 TAB Enoxaparin Sodium (Enoxaparin Sodium) 40 Mg/0.4 Ml Syringe 40 MG SC DAILY, #14 SYRINGE Olanzapine (Olanzapine Odt) 5 Mg Tab.rapdis 5 MG PO BID, #60 TAB Sennosides (Senna Lax) 8.6 Mg Tablet 8.6 MG PO BID, #60 TAB Continued Medications: Losartan Potassium (Losartan Potassium) 50 Mg Tablet 50 MG PO BID, #60 TAB (This prescription has been renewed) Meloxicam (Meloxicam) 15 Mg Tablet 15 MG PO BID, #30 TAB (This prescription has been renewed) Mirtazapine (Mirtazapine) 15 Mg Tablet 30 MG PO HS, #30 TAB (This prescription has been renewed) TAKES 2 (15MG) TABS Discontinued Medications: Alprazolam (Alprazolam) 0.5 Mg Tablet 0.5 MG PO TID PRN for ANXIETY, TAB Hydrochlorothiazide (Hydrochlorothiazide) 25 Mg Tablet 25 MG PO DAILY PRN for FLUID RETENTION, TAB Ibuprofen (Ibuprofen) 200 Mg Tablet 600 MG PO Q8H PRN for PAIN-MILD (1-4), TAB Indapamide (Indapamide) 2.5 Mg Tablet 2.5 MG PO DAILY PRN for BLOOD PRESSURE/EDEMA, TAB Meclizine HCl (Meclizine HCl) 25 Mg Tablet 25 MG PO TID PRN for DIZZINESS/VERTIGO, TAB Multivitamin (Multivitamin) 1 Each Tablet 1 EACH PO DAILY, TAB Oxycodone HCl/Acetaminophen (Endocet 10-325 mg Tablet) 10 Mg-325 Mg Tablet 1 EA PO Q6H PRN for PAIN-MODERATE (5-7), TAB Pregabalin (Pregabalin) 100 Mg Capsule 100 MG PO QID, CAP Kamla Bangura May 25, 2022 06:23 KAMLA BANGURA DO May 25, 2022 06:23
--- NOTE | 2022-05-25 06:24 | Discharge Summary ---
Diagnosis/Chief Complaint Date of Admission May 13, 2022 at 18:34 Date of Discharge Discharge Date: May 25, 2022 Reason Hospital Visit Discharge Summary Discharge Physical Examination Allergies: Coded Allergies: Sulfa (Sulfonamide Antibiotics) (Unverified Allergy, Unknown, 03/19/14) meperidine (Unverified Allergy, Unknown, 03/19/14) latex (Verified Adverse Reaction, Mild, 10/31/14) Vitals & I&Os Vital Signs Date Time Temp Pulse Resp B/P (MAP) Pulse Ox O2 Delivery O2 Flow Rate FiO2 05/25/22 20:00 Room Air 05/25/22 15:59 36.9 67 18 73/48 (56) 94 05/25/22 14:34 0.00 Hospital Course Labs (last 24 hrs) Laboratory Tests 05/13/22 18:34: Lab Scanned Report Referred Lab Report 05/13/22 20:59: White Blood Count 10.5, Red Blood Count 4.52, Hemoglobin 12.2, Hematocrit 37, Mean Corpuscular Volume 81, Mean Corpuscular Hemoglobin 27, Mean Corpuscular Hemoglobin Concent 33, Red Cell Distribution Width 14.7H, Platelet Count 426H, Mean Platelet Volume 9.6, Immature Granulocyte % (Auto) 0, Neutrophils (%) (Auto) 83H, Lymphocytes (%) (Auto) 9L, Monocytes (%) (Auto) 7, Eosinophils (%) (Auto) 1, Basophils (%) (Auto) 1, Neutrophils # (Auto) 8.7H, Lymphocytes # (Auto) 0.9L, Monocytes # (Auto) 0.7, Eosinophils # (Auto) 0.1, Basophils # (Auto) 0.1, Immature Granulocyte # (Auto) 0.0, Erythrocyte Sedimentation Rate 8, Sodium Level 140, Potassium Level 3.8, Chloride Level 107, Carbon Dioxide Level 20L, Anion Gap 13, Blood Urea Nitrogen 14, Creatinine 0.68, Estimat Glomerular Filtration Rate 94, BUN/Creatinine Ratio 21, Glucose Level 88, Lactic Acid Level 1.15, Calcium Level 10.0, Corrected Calcium 10.1, Total Bilirubin 0.9, Aspartate Amino Transf (AST/SGOT) 66H, Alanine Aminotransferase (ALT/SGPT) 48, Alkaline Phosphatase 134, Total Protein 6.3L, Albumin 3.9 05/14/22 04:52: White Blood Count 6.4, Red Blood Count 3.88, Hemoglobin 10.2L, Hematocrit 33L, Mean Corpuscular Volume 84, Mean Corpuscular Hemoglobin 26, Mean Corpuscular Hemoglobin Concent 31L, Red Cell Distribution Width 14.7H, Platelet Count 343, Mean Platelet Volume 10.0, Immature Granulocyte % (Auto) 0, Neutrophils (%) (Auto) 70, Lymphocytes (%) (Auto) 16, Monocytes (%) (Auto) 10, Eosinophils (%) (Auto) 3, Basophils (%) (Auto) 1, Neutrophils # (Auto) 4.5, Lymphocytes # (Auto) 1.0, Monocytes # (Auto) 0.6, Eosinophils # (Auto) 0.2, Basophils # (Auto) 0.1, Immature Granulocyte # (Auto) 0.0, Sodium Level 141, Potassium Level 3.4L, Chloride Level 109H, Carbon Dioxide Level 22, Anion Gap 10, Blood Urea Nitrogen 15, Creatinine 0.64, Estimat Glomerular Filtration Rate 96, BUN/Creatinine Ratio 23, Glucose Level 96, Calcium Level 8.6, Corrected Calcium 9.3, Total Bilirubin 0.4, Aspartate Amino Transf (AST/SGOT) 45H, Alanine Aminotransferase (ALT/SGPT) 36, Alkaline Phosphatase 112, Total Protein 4.7L, Albumin 3.1L 05/14/22 17:05: Urine Color YELLOW, Urine Clarity CLEAR, Urine pH 6.0, Urine Specific [place] 1.010L, Urine Protein NEGATIVE, Urine Glucose (UA) NEGATIVE, Urine Ketones NEGATIVE, Urine Nitrite NEGATIVE, Urine Bilirubin NEGATIVE, Urine Urobilinogen 0.2, Urine Leukocyte Esterase 1+H, Urine RBC (Auto) 1+H, Urine RBC 0-2, Urine WB C RARE, Urine Squamous Epithelial Cells NONE, Urine Crystals NONE, Urine Bacteria NEGATIVE, Urine Casts NONE, Urine Mucus NEGATIVE, Urine Culture Indicated NO 05/15/22 04:55: White Blood Count 6.3, Red Blood Count 4.40, Hemoglobin 11.7, Hematocrit 37, Mean Corpuscular Volume 83, Mean Corpuscular Hemoglobin 27, Mean Corpuscular Hemoglobin Concent 32, Red Cell Distribution Width 14.5, Platelet Count 367, Mean Platelet Volume 10.3, Immature Granulocyte % (Auto) 1, Neutrophils (%) (Auto) 80H, Lymphocytes (%) (Auto) 10L, Monocytes (%) (Auto) 9, Eosinophils (%) (Auto) 0, Basophils (%) (Auto) 0, Neutrophils # (Auto) 5.0, Lymphocytes # (Auto) 0.7L, Monocytes # (Auto) 0.6, Eosinophils # (Auto) 0.0, Basophils # (Auto) 0.0, Immature Granulocyte # (Auto) 0.0, Sodium Level 140, Potassium Level 3.9, [place] Level 110H, Carbon Dioxide Level 22, Anion Gap 8, Blood Urea Nitrogen 11, Creatinine 0.62, Estimat Glomerular Filtration Rate 96, BUN/Creatinine Ratio 18, Glucose Level 134H, Calcium Level 8.4L, Corrected Calcium 9.2, Phosphorus Level 2.3, Magnesium Level 2.4, Total Bilirubin 0.3, Aspartate Amino Transf (AST/SGOT) 29, Alanine Aminotransferase (ALT/SGPT) 34, Alkaline Phosphatase 107, C-Reactive Protein High Sensitivity 1.20H, Total Protein 5.0L, Albumin 3.0L 05/15/22 12:56: Ammonia 20 05/15/22 15:43: Thyroid Stimulating Hormone (TSH) 1.78 05/16/22 03:05: White Blood Count 9.9, Red Blood Count 4.29, Hemoglobin 11.3L, Hematocrit 36, Mean Corpuscular Volume 83, Mean Corpuscular Hemoglobin 26, Mean Corpuscular Hemoglobin Concent 32, Red Cell Distribution Width 14.6H, Platelet Count 404H, Mean Platelet Volume 10.1, Immature Granulocyte % (Auto) 0, Neutrophils (%) (Auto) 82H, Lymphocytes (%) (Auto) 9L, Monocytes (%) (Auto) 8, Eosinophils (%) (Auto) 0, Basophils (%) (Auto) 0, Neutrophils # (Auto) 8.2H, Lymphocytes # (Auto) 0.9L, Monocytes # (Auto) 0.8, Eosinophils # (Auto) 0.0, Basophils # (A uto) 0.0, Immature Granulocyte # (Auto) 0.0, Sodium Level 138, Potassium Level 4.1, Chloride Level 110H, Carbon Dioxide Level 20L, Anion Gap 8, Blood Urea Nitrogen 18, Creatinine 0.61, Estimat Glomerular Filtration Rate 97, BUN/Creatinine Ratio 30, Glucose Level 94, Calcium Level 8.5, Corrected Calcium 9.0, Phosphorus Level 2.3, Magnesium Level 2.3, Total Bilirubin 0.4, Aspartate Amino Transf (AST/SGOT) 31, Alanine Aminotransferase (ALT/SGPT) 35, Alkaline Phosphatase 110, Total Protein 5.4L, Albumin 3.4 05/16/22 08:51: Blood Gas Puncture Site R RADIAL, Blood Gas Patient Temperature 37.3, Arterial Blood pH 7.49H, Arterial Blood Partial Pressure CO2 32L, Arterial Blood Partial Pressure O2 94H, Arterial Blood HCO3 24, Arterial Blood Total CO2 25.0, Arterial Blood Oxygen Saturation 98, Arterial Blood Base Excess 1.0, [place] Test POSITIVE, Blood Gas Ventilator Setting NO, Blood Gas Inspired Oxygen UNK 05/17/22 04:05: White Blood Count 14.2H, Red Blood Count 4.64, Hemoglobin 12.4, Hematocrit 38, Mean Corpuscular Volume 82, Mean Corpuscular Hemoglobin 27, Mean Corpuscular Hemoglobin Concent 33, Red Cell Distribution Width 14.9H, Platelet Count 387, Mean Platelet Volume 9.9, Immature Granulocyte % (Auto) 1, Neutrophils (%) (Auto) 86H, Lymphocytes (%) (Auto) 6L, Monocytes (%) (Auto) 7, Eosinophils (%) (Auto) 0, Basophils (%) (Auto) 0, Neutrophils # (Auto) 12.3H, Lymphocytes # (Auto) 0.8L, Monocytes # (Auto) 1.1H, Eosinophils # (Auto) 0.0, Basophils # (Auto) 0.0, Immature Granulocyte # (Auto) 0.1, Neutrophils % (Manual) 87, Lymphocytes % (Manual) 7, Monocytes % (Manual) 6, Blood Morphology Comment NORMAL, Sodium Level 131L, Potassium Level 5.0, Chloride Level 103, Carbon Dioxide Level 20L, Anion Gap 8, Blood Urea Nitrogen 24H, Creatinine 0.64, Estimat Glomerular Filtration Rate 96, BUN/Creatinine Ratio 38, Glucose Level 302H, Calcium Level 8.7, Corrected Calcium 9.3, Magnesium Level 2.6H, Total Bilirubin 0.5, Aspartate Amino Transf (AST/SGOT) 32, Alanine Aminotransferase (ALT/SGPT) 32, Alkaline Phosphatase 100, Total Protein 5.3L, Albumin 3.2 05/17/22 09:26: Lactic Acid Level 1.59 05/17/22 11:00: Urine Color YELLOW, Urine Clarity CLEAR, Urine pH 7.0, Urine Specific [place] <=1.005, Urine Protein NEGATIVE, Urine Glucose (UA) NEGATIVE, Urine Ketones NEGATIVE, Urine Nitrite NEGATIVE, Urine Bilirubin NEGATIVE, Urine Urobilinogen 0.2, Urine Leukocyte Esterase 3+H, Urine RBC (Auto) 2+H, Urine RBC 2-5H, Urine WBC 25-50H, Urine Crystals NONE, Urine Bacteria MODERATEH, Urine Casts NONE, Urine Mucus NEGATIVE, Urine Culture Indicated YES 05/18/22 03:53: White Blood Count 16.9H, Red Blood Count 5.03, Hemoglobin 13.5, Hematocrit 41, Mean Corpuscular Volume 82, Mean Corpuscular Hemoglobin 27, Mean Corpuscular Hemoglobin Concent 33, Red Cell Distribution Width 14.9H, Platelet Count 426H, Mean Platelet Volume 9.5, Immature Granulocyte % (Auto) 1, Neutrophils (%) (Auto) 86H, Lymphocytes (%) (Auto) 5L, Monocytes (%) (Auto) 7, Eosinophils (%) (Auto) 1, Basophils (%) (Auto) 0, Neutrophils # (Auto) 14.6H, Lymphocytes # (Auto) 0.8L, Monocytes # (Auto) 1.3H, Eosinophils # (Auto) 0.1, Basophils # (Auto) 0.1, Immature Granulocyte # (Auto) 0.1, Sodium Level 137, Potassium Level 4.1, Chloride Level 105, Carbon Dioxide Level 21, Anion Gap 11, Blood Urea Nitrogen 24H, Creatinine 0.63, Estimat Glomerular Filtration Rate 96, BUN/Creatinine Ratio 38, Glucose Level 122H, Calcium Level 9.9, Corrected Calcium 10.1, Total Bilirubin 0.6, Aspartate Amino Transf (AST/SGOT) 40H, Alanine Aminotransferase (ALT/SGPT) 43, Alkaline Phosphatase 116, Total Protein 6.5, Albumin 3.7 05/19/22 06:03: White Blood Count 15.8H, Red Blood Count 4.93, Hemoglobin 13.4, Hematocrit 40, Mean Corpuscular Volume 82, Mean Corpuscular Hemoglobin 27, Mean Corpuscular Hemoglobin Concent 33, Red Cell Distribution Width 15.1H, Platelet Count 455H, Mean Platelet Volume 9.6, Immature Granulocyte % (Auto) 1, Neutrophils (%) (Auto) 82H, Lymphocytes (%) (Auto) 6L, Monocytes (%) (Auto) 10, Eosinophils (%) (Auto) 1, Basophils (%) (Auto) 0, Neutrophils # (Auto) 13.0H, Lymphocytes # (Auto) 1.0, Monocytes # (Auto) 1.6H, Eosinophils # (Auto) 0.1, Basophils # (Auto) 0.1, Immature Granulocyte # (Auto) 0.1, Sodium Level 135, Potassium Level 4.5, Chloride Level 105, Carbon Dioxide Level 21, Anion Gap 9, Blood Urea Nitrogen 36H, Creatinine 0.70, Estimat Glomerular Filtration Rate 94, BUN/Creatinine Ratio 51, Glucose Level 113H, Calcium Level 10.0, Corrected Calcium 10.4H, Total Bilirubin 0.7, Aspartate Amino Transf (AST/SGOT) 32, Alanine Aminotransferase (ALT/SGPT) 39, Alkaline Phosphatase 142H, Total Protein 6.4, Albumin 3.5 05/20/22 04:50: White Blood Count 14.9H, Red Blood Count 4.86, Hemoglobin 12.7, Hematocrit 39, Mean Corpuscular Volume 81, Mean Corpuscular Hemoglobin 26, Mean Corpuscular Hemoglobin Concent 33, Red Cell Distribution Width 14.8H, Platelet Count 493H, Mean Platelet Volume 9.9, Immature Granulocyte % (Auto) 1, Neutrophils (%) (Auto) 82H, Lymphocytes (%) (Auto) 5L, Monocytes (%) (Auto) 11, Eosinophils (%) (Auto) 1, Basophils (%) (Auto) 0, Neutrophils # (Auto) 12.3H, Lymphocytes # (Auto) 0.8L, Monocytes # (Auto) 1.6H, Eosinophils # (Auto) 0.1, Basophils # (Auto) 0.0, Immature Granulocyte # (Auto) 0.1, Sodium Level 134L, Potassium Level 4.5, Chloride Level 105, Carbon Dioxide Level 21, Anion Gap 8, Blood Urea Nitrogen 37H, Creatinine 0.67, Estimat Glomerular Filtration Rate 95, BUN/Creatinine Ratio 55, Glucose Level 107H, Calcium Level 9.3, Corrected Calcium 9.7, Total Bilirubin 0.4, Aspartate Amino Transf (AST/SGOT) 40H, Alanine Aminotransferase (ALT/SGPT) 53, Alkaline Phosphatase 119, Total Protein 6.1L, Albumin 3.5 05/21/22 05:33: White Blood Count 17.7H, Red Blood Count 4.45, Hemoglobin 11.8, Hematocrit 36, Mean Corpuscular Volume 82, Mean Corpuscular Hemoglobin 27, Mean Corpuscular Hemoglobin Concent 33, Red Cell Distribution Width 14.8H, Platelet Count 461H, Mean Platelet Volume 9.7, Immature Granulocyte % (Auto) 1, Neutrophils (%) (Auto) 84H, Lymphocytes (%) (Auto) 5L, Monocytes (%) (Auto) 10, Eosinophils (%) (Auto) 1, Basophils (%) (Auto) 0, Neutrophils # (Auto) 14.9H, Lymphocytes # (Auto) 0.8L, Monocytes # (Auto) 1.8H, Eosinophils # (Auto) 0.1, Basophils # (Auto) 0.1, Immature Granulocyte # (Auto) 0.1, Sodium Level 135, Potassium Level 4.4, Chloride Level 107, Carbon Dioxide Level 20L, Anion Gap 8, Blood Urea Nitrogen 33H, Creatinine 0.61, Estimat Glomerular Filtration Rate 97, BUN/Creatinine Ratio 54, Glucose Level 116H, Calcium Level 9.4, Corrected Calcium 10.1, Total Bilirubin 0.5, Aspartate Amino Transf (AST/SGOT) 31, Alanine Aminotransferase (ALT/SGPT) 44, Alkaline Phosphatase 123, Total Protein 5.7L, Albumin 3.1L 05/22/22 05:37: White Blood Count 14.4H, Red Blood Count 4.47, Hemoglobin 11.8, Hematocrit 37, Mean Corpuscular Volume 83, Mean Corpuscular Hemoglobin 26, Mean Corpuscular Hemoglobin Concent 32, Red Cell Distribution Width 14.8H, Platelet Count 459H, Mean Platelet Volume 10.4, Immature Granulocyte % (Auto) 1, Neutrophils (%) (Auto) 80H, Lymphocytes (%) (Auto) 6L, Monocytes (%) (Auto) 11, Eosinophils (%) (Auto) 2, Basophils (%) (Auto) 1, Neutrophils # (Auto) 11.6H, Lymphocytes # (Auto) 0.9L, Monocytes # (Auto) 1.5H, Eosinophils # (Auto) 0.3, Basophils # (Auto) 0.1, Immature Granulocyte # (Auto) 0.1, Neutrophils % (Manual) 80, Lymphocytes % (Manual) 7, Monocytes % (Manual) 10, Eosinophils % (Manual) 3, Blood Morphology Comment NORMAL, Sodium Level 135, Potassium Level 4.5, Chloride Level 107, Carbon Dioxide Level 19L, Anion Gap 9, Blood Urea Nitrogen 32H, Creatinine 0.60, Estimat Glomerular Filtration Rate 97, BUN/Creatinine Ratio 53, Glucose Level 109H, Calcium Level 9.1, Corrected Calcium 9.7, Total Bilirubin 0.3, Aspartate Amino Transf (AST/SGOT) 31, Alanine Aminotransferase (ALT/SGPT) 52, Alkaline Phosphatase 133, Total Protein 6.0L, Albumin 3.2 05/23/22 05:20: White Blood Count 9.3, Red Blood Count 3.80, Hemoglobin 10.1L, Hematocrit 31L, Mean Corpuscular Volume 82, Mean Corpuscular Hemoglobin 27, Mean Corpuscular Hemoglobin Concent 32, Red Cell Distribution Width 14.7H, Platelet Count 439H, Mean Platelet Volume 10.7, Immature Granulocyte % (Auto) 1, Neutrophils (%) (Auto) 80H, Lymphocytes (%) (Auto) 9L, Monocytes (%) (Auto) 8, Eosinophils (%) (Auto) 2, Basophils (%) (Auto) 1, Neutrophils # (Auto) 7.4, Lymphocytes # (Auto) 0.8L, Monocytes # (Auto) 0.8, Eosinophils # (Auto) 0.2, Basophils # (Auto) 0.1, Immature Granulocyte # (Auto) 0.1, Sodium Level 134L, Potassium Level 4.2, Chloride Level 105, Carbon Dioxide Level 22, Anion Gap 7, Blood Urea Nitrogen 44H, Creatinine 0.65, Estimat Glomerular Filtration Rate 95, BUN/Creatinine Ratio 68, Glucose Level 113H, Calcium Level 9.2, Corrected Calcium 10.2H, Total Bilirubin 0.3, Aspartate Amino Transf (AST/SGOT) 61H, Alanine Aminotransferase (ALT/SGPT) 95H, Alkaline Phosphatase 144H, Total Protein 5.2L, Albumin 2.8L, Percent Immature Platelet Fraction 4.2 05/24/22 07:30: White Blood Count 12.5H, Red Blood Count 4.81, Hemoglobin 12.6#, Hematocrit 39, Mean Corpuscular Volume 80, Mean Corpuscular Hemoglobin 26, Mean Corpuscular Hemoglobin Concent 33, Red Cell Distribution Width 14.3, Platelet Count 611H, Mean Platelet Volume 9.7, Immature Granulocyte % (Auto) 1, Neutrophils (%) (Auto) 76H, Lymphocytes (%) (Auto) 11L, Monocytes (%) (Auto) 8, Eosinophils (%) (Auto) 3, Basophils (%) (Auto) 1, Neutrophils # (Auto) 9.5H, Lymphocytes # (Auto) 1.4, Monocytes # (Auto) 1.1H, Eosinophils # (Auto) 0.3, Basophils # (Auto) 0.1, Immature Granulocyte # (Auto) 0.1, Sodium Level 138, Potassium Level 4.8, Chloride Level 105, Carbon Dioxide Level 21, Anion Gap 12, Blood Urea Nitrogen 39H, Creatinine 0.66, Estimat Glomerular Filtration Rate 95, BUN/Creatinine Ratio 59, Glucose Level 97, Calcium Level 9.7, Corrected Calcium 10.0, Total Bilirubin 0.3, Aspartate Amino Transf (AST/SGOT) 54H, Alanine Aminotransferase (ALT/SGPT) 104H, Alkaline Phosphatase 165H, Total Protein 6.6, Albumin 3.6 Microbiology 05/17/22 Urine Culture - Final, Complete Escherichia coli Enterococcus faecalis 05/16/22 MRSA Screen - Final, Complete MRSA not isolated Pending Labs Microbiology Date/Time Source Procedure Growth Status 05/17/22 11:00 Urine [place] Cath Urine Culture - Final Escherichia coli Enterococcus faecalis Complete 05/16/22 14:12 Nasal MRSA Screen - Final MRSA not isolated Complete Laboratory Tests 05/13/22 18:34: Lab Scanned Report Referred Lab Report 05/13/22 20:59: White Blood Count 10.5, Red Blood Count 4.52, Hemoglobin 12.2, Hematocrit 37, Mean Corpuscular Volume 81, Mean Corpuscular Hemoglobin 27, Mean Corpuscular Hemoglobin Concent 33, Red Cell Distribution Width 14.7, Platelet Count 426, Mean Platelet Volume 9.6, Immature Granulocyte % (Auto) 0, Neutrophils (%) (Auto) 83, Lymphocytes (%) (Auto) 9, Monocytes (%) (Auto) 7, Eosinophils (%) (Auto) 1, Basophils (%) (Auto) 1, Neutrophils # (Auto) 8.7, Lymphocytes # (Auto) 0.9, Monocytes # (Auto) 0.7, Eosinophils # (Auto) 0.1, Basophils # (Auto) 0.1, Immature Granulocyte # (Auto) 0.0, Erythrocyte Sedimentation Rate 8, Sodium Level 140, Potassium Level 3.8, Chloride Level 107, Carbon Dioxide Level 20, Anion Gap 13, Blood Urea Nitrogen 14, Creatinine 0.68, Estimat Glomerular Filtration Rate 94, BUN/Creatinine Ratio 21, Glucose Level 88, Lactic Acid Level 1.15, Calcium Level 10.0, Corrected Calcium 10.1, Total Bilirubin 0.9, Aspartate Amino Transf (AST/SGOT) 66, Alanine Aminotransferase (ALT/SGPT) 48, Alkaline Phosphatase 134, Total Protein 6.3, Albumin 3.9 05/14/22 04:52: White Blood Count 6.4, Red Blood Count 3.88, Hemoglobin 10.2, Hematocrit 33, Mean Corpuscular Volume 84, Mean Corpuscular Hemoglobin 26, Mean Corpuscular Hemoglobin Concent 31, Red Cell Distribution Width 14.7, Platelet Count 343, Mean Platelet Volume 10.0, Immature Granulocyte % (Auto) 0, Neutrophils (%) (Auto) 70, Lymphocytes (%) (Auto) 16, Monocytes (%) (Auto) 10, Eosinophils (%) (Auto) 3, Basophils (%) (Auto) 1, Neutrophils # (Auto) 4.5, Lymphocytes # (Auto) 1.0, Monocytes # (Auto) 0.6, Eosinophils # (Auto) 0.2, Basophils # (Auto) 0.1, Immature Granulocyte # (Auto) 0.0, Sodium Level 141, Potassium Level 3.4, Chloride Level 109, Carbon Dioxide Level 22, Anion Gap 10, Blood Urea Nitrogen 15, Creatinine 0.64, Estimat Glomerular Filtration Rate 96, BUN/Creatinine Ratio 23, Glucose Level 96, Calcium Level 8.6, Corrected Calcium 9.3, Total Bilirubin 0.4, Aspartate Amino Transf (AST/SGOT) 45, Alanine Aminotransferase (ALT/SGPT) 36, Alkaline Phosphatase 112, Total Protein 4.7, Albumin 3.1 05/14/22 17:05: Urine Color YELLOW, Urine Clarity CLEAR, Urine pH 6.0, Urine Specific [place] 1.010, Urine Protein NEGATIVE, Urine Glucose (UA) NEGATIVE, Urine Ketones NEGATIVE, Urine Nitrite NEGATIVE, Urine Bilirubin NEGATIVE, Urine Urobilinogen 0.2, Urine Leukocyte Esterase 1+, Urine RBC (Auto) 1+, Urine RBC 0-2, Urine WBC RARE, Urine Squamous Epithelial Cells NONE, Urine Crystals NONE, Urine Bacteria NEGATIVE, Urine Casts NONE, Urine Mucus NEGATIVE, Urine Culture Indicated NO 05/15/22 04:55: White Blood Count 6.3, Red Blood Count 4.40, Hemoglobin 11.7, Hematocrit 37, Mean Corpuscular Volume 83, Mean Corpuscular Hemoglobin 27, Mean Corpuscular Hemoglobin Concent 32, Red Cell Distribution Width 14.5, Platelet Count 367, Mean Platelet Volume 10.3, Immature Granulocyte % (Auto) 1, Neutrophils (%) (Auto) 80, Lymphocytes (%) (Auto) 10, Monocytes (%) (Auto) 9, Eosinophils (%) (Auto) 0, Basophils (%) (Auto) 0, Neutrophils # (Auto) 5.0, Lymphocytes # (Auto) 0.7, Monocytes # (Auto) 0.6, Eosinophils # (Auto) 0.0, Basophils # (Auto) 0.0, Immature Granulocyte # (Auto) 0.0, Sodium Level 140, Potassium Level 3.9, Chloride Level 110, Carbon Dioxide Level 22, Anion Gap 8, Blood Urea Nitrogen 11, Creatinine 0.62, Estimat Glomerular Filtration Rate 96, BUN/Creatinine Ratio 18, Glucose Level 134, Calcium Level 8.4, Corrected Calcium 9.2, Phosphorus Level 2.3, Magnesium Level 2.4, Total Bilirubin 0.3, Aspartate Amino Transf (AST/SGOT) 29, Alanine Aminotransferase (ALT/SGPT) 34, Alkaline Phosphatase 107, C-Reactive Protein High Sensitivity 1.20, Total Protein 5.0, Albumin 3.0 05/15/22 12:56: Ammonia 20 05/15/22 15:43: Thyroid Stimulating Hormone (TSH) 1.78 05/16/22 03:05: White Blood Count 9.9, Red Blood Count 4.29, Hemoglobin 11.3, Hematocrit 36, Mean Corpuscular Volume 83, Mean Corpuscular Hemoglobin 26, Mean Corpuscular Hemoglobin Concent 32, Red Cell Distribution Width 14.6, Platelet Count 404, Mean Platelet Volume 10.1, Immature Granulocyte % (Auto) 0, Neutrophils (%) (Auto) 82, Lymphocytes (%) (Auto) 9, Monocytes (%) (Auto) 8, Eosinophils (%) (Auto) 0, Basophils (%) (Auto) 0, Neutrophils # (Auto) 8.2, Lymphocytes # (Auto) 0.9, Monocytes # (Auto) 0.8, Eosinophils # (Auto) 0.0, Basophils # (Auto) 0.0, Immature Granulocyte # (Auto) 0.0, Sodium Level 138, Potassium Level 4.1, Chloride Level 110, Carbon Dioxide Level 20, Anion Gap 8, Blood Urea Nitrogen 18, Creatinine 0.61, Estimat Glomerular Filtration Rate 97, BUN/Creatinine Ratio 30, Glucose Level 94, Calcium Level 8.5, Corrected Calcium 9.0, Phosphorus Level 2.3, Magnesium Level 2.3, Total Bilirubin 0.4, Aspartate Amino Transf (AST/SGOT) 31, Alanine Aminotransferase (ALT/SGPT) 35, Alkaline Phosphatase 110, Total Protein 5.4, Albumin 3.4 05/16/22 08:51: Blood Gas Puncture Site R RADIAL, Blood Gas Patient Temperature 37.3, Arterial Blood pH 7.49, Arterial Blood Partial Pressure CO2 32, Arterial Blood Partial Pressure O2 94, Arterial Blood HCO3 24, Arterial Blood Total CO2 25.0, Arterial Blood Oxygen Saturation 98, Arterial Blood Base Excess 1.0, [place] Test POSITIVE, Blood Gas Ventilator Setting NO, Blood Gas Inspired Oxygen UNK 05/17/22 04:05: White Blood Count 14.2, Red Blood Count 4.64, Hemoglobin 12.4, Hematocrit 38, Mean Corpuscular Volume 82, Mean Corpuscular Hemoglobin 27, Mean Corpuscular Hemoglobin Concent 33, Red Cell Distribution Width 14.9, Platelet Count 387, Mean Platelet Volume 9.9, Immature Granulocyte % (Auto) 1, Neutrophils (%) (Auto) 86, Lymphocytes (%) (Auto) 6, Monocytes (%) (Auto) 7, Eosinophils (%) ( Auto) 0, Basophils (%) (Auto) 0, Neutrophils # (Auto) 12.3, Lymphocytes # (Auto) 0.8, Monocytes # (Auto) 1.1, Eosinophils # (Auto) 0.0, Basophils # (Auto) 0.0, Immature Granulocyte # (Auto) 0.1, Neutrophils % (Manual) 87, Lymphocytes % (Manual) 7, Monocytes % (Manual) 6, Blood Morphology Comment NORMAL, Sodium Level 131, Potassium Level 5.0, Chloride Level 103, Carbon Dioxide Level 20, Anion Gap 8, Blood Urea Nitrogen 24, Creatinine 0.64, Estimat Glomerular Filtration Rate 96, BUN/Creatinine Ratio 38, Glucose Level 302, Calcium Level 8.7, Corrected Calcium 9.3, Magnesium Level 2.6, Total Bilirubin 0.5, Aspartate Amino Transf (AST/SGOT) 32, Alanine Aminotransferase (ALT/SGPT) 32, Alkaline Phosphatase 100, Total Protein 5.3, Albumin 3.2 05/17/22 09:26: Lactic Acid Level 1.59 05/17/22 11:00: Urine Color YELLOW, Urine Clarity CLEAR, Urine pH 7.0, Urine Specific [place] <=1.005, Urine Protein NEGATIVE, Urine Glucose (UA) NEGATIVE, Urine Ketones NEGATIVE, Urine Nitrite NEGATIVE, Urine Bilirubin NEGATIVE, Urine Urobilinogen 0.2, Urine Leukocyte Esterase 3+, Urine RBC (Auto) 2+, Urine RBC 2-5, Urine WBC 25-50, Urine Crystals NONE, Urine Bacteria MODERATE, Urine Casts NONE, Urine Mucus NEGATIVE, Urine Culture Indicated YES 05/18/22 03:53: White Blood Count 16.9, Red Blood Count 5.03, Hemoglobin 13.5, Hematocrit 41, Mean Corpuscular Volume 82, Mean Corpuscular Hemoglobin 27, Mean Corpuscular Hemoglobin Concent 33, Red Cell Distribution Width 14.9, Platelet Count 426, Mean Platelet Volume 9.5, Immature Granulocyte % (Auto) 1, Neutrophils (%) (Auto) 86, Lymphocytes (%) (Auto) 5, Monocytes (%) (Auto) 7, Eosinophils (%) (Auto) 1, Basophils (%) (Auto) 0, Neutrophils # (Auto) 14.6, Lymphocytes # (Auto) 0.8, Monocytes # (Auto) 1.3, Eosinophils # (Auto) 0.1, Basophils # (Auto) 0.1, Immature Granulocyte # (Auto) 0.1, Sodium Level 137, Potassium Level 4.1, Chloride Level 105, Carbon Dioxide Level 21, Anion Gap 11, Blood Urea Nitrogen 24, Creatinine 0.63, Estimat Glomerular Filtration Rate 96, BUN/Creatinine Ratio 38, Glucose Level 122, Calcium Level 9.9, Corrected Calcium 10.1, Total Bilirubin 0.6, Aspartate Amino Transf (AST/SGOT) 40, Alanine Aminotransferase (ALT/SGPT) 43, Alkaline Phosphatase 116, Total Protein 6.5, Albumin 3.7 05/19/22 06:03: White Blood Count 15.8, Red Blood Count 4.93, Hemoglobin 13.4, Hematocrit 40, Mean Corpuscular Volume 82, Mean Corpuscular Hemoglobin 27, Mean Corpuscular Hemoglobin Concent 33, Red Cell Distribution Width 15.1, Platelet Count 455, Mean Platelet Volume 9.6, Immature Granulocyte % (Auto) 1, Neutrophils (%) (Auto) 82, Lymphocytes (%) (Auto) 6, Monocytes (%) (Auto) 10, Eosinophils (%) (Auto) 1, Basophils (%) (Auto) 0, Neutrophils # (Auto) 13.0, Lymphocytes # (Auto) 1.0, Monocytes # (Auto) 1.6, Eosinophils # (Auto) 0.1, Basophils # (Auto) 0.1, Immature Granulocyte # (Auto) 0.1, Sodium Level 135, Potassium Level 4.5, Chloride Level 105, Carbon Dioxide Level 21, Anion Gap 9, Blood Urea Nitrogen 36, Creatinine 0.70, Estimat Glomerular Filtration Rate 94, BUN/Creatinine Ratio 51, Glucose Level 113, Calcium Level 10.0, Corrected Calcium 10.4, Total Bilirubin 0.7, Aspartate Amino Transf (AST/SGOT) 32, Alanine Aminotransferase (ALT/SGPT) 39, Alkaline Phosphatase 142, Total Protein 6.4, Albumin 3.5 05/20/22 04:50: White Blood Count 14.9, Red Blood Count 4.86, Hemoglobin 12.7, Hematocrit 39, Mean Corpuscular Volume 81, Mean Corpuscular Hemoglobin 26, Mean Corpuscular Hemoglobin Concent 33, Red Cell Distribution Width 14.8, Platelet Count 493, Mean Platelet Volume 9.9, Immature Granulocyte % (Auto) 1, Neutrophils (%) (Auto) 82, Lymphocytes (%) (Auto) 5, Monocytes (%) (Auto) 11, Eosinophils (%) (Auto) 1, Basophils (%) (Auto) 0, Neutrophils # (Auto) 12.3, Lymphocytes # (Auto) 0.8, Monocytes # (Auto) 1.6, Eosinophils # (Auto) 0.1, Basophils # (Auto) 0.0, Immature Granulocyte # (Auto) 0.1, Sodium Level 134, Potassium Level 4.5, Chloride Level 105, Carbon Dioxide Level 21, Anion Gap 8, Blood Urea Nitrogen 37, Creatinine 0.67, Estimat Glomerular Filtration Rate 95, BUN/Creatinine Ratio 55, Glucose Level 107, Calcium Level 9.3, Corrected Calcium 9.7, Total Bilirubin 0.4, Aspartate Amino Transf (AST/SGOT) 40, Alanine Aminotransferase (ALT/SGPT) 53, Alkaline Phosphatase 119, Total Protein 6.1, Albumin 3.5 05/21/22 05:33: White Blood Count 17.7, Red Blood Count 4.45, Hemoglobin 11.8, Hematocrit 36, Mean Corpuscular Volume 82, Mean Corpuscular Hemoglobin 27, Mean Corpuscular Hemoglobin Concent 33, Red Cell Distribution Width 14.8, Platelet Count 461, Mean Platelet Volume 9.7, Immature Granulocyte % (Auto) 1, Neutrophils (%) (Auto) 84, Lymphocytes (%) (Auto) 5, Monocytes (%) (Auto) 10, Eosinophils (%) (Auto) 1, Basophils (%) (Auto) 0, Neutrophils # (Auto) 14.9, Lymphocytes # (Auto) 0.8, Monocytes # (Auto) 1.8, Eosinophils # (Auto) 0.1, Basophils # (Auto) 0.1, Immature Granulocyte # (Auto) 0.1, Sodium Level 135, Potassium Level 4.4, Chloride Level 107, Carbon Dioxide Level 20, Anion Gap 8, Blood Urea Nitrogen 33, Creatinine 0.61, Estimat Glomerular Filtration Rate 97, BUN/Creatinine Ratio 54, Glucose Level 116, Calcium Level 9.4, Corrected Calcium 10.1, Total Bilirubin 0.5, Aspartate Amino Transf (AST/SGOT) 31, Alanine Aminotransferase (ALT/SGPT) 44, Alkaline Phosphatase 123, Total Protein 5.7, Albumin 3.1 05/22/22 05:37: White Blood Count 14.4, Red Blood Count 4.47, Hemoglobin 11.8, Hematocrit 37, Mean Corpuscular Volume 83, Mean Corpuscular Hemoglobin 26, Mean Corpuscular Hemoglobin Concent 32, Red Cell Distribution Width 14.8, Platelet Count 459, Mean Platelet Volume 10.4, Immature Granulocyte % (Auto) 1, Neutrophils (%) (Auto) 80, Lymphocytes (%) (Auto) 6, Monocytes (%) (Auto) 11, Eosinophils (%) (Auto) 2, Basophils (%) (Auto) 1, Neutrophils # (Auto) 11.6, Lymphocytes # (Auto) 0.9, Monocytes # (Auto) 1.5, Eosinophils # (Auto) 0.3, Basophils # (Auto) 0.1, Immature Granulocyte # (Auto) 0.1, Neutrophils % (Manual) 80, Lymphocytes % (Manual) 7, Monocytes % (Manual) 10, Eosinophils % (Manual) 3, Blood Morphology Comment NORMAL, Sodium Level 135, Potassium Level 4.5, Chloride Level 107, Carbon Dioxide Level 19, Anion Gap 9, Blood Urea Nitrogen 32, Creatinine 0.60, Estimat Glomerular Filtration Rate 97, BUN/Creatinine Ratio 53, Glucose Level 109, Calcium Level 9.1, Corrected Calcium 9.7, Total Bilirubin 0.3, Aspartate Amino Transf (AST/SGOT) 31, Alanine Aminotransferase (ALT/SGPT) 52, Alkaline Phosphatase 133, Total Protein 6.0, Albumin 3.2 05/23/22 05:20: White Blood Count 9.3, Red Blood Count 3.80, Hemoglobin 10.1, Hematocrit 31, Mean Corpuscular Volume 82, Mean Corpuscular Hemoglobin 27, Mean Corpuscular Hemoglobin Concent 32, Red Cell Distribution Width 14.7, Platelet Count 439, Mean Platelet Volume 10.7, Immature Granulocyte % (Auto) 1, Neutrophils (%) (Auto) 80, Lymphocytes (%) (Auto) 9, Monocytes (%) (Auto) 8, Eosinophils (%) (Auto) 2, Basophils (%) (Auto) 1, Neutrophils # (Auto) 7.4, Lymphocytes # (Auto) 0.8, Monocytes # (Auto) 0.8, Eosinophils # (Auto) 0.2, Basophils # (Auto) 0.1, Immature Granulocyte # (Auto) 0.1, Sodium Level 134, Potassium Level 4.2, Chloride Level 105, Carbon Dioxide Level 22, Anion Gap 7, Blood Urea Nitrogen 44, Creatinine 0.65, Estimat Glomerular Filtration Rate 95, BUN/Creatinine Ratio 68, Glucose Level 113, Calcium Level 9.2, Corrected Calcium 10.2, Total Bilirubin 0.3, Aspartate Amino Transf (AST/SGOT) 61, Alanine Aminotransferase (ALT/SGPT) 95, Alkaline Phosphatase 144, Total Protein 5.2, Albumin 2.8, Percent Immature Platelet Fraction 4.2 05/24/22 07:30: White Blood Count 12.5, Red Blood Count 4.81, Hemoglobin 12.6, Hematocrit 39, Mean Corpuscular Volume 80, Mean Corpuscular Hemoglobin 26, Mean Corpuscular Hemoglobin Concent 33, Red Cell Distribution Width 14.3, Platelet Count 611, Mean Platelet Volume 9.7, Immature Granulocyte % (Auto) 1, Neutrophils (%) (Auto) 76, Lymphocytes (%) (Auto) 11, Monocytes (%) (Auto) 8, Eosinophils (%) (Auto) 3, Basophils (%) (Auto) 1, Neutrophils # (Auto) 9.5, Lymphocytes # (Auto) 1.4, Monocytes # (Auto) 1.1, Eosinophils # (Auto) 0.3, Basophils # (Auto) 0.1, Immature Granulocyte # (Auto) 0.1, Sodium Level 138, Potassium Level 4.8, Chloride Level 105, Carbon Dioxide Level 21, Anion Gap 12, Blood Urea Nitrogen 39, Creatinine 0.66, Estimat Glomerular Filtration Rate 95, BUN/Creatinine Ratio 59, Glucose Level 97, Calcium Level 9.7, Corrected Calcium 10.0, Total Bilirubin 0.3, Aspartate Amino Transf (AST/SGOT) 54, Alanine Aminotransferase (ALT/SGPT) 104, Alkaline Phosphatase 165, Total Protein 6.6, Albumin 3.6 Discharge Home Medications: Active Scripts Active Ativan (Lorazepam) 1 Mg Tablet 1 Mg PO Q4H PRN Senna Lax (Sennosides) 8.6 Mg Tablet 8.6 Mg PO BID Olanzapine Odt (Olanzapine) 5 Mg Tab.rapdis 5 Mg PO BID Acetaminophen 325 Mg Tablet 650 Mg PO Q4H PRN Oxyir Tablet (Oxycodone HCl) 5 Mg Tab 5 Mg PO Q4H Enoxaparin Sodium 40 Mg/0.4 Ml Syringe 40 Mg SC DAILY Meloxicam 15 Mg Tablet 15 Mg PO BID Mirtazapine 15 Mg Tablet 30 Mg PO HS TAKES 2 (15MG) TABS Losartan Potassium 50 Mg Tablet 50 Mg PO BID Instructions to patient/family Please see electronic discharge instructions given to patient. REGINALD CHRIS DO May 25, 2022 06:24
[2022-05-25 07:16] VITALS: BP_SYST 142; BP_SYST 191; BP_DIAS 101; BP_DIAS 76
[2022-05-25] MEDS: OLANZapine 5 MG ODT (ZyPREXA ZYDIS) PO SCH ×2 (08:31→19:21)
[2022-05-25] MEDS: LACTULOSE SYRUP 10GM/15ML (ENULOSE) 30ML UDC PO SCH ×2 (08:31→19:21)
[2022-05-25] MEDS: ENOXAPARIN 40 MG/0.4 ML (LOVENOX) SYR SC SCH (08:31)
[2022-05-25] MEDS: LOSARTAN 50 MG (COZAAR) TAB PO SCH ×2 (08:32→19:21)
[2022-05-25] MEDS: SENNOSIDES 8.6 MG (SENOKOT) TAB PO SCH ×2 (08:32→19:21)
[2022-05-25] MEDS: DOCUSATE SODIUM 100 MG (COLACE) CAP PO SCH ×2 (08:32→19:21)
[2022-05-25] MEDS: ALPRAZolam 0.5 MG (XANAX) TAB PO PRN (08:36)
--- NOTE | 2022-05-25 10:46 | Progress Note ---
TYRELL TURCIOS 05/25/22 1046: Progress Note Lena is doing well today. She endorses R buttock pain that improves with repositioning but denies other significant pain. She asks to use the restroom during the visit. Endorsed an appetitie today Hospital Course: Lena was admitted on 05/13/22 after having AMS during a clinic appointment on that date. She was in significant pain and acutely agitated at the clinic. After further workup in the hospital she was found to have a left lower extremity cellulitis on her anterior lemons for which she was started on abx, and constipation causing abdominal pain for which she was started on a bowel regimen. Her head CT was negative for acute processes. Her hospital stay was complicated by a UTI, chronic back pain, and agitation/delirium overlying baseline cognitive decline. Her abx were tailored to treat both the cellulitis and UTI, and she was started on zyprexa for agitation/delirium to which she responded well. After resolution of her sxs and discussion with family they were agreeable to moving her to a SNF where she could receive more regular care. KAMLA BANGURA DO 05/26/22 0434: Supervisory-Addendum Brief Verification & Attestation Participated in pt care: history, MDM, physical Personally performed: exam, history, MDM, supervision of care Care discussed with: Medical Student Procedures: n/a Results interpretation: Verified all documentation Verification and Attestation of Medical Student E/M Service A medical student performed and documented this service in my presence. I reviewed and verified all information documented by the medical student and made modifications to such information, when appropriate. I personally performed the physical exam and medical decision making. Kamla Bangura May 26, 2022,04:34 TYRELL TURCIOS May 25, 2022 10:46 KAMLA BANGURA DO May 26, 2022 04:34
[2022-05-25 14:34] VITALS: BP 142/76
[2022-05-25 15:25] VITALS: BP 73/98
--- NOTE | 2022-05-25 15:42 | Progress Note ---
Subjective Date Seen by a Provider: May 25, 2022 Time Seen by a Provider: 11:00 Subjective/Events-last exam Set for NH transfer but patient became unresponsive DNR order placed This could be exhaustion or terminal condition now Updated son and Review of Systems Neurological: Confusion Objective Exam Last Set of Vital Signs Vital Signs Date Time Temp Pulse Resp B/P (MAP) Pulse Ox O2 Delivery O2 Flow Rate FiO2 05/25/22 14:34 36.0 92 20 142/76 93 Room Air 0.00 Capillary Refill : Less Than 3 Seconds I&O Intake and Output 05/25/22 00:00 Intake Total 1300 ml Output Total 1725 ml Balance -425 ml Intake Oral 1300 ml Output Urine Total 1725 ml # Voids 7 General: Other (comatose) Results Lab Microbiology 05/17/22 Urine Culture - Final, Complete Escherichia coli Enterococcus faecalis 05/16/22 MRSA Screen - Final, Complete MRSA not isolated Assessment/Plan Assessment/Plan Assess & Plan/Chief Complaint Acute encephalopathy Left Lower Leg hematoma Abdominal Pain Acute Delirium w/ agitation CAUTI Chronic back pain Dispo: comfort care Clinical Quality Measures Admission Status Admission Dx Severe delirium requiring IV precedex and seizure monitoring due to Lyrica withdrawal Can't perform MRI due to agitation REGINALD CHRIS DO May 25, 2022 15:42
[2022-05-25 15:59] VITALS: BP 73/48
[2022-05-25] MEDS ORDERED: BISACODYL 10 MG SUPP (DULCOLAX) PR PRN (17:15)
[2022-05-25] MEDS ORDERED: LORazepam 1 MG (ATIVAN) TAB SL PRN (17:15)
[2022-05-25] MEDS ORDERED: PROMETHAZINE INJ 25 MG/ML (PHENERGAN) AMP IVP PRN (17:15)
[2022-05-25] MEDS ORDERED: ONDANSETRON 4 MG/2 ML (SDV) Z0FRAN IVP PRN (17:15)
[2022-05-25] MEDS ORDERED: ACETAMINOPHEN 650 MG SUPP (TYLENOL) PR PRN (17:15)
[2022-05-25] MEDS ORDERED: RT-ALBUTEROL/IPRATROPIUM 3 ML (DUONEB) VIAL INH PRN (17:15)
[2022-05-25] MEDS ORDERED: ARTIFICAL TEARS 0.4 ML UNIT DOSE (REFRESH PLUS) OU PRN (17:15)
[2022-05-25] MEDS ORDERED: SALIVA SUBSTITUTE 60 ML SPRAY(MOUTHKOTE) MM PRN (17:15)
[2022-05-25] MEDS ORDERED: GLYCOPYRROLATE 0.2 MG/ML (ROBINUL) 2 ML VIAL IV PRN (17:15)
[2022-05-25] MEDS: LORazepam INJ 2 MG/ML (ATIVAN) VIAL IVP PRN ×2 (19:49→23:42)
[2022-05-25] MEDS: HYDROmorphone 2 MG/ML VIAL (DILAUDID) IV PRN (21:16)
[2022-05-26] MEDS: HYDROmorphone 2 MG/ML VIAL (DILAUDID) IV PRN ×4 (01:41→12:36)
[2022-05-26] MEDS: LORazepam INJ 2 MG/ML (ATIVAN) VIAL IVP PRN ×2 (03:49→09:39)
[2022-05-26] MEDS: DOCUSATE SODIUM 100 MG (COLACE) CAP PO SCH (07:42)
[2022-05-26] MEDS: LACTULOSE SYRUP 10GM/15ML (ENULOSE) 30ML UDC PO SCH (07:43)
[2022-05-26] MEDS: LOSARTAN 50 MG (COZAAR) TAB PO SCH (07:43)
[2022-05-26] MEDS: SENNOSIDES 8.6 MG (SENOKOT) TAB PO SCH (07:43)
[2022-05-26] MEDS: OLANZapine 5 MG ODT (ZyPREXA ZYDIS) PO SCH (07:44)
[2022-05-26] MEDS: fentaNYL PATCH 25 MCG (DURAGESIC) TD SCH (09:40)
[2022-05-26] MEDS: ENOXAPARIN 40 MG/0.4 ML (LOVENOX) SYR SC SCH (09:41)
[2022-05-26] MEDS ORDERED: LORA2ORA PO (09:42)
[2022-05-26] MEDS ORDERED: MORP100S7 PO (09:42)
--- NOTE | 2022-05-26 10:01 | Physical Therapy Progress Note ---
Therapy Progress Note Patient nurse advised this therapist, that patient has been placed on comfort care. PT will discharge patient from PT services at this time. GRAZYNA RICHARDS PT May 26, 2022 10:01
[2022-05-26] MEDS ORDERED: FENTANYL PATCH REMOVAL TP SCH (10:30)
--- NOTE | 2022-05-26 10:41 | Discharge Summary ---
Diagnosis/Chief Complaint Date of Admission May 13, 2022 at 18:34 Date of Discharge Discharge Date: May 26, 2022 Discharge Diagnosis Assess & Plan/Chief Complaint Acute encephalopathy Left Lower Leg cellulitis -Removing centrally acting medications -improvement in mental status today -further increase in WBC count from yesterday -MRSA coverage not indicated -cefepime switched to ampicillin -continue to monitor Abdominal Pain -Hx of bowel resections for crohns -per -abdominal xray reviewed -last BM charted as 05/13 -palpable stool burden -escalating bowel regimen, some doses refused or unable to be given 2/2 mental status -lactulose + senna -denies abdominal pain today, having regular BMs Acute Delirium w/ agitation -started on Zyprexa -decreased need for benzos after starting -improved today CAUTI -culture grew e coli, enterobacter new growth today -switched to ampicillin for enterobacter coverage Chronic back pain Hx L3-S1 fusion -percoset 5mg/325mg for pain -fentanyl patch was added Dispo: With continued improvement. awaiting transfer to SNF. Reason Hospital Visit Discharge Summary Discharge Physical Examination Allergies: Coded Allergies: Sulfa (Sulfonamide Antibiotics) (Unverified Allergy, Unknown, 03/19/14) meperidine (Unverified Allergy, Unknown, 03/19/14) latex (Verified Adverse Reaction, Mild, 10/31/14) Vitals & I&Os Vital Signs Date Time Temp Pulse Resp B/P (MAP) Pulse Ox O2 Delivery O2 Flow Rate FiO2 05/26/22 08:00 94 Room Air 0.00 05/25/22 15:59 36.9 67 18 73/48 (56) General Appearance: Other (Semicomatose) Respiratory: Clear to Auscultation Cardiovascular: Regular Rate Hospital Course Was the Problem List Reviewed?: Yes Hospital Course: Lena was admitted on 05/13/22 after having AMS during a clinic appointment on that date. She was in significant pain and acutely agitated at the clinic. After further workup in the hospital she was found to have a left lower extremity cellulitis on her anterior lemons for which she was started on abx, and constipation causing abdominal pain for which she was started on a bowel regimen. Her head CT was negative for acute processes. Her hospital stay was complicated by a UTI, chronic back pain, and agitation/delirium overlying baseline cognitive decline. Her abx were tailored to treat both the cellulitis and UTI, and she was started on zyprexa for agitation/delirium to which she responded well. After resolution of her sxs and discussion with family they were agreeable to moving her to a SNF where she could receive more regular care. Labs (last 24 hrs) Laboratory Tests 05/13/22 18:34: Lab Scanned Report Referred Lab Report 05/13/22 20:59: White Blood Count 10.5, Red Blood Count 4.52, Hemoglobin 12.2, Hematocrit 37, Mean Corpuscular Volume 81, Mean Corpuscular Hemoglobin 27, Mean Corpuscular Hemoglobin Concent 33, Red Cell Distribution Width 14.7H, Platelet Count 426H, Mean Platelet Volume 9.6, Immature Granulocyte % (Auto) 0, Neutrophils (%) (Auto) 83H, Lymphocytes (%) (Auto) 9L, Monocytes (%) (Auto) 7, Eosinophils (%) (Auto) 1, Basophils (%) (Auto) 1, Neutrophils # (Auto) 8.7H, Lymphocytes # (Auto) 0.9L, Monocytes # (Auto) 0.7, Eosinophils # (Auto) 0.1, Basophils # (Auto) 0.1, Immature Granulocyte # (Auto) 0.0, Erythrocyte Sedimentation Rate 8, Sodium Level 140, Potassium Level 3.8, Chloride Level 107, Carbon Dioxide Level 20L, Anion Gap 13, Blood Urea Nitrogen 14, Creatinine 0.68, Estimat Glomerular Filtration Rate 94, BUN/Creatinine Ratio 21, Glucose Level 88, Lactic Acid Level 1.15, Calcium Level 10.0, Corrected Calcium 10.1, Total Bilirubin 0.9, Aspartate Amino Transf (AST/SGOT) 66H, Alanine Aminotransferase (ALT/SGPT) 48, Alkaline Phosphatase 134, Total Protein 6.3L, Albumin 3.9 05/14/22 04:52: White Blood Count 6.4, Red Blood Count 3.88, Hemoglobin 10.2L, Hematocrit 33L, Mean Corpuscular Volume 84, Mean Corpuscular Hemoglobin 26, Mean Corpuscular Hemoglobin Concent 31L, Red Cell Distribution Width 14.7H, Platelet Count 343, Mean Platelet Volume 10.0, Immature Granulocyte % (Auto) 0, Neutrophils (%) (Auto) 70, Lymphocytes (%) (Auto) 16, Monocytes (%) (Auto) 10, Eosinophils (%) (Auto) 3, Basophils (%) (Auto) 1, Neutrophils # (Auto) 4.5, Lymphocytes # (Auto) 1.0, Monocytes # (Auto) 0.6, Eosinophils # (Auto) 0.2, Basophils # (Auto) 0.1, Immature Granulocyte # (Auto) 0.0, Sodium Level 141, Potassium Level 3.4L, Chloride Level 109H, Carbon Dioxide Level 22, Anion Gap 10, Blood Urea Nitrogen 15, Creatinine 0.64, Estimat Glomerular Filtration Rate 96, BUN/Creatinine Ratio 23, Glucose Level 96, Calcium Level 8.6, Corrected Calcium 9.3, Total Bilirubin 0.4, Aspartate Amino Transf (AST/SGOT) 45H, Alanine Aminotransferase (ALT/SGPT) 36, Alkaline Phosphatase 112, Total Protein 4.7L, Albumin 3.1L 05/14/22 17:05: Urine Color YELLOW, Urine Clarity CLEAR, Urine pH 6.0, Urine Specific [place] 1.010L, Urine Protein NEGATIVE, Urine Glucose (UA) NEGATIVE, Urine Ketones NEGATIVE, Urine Nitrite NEGATIVE, Urine Bilirubin NEGATIVE, Urine Urobilinogen 0.2, Urine Leukocyte Esterase 1+H, Urine RBC (Auto) 1+H, Urine RBC 0-2, Urine WBC RARE, Urine Squamous Epithelial Cells NONE, Urine Crystals NONE, Urine Bacteria NEGATIVE, Urine Casts NONE, Urine Mucus NEGATIVE, Urine Culture Indicated NO 05/15/22 04:55: White Blood Count 6.3, Red Blood Count 4.40, Hemoglobin 11.7, Hematocrit 37, Mean Corpuscular Volume 83, Mean Corpuscular Hemoglobin 27, Mean Corpuscular Hemoglobin Concent 32, Red Cell Distribution Width 14.5, Platelet Count 367, Mean Platelet Volume 10.3, Immature Granulocyte % (Auto) 1, Neutrophils (%) (Auto) 80H, Lymphocytes (%) (Auto) 10L, Monocytes (%) (Auto) 9, Eosinophils (%) (Auto) 0, Basophils (%) (Auto) 0, Neutrophils # (Auto) 5.0, Lymphocytes # (Auto) 0.7L, Monocytes # (Auto) 0.6, Eosinophils # (Auto) 0.0, Basophils # (Auto) 0.0, Immature Granulocyte # (Auto) 0.0, Sodium Level 140, Potassium Level 3.9, Chloride Level 110H, Carbon Dioxide Level 22, Anion Gap 8, Blood Urea Nitrogen 11, Creatinine 0.62, Estimat Glomerular Filtration Rate 96, BUN/Creatinine Ratio 18, Glucose Level 134H, Calcium Level 8.4L, Corrected Calcium 9.2, Phosphorus Level 2.3, Magnesium Level 2.4, Total Bilirubin 0.3, Aspartate Amino Transf (AST/SGOT) 29, Alanine Aminotransferase (ALT/SGPT) 34, Alkaline Phosphatase 107, C-Reactive Protein High Sensitivity 1.20H, Total Protein 5.0L, Albumin 3.0L 05/15/22 12:56: Ammonia 20 05/15/22 15:43: Thyroid Stimulating Hormone (TSH) 1.78 05/16/22 03:05: White Blood Count 9.9, Red Blood Count 4.29, Hemoglobin 11.3L, Hematocrit 36, Mean Corpuscular Volume 83, Mean Corpuscular Hemoglobin 26, Mean Corpuscular Hemoglobin Concent 32, Red Cell Distribution Width 14.6H, Platelet Count 404H, Mean Platelet Volume 10.1, Immature Granulocyte % (Auto) 0, Neutrophils (%) (Auto) 82H, Lymphocytes (%) (Auto) 9L, Monocytes (%) (Auto) 8, Eosinophils (%) (Auto) 0, Basophils (%) (Auto) 0, Neutrophils # (Auto) 8.2H, Lymphocytes # (Auto) 0.9L, Monocytes # (Auto) 0.8, Eosinophils # (Auto) 0.0, Basophils # (Auto) 0.0, Immature Granulocyte # (Auto) 0.0, Sodium Level 138, Potassium Level 4.1, Chloride Level 110H, Carbon Dioxide Level 20L, Anion Gap 8, Blood Urea Nitrogen 18, Creatinine 0.61, Estimat Glomerular Filtration Rate 97, BUN/Creatinine Ratio 30, Glucose Level 94, Calcium Level 8.5, Corrected Calcium 9.0, Phosphorus Level 2.3, Magnesium Level 2.3, Total Bilirubin 0.4, Aspartate Amino Transf (AST/SGOT) 31, Alanine Aminotransferase (ALT/SGPT) 35, Alkaline Phosphatase 110, Total Protein 5.4L, Albumin 3.4 05/16/22 08:51: Blood Gas Puncture Site R RADIAL, Blood Gas Patient Temperature 37.3, Arterial Blood pH 7.49H, Arterial Blood Partial Pressure CO2 32L, Arterial Blood Partial Pressure O2 94H, Arterial Blood HCO3 24, Arterial Blood Total CO2 25.0, Arterial Blood Oxygen Saturation 98, Arterial Blood Base Excess 1.0, Kobi Test POSITIVE, Blood Gas Ventilator Setting NO, Blood Gas Inspired Oxygen UNK 05/17/22 04:05: White Blood Count 14.2H, Red Blood Count 4.64, Hemoglobin 12.4, Hematocrit 38, Mean Corpuscular Volume 82, Mean Corpuscular Hemoglobin 27, Mean Corpuscular Hemoglobin Concent 33, Red Cell Distribution Width 14.9H, Platelet Count 387, Mean Platelet Volume 9.9, Immature Granulocyte % (Auto) 1, Neutrophils (%) (Auto) 86H, Lymphocytes (%) (Auto) 6L, Monocytes (%) (Auto) 7, Eosinophils (%) (Auto) 0, Basophils (%) (Auto) 0, Neutrophils # (Auto) 12.3H, Lymphocytes # (Auto) 0.8L, Monocytes # (Auto) 1.1H, Eosinophils # (Auto) 0.0, Basophils # (Auto) 0.0, Immature Granulocyte # (Auto) 0.1, Neutrophils % (Manual) 87, Lymphocytes % (Manual) 7, Monocytes % (Manual) 6, Blood Morphology Comment NORMAL, Sodium Level 131L, Potassium Level 5.0, Chloride Level 103, Carbon Dioxide Level 20L, Anion Gap 8, Blood Urea Nitrogen 24H, Creatinine 0.64, Estimat Glomerular Filtration Rate 96, BUN/Creatinine Ratio 38, Glucose Level 302H, Calcium Level 8.7, Corrected Calcium 9.3, Magnesium Level 2.6H, Total Bilirubin 0.5, Aspartate Amino Transf (AST/SGOT) 32, Alanine Aminotransferase (ALT/SGPT) 32, Alkaline Phosphatase 100, Total Protein 5.3L, Albumin 3.2 05/17/22 09:26: Lactic Acid Level 1.59 05/17/22 11:00: Urine Color YELLOW, Urine Clarity CLEAR, Urine pH 7.0, Urine Specific [place] <=1.005, Urine Protein NEGATIVE, Urine Glucose (UA) NEGATIVE, Urine Ketones NEGATIVE, Urine Nitrite NEGATIVE, Urine Bilirubin NEGATIVE, Urine Urobilinogen 0.2, Urine Leukocyte Esterase 3+H, Urine RBC (Auto) 2+H, Urine RBC 2-5H, Urine WBC 25-50H, Urine Crystals NONE, Urine Bacteria MODERATEH, Urine Casts NONE, Urine Mucus NEGATIVE, Urine Culture Indicated YES 05/18/22 03:53: White Blood Count 16.9H, Red Blood Count 5.03, Hemoglobin 13.5, Hematocrit 41, Mean Corpuscular Volume 82, Mean Corpuscular Hemoglobin 27, Mean Corpuscular Hemoglobin Concent 33, Red Cell Distribution Width 14.9H, Platelet Count 426H, Mean Platelet Volume 9.5, Immature Granulocyte % (Auto) 1, Neutrophils (%) (Auto) 86H, Lymphocytes (%) (Auto) 5L, Monocytes (%) (Auto) 7, Eosinophils (%) (Auto) 1, Basophils (%) (Auto) 0, Neutrophils # (Auto) 14.6H, Lymphocytes # (Auto) 0.8L, Monocytes # (Auto) 1.3H, Eosinophils # (Auto) 0.1, Basophils # (Auto) 0.1, Immature Granulocyte # (Auto) 0.1, Sodium Level 137, Potassium Level 4.1, Chloride Level 105, Carbon Dioxide Level 21, Anion Gap 11, Blood Urea Nitrogen 24H, Creatinine 0.63, Estimat Glomerular Filtration Rate 96, BUN/Creatinine Ratio 38, Glucose Level 122H, Calcium Level 9.9, Corrected Calcium 10.1, Total Bilirubin 0.6, Aspartate Amino Transf (AST/SGOT) 40H, Alanine Aminotransferase (ALT/SGPT) 43, Alkaline Phosphatase 116, Total Protein 6.5, Albumin 3.7 05/19/22 06:03: White Blood Count 15.8H, Red Blood Count 4.93, Hemoglobin 13.4, Hematocrit 40, Mean Corpuscular Volume 82, Mean Corpuscular Hemoglobin 27, Mean Corpuscular Hemoglobin Concent 33, Red Cell Distribution Width 15.1H, Platelet Count 455H, Mean Platelet Volume 9.6, Immature Granulocyte % (Auto) 1, Neutrophils (%) (Auto) 82H, Lymphocytes (%) (Auto) 6L, Monocytes (%) (Auto) 10, Eosinophils (%) (Auto) 1, Basophils (%) (Auto) 0, Neutrophils # (Auto) 13.0H, Lymphocytes # (Auto) 1.0, Monocytes # (Auto) 1.6H, Eosinophils # (Auto) 0.1, Basophils # (Auto) 0.1, Immature Granulocyte # (Auto) 0.1, Sodium Level 135, Potassium Level 4.5, Chloride Level 105, Carbon Dioxide Level 21, Anion Gap 9, Blood Urea Nitrogen 36H, Creatinine 0.70, Estimat Glomerular Filtration Rate 94, BUN/Creatinine Ratio 51, Glucose Level 113H, Calcium Level 10.0, Corrected Calcium 10.4H, Total Bilirubin 0.7, Aspartate Amino Transf (AST/SGOT) 32, Alanine Aminotransferase (ALT/SGPT) 39, Alkaline Phosphatase 142H, Total Protein 6.4, Albumin 3.5 05/20/22 04:50: White Blood Count 14.9H, Red Blood Count 4.86, Hemoglobin 12.7, Hematocrit 39, Mean Corpuscular Volume 81, Mean Corpuscular Hemoglobin 26, Mean Corpuscular Hemoglobin Concent 33, Red Cell Distribution Width 14.8H, Platelet Count 493H, Mean Platelet Volume 9.9, Immature Granulocyte % (Auto) 1, Neutrophils (%) (Auto) 82H, Lymphocytes (%) (Auto) 5L, Monocytes (%) (Auto) 11, Eosinophils (%) (Auto) 1, Basophils (%) (Auto) 0, Neutrophils # (Auto) 12.3H, Lymphocytes # (Auto) 0.8L, Monocytes # (Auto) 1.6H, Eosinophils # (Auto) 0.1, Basophils # (Auto) 0.0, Immature Granulocyte # (Auto) 0.1, Sodium Level 134L, Potassium Level 4.5, Chloride Level 105, Carbon Dioxide Level 21, Anion Gap 8, Blood Urea Nitrogen 37H, Creatinine 0.67, Estimat Glomerular Filtration Rate 95, BUN/Creatinine Ratio 55, Glucose Level 107H, Calcium Level 9.3, Corrected Calcium 9.7, Total Bilirubin 0.4, Aspartate Amino Transf (AST/SGOT) 40H, Alanine Aminotransferase (ALT/SGPT) 53, Alkaline Phosphatase 119, Total Protein 6.1L, Albumin 3.5 05/21/22 05:33: White Blood Count 17.7H, Red Blood Count 4.45, Hemoglobin 11.8, Hematocrit 36, Mean Corpuscular Volume 82, Mean Corpuscular Hemoglobin 27, Mean Corpuscular Hemoglobin Concent 33, Red Cell Distribution Width 14.8H, Platelet Count 461H, Mean Platelet Volume 9.7, Immature Granulocyte % (Auto) 1, Neutrophils (%) (Auto) 84H, Lymphocytes (%) (Auto) 5L, Monocytes (%) (Auto) 10, Eosinophils (%) (Auto) 1, Basophils (%) (Auto) 0, Neutrophils # (Auto) 14.9H, Lymphocytes # (Auto) 0.8L, Monocytes # (Auto) 1.8H, Eosinophils # (Auto) 0.1, Basophils # (Auto) 0.1, Immature Granulocyte # (Auto) 0.1, Sodium Level 135, Potassium Level 4.4, Chloride Level 107, Carbon Dioxide Level 20L, Anion Gap 8, Blood Urea Nitrogen 33H, Creatinine 0.61, Estimat Glomerular Filtration Rate 97, BUN/Creatinine Ratio 54, Glucose Level 116H, Calcium Level 9.4, Corrected Calcium 10.1, Total Bilirubin 0.5, Aspartate Amino Transf (AST/SGOT) 31, Alanine Aminotransferase (ALT/SGPT) 44, Alkaline Phosphatase 123, Total Protein 5.7L, Albumin 3.1L 05/22/22 05:37: White Blood Count 14.4H, Red Blood Count 4.47, Hemoglobin 11.8, Hematocrit 37, Mean Corpuscular Volume 83, Mean Corpuscular Hemoglobin 26, Mean Corpuscular Hemoglobin Concent 32, Red Cell Distribution Width 14.8H, Platelet Count 459H, Mean Platelet Volume 10.4, Immature Granulocyte % (Auto) 1, Neutrophils (%) (Auto) 80H, Lymphocytes (%) (Auto) 6L, Monocytes (%) (Auto) 11, Eosinophils (%) (Auto) 2, Basophils (%) (Auto) 1, Neutrophils # (Auto) 11.6H, Lymphocytes # (Auto) 0.9L, Monocytes # (Auto) 1.5H, Eosinophils # (Auto) 0.3, Basophils # (Auto) 0.1, Immature Granulocyte # (Auto) 0.1, Neutrophils % (Manual) 80, Lymphocytes % (Manual) 7, Monocytes % (Manual) 10, Eosinophils % (Manual) 3, Blood Morphology Comment NORMAL, Sodium Level 135, Potassium Level 4.5, Chloride Level 107, Carbon Dioxide Level 19L, Anion Gap 9, Blood Urea Nitrogen 32H, Creatinine 0.60, Estimat Glomerular Filtration Rate 97, BUN/Creatinine Ratio 53, Glucose Level 109H, Calcium Level 9.1, Corrected Calcium 9.7, Total Bilirubin 0.3, Aspartate Amino Transf (AST/SGOT) 31, Alanine Aminotransferase (ALT/SGPT) 52, Alkaline Phosphatase 133, Total Protein 6.0L, Albumin 3.2 05/23/22 05:20: White Blood Count 9.3, Red Blood Count 3.80, Hemoglobin 10.1L, Hematocrit 31L, Mean Corpuscular Volume 82, Mean Corpuscular Hemoglobin 27, Mean Corpuscular Hemoglobin Concent 32, Red Cell Distribution Width 14.7H, Platelet Count 439H, Mean Platelet Volume 10.7, Immature Granulocyte % (Auto) 1, Neutrophils (%) (Au to) 80H, Lymphocytes (%) (Auto) 9L, Monocytes (%) (Auto) 8, Eosinophils (%) (Auto) 2, Basophils (%) (Auto) 1, Neutrophils # (Auto) 7.4, Lymphocytes # (Auto) 0.8L, Monocytes # (Auto) 0.8, Eosinophils # (Auto) 0.2, Basophils # (Auto) 0.1, Immature Granulocyte # (Auto) 0.1, Sodium Level 134L, Potassium Level 4.2, Chloride Level 105, Carbon Dioxide Level 22, Anion Gap 7, Blood Urea Nitrogen 44H, Creatinine 0.65, Estimat Glomerular Filtration Rate 95, BUN/Creatinine Ratio 68, Glucose Level 113H, Calcium Level 9.2, Corrected Calcium 10.2H, Total Bilirubin 0.3, Aspartate Amino Transf (AST/SGOT) 61H, Alanine Aminotransferase (ALT/SGPT) 95H, Alkaline Phosphatase 144H, Total Protein 5.2L, Albumin 2.8L, Percent Immature Platelet Fraction 4.2 05/24/22 07:30: White Blood Count 12.5H, Red Blood Count 4.81, Hemoglobin 12.6#, Hematocrit 39, Mean Corpuscular Volume 80, Mean Corpuscular Hemoglobin 26, Mean Corpuscular Hemoglobin Concent 33, Red Cell Distribution Width 14.3, Platelet Count 611H, Mean Platelet Volume 9.7, Immature Granulocyte % (Auto) 1, Neutrophils (%) (Auto) 76H, Lymphocytes (%) (Auto) 11L, Monocytes (%) (Auto) 8, Eosinophils (%) (Auto) 3, Basophils (%) (Auto) 1, Neutrophils # (Auto) 9.5H, Lymphocytes # (Auto) 1.4, Monocytes # (Auto) 1.1H, Eosinophils # (Auto) 0.3, Basophils # ( Auto) 0.1, Immature Granulocyte # (Auto) 0.1, Sodium Level 138, Potassium Level 4.8, Chloride Level 105, Carbon Dioxide Level 21, Anion Gap 12, Blood Urea Nitrogen 39H, Creatinine 0.66, Estimat Glomerular Filtration Rate 95, BUN/Creati nine Ratio 59, Glucose Level 97, Calcium Level 9.7, Corrected Calcium 10.0, Total Bilirubin 0.3, Aspartate Amino Transf (AST/SGOT) 54H, Alanine Aminotransferase (ALT/SGPT) 104H, Alkaline Phosphatase 165H, Total Protein 6.6, Albumin 3.6 Microbiology 05/24/22 MRSA Screen - Final, Complete MRSA not isolated 05/17/22 Urine Culture - Final, Complete Escherichia coli Enterococcus faecalis Pending Labs Microbiology Date/Time Source Procedure Growth Status 05/24/22 16:15 Nasal MRSA Screen - Final MRSA not isolated Complete 05/17/22 11:00 Urine Chowdary Cath Urine Culture - Final Escherichia coli Enterococcus faecalis Complete 05/16/22 14:12 Nasal MRSA Screen - Final MRSA not isolated Complete Laboratory Tests 05/13/22 18:34: Lab Scanned Report Referred Lab Report 05/13/22 20:59: White Blood Count 10.5, Red Blood Count 4.52, Hemoglobin 12.2, Hematocrit 37, Mean Corpuscular Volume 81, Mean Corpuscular Hemoglobin 27, Mean Corpuscular Hemoglobin Concent 33, Red Cell Distribution Width 14.7, Platelet Count 426, Mean Platelet Volume 9.6, Immature Granulocyte % (Auto) 0, Neutrophils (%) (Auto) 83, Lymphocytes (%) (Auto) 9, Monocytes (%) (Auto) 7, Eosinophils (%) (Auto) 1, Basophils (%) (Auto) 1, Neutrophils # (Auto) 8.7, Lymphocytes # (Auto) 0.9, Monocytes # (Auto) 0.7, Eosinophils # (Auto) 0.1, Basophils # (Auto) 0.1, Immature Granulocyte # (Auto) 0.0, Erythrocyte Sedimentation Rate 8, Sodium Level 140, Potassium Level 3.8, Chloride Level 107, Carbon Dioxide Level 20, Anion Gap 13, Blood Urea Nitrogen 14, Creatinine 0.68, Estimat Glomerular Filtration Rate 94, BUN/Creatinine Ratio 21, Glucose Level 88, Lactic Acid Level 1.15, Calcium Level 10.0, Corrected Calcium 10.1, Total Bilirubin 0.9, Aspartate Amino Transf (AST/SGOT) 66, Alanine Aminotransferase (ALT/SGPT) 48, Alkaline Phosphatase 134, Total Protein 6.3, Albumin 3.9 05/14/22 04:52: White Blood Count 6.4, Red Blood Count 3.88, Hemoglobin 10.2, Hematocrit 33, Mean Corpuscular Volume 84, Mean Corpuscular Hemoglobin 26, Mean Corpuscular Hemoglobin Concent 31, Red Cell Distribution Width 14.7, Platelet Count 343, Mean Platelet Volume 10.0, Immature Granulocyte % (Auto) 0, Neutrophils (%) (Auto) 70, Lymphocytes (%) (Auto) 16, Monocytes (%) (Auto) 10, Eosinophils (%) (Auto) 3, Basophils (%) (Auto) 1, Neutrophils # (Auto) 4.5, Lymphocytes # (Auto) 1.0, Monocytes # (Auto) 0.6, Eosinophils # (Auto) 0.2, Basophils # (Auto) 0.1, Immature Granulocyte # (Auto) 0.0, Sodium Level 141, Potassium Level 3.4, Chloride Level 109, Carbon Dioxide Level 22, Anion Gap 10, Blood Urea Nitrogen 15, Creatinine 0.64, Estimat Glomerular Filtration Rate 96, BUN/Creatinine Ratio 23, Glucose Level 96, Calcium Level 8.6, Corrected Calcium 9.3, Total Bilirubin 0.4, Aspartate Amino Transf (AST/SGOT) 45, Alanine Aminotransferase (ALT/SGPT) 36, Alkaline Phosphatase 112, Total Protein 4.7, Albumin 3.1 05/14/22 17:05: Urine Color YELLOW, Urine Clarity CLEAR, Urine pH 6.0, Urine Specific [place] 1.010, Urine Protein NEGATIVE, Urine Glucose (UA) NEGATIVE, Urine Ketones NEGATIVE, Urine Nitrite NEGATIVE, Urine Bilirubin NEGATIVE, Urine Urobilinogen 0.2, Urine Leukocyte Esterase 1+, Urine RBC (Auto) 1+, Urine RBC 0-2, Urine WBC RARE, Urine Squamous Epithelial Cells NONE, Urine Crystals NONE, Urine Bacteria NEGATIVE, Urine Casts NONE, Urine Mucus NEGATIVE, Urine Culture Indicated NO 05/15/22 04:55: White Blood Count 6.3, Red Blood Count 4.40, Hemoglobin 11.7, Hematocrit 37, Mean Corpuscular Volume 83, Mean Corpuscular Hemoglobin 27, Mean Corpuscular Hemoglobin Concent 32, Red Cell Distribution Width 14.5, Platelet Count 367, Mean Platelet Volume 10.3, Immature Granulocyte % (Auto) 1, Neutrophils (%) (Auto) 80, Lymphocytes (%) (Auto) 10, Monocytes (%) (Auto) 9, Eosinophils (%) (Auto) 0, Basophils (%) (Auto) 0, Neutrophils # (Auto) 5.0, Lymphocytes # (Auto) 0.7, Monocytes # (Auto) 0.6, Eosinophils # (Auto) 0.0, Basophils # (Auto) 0.0, Immature Granulocyte # (Auto) 0.0, Sodium Level 140, Potassium Level 3.9, Chloride Level 110, Carbon Dioxide Level 22, Anion Gap 8, Blood Urea Nitrogen 11, Creatinine 0.62, Estimat Glomerular Filtration Rate 96, BUN/Creatinine Ratio 18, Glucose Level 134, Calcium Level 8.4, Corrected Calcium 9.2, Phosphorus Leve l 2.3, Magnesium Level 2.4, Total Bilirubin 0.3, Aspartate Amino Transf (AST/SGOT) 29, Alanine Aminotransferase (ALT/SGPT) 34, Alkaline Phosphatase 107, C-Reactive Protein High Sensitivity 1.20, Total Protein 5.0, Albumin 3.0 05/15/22 12:56: Ammonia 20 05/15/22 15:43: Thyroid Stimulating Hormone (TSH) 1.78 05/16/22 03:05: White Blood Count 9.9, Red Blood Count 4.29, Hemoglobin 11.3, Hematocrit 36, Mean Corpuscular Volume 83, Mean Corpuscular Hemoglobin 26, Mean Corpuscular Hemoglobin Concent 32, Red Cell Distribution Width 14.6, Platelet Count 404, Mean Platelet Volume 10.1, Immature Granulocyte % (Auto) 0, Neutrophils (%) (Auto) 82, Lymphocytes (%) (Auto) 9, Monocytes (%) (Auto) 8, Eosinophils (%) (Auto) 0, Basophils (%) (Auto) 0, Neutrophils # (Auto) 8.2, Lymphocytes # (Auto) 0.9, Monocytes # (Auto) 0.8, Eosinophils # (Auto) 0.0, Basophils # (Auto) 0.0, Immature Granulocyte # (Auto) 0.0, Sodium Level 138, Potassium Level 4.1, Chloride Level 110, Carbon Dioxide Level 20, Anion Gap 8, Blood Urea Nitrogen 18, Creatinine 0.61, Estimat Glomerular Filtration Rate 97, BUN/Creatinine Ratio 30, Glucose Level 94, Calcium Level 8.5, Corrected Calcium 9.0, Phosphorus Level 2.3, Magnesium Level 2.3, Total Bilirubin 0.4, Aspartate Amino Transf (AST/SGOT) 31, Alanine Aminotransferase (ALT/SGPT) 35, Alkaline Phosphatase 110, Total Protein 5.4, Albumin 3.4 05/16/22 08:51: Blood Gas Puncture Site R RADIAL, Blood Gas Patient Temperature 37.3, Arterial Blood pH 7.49, Arterial Blood Partial Pressure CO2 32, Arterial Blood Partial Pressure O2 94, Arterial Blood HCO3 24, Arterial Blood Total CO2 25.0, Arterial Blood Oxygen Saturation 98, Arterial Blood Base Excess 1.0, Kobi Test POSITIVE, Blood Gas Ventilator Setting NO, Blood Gas Inspired Oxygen UNK 05/17/22 04:05: White Blood Count 14.2, Red Blood Count 4.64, Hemoglobin 12.4, Hematocrit 38, Mean Corpuscular Volume 82, Mean Corpuscular Hemoglobin 27, Mean Corpuscular Hemoglobin Concent 33, Red Cell Distribution Width 14.9, Platelet Count 387, Mean Platelet Volume 9.9, Immature Granulocyte % (Auto) 1, Neutrophils (%) (Auto) 86, Lymphocytes (%) (Auto) 6, Monocytes (%) (Auto) 7, Eosinophils (%) (Auto) 0, Basophils (%) (Auto) 0, Neutrophils # (Auto) 12.3, Lymphocytes # (Auto) 0.8, Monocytes # (Auto) 1.1, Eosinophils # (Auto) 0.0, Basophils # (Auto) 0.0, Immature Granulocyte # (Auto) 0.1, Neutrophils % (Manual) 87, Lymphocytes % (Manual) 7, Monocytes % (Manual) 6, Blood Morphology Comment NORMAL, Sodium Level 131, Potassium Level 5.0, Chloride Level 103, Carbon Dioxide Level 20, Anion Gap 8, Blood Urea Nitrogen 24, Creatinine 0.64, Estimat Glomerular Filtration Rate 96, BUN/Creatinine Ratio 38, Glucose Level 302, Calcium Level 8.7, Corrected Calcium 9.3, Magnesium Level 2.6, Total Bilirubin 0.5, Aspartate Amino Transf (AST/SGOT) 32, Alanine Aminotransferase (ALT/SGPT) 32, Alkaline Phosphatase 100, Total Protein 5.3, Albumin 3.2 05/17/22 09:26: Lactic Acid Level 1.59 05/17/22 11:00: Urine Color YELLOW, Urine Clarity CLEAR, Urine pH 7.0, Urine Specific [place] <=1.005, Urine Protein NEGATIVE, Urine Glucose (UA) NEGATIVE, Urine Ketones NEGATIVE, Urine Nitrite NEGATIVE, Urine Bilirubin NEGATIVE, Urine Urobilinogen 0.2, Urine Leukocyte Esterase 3+, Urine RBC (Auto) 2+, Urine RBC 2-5, Urine WBC 25-50, Urine Crystals NONE, Urine Bacteria MODERATE, Urine Casts NONE, Urine Mucus NEGATIVE, Urine Culture Indicated YES 05/18/22 03:53: White Blood Count 16.9, Red Blood Count 5.03, Hemoglobin 13.5, Hematocrit 41, Mean Corpuscular Volume 82, Mean Corpuscular Hemoglobin 27, Mean Corpuscular Hemoglobin Concent 33, Red Cell Distribution Width 14.9, Platelet Count 426, Mean Platelet Volume 9.5, Immature Granulocyte % (Auto) 1, Neutrophils (%) (Auto) 86, Lymphocytes (%) (Auto) 5, Monocytes (%) (Auto) 7, Eosinophils (%) (Auto) 1, Basophils (%) (Auto) 0, Neutrophils # (Auto) 14.6, Lymphocytes # (Auto) 0.8, Monocytes # (Auto) 1.3, Eosinophils # (Auto) 0.1, Basophils # (Auto) 0.1, Immature Granulocyte # (Auto) 0.1, Sodium Level 137, Potassium Level 4.1, Chloride Level 105, Carbon Dioxide Level 21, Anion Gap 11, Blood Urea Nitrogen 24, Creatinine 0.63, Estimat Glomerular Filtration Rate 96, BUN/Creatinine Ratio 38, Glucose Level 122, Calcium Level 9.9, Corrected Calcium 10.1, Total Bilirubin 0.6, Aspartate Amino Transf (AST/SGOT) 40, Alanine Aminotransferase (ALT/SGPT) 43, Alkaline Phosphatase 116, Total Protein 6.5, Albumin 3.7 05/19/22 06:03: White Blood Count 15.8, Red Blood Count 4.93, Hemoglobin 13.4, Hematocrit 40, Mean Corpuscular Volume 82, Mean Corpuscular Hemoglobin 27, Mean Corpuscular Hemoglobin Concent 33, Red Cell Distribution Width 15.1, Platelet Count 455, Mean Platelet Volume 9.6, Immature Granulocyte % (Auto) 1, Neutrophils (%) (Auto) 82, Lymphocytes (%) (Auto) 6, Monocytes (%) (Auto) 10, Eosinophils (%) (Auto) 1, Basophils (%) (Auto) 0, Neutrophils # (Auto) 13.0, Lymphocytes # (Auto) 1.0, Monocytes # (Auto) 1.6, Eosinophils # (Auto) 0.1, Basophils # (Auto) 0.1, Immature Granulocyte # (Auto) 0.1, Sodium Level 135, Potassium Level 4.5, Chloride Level 105, Carbon Dioxide Level 21, Anion Gap 9, Blood Urea Nitrogen 36, Creatinine 0.70, Estimat Glomerular Filtration Rate 94, BUN/Creatinine Ratio 51, Glucose Level 113, Calcium Level 10.0, Corrected Calcium 10.4, Total Bilirubin 0.7, Aspartate Amino Transf (AST/SGOT) 32, Alanine Aminotransferase (ALT/SGPT) 39, Alkaline Phosphatase 142, Total Protein 6.4, Albumin 3.5 05/20/22 04:50: White Blood Count 14.9, Red Blood Count 4.86, Hemoglobin 12.7, Hematocrit 39, Mean Corpuscular Volume 81, Mean Corpuscular Hemoglobin 26, Mean Corpuscular Hemoglobin Concent 33, Red Cell Distribution Width 14.8, Platelet Count 493, Mean Platelet Volume 9.9, Immature Granulocyte % (Auto) 1, Neutrophils (%) (Auto) 82, Lymphocytes (%) (Auto) 5, Monocytes (%) (Auto) 11, Eosinophils (%) (Auto) 1, Basophils (%) (Auto) 0, Neutrophils # (Auto) 12.3, Lymphocytes # (Auto) 0.8, Monocytes # (Auto) 1.6, Eosinophils # (Auto) 0.1, Basophils # (Auto) 0.0, Immature Granulocyte # (Auto) 0.1, Sodium Level 134, Potassium Level 4.5, Chloride Level 105, Carbon Dioxide Level 21, Anion Gap 8, Blood Urea Nitrogen 37, Creatinine 0.67, Estimat Glomerular Filtration Rate 95, BUN/Creatinine Ratio 55, Glucose Level 107, Calcium Level 9.3, Corrected Calcium 9.7, Total Bilirubin 0.4, Aspartate Amino Transf (AST/SGOT) 40, Alanine Aminotransferase (ALT/SGPT) 53, Alkaline Phosphatase 119, Total Protein 6.1, Albumin 3.5 05/21/22 05:33: White Blood Count 17.7, Red Blood Count 4.45, Hemoglobin 11.8, Hematocrit 36, Mean Corpuscular Volume 82, Mean Corpuscular Hemoglobin 27, Mean Corpuscular Hemoglobin Concent 33, Red Cell Distribution Width 14.8, Platelet Count 461, Mean Platelet Volume 9.7, Immature Granulocyte % (Auto) 1, Neutrophils (%) (Auto) 84, Lymphocytes (%) (Auto) 5, Monocytes (%) (Auto) 10, Eosinophils (%) (Auto) 1, Basophils (%) (Auto) 0, Neutrophils # (Auto) 14.9, Lymphocytes # (Auto) 0.8, Monocytes # (Auto) 1.8, Eosinophils # (Auto) 0.1, Basophils # (Auto) 0.1, Immature Granulocyte # (Auto) 0.1, Sodium Level 135, Potassium Level 4.4, Chloride Level 107, Carbon Dioxide Level 20, Anion Gap 8, Blood Urea Nitrogen 33, Creatinine 0.61, Estimat Glomerular Filtration Rate 97, BUN/Creatinine Ratio 54, Glucose Level 116, Calcium Level 9.4, Corrected Calcium 10.1, Total Bilirubin 0.5, Aspartate Amino Transf (AST/SGOT) 31, Alanine Aminotransferase (ALT/SGPT) 44, Alkaline Phosphatase 123, Total Protein 5.7, Albumin 3.1 05/22/22 05:37: White Blood Count 14.4, Red Blood Count 4.47, Hemoglobin 11.8, Hematocrit 37, Mean Corpuscular Volume 83, Mean Corpuscular Hemoglobin 26, Mean Corpuscular Hemoglobin Concent 32, Red Cell Distribution Width 14.8, Platelet Count 459, Mean Platelet Volume 10.4, Immature Granulocyte % (Auto) 1, Neutrophils (%) (Auto) 80, Lymphocytes (%) (Auto) 6, Monocytes (%) (Auto) 11, Eosinophils (%) (Auto) 2, Basophils (%) (Auto) 1, Neutrophils # (Auto) 11.6, Lymphocytes # (Auto) 0.9, Monocytes # (Auto) 1.5, Eosinophils # (Auto) 0.3, Basophils # (Auto) 0.1, Immature Granulocyte # (Auto) 0.1, Neutrophils % (Manual) 80, Lymphocytes % (Manual) 7, Monocytes % (Manual) 10, Eosinophils % (Manual) 3, Blood Morphology Comment NORMAL, Sodium Level 135, Potassium Level 4.5, Chloride Level 107, Carbon Dioxide Level 19, Anion Gap 9, Blood Urea Nitrogen 32, Creatinine 0.60, Estimat Glomerular Filtration Rate 97, BUN/Creatinine Ratio 53, Glucose Level 109, Calcium Level 9.1, Corrected Calcium 9.7, Total Bilirubin 0.3, Aspartate Amino Transf (AST/SGOT) 31, Alanine Aminotransferase (ALT/SGPT) 52, Alkaline Phosphatase 133, Total Protein 6.0, Albumin 3.2 05/23/22 05:20: White Blood Count 9.3, Red Blood Count 3.80, Hemoglobin 10.1, Hematocrit 31, Mean Corpuscular Volume 82, Mean Corpuscular Hemoglobin 27, Mean Corpuscular Hemoglobin Concent 32, Red Cell Distribution Width 14.7, Platelet Count 439, Mean Platelet Volume 10.7, Immature Granulocyte % (Auto) 1, Neutrophils (%) (Auto) 80, Lymphocytes (%) (Auto) 9, Monocytes (%) (Auto) 8, Eosinophils (%) (Auto) 2, Basophils (%) (Auto) 1, Neutrophils # (Auto) 7.4, Lymphocytes # (Auto) 0.8, Monocytes # (Auto) 0.8, Eosinophils # (Auto) 0.2, Basophils # (Auto) 0.1, Immature Granulocyte # (Auto) 0.1, Sodium Level 134, Potassium Level 4.2, Chloride Level 105, Carbon Dioxide Level 22, Anion Gap 7, Blood Urea Nitrogen 44, Creatinine 0.65, Estimat Glomerular Filtration Rate 95, BUN/Creatinine Ratio 68, Glucose Level 113, Calcium Level 9.2, Corrected Calcium 10.2, Total Bilirubin 0.3, Aspartate Amino Transf (AST/SGOT) 61, Alanine Aminotransferase (ALT/SGPT) 95, Alkaline Phosphatase 144, Total Protein 5.2, Albumin 2.8, Percent Immature Platelet Fraction 4.2 05/24/22 07:30: White Blood Count 12.5, Red Blood Count 4.81, Hemoglobin 12.6, Hematocrit 39, Mean Corpuscular Volume 80, Mean Corpuscular Hemoglobin 26, Mean Corpuscular Hemoglobin Concent 33, Red Cell Distribution Width 14.3, Platelet Count 611, Mean Platelet Volume 9.7, Immature Granulocyte % (Auto) 1, Neutrophils (%) (Auto) 76, Lymphocytes (%) (Auto) 11, Monocytes (%) (Auto) 8, Eosinophils (%) (Auto) 3, Basophils (%) (Auto) 1, Neutrophils # (Auto) 9.5, Lymphocytes # (Auto) 1.4, Monocytes # (Auto) 1.1, Eosinophils # (Auto) 0.3, Basophils # (Auto) 0.1, Immature Granulocyte # (Auto) 0.1, Sodium Level 138, Potassium Level 4.8, Chloride Level 105, Carbon Dioxide Level 21, Anion Gap 12, Blood Urea Nitrogen 39, Creatinine 0.66, Estimat Glomerular Filtration Rate 95, BUN/Creatinine Ratio 59, Glucose Level 97, Calcium Level 9.7, Corrected Calcium 10.0, Total Bilirubin 0.3, Aspartate Amino Transf (AST/SGOT) 54, Alanine Aminotransferase (ALT/SGPT) 104, Alkaline Phosphatase 165, Total Protein 6.6, Albumin 3.6 Discharge Home Medications: Active Scripts Active Morphine Conc. 20mg/ml (Morphine Sulfate) 100 Mg/5 Ml (20 Mg/Ml) Solution 10 Mg PO Q2H PRN Lorazepam Intensol (Lorazepam) 2 Mg/Ml Oral.conc 1 Mg PO Q2H PRN Ativan (Lorazepam) 1 Mg Tablet 1 Mg PO Q4H PRN Senna Lax (Sennosides) 8.6 Mg Tablet 8.6 Mg PO BID Olanzapine Odt (Olanzapine) 5 Mg Tab.rapdis 5 Mg PO BID Acetaminophen 325 Mg Tablet 650 Mg PO Q4H PRN Oxyir Tablet (Oxycodone HCl) 5 Mg Tab 5 Mg PO Q4H Enoxaparin Sodium 40 Mg/0.4 Ml Syringe 40 Mg SC DAILY Meloxicam 15 Mg Tablet 15 Mg PO BID Mirtazapine 15 Mg Tablet 30 Mg PO HS TAKES 2 (15MG) TABS Losartan Potassium 50 Mg Tablet 50 Mg PO BID Instructions to patient/family Please see electronic discharge instructions given to patient. REGINALD CHRIS DO May 26, 2022 10:41
--- NOTE | 2022-05-26 11:35 | Occ Therapy Progress Note ---
Therapy Progress Note OT discontinue services this date d/t patient discharge from hospital and pending comfort care vs SNF SLOANE CRUZ OT May 26, 2022 11:35
[2022-05-26 12:59] VITALS: BP 73/48
== END 2022-05-26 15:25 | DRG 92 ==
LOC: 4TH 18:34 → ICU 05-14 12:02 → 4TH 05-18 11:13
PROVIDERS: ADMIT Internal Medicine; ATTEND Internal Medicine
DX: G92.8 Other toxic encephalopathy (principal); E87.1 Hypo-osmolality and hyponatremia; T83.518A Infection and inflammatory reaction due to other urinary catheter, initial encounter; N39.0 Urinary tract infection, site not specified; F11.23 Opioid dependence with withdrawal; L03.116 Cellulitis of left lower limb; M48.56XA Collapsed vertebra, not elsewhere classified, lumbar region, initial encounter for fracture; F19.939 Other psychoactive substance use, unspecified with withdrawal, unspecified; E87.3 Alkalosis; K50.90 Crohn's disease, unspecified, without complications; G89.29 Other chronic pain; M54.50 Low back pain, unspecified; I10 Essential (primary) hypertension; G47.33 Obstructive sleep apnea (adult) (pediatric); Z66 Do not resuscitate; F03.90 Unspecified dementia, unspecified severity, without behavioral disturbance, psychotic disturbance, mood disturbance, and anxiety; E78.5 Hyperlipidemia, unspecified; G47.30 Sleep apnea, unspecified; F41.9 Anxiety disorder, unspecified; E87.6 Hypokalemia; R73.03 Prediabetes; M19.90 Unspecified osteoarthritis, unspecified site; D72.829 Elevated white blood cell count, unspecified; I95.9 Hypotension, unspecified; R10.9 Unspecified abdominal pain; Z98.1 Arthrodesis status; B96.20 Unspecified Escherichia coli [E. coli] as the cause of diseases classified elsewhere
CPT/HCPCS: 36415; 70450; 71045; 74019; 80053; 81000; 82140; 82805; 83605; 83735; 84100; 84443; 85007; 85025; 85027; 85652; 86141; 87077; 87081; 87088; 87186; 93005; 93880; 94664